=== PATIENT | female | born 1975 | race Hispanic/Latino ===

== ENCOUNTER 2019-12-01 13:12 | Emergency (ER) | payer OTHER ==
[~2019-12-01] VITALS: Ht 170.2 cm; Wt 56.7 kg
[2019-12-01 13:12] VITALS: BP_SYST 118; BP_SYST 128; BP_DIAS 104; BP_DIAS 112
--- NOTE | 2019-12-01 13:25 | NUR ---
FOAMING MACHINE OPERATOR NILTON JAMIL SPOKE TO ANASTACIO EASTMAN. ANASTACIO IS AT BEDSIDE TO VISIT WITH PT.
--- NOTE | 2019-12-01 13:30 | NUR ---
STATUS PT REFUSING FOR ANY MALES TO COME INTO ROOM. INFORMED THAT DR HAWKINS IS A MALE AND HE CAN NOT TREAT UNLESS HE ASSESSES PT. SHE STATES UNDERSTANDING.
[2019-12-01 14:15] VITALS: BP 128/95
--- NOTE | 2019-12-01 14:15 | NUR ---
[facility] JAREN CHARLES IN WITH PATIENT.
[2019-12-01 15:15] VITALS: BP 122/90
--- NOTE | 2019-12-01 15:25 | NUR ---
[facility] CALL TO [facility] HOTLINE.
--- NOTE | 2019-12-01 16:00 | NUR ---
[facility] DELMAR FROM [facility] PHONED FOR INTERVIEW WITH PT. PHONE TAKEN TO PT. PT IS PLEASANT, NO TREMORS NOTED, NOT TEARFUL AT THIS TIME.
[2019-12-01 16:21] VITALS: BP 108/88
--- NOTE | 2019-12-01 17:16 | NUR ---
[facility] DELMAR FROM [facility] HAS CALLED BACK AND SAID PT IS OK TO GO HOME ON A PLAN THAT THEY HAVE DISCUSSED.
--- NOTE | 2019-12-01 17:18 | NUR ---
STATUS SPOKE WITH PT, SHE CONTINUES TO NOT WANT TO BE SEEN BY EDP. HAVE VOICED THIS TO EDP. AWAITING EMAIL FROM TP.
== END 2019-12-01 17:55 ==
LOC: ER 13:12
DX: F41.9 Anxiety disorder, unspecified (principal); Z53.21 Procedure and treatment not carried out due to patient leaving prior to being seen by health care provider
CPT/HCPCS: 99281

== ENCOUNTER 2019-12-30 12:49 | Observation (INO) | payer OTHER ==
[~2019-12-30] VITALS: Ht 172.7 cm; Wt 49.9 kg
[2019-12-30 13:47] VITALS: BP 169/124
[2019-12-30 13:58] LABS: BASOPHIL # 0.1 10^3/uL (0.0-0.1); BASOPHIL % 0.9 % (0.0-0.2); EOSINOPHIL # 0.1 10^3/uL (0.0-0.2); EOSINOPHIL % 0.5 % (0.0-5.0); LYMPHOCYTES # 2.21 10^3/uL1 (1.0-4.8); LYMPHOCYTES % 17.1 % (24.0-44.0); MEAN CORP HGB 33.4 pg (26-34); MONOCYTES # 0.6 10^3/uL (0.3-0.8); MONOCYTES % 4.6 % (5.0-12.0); NEUTROPHIL # 9.9 10^3/uL (1.8-7.7); NEUTROPHILS % 76.7 % (41.0-85.0); PLATELET COUNT 345 10^3/uL (150-400); RED CELL DISTRIBUTION WIDTH 12.1 % (11.5-14.5)
[2019-12-30 14:06] LABS: APPEARANCE,URINE CLEAR (CLEAR); BILIRUBIN,URINE SMALL MG/DL (NEGATIVE); UA COLOR YELLOW (YELLOW)
[2019-12-30 14:07] LABS: UROBILINOGEN,URINE NORMAL (NEGATIVE)
[2019-12-30] MEDS ORDERED: ATIVAN IV STA (14:20)
[2019-12-30] MEDS ORDERED: TORADOL IV STA (14:20)
[2019-12-30 14:22] LABS: CALCIUM 9.9 mg/dL (8.4-10.5); CARBON DIOXIDE 24.2 mmol/L (20.0-32)
--- NOTE | 2019-12-30 14:22 | ER.PDOC ---
General Chief Complaint: Abdomen Pain Stated Complaint: ABD PAIN/NAUSEA/FEMALE Time seen by MD: 14:17 Source: patient Exam Limitations: no limitations History of Present Illness Initial Comments Patient c/o 2 days left flank pain radiating to LLQ Severity/Quality: severe, aching, sharpness, stabbing Radiation: LLQ Associated Symptoms: back pain Allergies: Coded Allergies: Opioids-Meperidine and Related (Verified Allergy, Unknown, unk, 12/01/19) Penicillins (Verified Allergy, Unknown, unk, 12/01/19) Sulfa (Sulfonamide Antibiotics) (Verified Allergy, Unknown, unk, 12/01/19) Vital Signs First Vital Signs Date Time Temp Pulse Resp B/P (MAP) Pulse Ox O2 Delivery O2 Flow Rate FiO2 12/30/19 13:47 97.0 132 20 169/124 (139) 100 Room Air Last Vital Signs Date Time Temp Pulse Resp B/P (MAP) Pulse Ox O2 Delivery O2 Flow Rate FiO2 12/30/19 13:47 97.0 132 20 100 12/30/19 13:47 169/124 (139) Room Air Past Medical History Medical History: other (recurrent kidney stones requiring surgical intervention) Surgical History: other (multiple interventions for kidney stones) Family History Significant Family History: no pertinent family hx Social History Smoking: non-smoker Alcohol Use: none Drug Use: none Constitutional: no symptoms reported EENTM: no symptoms reported Respiratory: no symptoms reported Cardiovascular: no symptoms reported Gastrointestinal: no symptoms reported Genitourinary: flank pain Musculoskeletal: no symptoms reported Skin: no symptoms reported Psychiatric/Neurological: no symptoms reported All Other Systems: Reviewed and Negative Physical Exam General Appearance: Mild Distress (appears acutely uncomfortable) HEENT: PERRL/EOMI, Normal ENT Inspection Neck: Non-Tender, Supple Respiratory: lungs clear, normal breath sounds, no respiratory distress, no accessory muscle use Cardiovascular: Regular Rate, Rhythm, No Murmur Gastrointestinal: Normal Bowel Sounds, Non Tender Back: CVA Tenderness (L) Extremities: Non-Tender, Normal Inspection, No Pedal Edema, No Calf Tenderness Neurologic/Psychiatric: Alert, Normal Mood/Affect, Oriented x 3 Skin: Normal Color, Warm/Dry Results/Orders Results/Orders Orders - LEONELA SRIVASTAVA DO Cbc With Auto Diff (12/30/19 13:51) Comprehensive Metabolic Panel (12/30/19 13:51) PT (12/30/19 13:51) Partial Thromboplastin Time. (12/30/19 13:51) Urinalysis (12/30/19 13:51) Hcg, Quantitative (12/30/19 13:51) Ct Abd/Pelvis Wo Iv Contrast (12/30/19 13:51) Urine Culture (12/30/19 13:24) Ketorolac Tromethamine (Toradol) (12/30/19 14:20) Lorazepam (Ativan) (12/30/19 14:20) Levofloxacin 500mg/D5w 100ml (Levaquin) (12/30/19 15:19) Diphenhydramine Hcl (Benadryl) (12/30/19 15:19) Dexamethasone Sodium Phosphate (Decadron (12/30/19 15:19) Fentanyl Citrate/Pf (Sublimaze) (12/30/19 15:19) 0.9 % Sodium Chloride (Ns 1000ml) (12/30/19 15:30) Vital Signs Date Time Temp Pulse Resp B/P (MAP) Pulse Ox O2 Delivery O2 Flow Rate FiO2 12/30/19 13:47 97.0 132 20 100 12/30/19 13:47 97.0 132 20 12/30/19 13:47 97.0 132 20 169/124 (139) 100 Room Air Administered Medications Medications (Trade) Dose Ordered Sig/Luis Route PRN Reason Start Time Stop Time Status Last Admin Dose Admin Ketorolac Tromethamine (Toradol) 30 mg STAT STAT IV 12/30/19 14:20 12/30/19 14:21 UNV 12/30/19 14:37 30 MG Lorazepam (Ativan) 1 mg STAT STAT IV 12/30/19 14:20 12/30/19 14:21 UNV 12/30/19 14:37 1 MG Laboratory Tests Test 12/30/19 13:24 12/30/19 13:48 Urine Collection Type UNKNOWN Urine Color YELLOW (YELLOW) Urine Appearance CLEAR (CLEAR) Urine Bilirubin SMALL MG/DL (NEGATIVE) Urine Ictotest NEGATIVE (NEGATIVE) Urine Ketones TRACE (NEGATIVE) Urine Specific [place] >1.030 (1.005-1.035) Urine pH 5.5 (5.0-6.0) Urine Protein 30 mg/dL (NEGATIVE) H Urine Urobilinogen NORMAL (NEGATIVE) Urine Nitrate NEGATIVE (NEGATIVE) Urine Leukocyte Esterase 25 /uL TRACE (NEGATIVE) Urine Blood LARGE (NEGATIVE) Urine RBC 5-10 RBC/HPF (NONE SEEN) H Urine WBC 0-2 WBC/HPF (0-2) Urine Squamous Epithelial Cells RARE #/HPF (FEW) Urine Bacteria RARE (NONE SEEN) Urine Glucose NORMAL (NEGATIVE) White Blood Count 12.9 10^3/uL (4.5-11.0) H Red Blood Count 4.76 10^6/uL (4.00-5.20) Hemoglobin 15.9 g/dL (12.0-15.0) H Hematocrit 46.0 % (36.0-46.0) Mean Corpuscular Volume 96.6 fL (78-100) Mean Corpuscular Hemoglobin 33.4 pg (26-34) Mean Corpuscular Hemoglobin Concent 34.6 g/dL (33-36.5) Red Cell Distribution Width 12.1 % (11.5-14.5) Platelet Count 345 10^3/uL (150-400) Mean Platelet Volume 9.1 fL (7.8-11.0) Neutrophils (%) (Auto) 76.7 % (41.0-85.0) Lymphocytes (%) (Auto) 17.1 % (24.0-44.0) L Monocytes (%) (Auto) 4.6 % (5.0-12.0) L Neutrophils # (Auto) 9.9 10^3/uL (1.8-7.7) H Lymphocytes # (Auto) 2.21 10^3/uL1 (1.0-4.8) Monocytes # (Auto) 0.6 10^3/uL (0.3-0.8) Absolute Immature Granulocyte (auto 0.02 10^3 u/L (0-2) Absolute Eosinophils (auto) 0.1 10^3/uL (0.0-0.2) Immature Granulocytes % 0.20 % (0.00-0.50) Eosinophils % 0.5 % (0.0-5.0) Basophils % 0.9 % (0.0-0.2) H Basophils # 0.1 10^3/uL (0.0-0.1) Prothrombin Time 11.6 SEC (9.3-11.3) H Prothrombin Time INR (Non-Therap) 1.1 Activated Partial Thromboplast Time 27.3 SEC (24.67-30.72) Sodium Level 138 mmol/L (132-145) Potassium Level 5.1 mmol/L (3.6-5.2) Chloride Level 104.0 mmol/L (96-109) Carbon Dioxide Level 24.2 mmol/L (20.0-32) Anion Gap 14.9 Blood Urea Nitrogen 13 mg/dL (7-18) Creatinine 1.21 mg/dL (0.59-1.40) Estimated GFR () 58.8 (>/=60) Est GFR (CKD-EPI)(Non-Afr Chinese) 48.6 (>/=60) BUN/Creatinine Ratio 10.0 Glucose Level 125 mg/dL (70-110) H Calcium Level 9.9 mg/dL (8.4-10.5) Total Bilirubin 0.8 mg/dL (0.2-1.0) Aspartate Amino Transferase (AST) 34 U/L (0-35) Alanine Aminotransferase (ALT) 14 U/L (12-78) Alkaline Phosphatase 60 U/L (50-136) Total Protein 8.7 g/dL (6.4-8.2) H Albumin 4.4 g/dL (3.4-5.0) Globulin 4.3 Albumin/Globulin Ratio 1.023 Human Chorionic Gonadotropin, Quant 8 mIU/mL EKG/XRAY/CT/US CT Comments: two distal ureteric stones 5mm with mod/severe hydroureteronephrosis L Consult/PCP Time Consult/PCP Called: 15:17 Consult/PCP: Dr. Beltran Reason/Comments: left message with office for callback #2 Time Consult/PCP Called: 15:20 Consult/PCP: Dr. Beltran Reason/Comments: admit to hospitalist; surgery in am #3 Time Consult/PCP Called: 15:25 Consult/PCP: Dr. Senior Reason/Comments: admit ER DEPART Departure Time of Disposition: 15:25 Disposition: 09 ADMITTED INPATIENT Impression: Primary Impression: Ureteral obstruction, left Additional Impressions: Ureteral calculi Hydroureteronephrosis Condition: Improved Referrals: PCP,UNKNOWN (PCP) PRIMARY CARE PROVIDER Duration or Time Spent with Pa: 20 min Problem Qualifiers LEONELA SRIVASTAVA DO Dec 30, 2019 14:22
--- NOTE | 2019-12-30 14:35 | DIREP ---
This report includes an Addendum and supersedes previous reports for this exam. PROCEDURE:CT ABDOMEN/PELVIS W/O CONTRAST COMPARISON:None. INDICATIONS:KIDNEY PAIN TECHNIQUE:Axial images were created through the abdomen and pelvis without intravenous contrast material. No oral contrast was administered. Sagittal and coronal reconstructions were performed from source images. The study was reviewed on abdominal, lung, liver and bone windows. FINDINGS: LUNG BASES:Normal. No visible pulmonary or pleural disease. The lung bases are clear. No ground-glass infiltrates are seen to suggest viral pneumonitis. No air bronchograms or effusions are seen. LIVER:Note is made of a low-density lesion in the right lobe of the liver, close to the diaphragm as seen on image number 9, series 2, measuring approximately 2.1 x 1.8 cm in size. A follow-up hepatic sonogram is recommended. BILIARY:Normal. No visible dilatation or calcification. PANCREAS:Normal. No lesion, fluid collection, ductal dilatation, or atrophy. SPLEEN:Normal. No enlargement or focal lesion. ADRENALS:Normal. No mass or enlargement. URINARY TRACT:There are at least 2 stones identified in the distal pelvic segment of the left ureter, proximal to the left UVJ. The are best identified on images number 95 through 100. The stones measure about 5 x 4 and 5 mm in size respectively. Moderate to severe left-sided hydronephrosis and hydroureter. There are additional nonobstructing left renal stones seen in the upper and lower pole of the left kidney. Small calcifications also seen in the inferior pole of the right kidney. The right kidney is slightly lower as compared to the left kidney. AORTA/VASCULAR:Normal. No aneurysm. RETROPERITONEUM:Normal. No mass or adenopathy. BOWEL/MESENTERY:Normal. There is no intestinal obstruction, free fluid, free air or mesenteric inflammatory changes. The appendix is visualized on coronal image number 58, sagittal image number 40 and transaxial image number 101. No pericecal inflammatory changes are seen. No diverticulitis, free air or free fluid is seen. Stomach is distended with air-fluid level. No small bowel obstruction is seen. No free air or free fluid is identified. ABDOMINAL WALL:Normal. No mass or hernia. Midline incision noted in the lower abdomen, PELVIC ORGANS:The uterus appears to be anteverted. No adnexal masses are seen BONES:Normal for age. No bony lesion or acute fracture. OTHER:Negative. CONCLUSION: There are 2 distal pelvic segment ureteric stone seen averaging about 5 mm in size with moderate to severe left-sided hydronephrosis and hydroureter. Two renal stones on the left side and at least 1, possibly 2 renal stones, in the right kidney without evidence for obstruction to the right kidney. No ground-glass infiltrates in the lungs. No evidence for cholelithiasis, cholecystitis or pancreatitis. Appendix has been visualized. No acute appendicitis, diverticulitis, free air or free fluid is seen. Mild constipation. Dictated by: Jake Castro MD on 12/30/2019 at 02:28 PM NDUM: A low-density lesion identified in the right lobe of the liver, close to the diaphragm, dimensions as above. Recommend a follow-up hepatic sonogram. - RM. Dictated by: Jake Castro MD on 12/30/2019 at 02:36 PM
[2019-12-30] MEDS ORDERED: DEXAMETHASONE 10 MG/ML VIAL IV STA (15:19)
[2019-12-30] MEDS ORDERED: DECADRON IV STA (15:19)
[2019-12-30] MEDS ORDERED: SUBLIMAZE IV STA (15:19)
[2019-12-30] MEDS ORDERED: LEVAQUIN 100 ML IV STA (15:19)
[2019-12-30] MEDS ORDERED: BENADRYL IV STA (15:19)
--- NOTE | 2019-12-30 15:32 | NUR ---
DR ANGELA SRIVASTAVA ON THE PHONE WITH DR MILLER WHO ACCEPTED THE PT.
[2019-12-30] MEDS ORDERED: NS 1000ML 1,000 ML ONE (15:34)
[2019-12-30] MEDS: NS 1000ML 1,000 ML IV SCH ×2 (15:35→23:08)
--- NOTE | 2019-12-30 16:20 | NUR ---
CASING IN LINE SETTER CASING IN LINE SETTER HERE TO SEE PATIENT
[2019-12-30 16:56] VITALS: BP 152/100
--- NOTE | 2019-12-30 17:24 | PCM.HP ---
History of Present Illness Reason for Visit: (1) Ureteral calculi ICD Code: N20.1 - Calculus of ureter SNOMED: 99222947 Was this Problem Present on Ad: Yes-DX present @time ofIP (2) Hydroureteronephrosis ICD Code: N13.30 - Unspecified hydronephrosis SNOMED: 15567420 Was this Problem Present on Ad: Yes-DX present @time ofIP Hx of Present Illness 44-year-old female presented to [facility] with complaints of left flank pain radiating to abdomen on the left sideWhich has been ongoing for the last 3 days increasing in intensity patient describes brown/red urine. Patient also has associated symptoms of nausea and vomiting as well as diarrhea x2 days denies fever. Patient medical history includes PTSD specifically with males, tobacco use disorder half a pack a day, previous nephrolithiasis. 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 Urology was consulted much appreciated planned procedure in a.m. Past Medical History PMH-Psych: (1) PTSD (post-traumatic stress disorder) Status: Chronic ICD Code: F43.10 - Post-traumatic stress disorder, unspecified SNOMED: 46947446 Psychiatric: Anxiety PMH-Renal/: (1) Ureteral calculi Status: Resolved ICD Code: N20.1 - Calculus of ureter SNOMED: 63655120 Past Social History Past Social Hx:Smoke: (1) Tobacco use disorder Status: Chronic Smoke: <1 pack per day ICD Code: F17.200 - Nicotine dependence, unspecified, uncomplicated SNOMED: 672035492 Travel History EBOLA RISK:Travel to/contact w: No Is pt experiencing any Ebola s: No Review of Systems Eyes: No: Pain, Vision change, Conjunctivae inflammation, Eyelid inflammation, Other, Redness ENT: No: Ear pain, Ear discharge, Nose pain, Nose discharge, Nose congestion, Mouth pain, Mouth swelling, Throat pain, Throat swelling, Other Respiratory: No: Cough, Dry, Shortness of breath, SOB with excertion, Wheezing, Hemoptysis, Pleuritic Pain, Sputum, Wheezing, Other Cardiovascular: No: Chest Pain, Palpitations, Orthopnea, Paroxysmal Noc. Dyspnea, Edema, Lt Headedness, Other Gastrointestinal: Nausea, Vomiting, Abdominal Pain, Diarrhea, Other (Left flank pain) Genitourinary: Dysuria, Frequency; No Incontinence; Hematuria; No Retention, No Other Musculoskeletal: No: other, neck pain, shoulder pain, arm pain, back pain, hand pain, leg pain, foot pain Skin: No: Rash, Lesions, Jaundice, Bruising, Other Neurological: No: Weakness, Numbness, Incoordination, Change in speech, Confusion, Seizures, Other Other Patient anxious with male provider Allergies: Coded Allergies: Opioids-Meperidine and Related (Verified Allergy, Unknown, unk, 12/01/19) Penicillins (Verified Allergy, Unknown, unk, 12/01/19) Sulfa (Sulfonamide Antibiotics) (Verified Allergy, Unknown, unk, 12/01/19) VTE VTE Risk assessment 2 VTE Risk Score VTE Risk: Score 0-1 = Low Risk (Aggressive mobilization; early ambulation; no VTE prophylaxis required) Score 2: Moderate Risk (Intermittent/Pneumatic Compression Device OR Lovenox/Heparin/Coumadin) Score 3-4: High Risk (Intermittent/Pneumatic Compression Device AND Lovenox/Heparin/Coumadin) Score > or =5: Highest Risk (Intermittent/Pneumatic Compression Device AND Lovenox/Heparin/Coumadin) Antico:Hep/LMWH/Coum/Xarelto: No Mechanical device ordered: Yes Reasons not ordering prophylax: Surgical Contraindication Exam Vital Signs Vital Signs Date Time Temp Pulse Resp B/P (MAP) Pulse Ox O2 Delivery O2 Flow Rate FiO2 12/30/19 16:56 97.0 112 20 152/100 (117) 100 Room Air General Appearance: Alert, Oriented X3, Cooperative, No acute distress HEENT: Atraumatic, PERRLA, EOMI, Mucous membr. moist/pink Respiratory: Clear to auscultation, Normal air movement Cardiovascular: Regular rate, Normal S1, Normal S2, No murmurs Abdominal: Normal bowel sounds, Soft, Other (Tenderness from left flank to left side of umbilicus) Extremities: No clubbing, No cyanosis, No edema, Normal pulses Skin: No rash, No breakdown, No lesions Neuro: Normal speech, Normal tone, Sensation intact, Cranial nerves 3-12 NL Psych/Mental Status: Mental status NL, Other (Anxiety) Assessment/Plan Assessment/Plan Assessment/Plan 44-year-old female presented to [facility] with medical history PTSD, previous kidney stones and tobacco use denies drugs and alcohol. Patient symptoms initiated 3 days ago with faint left flank pain that continues to increase she rates 8 out of 10 pain sharp and stabbing with radiation to left abdomen.Renal Function remains unremarkable. CT scan revealed 2 distal ureter stones 5 mm in size with hydroureter And hydronephrosis. Urology has been consulted much appreciated planned procedure in a.m. Noted 2 stones on the right side on the CT scan however no obstruction.CT also determined a low-density lesion identified in the right lobe of the liver, close to the diaphragm, dimensions as above. Recommend a follow-up hepatic sonogram As an outpatient. Ureterolithiasis With Hydroureter and Hydronephrosis Urology has been consulted much appreciated planned procedure in a.m. with cysto scopy N.p.o. Will initiate ceftriaxone IV fluid Flomax Chronic illnesses: PTSD/Anxiety Continue home medications Ativan PRN and 1 hour before procedure Tobacco use disorder Counseled the patient on tobacco cessation will utilize patch every 24 hours LUIS HUGHES NP Dec 30, 2019 17:24
[2019-12-30] MEDS ORDERED: FLOMAX PO STA ×2 (17:34→21:58)
[2019-12-30] MEDS ORDERED: NICOTINE 14MG PATCH TD STA ×2 (17:44→21:59)
[2019-12-30] MEDS ORDERED: ULTRAM PO PRN (19:30)
[2019-12-30] MEDS ORDERED: REMERON PO SCH (21:00)
[2019-12-30] MEDS: MORPHINE SULFATE IV PRN (22:00)
[2019-12-30] MEDS: BENADRYL IV PRN (22:00)
[2019-12-30] MEDS: ATIVAN IV PRN (22:00)
[2019-12-30] MEDS ORDERED: DEXAMETHASONE 10 MG/ML VIAL ONE (22:25)
[2019-12-30] MEDS: DITROPAN PO SCH (22:51)
[2019-12-30 23:14] VITALS: BP 160/100
--- NOTE | 2019-12-31 02:45 | DIREP ---
PROCEDURE:CHEST 1 VIEW COMPARISON:[facility], CT, CT ABD/PELVIS W/O, 12/30/2019, 02:17 PM. INDICATIONS:Pre op FINDINGS: LUNGS/PLEURA:No significant pulmonary parenchymal abnormalities. No effusions. VASCULATURE:Normal. Unremarkable pulmonary vasculature. CARDIAC:Normal. No cardiac silhouette abnormality or cardiomegaly. MEDIASTINUM:Normal. No visible mass or adenopathy. BONES:Normal. No fracture or visible bony lesion. OTHER:Negative. CONCLUSION:No active cardiopulmonary disease. Dictated by: Jeremiah Chavarria M.D. on 12/31/2019 at 02:42 AM
[2019-12-31] MEDS: MORPHINE SULFATE IV PRN ×2 (04:18→09:52)
[2019-12-31] MEDS: BENADRYL IV PRN ×2 (04:19→09:51)
[2019-12-31] MEDS ORDERED: ZOFRAN ONE (05:20)
[2019-12-31] MEDS ORDERED: LOPRESSER ONE (05:23)
[2019-12-31 06:52] LABS: BASOPHIL % 0.1 % (0.0-0.2); LYMPHOCYTES # 0.82 10^3/uL1 (1.0-4.8); LYMPHOCYTES % 7.1 % (24.0-44.0); MEAN CORP HGB 33.6 pg (26-34); MONOCYTES # 0.5 10^3/uL (0.3-0.8); MONOCYTES % 4.2 % (5.0-12.0); NEUTROPHIL # 10.1 10^3/uL (1.8-7.7); NEUTROPHILS % 88.3 % (41.0-85.0); PLATELET COUNT 320 10^3/uL (150-400); RED CELL DISTRIBUTION WIDTH 12.1 % (11.5-14.5)
[2019-12-31 07:19] LABS: CARBON DIOXIDE 22.6 mmol/L (20.0-32)
[2019-12-31] MEDS: NS 1000ML 1,000 ML IV SCH (07:30)
--- NOTE | 2019-12-31 08:21 | PCM.EKG ---
[facility] Test Date: 2019-12-31 Test Time: 08:17:22 Pat Name: IGNACIO DENNEY Department: Patient ID: [id number] Room: 234 B Gender: F Power Originator: JENNA : 1975 Requested By: LUIS HUGHES Order Number: [id number] Reading MD: Gordon Simpson Measurements Intervals [place] Rate: 65 P: 82 WY: 118 QRS: 38 QRSD: 98 T: 61 QT: 436 QTc: 454 Interpretive Statements Sinus rhythm Borderline short [place] interval RSR' in V1 or V2, probably normal variant No previous ECG available for comparison Electronically Signed On 01-06-2020 17:36:39 VACUUM FRAME OPERATOR by Gordon Tatiana Please click the below link to view image of tracing.
--- NOTE | 2019-12-31 08:30 | NUR ---
DISCHARGE UPDATE CM SPOKE WITH PT AT BEDSIDE. SHE WAS NOT WILLING TO GIVE PERSONAL INFORMATION ABOUT WHERE SHE WAS STAYING OR HER PERSONAL HISTORY. 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 I DO NOT WANT TO BE ALONE WITH A MALE IN THE ROOM AT ANY TIME. IT AFFECTS MY PTSD." CM NOTIFIED NURSING AND LUIS GRANTS ADMINISTRATOR OF PT'S REQUEST.
[2019-12-31] MEDS ORDERED: NICOTINE 14MG PATCH TD SCH (09:00)
[2019-12-31] MEDS: DITROPAN PO SCH (09:00)
[2019-12-31] MEDS ORDERED: FLOMAX PO SCH (09:00)
[2019-12-31 09:45] VITALS: BP 143/76
[2019-12-31] MEDS: ATIVAN IV PRN (09:53)
[2019-12-31] MEDS ORDERED: TORADOL IV ONE (11:00)
[2019-12-31] MEDS ORDERED: ROCEPHIN 1,000 MG in NS 100ML 100 ML IV ONE (11:00)
[2019-12-31] MEDS ORDERED: ROCEPHIN IM ONE (11:30)
[2019-12-31] MEDS ORDERED: TRAM50TA PO (12:59)
[2019-12-31] MEDS ORDERED: TAMS-14 PO (13:11)
[2019-12-31] MEDS ORDERED: CIPR500T86 PO (13:12)
--- NOTE | 2019-12-31 13:58 | PRM.DC ---
Subjective Subjective Date of Discharge: Dec 31, 2019 Time of Request to Discharge: 13:51 Subjective No acute events overnight, vital signs stable patient did pass 2 kidney stones. Urology recommend discharge with antibiotics Flomax and is well as pain control with tramadol. Follow-up with PCP and neurology within 1 week. Constitutional: denies no symptoms reported, denies see HPI, denies chills, denies diaphoresis, denies fever, denies malaise, denies weakness, denies other EENTM: denies no symptoms reported, denies see HPI, denies eye pain, denies blurred vision, denies tearing, denies double vision, denies ear pain, denies ear discharge, denies nose pain, denies nose congestion, denies throat pain, denies throat swelling, denies mouth pain, denies mouth swelling, denies other Respiratory: denies no symptoms reported, denies see HPI, denies cough, denies orthopnea, denies shortness of breath, denies SOB with exertion, denies SOB at rest, denies stridor, denies wheezing, denies other Cardiovascular: denies no symptoms reported, denies see HPI, denies chest pain, denies edema, denies irregular heart rate, denies lightheadedness, denies palpitations, denies syncope, denies other ABD/GI (ROS): denies no symptoms reported, denies see HPI, denies abdomen distended, denies abdominal pain, denies blood streaked bowels, denies constipated, denies diarrhea, denies difficulty swallowing, denies nausea, denies poor appetite, denies poor fluid intake, denies rectal bleeding, denies vomiting, denies other Genitourinary: see HPI, dysuria, flank pain Musculoskeletal: denies no symptoms reported, denies see HPI, denies back pain, denies gout, denies joint pain, denies joint swelling, denies muscle pain, denies muscle stiffness, denies neck pain, denies other Skin: denies no symptoms reported, denies see HPI, denies change in color, denies change in hair/nails, denies dryness, denies lesions, denies lumps, denies rash, denies other Psychiatric/Neurological: denies no symptoms reported, denies see HPI, denies anxiety, denies depressed, denies emotional problems, denies headache, denies numbness, denies paresthesia, denies pre-existing deficit, denies seizure, denies tingling, denies tremors, denies weakness, denies other Endocrine: denies no symptoms reported, denies see HPI, denies excessive sweating, denies flushing, denies intolerance to cold, denies intolerance to heat, denies increased hunger, denies increased thrist, denies increased urine, denies unexplained weight gain, denies unexplaned weight loss, denies other Hematologic/Lymphatic: denies no symptoms reported, denies see HPI, denies anemia, denies blood clots, denies easy bleeding, denies easy bruising, denies swollen glands, denies other All Other Systems: Reviewed and Negative Exam Vital Signs Vital Signs Date Time Temp Pulse Resp B/P (MAP) Pulse Ox O2 Delivery O2 Flow Rate FiO2 12/31/19 09:58 18 100 12/31/19 03:25 Room Air 12/30/19 23:14 97.3 62 160/100 (120) General Appearance: Alert, Oriented X3, Cooperative, No acute distress HEENT: Atraumatic, PERRLA, EOMI Respiratory: Clear to auscultation, Normal air movement Cardiovascular: Regular rate, Normal S1, Normal S2 Abdominal: Normal bowel sounds, Soft, Other (Left flank and abdomen) Extremities: No clubbing, No cyanosis Neuro: Normal speech Psych/Mental Status: Mood NL VTE VTE Risk Score VTE Risk: Score 0-1 = Low Risk (Aggressive mobilization; early ambulation; no VTE prophylaxis required) Score 2: Moderate Risk (Intermittent/Pneumatic Compression Device OR Lovenox/Heparin/Coumadin) Score 3-4: High Risk (Intermittent/Pneumatic Compression Device AND Lovenox/Heparin/Coumadin) Score > or =5: Highest Risk (Intermittent/Pneumatic Compression Device AND Lovenox/Heparin/Coumadin) Antico:Hep/LMWH/Coum/Xarelto: No Mechanical device ordered: Yes Reasons not ordering prophylax: Surgical Contraindication Objective Vitals and I/O Vital Sign - Last 24 Hours 12/30/19 12/30/19 12/31/19 12/31/19 16:56 23:14 03:25 09:58 Temp 97.0 97.3 Pulse 112 62 Resp 18 18 B/P (MAP) 152/100 (117) 160/100 (120) Pulse Ox 100 100 100 O2 Delivery Room Air Room Air Room Air Intake and Output 12/31/19 06:59 Intake Total 860 ml Balance 860 ml General: Alert, Oriented X3, Cooperative, No acute distress HEENT: Atraumatic, PERRLA, EOMI, Mucous membr. moist/pink Lungs: Clear to auscultation, Normal air movement Heart: Regular rate, Normal S1, Normal S2, No murmurs Abdomen: Normal bowel sounds, Soft, Other (Tenderness from left flank to left side of umbilicus) Extremities: No clubbing, No cyanosis, No edema, Normal pulses Neuro: Normal speech, Normal tone, Sensation intact, Cranial nerves 3-12 NL Psych/Mental Status: Mental status NL, Other (Anxiety) All Results(Lab/Rad) Laboratory Tests Test 12/31/19 05:53 White Blood Count 11.5 10^3/uL Red Blood Count 4.22 10^6/uL Hemoglobin 14.2 g/dL Hematocrit 41.6 % Mean Corpuscular Volume 98.6 fL Mean Corpuscular Hemoglobin 33.6 pg Mean Corpuscular Hemoglobin Concent 34.1 g/dL Red Cell Distribution Width 12.1 % Platelet Count 320 10^3/uL Mean Platelet Volume 10.1 fL Neutrophils (%) (Auto) 88.3 % Lymphocytes (%) (Auto) 7.1 % Monocytes (%) (Auto) 4.2 % Neutrophils # (Auto) 10.1 10^3/uL Lymphocytes # (Auto) 0.82 10^3/uL1 Monocytes # (Auto) 0.5 10^3/uL Absolute Immature Granulocyte (auto 0.04 10^3 u/L Absolute Eosinophils (auto) 0.0 10^3/uL Immature Granulocytes % 0.30 % Eosinophils % 0.0 % Basophils % 0.1 % Basophils # 0.0 10^3/uL Sodium Level 139 mmol/L Potassium Level 5.1 mmol/L Chloride Level 107.0 mmol/L Carbon Dioxide Level 22.6 mmol/L Anion Gap 14.5 Blood Urea Nitrogen 14 mg/dL Creatinine 1.21 mg/dL Estimated GFR () 58.8 Est GFR (CKD-EPI)(Non-Afr Marshallese) 48.6 BUN/Creatinine Ratio 11.0 Glucose Level 128 mg/dL Calcium Level 10.0 mg/dL Total Bilirubin 0.5 mg/dL Aspartate Amino Transf (AST/SGOT) 16 U/L Alanine Aminotransferase (ALT/SGPT) 13 U/L Alkaline Phosphatase 50 U/L Total Protein 7.2 g/dL Albumin 3.8 g/dL Globulin 3.4 Albumin/Globulin Ratio 1.117 Current Medications Medications (Trade) Dose Ordered Sig/Luis Route PRN Reason Start Time Stop Time Status Last Admin Dose Admin Ketorolac Tromethamine (Toradol) 30 mg STAT STAT IV 12/30/19 14:20 12/30/19 17:12 DC 12/30/19 14:37 Lorazepam (Ativan) 1 mg STAT STAT IV 12/30/19 14:20 12/30/19 17:12 DC 12/30/19 14:37 Levofloxacin/ Dextrose 100 ml @ 100 mls/hr STAT STAT IV 12/30/19 15:19 12/30/19 17:12 DC 12/30/19 15:35 Diphenhydramine HCl (Benadryl) 25 mg STAT STAT IV 12/30/19 15:19 12/30/19 17:12 DC 12/30/19 15:34 Fentanyl Citrate (Sublimaze) 50 mcg STAT STAT IV 12/30/19 15:19 12/30/19 17:12 DC 12/30/19 15:35 Sodium Chloride 1,000 ml @ 150 mls/hr Q8H IV 12/30/19 15:30 01/29/20 15:29 12/31/19 07:30 Sodium Chloride 1,000 ml @ ud STK-MED ONCE .ROUTE 12/30/19 15:34 12/30/19 15:36 DC Lorazepam (Ativan) 1 mg Q4HR PRN IV ANXIETY 12/30/19 16:00 01/29/20 15:59 12/31/19 09:53 Tamsulosin HCl (Flomax) 0.4 mg DAILY PO 12/31/19 09:00 01/30/20 08:59 12/31/19 09:53 Tamsulosin HCl (Flomax) 0.4 mg STAT STAT PO 12/30/19 17:34 12/30/19 18:07 DC 12/30/19 22:50 Oxybutynin Chloride (Ditropan) 5 mg BID PO 12/30/19 21:00 01/29/20 20:59 12/31/19 09:00 Nicotine (Nicotine 14mg Patch) 1 each DAILY TD 12/31/19 09:00 01/30/20 08:59 Nicotine (Nicotine 14mg Patch) 1 each STAT STAT TD 12/30/19 17:44 12/30/19 18:07 DC Mirtazapine (Remeron) 15 mg HS PO 12/30/19 21:00 01/29/20 20:59 12/30/19 20:53 Tramadol HCl (Ultram) 50 mg Q4HR PRN PO PAIN 4 - 6 12/30/19 19:30 01/29/20 19:29 Morphine Sulfate (Morphine Sulfate) 2 mg Q4H PRN IV PAIN 4 - 6 12/30/19 19:30 01/29/20 19:29 12/31/19 09:52 Diphenhydramine HCl (Benadryl) 25 mg Q6HR PRN IV ITCHING 12/30/19 19:30 01/29/20 19:29 12/31/19 09:51 Tamsulosin HCl (Flomax) 0.4 mg STAT STAT PO 12/30/19 21:58 12/30/19 22:00 DC 12/30/19 23:00 Nicotine (Nicotine 14mg Patch) 1 each STAT STAT TD 12/30/19 21:59 12/30/19 22:00 DC 12/30/19 22:51 Ondansetron HCl (Zofran) 4 mg STK-MED ONCE .ROUTE 12/31/19 05:20 12/31/19 06:38 DC Metoprolol Tartrate (Lopresser) 5 mg STK-MED ONCE .ROUTE 12/31/19 05:23 12/31/19 06:38 DC Ceftriaxone Sodium 1000 mg/ Sodium Chloride 100 ml @ 100 mls/hr OT ONCE IV 12/31/19 11:00 12/31/19 11:15 DC Ketorolac Tromethamine (Toradol) 30 mg OT ONCE IV 12/31/19 11:00 12/31/19 11:44 DC 12/31/19 12:49 Ceftriaxone Sodium (Rocephin) 1,000 mg OT ONCE IM 12/31/19 11:30 12/31/19 11:44 DC 11/19/20 12:48 Medication Reconciliation Scheduled Ciprofloxacin Hcl (Cipro), 1 TAB PO BID, (Reported) Tamsulosin Hcl (Flomax), 1 CAP PO DAILY, (Reported) Tramadol Hcl (Tramadol Hcl), 1 TAB PO Q4H, (Reported) Plan Assessment 44-year-old female presented to [facility] with medical history PTSD, previous kidney stones and tobacco use denies drugs and alcohol. Patient symptoms initiated 3 days ago with faint left flank pain that continues to increase she rates 8 out of 10 pain sharp and stabbing with radiation to left abdomen.Renal Function remains unremarkable. CT scan revealed 2 distal ureter stones 5 mm in size with hydroureter And hydronephrosis. Urology has been consulted much appreciated planned procedure in a.m. Noted 2 stones on the right side on the CT scan however no obstruction.CT also determined a low-density lesion identified in the right lobe of the liver, close to the diaphragm, dimensions as above. Recommend a follow-up hepatic sonogram As an outpatient. 12/31/2019-patient did pass 2 stones this morning urology recommended discharge with antimicrobial therapy and pain control with tramadol as well as Flomax. Recommend increased p.o. intake follow-up with PCP and urology within 1 week. Okay to discharge home. CT also determined a low-density lesion identified in the right lobe of the liver, close to the diaphragm, dimensions 2.1 x 1.8 cm in size. Recommend a follow-up hepatic sonogram As an outpatient With PCP Ureterolithiasis With Hydroureter and Hydronephrosis Urology has been consulted much appreciated planned procedure in a.m. with cystoscopy-Procedure canceled patient passed stones without surgical intervention N.p.o. Will initiate ceftriaxone IV fluid Flomax Chronic illnesses:Continue home medications PTSD/Anxiety Continue home medications Ativan PRN and 1 hour before procedure Tobacco use disorder Counseled the patient on tobacco cessation will utilize patch every 24 hours Plan My Orders - LUIS HUGHES NP Procedure Category Date Status Time Calf Scd's On Prior PHYORDERS 12/30/19 Transmitted To Or. 17:34 Rt Incentive GLENN 12/30/19 Transmitted Spirometry 17:34 Xr Chest 1v RAD 12/30/19 Resulted 17:34 Tamsulosin Hcl PHA 12/31/19 In Process (Flomax) 09:00 Tamsulosin Hcl PHA 11/18/20 Complete (Flomax) 17:34 Oxybutynin Chloride PHA 12/30/19 In Process (Ditropan) 21:00 Nicotine (Nicotine PHA 12/31/19 In Process 14mg Patch) 09:00 Nicotine (Nicotine PHA 12/30/19 Complete 14mg Patch) 17:44 Mirtazapine (Remeron) PHA 12/30/19 In Process 21:00 Tramadol Hcl (Ultram) PHA 12/30/19 In Process 19:30 Diphenhydramine Hcl PHA 12/30/19 In Process (Benadryl) 19:30 Morphine Sulfate PHA 12/30/19 In Process (Morphine Sulfate) 19:30 Tamsulosin Hcl PHA 12/30/19 Complete (Flomax) 21:58 Nicotine (Nicotine PHA 12/30/19 Complete 14mg Patch) 21:59 Ekg-Routine EKG 12/31/19 Complete 07:59 LUIS HUGHES NP Dec 31, 2019 13:58
[2019-12-31 14:20] VITALS: BP 141/78
--- NOTE | 2019-12-31 15:30 | NUR ---
PT DISCHARGED TO HOME INT D/SHADY FOLLOW UP INSTRUCTIONS, RX, AND ALL INSTRUCTIONS EXPLAINED TO PT ALL QUESTIONS ANSWERED PT VERBALIZED UNDERSTANDING.
--- NOTE | 2020-01-02 01:08 | PNH ---
DATE: 12/31/2019 This is a 44-year-old white female who was admitted through the Emergency Room last night by the hospitalist because of severe left flank pain. A noncontrast CT scan at that time revealed 2 stones in the left distal ureter around 5 mm in diameter with mild hydronephrosis. The patient was seen today, and I discussed the result of the CT scan with the patient, and this morning, she is still having some left CVA tenderness, and I will try to schedule her later this morning for cystoscopy with left retrograde, possible basket stone extraction with possible stent insertion; however, an hour later, the patient passed the 2 stones according to the nurses. So at this time, we will try to cancel this procedure in the OR and the hospitalist will be discharging here today. Case was discussed with the patient and her son. She will be given an antibiotic of Cipro and tramadol for pain and also Flomax. I told the patient to call the office for further followup. Andres Beltran MD DR: JASON/danny JOB# [id number]
== END 2019-12-31 15:00 | disposition home or self-care (01) ==
LOC: ER 12:49 → MS 15:59
PROVIDERS: ADMIT Family Medicine; ATTEND Urology
DX: N13.2 Hydronephrosis with renal and ureteral calculous obstruction (principal); R11.2 Nausea with vomiting, unspecified; F43.10 Post-traumatic stress disorder, unspecified; F41.9 Anxiety disorder, unspecified; F17.210 Nicotine dependence, cigarettes, uncomplicated; Z53.9 Procedure and treatment not carried out, unspecified reason; Z87.442 Personal history of urinary calculi; Z88.0 Allergy status to penicillin; Z79.899 Other long term (current) drug therapy
CPT/HCPCS: 36415 ×2; 71045; 74176; 76000; 80053 ×2; 81000; 82360; 84702; 85025 ×2; 85610; 85730; 87086; 93005; 96361 ×2; 96365; 96372; 96375; 96376 ×2; 99285; G0378 ×22; J0696 ×2; J1100 ×2; J1200 ×4; J1885 ×2; J1956; J2060 ×3; J2405; J3010; J3490; J7030 ×3; J7050

== ENCOUNTER 2020-03-13 03:02 | Observation (INO) | payer OTHER ==
[~2020-03-13] VITALS: Ht 172.7 cm; Wt 48.5 kg
[2020-03-13] VITALS (22 sets, daily range): BP systolic 125–188; BP diastolic 74–133
[~2020-03-13 03:02] MED LIST: CIPR500T86 PO; TAMS-14 PO; TRAM50TA PO
--- NOTE | 2020-03-13 03:05 | NUR ---
ARRIVAL PT ARRIVED TO ER 6 VIA WHEELCHAIR WITH C/O KIDNEY PAIN. PT STATES SHE IS PASSING A KIDNEY STONE AND THE PAIN STARTED AT 2300 LAST NIGHT. STATES HAS PASSED KIDNEY STONES BEFORE. PT IS NAUSEATED AND WRITHING IN PAIN, UNABLE TO MOVE WITHOUT ASSISTANCE. EDP NOTIFIED OF ARRIVAL.
[2020-03-13] MEDS ORDERED: ZOFRAN IV STA (03:09)
[2020-03-13] MEDS ORDERED: NS 1000ML 1,000 ML IV STA (03:09)
[2020-03-13] MEDS ORDERED: TORADOL IV STA (03:09)
[2020-03-13] MEDS ORDERED: NS 1000ML 1,000 ML ONE ×2 (03:12→12:34)
[2020-03-13] MEDS ORDERED: ZOFRAN ONE (03:12)
[2020-03-13] MEDS ORDERED: TORADOL ONE (03:12)
--- NOTE | 2020-03-13 03:13 | ER.PDOC ---
General Chief Complaint: Requesting Medical Care Stated Complaint: KIDNEY PAIN Time seen by MD: 03:12 Source: patient Exam Limitations: no limitations History of Present Illness Initial Comments Right flank pain Timing/Duration: 4-6 hours Severity/Quality: moderate, sharpness Radiation: RLQ Associated Symptoms: nausea/vomiting Exacerbated by: nothing Relieved By: nothing Allergies: Coded Allergies: Opioids-Meperidine and Related (Verified Allergy, Unknown, unk, 12/01/19) Penicillins (Verified Allergy, Unknown, unk, 12/01/19) Sulfa (Sulfonamide Antibiotics) (Verified Allergy, Unknown, unk, 12/01/19) Home Meds Reported Medications Ciprofloxacin Hcl (CIPRO) 500 Mg Tablet, 1 TAB PO BID for 10 Days, #20 TAB 0 Refills 12/31/19 Tamsulosin Hcl (FLOMAX) 0.4 Mg Cap.er.24h, 1 CAP PO DAILY for 21 Days, #21 CAP 11 Refills 12/31/19 Tramadol Hcl (TRAMADOL HCL) 50 Mg Tablet, 1 TAB PO Q4H for PAIN, #20 TAB 12/31/19 Vital Signs First Vital Signs Date Time Temp Pulse Resp B/P (MAP) Pulse Ox O2 Delivery O2 Flow Rate FiO2 03/13/20 03:16 98.4 69 20 99 03/13/20 03:16 185/115 (138) Room Air Last Vital Signs Date Time Temp Pulse Resp B/P (MAP) Pulse Ox O2 Delivery O2 Flow Rate FiO2 03/13/20 04:21 98.4 81 20 169/126 (140) 99 Room Air Past Medical History Medical History: other (Kidney stone) Surgical History: other Family History Significant Family History: no pertinent family hx Social History Drug Use: none Constitutional: no symptoms reported Respiratory: no symptoms reported Cardiovascular: no symptoms reported Gastrointestinal: see HPI Genitourinary: see HPI Musculoskeletal: no symptoms reported Skin: no symptoms reported All Other Systems: Reviewed and Negative Physical Exam General Appearance: No Apparent Distress, WD/WN Neck: Non-Tender, Full Range of Motion, Supple, Normal Inspection Respiratory: chest non-tender, lungs clear, normal breath sounds, no respiratory distress, no accessory muscle use Cardiovascular: Normal Peripheral Pulses, Regular Rate, Rhythm, No Edema, No Gallop, No JVD, No Murmur Gastrointestinal: Normal Bowel Sounds, No Organomegaly, No Pulsatile Mass, Non Tender, Soft Back: CVA Tenderness (R) Extremities: Normal Range of Motion, Non-Tender, Normal Inspection, No Pedal Edema, No Calf Tenderness, Normal Capillary Refill, Pelvis Stable Neurologic/Psychiatric: customer specialist II-XII NML as Tested, No Motor/Sensory Deficits, Alert, Normal Mood/Affect, Oriented x 3 Skin: Normal Color, Warm/Dry Lymphatic: No Adenopathy Results/Orders Results/Orders Orders - CURTIS HAWKINS MD Cbc With Auto Diff (03/13/20 03:09) Comprehensive Metabolic Panel (03/13/20 03:09) PT (03/13/20 03:09) Partial Thromboplastin Time. (03/13/20 03:09) Urinalysis (03/13/20 03:09) Ct Abd/Pelvis Wo Iv Contrast (03/13/20 03:09) Hcg Qualitative Serum (03/13/20 03:09) Ketorolac Tromethamine (Toradol) (03/13/20 03:09) Ondansetron Hcl/Pf (Zofran) (03/13/20 03:09) 0.9 % Sodium Chloride (Ns 1000ml) (03/13/20 03:09) 0.9 % Sodium Chloride (Ns 1000ml) (03/13/20 03:12) Ondansetron Hcl/Pf (Zofran) (03/13/20 03:12) Ketorolac Tromethamine (Toradol) (03/13/20 03:12) Hydromorphone Hcl (Dilaudid) (03/13/20 03:40) Hydromorphone Hcl (Dilaudid) (03/13/20 03:39) Diphenhydramine Hcl (Benadryl) (03/13/20 03:43) Diphenhydramine Hcl (Benadryl) (03/13/20 03:43) Urine Culture (03/13/20 04:10) 0.9 % Sodium Chloride (Ns 100ml) (03/13/20 04:56) Ceftriaxone Sodium (Rocephin) (03/13/20 04:56) Vital Signs Date Time Temp Pulse Resp B/P (MAP) Pulse Ox O2 Delivery O2 Flow Rate FiO2 03/13/20 04:21 98.4 81 20 169/126 (140) 99 Room Air 03/13/20 03:16 98.4 69 20 03/13/20 03:16 98.4 69 20 185/115 (138) 99 Room Air 03/13/20 03:16 98.4 69 20 99 Administered Medications Medications (Trade) Dose Ordered Sig/Luis Route PRN Reason Start Time Stop Time Status Last Admin Dose Admin Diphenhydramine HCl (Benadryl) 25 mg STAT STAT IV 03/13/20 03:43 03/13/20 03:44 DC 03/13/20 03:46 25 MG Hydromorphone HCl (Dilaudid) 1 mg STAT STAT IV 03/13/20 03:39 03/13/20 03:41 DC 03/13/20 03:46 1 MG Ketorolac Tromethamine (Toradol) 30 mg STAT STAT IV 03/13/20 03:09 03/13/20 03:13 DC 03/13/20 03:19 30 MG Ondansetron HCl (Zofran) 4 mg STAT STAT IV 03/13/20 03:09 03/13/20 03:13 DC 03/13/20 03:20 4 MG Sodium Chloride 1,000 ml @ 1,200 mls/hr Q50M STAT IV 03/13/20 03:09 03/13/20 03:58 DC 03/13/20 03:19 1,200 MLS/HR Laboratory Tests Test 03/13/20 03:12 03/13/20 04:10 White Blood Count 14.6 10^3/uL (4.5-11.0) H Red Blood Count 4.92 10^6/uL (4.00-5.20) Hemoglobin 16.1 g/dL (12.0-15.0) H Hematocrit 47.3 % (36.0-46.0) H Mean Corpuscular Volume 96.1 fL (78-100) Mean Corpuscular Hemoglobin 32.7 pg (26-34) Mean Corpuscular Hemoglobin Concent 34.0 g/dL (33-36.5) Red Cell Distribution Width 13.0 % (11.5-14.5) Platelet Count 342 10^3/uL (150-400) Mean Platelet Volume 9.2 fL (7.8-11.0) Neutrophils (%) (Auto) 71.2 % (41.0-85.0) Lymphocytes (%) (Auto) 22.2 % (24.0-44.0) L Monocytes (%) (Auto) 4.7 % (5.0-12.0) L Neutrophils # (Auto) 10.4 10^3/uL (1.8-7.7) H Lymphocytes # (Auto) 3.24 10^3/uL1 (1.0-4.8) Monocytes # (Auto) 0.7 10^3/uL (0.3-0.8) Absolute Immature Granulocyte (auto 0.03 10^3 u/L (0-2) Absolute Eosinophils (auto) 0.1 10^3/uL (0.0-0.2) Immature Granulocytes % 0.20 % (0.00-0.50) Eosinophils % 0.9 % (0.0-5.0) Basophils % 0.8 % (0.0-0.2) H Basophils # 0.1 10^3/uL (0.0-0.1) Prothrombin Time 12.9 SEC (9.3-11.3) H Prothrombin Time INR (Non-Therap) 1.3 Activated Partial Thromboplast Time 22.3 SEC (24.67-30.72) Sodium Level 144 mmol/L (132-145) Potassium Level 3.8 mmol/L (3.6-5.2) Chloride Level 104.0 mmol/L (96-109) Carbon Dioxide Level 27.1 mmol/L (20.0-32) Anion Gap 16.7 Blood Urea Nitrogen 15 mg/dL (7-18) Creatinine 1.03 mg/dL (0.59-1.40) Estimated GFR () 70.8 (>/=60) Est GFR (CKD-EPI)(Non-Afr German) 58.5 (>/=60) BUN/Creatinine Ratio 14.0 Glucose Level 152 mg/dL (70-110) H Calcium Level 10.9 mg/dL (8.4-10.5) H Total Bilirubin 0.4 mg/dL (0.2-1.0) Aspartate Amino Transferase (AST) 12 U/L (0-35) Alanine Aminotransferase (ALT) 15 U/L (12-78) Alkaline Phosphatase 72 U/L (50-136) Total Protein 8.8 g/dL (6.4-8.2) H Albumin 4.6 g/dL (3.4-5.0) Globulin 4.2 Albumin/Globulin Ratio 1.095 Serum HCG, Qualitative NEGATIVE (NEGATIVE) Urine Collection Type VOID Urine Color YELLOW (YELLOW) Urine Appearance CLEAR (CLEAR) Urine Bilirubin NEGATIVE MG/DL (NEGATIVE) Urine Ketones TRACE (NEGATIVE) Urine Specific [place] >1.030 (1.005-1.035) Urine pH 6.0 (5.0-6.0) Urine Protein NEGATIVE (NEGATIVE) Urine Urobilinogen 0.2 (NEGATIVE) Urine Nitrate NEGATIVE (NEGATIVE) Urine Leukocyte Esterase NEGATIVE (NEGATIVE) Urine Blood MODERATE (NEGATIVE) Urine RBC TNTC RBC/HPF (NONE SEEN) H Urine WBC 5-10 WBC/HPF (0-2) H Urine Squamous Epithelial Cells FEW #/HPF (FEW) Urine Bacteria FEW (NONE SEEN) H Urine Glucose NEGATIVE (NEGATIVE) Progress Progress CT abdomen/pelvis: Distal right obstructing ureteral stone measuring 3 mm. Mild right hydronephrosis and hydroureter. 2. Stable hypodensity in the dome of the liver. While this is stable in size it measures indeterminate density, follow-up in 3-6 months with contrast MRI or triple phase CT may beneficial to confirm stability. ER DEPART Departure Time of Disposition: 05:11 Disposition: 09 ADMITTED INPATIENT Impression: Primary Impression: Ureteral stone with hydronephrosis Additional Impressions: Renal colic on right side UTI (urinary tract infection) PTSD (post-traumatic stress disorder) Condition: Stable Referrals: PCP,UNKNOWN (PCP) PRIMARY CARE PROVIDER Comments Admitted to Dr. Jean Baptiste, spoke with Dr. Beltran who will be consulting. Duration or Time Spent with Pa: 60 min Problem Qualifiers Additional Impressions: UTI (urinary tract infection) Urinary tract infection type: site unspecified Hematuria presence: with hematuria Qualified Codes: N39.0 - Urinary tract infection, site not specified; R31.9 - Hematuria, unspecified CURTIS HAWKINS MD Mar 13, 2020 03:13
[2020-03-13 03:18] LABS: BASOPHIL # 0.1 10^3/uL (0.0-0.1); BASOPHIL % 0.8 % (0.0-0.2); EOSINOPHIL # 0.1 10^3/uL (0.0-0.2); EOSINOPHIL % 0.9 % (0.0-5.0); LYMPHOCYTES # 3.24 10^3/uL1 (1.0-4.8); LYMPHOCYTES % 22.2 % (24.0-44.0); MEAN CORP HGB 32.7 pg (26-34); MONOCYTES # 0.7 10^3/uL (0.3-0.8); MONOCYTES % 4.7 % (5.0-12.0); NEUTROPHIL # 10.4 10^3/uL (1.8-7.7); NEUTROPHILS % 71.2 % (41.0-85.0); PLATELET COUNT 342 10^3/uL (150-400)
[2020-03-13 03:35] LABS: CALCIUM 10.9 mg/dL (8.4-10.5); CARBON DIOXIDE 27.1 mmol/L (20.0-32)
[2020-03-13] MEDS ORDERED: DILAUDID IV STA (03:39)
[2020-03-13] MEDS ORDERED: DILAUDID ONE (03:40)
[2020-03-13] MEDS ORDERED: BENADRYL IV STA (03:43)
[2020-03-13] MEDS ORDERED: BENADRYL ONE (03:43)
--- NOTE | 2020-03-13 03:52 | NUR ---
CT PT TO CT AT THIS TIME.
--- NOTE | 2020-03-13 03:59 | NUR ---
ROOM PT BACK TO ROOM AND CONNECTED TO MONITORS. NO NEEDS AT THIS TIME.
[2020-03-13 04:27] LABS: APPEARANCE,URINE CLEAR (CLEAR); BILIRUBIN,URINE NEGATIVE (NEGATIVE); UA COLOR YELLOW (YELLOW); UROBILINOGEN,URINE 0.2 (NEGATIVE)
--- NOTE | 2020-03-13 04:42 | DIREP ---
PROCEDURE:CT ABD/PELVIS WITHOUT CONTRAST TECHNIQUE:Axial cuts were obtained through the abdomen and pelvis without IV contrast. The images were viewed at lung and soft tissue settings. Sagittal and coronal reconstructions are provided. COMPARISON:[facility], CT, CT ABD/PELVIS W/O, 12/30/2019, 02:17 PM. INDICATIONS:Right flank pain FINDINGS: LOWER CHEST:Centrilobular emphysematous changes. LIVER:Hypodensity in the anterior dome of the liver measuring 1.8 cm, stable from the prior. While this is stable in size it is indeterminate, could possibly be hemangioma. Attention on follow-up. BILIARY:Normal. PANCREAS:Normal. SPLEEN:Normal. URINARY TRACT:Nonobstructing stones bilaterally, largest on the left measuring 5 mm. Mild right hydronephrosis and hydroureter with an obstructing distal left right ureter stone measuring three mm. ADRENALS:Normal. AORTA/VASCULAR:Normal. RETROPERITONEUM:Normal. BOWEL/MESENTERY:Normal. ABDOMINAL WALL:Normal. PELVIS:Normal. BONES:Normal. OTHER:Normal. CONCLUSION: 1. Distal right obstructing ureteral stone measuring 3 mm. Mild right hydronephrosis and hydroureter. 2. Stable hypodensity in the dome of the liver. While this is stable in size it measures indeterminate density, follow-up in 3-6 months with contrast MRI or triple phase CT may beneficial to confirm stability. 3. Follow up findings as above. Dictated by: Jesse Gleason MD on 03/13/2020 at 04:33 AM
--- NOTE | 2020-03-13 04:52 | NUR ---
ANGELA ALVARADO MBA ON PHONE WITH DR. MILLER AT THIS TIME.
[2020-03-13] MEDS ORDERED: NS 100ML 100 ML IV ONE (04:56)
[2020-03-13] MEDS ORDERED: ROCEPHIN ONE (04:56)
--- NOTE | 2020-03-13 05:05 | NUR ---
HOME MEDS PT STATES SHE TAKES MIRTAZAPINE FOR PTSD. SHE IS UNSURE OF THE DOSAGE.
[2020-03-13] MEDS ORDERED: ATIVAN ONE (05:10)
[2020-03-13] MEDS ORDERED: LACTATED RINGERS 1,000 ML IV STA (05:14)
[2020-03-13] MEDS ORDERED: ROCEPHIN 1,000 MG in NS 100ML 100 ML IV STA (05:14)
[2020-03-13] MEDS ORDERED: LACTATED RINGERS 1,000 ML ONE (05:27)
[2020-03-13] MEDS ORDERED: MIRT15TA94 PO (05:35)
--- NOTE | 2020-03-13 05:41 | NUR ---
REPORT CALLED AND GIVEN TO LOULOU RIVERA AT THIS TIME.
--- NOTE | 2020-03-13 07:18 | NUR ---
Received report from Mychal and assumed care of this pt at [id number].
[2020-03-13] MEDS ORDERED: FLOMAX PO STA (08:30)
[2020-03-13] MEDS ORDERED: TYLENOL #3 PO PRN (08:30)
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
[2020-03-13] MEDS: FLOMAX PO SCH ×2 (09:00→10:40)
[2020-03-13] MEDS: PROTONIX PO SCH ×2 (09:00→10:41)
[2020-03-13 09:25] LABS: BASOPHIL # 0.1 10^3/uL (0.0-0.1); BASOPHIL % 0.6 % (0.0-0.2); EOSINOPHIL % 0.3 % (0.0-5.0); LYMPHOCYTES # 2.48 10^3/uL1 (1.0-4.8); MONOCYTES # 0.6 10^3/uL (0.3-0.8); MONOCYTES % 3.7 % (5.0-12.0); NEUTROPHIL # 12.3 10^3/uL (1.8-7.7); NEUTROPHILS % 79.3 % (41.0-85.0); PLATELET COUNT 327 10^3/uL (150-400)
[2020-03-13] MEDS ORDERED: BENADRYL IV PRN (09:30)
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
--- NOTE | 2020-03-13 10:20 | NUR ---
STATUS SON REFUSES TO SIGN CONSENT FOR PROCEDURE WITHOUT TAKING TO DR. MILLER. DR HOLDER NOTIFIED OF REQUEST. STATES "HE CAN TALK TO ME DOWN IN THE OR" SON NOTIFIED. SON REFUSES TO SIGN PROCEDURE CONSENT OR ANESTHESIA CONSENT AND STATES PT IS COMPETENT IN SIGNING HER OWN CONSENTS. PT CONTS TO YELL AT STAFF AND ACCUSE STAFF OF MAKING HER DO THINGS SHE DOES NOT WANT TO DO. PT CONTS TO REFUSE TO SIGN CONSENTS. DR. MILLER MADE AWARE. DR. MILLER STATES TO LET THE HOSPITALIST TAKE OVER CARE AND TRANSFER TO [facility] IF NEEDED. LUIS HUGHES NP ON FLOOR AND SPOKE WITH DR MILLER.
[2020-03-13] MEDS: ATIVAN PO PRN ×2 (10:41→19:53)
[2020-03-13] MEDS: ULTRAM PO SCH ×2 (10:41→19:53)
[2020-03-13] MEDS ORDERED: VERSED ONE (11:01)
[2020-03-13] MEDS ORDERED: KETAMINE HCL-Non-Preferred ONE (11:02)
--- NOTE | 2020-03-13 11:14 | NUR ---
Pt transported to OR by anesthesiologistKaylin, smokehouse worker, and OR nurses Addendum: 03/13/20 at 1626 by KAMALJIT BELLAMY RN, RAC RN 1251- Pt arrived back to room 331. Received report from. Pt BP 188/133, HR 105, RR 21, O2 100%. PACU nurse stated that this pt BP has been elevated and 7mg of hydralazine was administered. NOLVIA Hopson stated that he would order Labetalol. One to One began at this time. 1300 Pt stated that she had to "pee". LOULOU Neely and this RN assisted this pt with the bed dean. 300mL UOP. Addendum: 03/13/20 at 1839 by KAMALJIT BELLAMY RN, RAC RN Pt refusing temperature check at this time
--- NOTE | 2020-03-13 11:15 | NUR ---
Approx. 0700- Pt c/o anxiety and requested medication. RN reported these findings to analisa Harper RN because this pt currently has no medications available. LOULOU Harper will communicate these findings with KIKI. KIKI Hopson along with this female RN went into this pt room to assess her. Mark Anthony asked a series of questions and asked the pt was it ok to listen to her heart and lung sounds. This pt refused. This pt stated that she did not want to have the procedure to remove her kidney stone. KIKI left the room after explaining the risk if she did not get this procedure. Pt c/o being triggered by KIKI Hopson. KIKI Hopson left the room. RN asked this pt what is her trigger. Pt remained silent. RN asked this pt if she was still going to have this procedure. Pt continuously requesting anxiety medication. RN requested anxiety medication from KIKI Hopson and notified him that she did not state whether she would go to surgery. Mark Anthony ordered 0.5mg Ativan PO prn. Approx. 0800- Rn reported to Dr. Beltran that this pt is c/o anxiety and has an order for ativan. RN also reported that this pt has stated that she is not going to surgery. Dr. Beltran requested LOULOU Neely to assist him consent this patient. This RN observed Dr. Beltran educating this pt on the upcoming procedure by drawing a picture of the right kidney, ureter, bladder and where the stone was located. He discussed the procedure and asked if she had any questions. The pt stated that she is anxious and would like an anxiety medication. Addendum: 03/13/20 at 1615 by KAMALJIT BELLAMY RN, BRIA JAMIL Dr. Beltran stated "I need to speak with the anesthesiologist before any medications are given because they could interact with the medication that he will be administering. Approx 0900- Dr. Beltran notifies RN that he wants a CBC stat on this pt. RN notified Lab. Approx 0910 pt request anxiety medication. RN notified pt that the MD has not given permission to give anxiety medications. Pt begins to scream at RN stating "this is like the government. Congress and the senate let the people starve while making decisions on whether to feed them". RN educated the pt on drug interactions and that different medications may cause adverse effects. The pt stated "I have been having stones for years and they have always given me my medication". RN stated that at this time medication cannot be given per Dr. Beltran.
[2020-03-13] MEDS ORDERED: LEVAQUIN 100 ML IV ONE (11:23)
[2020-03-13] MEDS ORDERED: SUBLIMAZE ONE (11:24)
--- NOTE | 2020-03-13 11:57 | NUR ---
PSYCH CONSULT SPOKE WITH LOULOU BEAULIEU IN U CONCERNING PSYCH CONSULT. PT WILL HAVE TO BE EVALUATED BY [facility] ONCE SHE RECOVERS FROM [place]. LUIS HUGHES NP ON FLOOR AND AWARE.
[2020-03-13] MEDS ORDERED: LACTATED RINGERS 1,000 ML IV SCH (12:00)
[2020-03-13] MEDS ORDERED: APRESOLINE ONE (12:01)
--- NOTE | 2020-03-13 12:33 | OPH ---
DATE OF SURGERY: 03/13/2020 PREOPERATIVE DIAGNOSIS: Calculus, right distal ureter with hydronephrosis. FINAL DIAGNOSIS: Calculus, right distal ureter with hydronephrosis. PROCEDURES: Cystoscopy, right retrograde, right ureteroscopy with basket stone extraction and insertion of double-J right ureteral stent. DESCRIPTION OF PROCEDURE: The patient was brought to the cystoscopy room and put in supine position on the cystoscopy table. After the patient was given a satisfactory and adequate IV sedation, the patient was placed in the lithotomy position. The genitalia was then prepped and draped aseptically in the usual manner. First, a 23-Gambian cystoscope was inserted per urethra up to the bladder. With the use of the right angle lens, the bladder was visualized. No tumor, no calculi, no ulcerations seen. An initial right retrograde was done by inserting a 7-Gambian ureteral catheter in the right ureteral orifice and injected with Omnipaque dye and it showed a calculus in the right distal ureter with hydroureteronephrosis. After this, a Glidewire was inserted from the right ureteral orifice all the way to the kidney and the cystoscope was removed. The ureteral dilatation was then performed and then a 7-Gambian semirigid ureteroscope was inserted per urethra up to the bladder then to the right ureteral orifice all the way to the upper ureter and the lower ureter was visualized and there was a stone noted in the right distal ureter and basket stone extraction was then performed. After removal of the stone, the ureteroscope was removed and then a double-J 4.8-Gambian ureteral stent was then inserted through the Glidewire in the bladder to the right ureteral orifice all the way to the right renal pelvis. After this was done, the Glidewire was removed and then a cystoscope was reinserted into the bladder and the bladder was emptied with fluid. Procedure was then terminated. Instrument was removed. The patient was then awakened, was transferred to the recovery room in stable condition. Andres Beltran MD DR: JASON/danny JOB# [id number]
--- NOTE | 2020-03-13 12:47 | DIREP ---
PROCEDURE:XRAY UROGRAPHY RETROGRADE COMPARISON:None. INDICATIONS:STONE TECHNIQUE:Intraoperative fluoroscopic guidance for performance of right retrograde urogram with nephroureteric stent placement. FINDINGS: Intraoperative fluoroscopic guidance for performance of right retrograde urogram demonstrating mild hydroureteronephrosis. There is subsequent placement of a right nephro ureteral stent via retrograde approach [facility] u[facility]. Please refer to surgical notes for additional detail and findings. CONCLUSION: 1. Intraoperative fluoroscopic guidance for performance of right retrograde urogram and placement of a right nephro ureteral stent. Please refer to surgical notes for additional detailed findings. Dictated by: Eric Guy MD on 03/13/2020 at 12:40 PM
[2020-03-13] MEDS ORDERED: DILAUDID IV PRN (13:00)
[2020-03-13] MEDS ORDERED: TRANDATE IV PRN (13:00)
--- NOTE | 2020-03-13 13:13 | CNH ---
DATE OF CONSULTATION: 03/13/2020 This is a 44-year-old female, who was referred for urological evaluation due to severe right flank pain. The patient was admitted in the Emergency Room early this morning. She was admitted by the hospitalist and was transferred to nm for further evaluation. A noncontrast CT scan was done in the Emergency Room, which showed a calculus in the right distal ureter with hydroureteronephrosis. The CBC at that time in the Emergency Room, the white count was up to over 14,000 plus. The patient has severe pain and then I reviewed the case this morning and case was discussed with the patient. I intend to do a cystoscopy, right retrograde ureteroscopy with possible stone extraction or stent insertion and the chart was reviewed and case was discussed with the patient. Andres Beltran MD DR: JASON/danny JOB# [id number]
[2020-03-13] MEDS: ZOFRAN IV PRN ×2 (14:16→19:28)
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
[2020-03-13] MEDS ORDERED: NS 25ML 25 ML IV ONE (14:40)
[2020-03-13] MEDS ORDERED: PHENERGAN IV PRN (15:00)
[2020-03-13] MEDS: NS 1000ML 1,000 ML IV SCH ×2 (15:10→18:05)
--- NOTE | 2020-03-13 15:24 | NUR ---
BP BP 150/109. REPORTED TO NOLVIA HUGHES. NO NEW ORDERS RECEIVED AT THIS TIME. PT RESTING IN BED WITH EYES CLOSED. EQUAL CHEST RISE AND FALL. X2 STAFF AT BEDSIDE. CALL LIGHT WITHIN REACH.
[2020-03-13] MEDS ORDERED: BENADRYL PO PRN (17:30)
[2020-03-13] MEDS ORDERED: HALDOL PO PRN (17:30)
[2020-03-13] MEDS ORDERED: HALDOL ONE (19:50)
[2020-03-13] MEDS ORDERED: REMERON ONE (19:51)
--- NOTE | 2020-03-13 20:44 | NUR ---
call placed to [facility] at 2030 for return call for resource of patient statement earlier shift . patient wanting to leave AMA , visited with patient wants to check on children, she cant get a hold of them question patient of how she getting home will walk , Explain to patient she is a one to one due to statement of wanting to this AM , she stated that she was in pain and did not mean that she really wanted to , does not have a plan of dieing , Doctor Nichole notified of patient wishes patient can leave AMA it is her choice.
--- NOTE | 2020-03-13 20:55 | NUR ---
[facility] called back patient not able to talk to person due to being male , will have female call back
[2020-03-13] MEDS ORDERED: REMERON PO SCH (21:00)
--- NOTE | 2020-03-13 21:58 | NUR ---
[facility] called back visit with patient Ana Luisa Cuellar ,this is a known patient to them , after assessment of patient she is not suicidal or homicidal, dod not want to answer all question for the evaluation , has been on there service in the past , was dismissed a few weeks back due to patient not wanting to work with current rehabilitation caseworker . [facility] intake number given to patient if she wants to reinstate she can . patient will not be recommended for placement , Dr. Varela notified orders received, patient may go AMA , if not well follow orders received Addendum: 03/13/20 at 6627 by Sana Erickson RN RN Ana Luisa Cuellar is the rehabilitation caseworker
[2020-03-13] MEDS ORDERED: GEODON IM ONE (22:00)
--- NOTE | 2020-03-13 22:07 | NUR ---
Patient verbalized wanting to leave facility due to not being able to contact her children. Post several attempts to advice patient to stay for medical care and treatment, patient maintains statement of needing and wanting to leave. Placed call to son via hospital phone @ [phone] with no answer. Charge nurse made aware and call placed to , KATHERINE/[facility] for notification and evaluation of patients status. [facility] personnel spoke with patient and advised charge of evaluation and stated patient is not suicidal at this time and may not hold patient against her will. MD stated patient will have to leave against medical advice if she is requesting to leave. Several more attempts made for patient to stay and still insisted that she had to leave. Vitals assessed and WNL, IV line removed and gauze placed with tape for pressure. AMA form signed and walked with patient through ER for exit.
--- NOTE | 2020-03-13 22:07 | NUR ---
I explain to patient if she goes AMA that she will not get follow up with Dr. Beltran but He would want to she her in two weeks also she would need antibiotics , office number provided to patient .
--- NOTE | 2020-03-13 22:10 | NUR ---
Patient left facility to home by walking stating she lives approx. 30mins away by foot. Patient stated she will return once she knows her kids are safe. She would not feel right as a mother to not check on her children.
--- NOTE | 2020-03-13 22:50 | NUR ---
Placed call to patient to ensure he arrived home safely and she reported that she did. However, she is in a lot of pain and is waiting for her son to bring her back to the hospital now that she knows her kids are safe.
--- NOTE | 2020-03-14 01:37 | NUR ---
late entry Dr. TUCKER was notified of patient leaving [facility] at 2300
--- NOTE | 2020-03-14 07:27 | PRM.DC ---
Subjective Subjective Date of Discharge: Mar 13, 2020 Time of Request to Discharge: 11:36 (11:36 pm ) Subjective This is a late documentation of the events of the day. Patient had stone extracted via cystoscopy. Patient had drug-seeking behavior as well as anxiety. Patient denied any suicidal or homicidal ideation. [facility] [place] interviewed the patient. Patient was not a threat to herself or to anybody else. Patient wanted to sign out AGAINST MEDICAL ADVICE. I had initially ordered Geodon for anxiety. Patient did not get Geodon and signed out AGAINST MEDICAL ADVICE. All the blood work and clinical situation seems to be stable. Exam Vital Signs Vital Signs Date Time Temp Pulse Resp B/P (MAP) Pulse Ox O2 Delivery O2 Flow Rate FiO2 03/13/20 18:51 80 20 125/85 (98) 99 03/13/20 16:29 Room Air 03/13/20 11:59 10 03/13/20 11:49 97.0 VTE VTE Risk Total Score: 1 VTE Risk Score VTE Risk: Score 0-1 = Low Risk (Aggressive mobilization; early ambulation; no VTE prophylaxis required) Score 2: Moderate Risk (Intermittent/Pneumatic Compression Device OR Lovenox/Heparin/Coumadin) Score 3-4: High Risk (Intermittent/Pneumatic Compression Device AND Lovenox/Heparin/Coumadin) Score > or =5: Highest Risk (Intermittent/Pneumatic Compression Device AND Lovenox/Heparin/Coumadin) Antico:Hep/LMWH/Coum/Xarelto: No Mechanical device ordered: Yes Reasons not ordering prophylax: Surgical Contraindication Objective Vitals and I/O Vital Sign - Last 24 Hours 03/13/20 03/13/20 03/13/20 03/13/20 08:22 08:49 11:49 11:49 Temp 97.8 97.0 Pulse 79 93 Resp 18 20 B/P (MAP) 131/95 (107) 157/74 (101) Pulse Ox 98 100 O2 Delivery Room Air Non-Rebreather O2 Flow Rate 10 10 03/13/20 03/13/20 03/13/20 03/13/20 11:59 12:09 12:19 12:29 Pulse 99 82 78 76 Resp 20 20 20 18 B/P (MAP) 161/80 (107) 175/101 (125) 183/117 (139) 162/105 (124) Pulse Ox 100 100 100 100 O2 Delivery Non-Rebreather Room Air Room Air Room Air O2 Flow Rate 10 03/13/20 03/13/20 03/13/20 03/13/20 12:39 12:49 12:51 13:06 Pulse 79 93 105 83 Resp 16 20 21 20 B/P (MAP) 149/91 (110) 148/106 (120) 188/133 (151) 184/108 (133) Pulse Ox 100 100 100 98 O2 Delivery Room Air Room Air 03/13/20 03/13/20 03/13/20 03/13/20 13:21 13:36 13:41 13:42 Pulse 86 88 Resp 18 18 B/P (MAP) 178/98 (124) 171/105 (127) 172/100 (124) 157/100 (119) Pulse Ox 93 98 03/13/20 03/13/20 03/13/20 03/13/20 13:45 16:00 16:29 18:51 Pulse 86 86 79 80 Resp 19 19 17 20 B/P (MAP) 162/102 (122) 130/83 (99) 146/93 (110) 125/85 (98) Pulse Ox 98 97 98 99 O2 Delivery Room Air Intake and Output 03/14/20 07:00 Intake Total 500 ml Output Total 500 ml Balance 0 ml General: Other (Unable to complete physical exam as the patient refuses) HEENT: Atraumatic, PERRLA, EOMI, Mucous membr. moist/pink Lungs: Clear to auscultation, Normal air movement Heart: Regular rate, Normal S1, Normal S2, No murmurs Abdomen: Normal bowel sounds, Soft, Other Extremities: No clubbing, No cyanosis, No edema, Normal pulses Neuro: Normal speech, Normal tone, Sensation intact, Cranial nerves 3-12 NL Psych/Mental Status: Other (Anxious) All Results(Lab/Rad) Laboratory Tests Test 03/13/20 09:15 White Blood Count 15.5 10^3/uL Red Blood Count 4.39 10^6/uL Hemoglobin 14.5 g/dL Hematocrit 42.6 % Mean Corpuscular Volume 97.0 fL Mean Corpuscular Hemoglobin 33.0 pg Mean Corpuscular Hemoglobin Concent 34.0 g/dL Red Cell Distribution Width 13.0 % Platelet Count 327 10^3/uL Mean Platelet Volume 9.5 fL Neutrophils (%) (Auto) 79.3 % Lymphocytes (%) (Auto) 16.0 % Monocytes (%) (Auto) 3.7 % Neutrophils # (Auto) 12.3 10^3/uL Lymphocytes # (Auto) 2.48 10^3/uL1 Monocytes # (Auto) 0.6 10^3/uL Absolute Immature Granulocyte (auto 0.02 10^3 u/L Absolute Eosinophils (auto) 0.0 10^3/uL Immature Granulocytes % 0.10 % Eosinophils % 0.3 % Basophils % 0.6 % Basophils # 0.1 10^3/uL Current Medications Medications (Trade) Dose Ordered Sig/Luis Route PRN Reason Start Time Stop Time Status Last Admin Dose Admin Ketorolac Tromethamine (Toradol) 30 mg STAT STAT IV 03/13/20 03:09 03/13/20 03:13 DC 03/13/20 03:19 Ondansetron HCl (Zofran) 4 mg STAT STAT IV 03/13/20 03:09 03/13/20 03:13 DC 03/13/20 03:20 Sodium Chloride 1,000 ml @ 1,200 mls/hr Q50M STAT IV 03/13/20 03:09 03/13/20 03:58 DC 03/13/20 03:19 Sodium Chloride 1,000 ml @ ud STK-MED ONCE .ROUTE 03/13/20 03:12 03/13/20 03:12 DC Ondansetron HCl (Zofran) 4 mg STK-MED ONCE .ROUTE 03/13/20 03:12 03/13/20 03:12 DC Ketorolac Tromethamine (Toradol) 30 mg STK-MED ONCE .ROUTE 03/13/20 03:12 03/13/20 03:12 DC Hydromorphone HCl (Dilaudid) 2 mg STK-MED ONCE .ROUTE 03/13/20 03:40 03/13/20 03:40 DC Hydromorphone HCl (Dilaudid) 1 mg STAT STAT IV 03/13/20 03:39 03/13/20 03:41 DC 03/13/20 03:46 Diphenhydramine HCl (Benadryl) 25 mg STAT STAT IV 03/13/20 03:43 03/13/20 03:44 DC 03/13/20 03:46 Diphenhydramine HCl (Benadryl) 50 mg STK-MED ONCE .ROUTE 03/13/20 03:43 03/13/20 03:43 DC Sodium Chloride 100 ml @ ud STK-MED ONCE IV 03/13/20 04:56 03/13/20 04:56 DC Ceftriaxone Sodium (Rocephin) 1,000 mg STK-MED ONCE .ROUTE 03/13/20 04:56 03/13/20 04:56 DC Lorazepam (Ativan) 2 mg STK-MED ONCE .ROUTE 03/13/20 05:10 03/13/20 05:11 DC Ceftriaxone Sodium 1000 mg/ Sodium Chloride 100 ml @ 100 mls/hr STAT STAT IV 03/13/20 05:14 03/13/20 06:14 DC 03/13/20 05:14 Lorazepam (Ativan) 0.5 mg Q6HR PRN PO AGITATION 03/13/20 08:30 03/13/20 23:29 DC 03/13/20 19:53 Tamsulosin HCl (Flomax) 0.4 mg STAT STAT PO 03/13/20 08:30 03/13/20 08:31 UNV Tamsulosin HCl (Flomax) 0.4 mg DAILY PO 03/14/20 09:00 04/13/20 08:59 UNV Sodium Chloride 1,000 ml @ 100 mls/hr Q10H IV 03/13/20 08:30 03/13/20 23:29 DC Ondansetron HCl (Zofran) 4 mg Q4H PRN IV NAUSEA / VOMITING 03/13/20 08:30 03/13/20 23:29 DC 03/13/20 19:28 Ceftriaxone Sodium 2000 mg/ Sodium Chloride 100 ml @ 100 mls/hr Q24HRS IV 03/14/20 08:30 03/13/20 12:59 DC Acetaminophen/ Codeine Phosphate (Tylenol #3) 1 each Q4H PRN PO PAIN 4 - 6 03/13/20 08:30 03/13/20 23:29 DC Mirtazapine (Remeron) 15 mg HS PO 03/13/20 21:00 03/13/20 23:29 DC 03/13/20 19:52 Tamsulosin HCl (Flomax) 0.4 mg DAILY PO 03/13/20 09:00 03/13/20 23:29 DC Tramadol HCl (Ultram) 50 mg Q4H PO 03/13/20 08:30 03/13/20 23:29 DC 03/13/20 19:53 Pantoprazole Sodium (Protonix) 40 mg DAILY PO 03/13/20 09:00 03/13/20 23:29 DC Diphenhydramine HCl (Benadryl) 25 mg Q6HR PRN IV ITCHING 03/13/20 09:30 03/13/20 23:29 DC Ketamine HCl (KETAMINE [id number]) 500 mg STK-MED ONCE .ROUTE 03/13/20 11:02 03/13/20 11:03 DC Levofloxacin/ Dextrose 100 ml @ ud STK-MED ONCE IV 03/13/20 11:23 03/13/20 11:24 DC Fentanyl Citrate (Sublimaze) 50 mcg STK-MED ONCE .ROUTE 03/13/20 11:24 03/13/20 11:24 DC Hydralazine HCl (Apresoline) 20 mg STK-MED ONCE .ROUTE 03/13/20 12:01 03/13/20 12:01 DC Levofloxacin/ Dextrose 100 ml @ 100 mls/hr OT ONCE IV 03/14/20 11:30 03/13/20 23:29 DC Sodium Chloride 1,000 ml @ ud STK-MED ONCE .ROUTE 03/13/20 12:34 03/13/20 12:34 DC Labetalol HCl (Trandate) 10 mg Q4H PRN IV HYPERTENSION 03/13/20 13:00 03/13/20 23:29 DC 03/13/20 13:35 Hydromorphone HCl (Dilaudid) 0.5 mg Q4H PRN IV PAIN 7 - 10 03/13/20 13:00 03/13/20 23:29 DC 03/13/20 14:46 Promethazine HCl (Phenergan) 25 mg Q6H PRN IV NAUSEA / VOMITING 03/13/20 15:00 03/13/20 23:29 DC 03/13/20 14:46 Sodium Chloride 25 ml @ ud STK-MED ONCE IV 03/13/20 14:40 03/13/20 14:41 DC Haloperidol (Haldol) 2 mg BID PRN PO AGITATION 03/13/20 17:30 03/13/20 23:29 DC 03/13/20 19:53 Diphenhydramine HCl (Benadryl) 50 mg BID PRN PO JAW STIFFNESS/TENSION 03/13/20 17:30 03/13/20 23:29 DC Haloperidol (Haldol) 0.5 mg STK-MED ONCE .ROUTE 03/13/20 19:50 03/13/20 19:51 DC Mirtazapine (Remeron) 15 mg STK-MED ONCE .ROUTE 03/13/20 19:51 03/13/20 19:51 DC Ziprasidone (Geodon) 20 mg OT ONCE IM 03/13/20 22:00 03/13/20 22:25 DC Medication Reconciliation Scheduled Ciprofloxacin Hcl (Cipro), 1 TAB PO BID, (Reported) Mirtazapine (Mirtazapine), 15 MG PO HS, (Reported) Tamsulosin Hcl (Flomax), 1 CAP PO DAILY, (Reported) Tramadol Hcl (Tramadol Hcl), 1 TAB PO Q4H, (Reported) Plan Plan My Orders - SOM TUCKER MD Procedure Category Date Status Time Midazolam Hcl/Pf PHA 03/13/20 Complete (Versed) 11:01 Ketamine Hcl PHA 03/13/20 Complete (Ketamine 11:02 Levofloxacin PHA 03/13/20 Complete 500mg/D5w 100ml 11:23 Fentanyl Citrate/Pf PHA 03/13/20 Complete (Sublimaze) 11:24 Hydralazine Hcl PHA 03/13/20 Complete (Apresoline) 12:01 0.9 % Sodium Chloride PHA 03/13/20 Complete (Ns 1000ml) 12:34 0.9 % Sodium Chloride PHA 03/13/20 Complete (Ns 25ml) 14:40 Haloperidol (Haldol) PHA 03/13/20 Complete 19:50 Mirtazapine (Remeron) PHA 03/13/20 Complete 19:51 Miscellaneous NURORDERS 03/13/20 Transmitted 21:53 Ziprasidone Mesylate PHA 03/13/20 Complete (Geodon) 22:00 SOM TUCKER MD Mar 14, 2020 07:27
[2020-03-14] MEDS ORDERED: ROCEPHIN 2,000 MG in NS 100ML 100 ML IV SCH (08:30)
[2020-03-14] MEDS ORDERED: FLOMAX PO SCH (09:00)
[2020-03-14] MEDS ORDERED: LEVAQUIN 100 ML IV ONE (11:30)
== END 2020-03-13 22:07 | disposition left against medical advice (07) ==
LOC: ER 03:02 → EEVIPCON 03:02 → MS 05:24
PROVIDERS: ADMIT Family Medicine; ATTEND Urology
DX: N13.2 Hydronephrosis with renal and ureteral calculous obstruction (principal); N39.0 Urinary tract infection, site not specified; F43.10 Post-traumatic stress disorder, unspecified; F29 Unspecified psychosis not due to a substance or known physiological condition; F41.8 Other specified anxiety disorders; R45.851 Suicidal ideations; Z88.0 Allergy status to penicillin; Z79.899 Other long term (current) drug therapy; Z87.442 Personal history of urinary calculi; Z76.5 Malingerer [conscious simulation]; Z91.19 Patient's noncompliance with other medical treatment and regimen
CPT/HCPCS: 36415; 52332; 52351; 74176; 74420; 76000; 80053; 80307; 81000; 82360; 84703; 85025 ×2; 85610; 85730; 87040 ×2; 87086; 96361; 96374; 96375; 96376; 99284; C1769; G0378 ×15; J0360; J0696 ×2; J1170 ×2; J1200; J1885; J1956; J2060; J2250; J2405 ×3; J2550; J3010; J7030 ×2; J7050 ×2; J7120; Q9966; C1758; C1894; C2617; J3490

== ENCOUNTER 2020-03-13 23:34 | Emergency (ER) | payer OTHER ==
[~2020-03-13] VITALS: Ht 172.7 cm; Wt 54.4 kg
[~2020-03-13 23:34] MED LIST changes: +MIRT15TA94 PO
--- NOTE | 2020-03-14 00:05 | ER.PDOC ---
General Chief Complaint: Requesting Medical Care Stated Complaint: KIDNEY STONE Time seen by MD: 23:58 Source: patient Exam Limitations: no limitations History of Present Illness Initial Comments This 44-year-old female was admitted last night with a kidney stone. She had cystoscopy and stone removal today. Patient was an inpatient upstairs and was difficult for the staff. Patient apparently was acting out and stated that she wanted to sign out AMA and did so. Patient now comes back in complaining of pain with urination, passage of blood and blood clots, and she states she felt like she passed some air through her urethra. She is passing urine just fine she is not obstructed from this she is not febrile she is totally appearing normal to me for someone status post cystoscopy.She is requesting something for pain and some oxybutynin ER 10mg q d and Flomax 0.4mg qd. Severity/Quality: moderate Radiation: no radiation Associated Symptoms: denies symptoms Exacerbated by: walking Relieved By: remaining still Allergies: Coded Allergies: shellfish derived (Verified Allergy, Severe, 03/13/20) chlorhexidine (Verified Allergy, Mild, Rash, 03/13/20) Opioids-Meperidine and Related (Verified Allergy, Unknown, unk, 12/01/19) Penicillins (Verified Allergy, Unknown, unk, 12/01/19) Sulfa (Sulfonamide Antibiotics) (Verified Allergy, Unknown, unk, 12/01/19) Uncoded Allergies: CONTRAST (Allergy, Severe, Anaphylaxis Shock, 03/13/20) Home Meds Reported Medications Mirtazapine (MIRTAZAPINE) 15 Mg Tab.rapdis, 15 MG PO HS, TAB 03/13/20 Ciprofloxacin Hcl (CIPRO) 500 Mg Tablet, 1 TAB PO BID for 10 Days, #20 TAB 0 Refills 12/31/19 Tamsulosin Hcl (FLOMAX) 0.4 Mg Cap.er.24h, 1 CAP PO DAILY for 21 Days, #21 CAP 11 Refills 12/31/19 Tramadol Hcl (TRAMADOL HCL) 50 Mg Tablet, 1 TAB PO Q4H for PAIN, #20 TAB 12/31/19 Past Medical History Medical History: other Surgical History: other Family History Significant Family History: no pertinent family hx Social History Smoking: non-smoker Alcohol Use: none Drug Use: none Genitourinary: see HPI Psychiatric/Neurological: other ("PTSD") All Other Systems: Reviewed and Negative Physical Exam General Appearance: No Apparent Distress, WD/WN HEENT: PERRL/EOMI Neck: Non-Tender, Full Range of Motion Respiratory: lungs clear, normal breath sounds, no respiratory distress, no accessory muscle use Cardiovascular: Normal Peripheral Pulses, Regular Rate, Rhythm, No Edema, No Gallop Gastrointestinal: Normal Bowel Sounds, No Pulsatile Mass, Non Tender Extremities: Normal Range of Motion Neurologic/Psychiatric: safety teacher II-XII NML as Tested, No Motor/Sensory Deficits, Alert, Normal Mood/Affect, Oriented x 3 Skin: Normal Color, Warm/Dry Lymphatic: No Adenopathy ER DEPART Departure Time of Disposition: 00:19 Disposition: 01 HOME, SELF-CARE Impression: Primary Impression: Post-op pain Condition: Stable Referrals: PCP,UNKNOWN (PCP) PRIMARY CARE PROVIDER Comments Toradol 10mg po qid x 5 days max, Oxybutynin ER 10mg one po qd, Flomax 0.4mg po qd Duration or Time Spent with Pa: 15m MARY YOUNGBLOOD MD Mar 14, 2020 00:05
[2020-03-14] MEDS ORDERED: TORADOL ONE (00:09)
[2020-03-14 00:16] VITALS: BP 160/97
[2020-03-14] MEDS ORDERED: TORADOL IM ONE (00:30)
[2020-03-14 00:35] VITALS: BP 160/97
--- NOTE | 2020-03-14 09:58 | NUR ---
DR ANGELA MILLER CALLED REGARDING PT ELEVATED WBC'S AND ASKED NURESE TO CALL IN CIPRO 500MG BID [id number]. PT LEFT MEDSURG AMA AND DR MILLER WANTS PT TO BE ON ANTIBIOTICS. DR MILLER ALSO REQUESTED PT BE INFORMED TO FOLLOW UP WITH OFFICE AND SCHEDULE APPT FOR STENT REMOVAL. ATTEMPT TO CONTACT PATIENT X4 WITH NO ANSWER AND NO ABILITY TO LEAVE VOICEMAIL. DR MILLER NOTIFIED OF INABILITY TO CONTACT PT TO CALL IN PRESCRIPTION OR GIVE FOLLOW UP INSTRUCTIONS.
== END 2020-03-14 00:36 | disposition home or self-care (01) ==
LOC: ER 23:34
DX: G89.18 Other acute postprocedural pain (principal); N20.0 Calculus of kidney; Z79.899 Other long term (current) drug therapy; Z88.0 Allergy status to penicillin; Z88.2 Allergy status to sulfonamides; Z88.5 Allergy status to narcotic agent
CPT/HCPCS: 96372; 99283; J1885

== ENCOUNTER → 2020-03-23 | Day surgery (SDC) | payer OTHER ==
[~2020-03-23] VITALS: Ht 172.7 cm; Wt 40.8 kg
[2020-03-23] VITALS (15 sets, daily range): BP systolic 113–174; BP diastolic 60–109
[~2020-03-23] MED LIST changes: +KETAMINE HCL-Non-Preferred ONE; +LACTATED RINGERS 1,000 ML IV SCH; +LACTATED RINGERS 1,000 ML ONE; +LIDOCAINE 2% VIAL ONE; +NS 1000ML 1,000 ML IV SCH; +NS 1000ML 1,000 ML IV STA; +NS 3000ML IRR IR ONE; +ROCEPHIN IV STA; +SODIUM CHLORIDE IRR BOTTLE IR ONE; +TORADOL IV STA; +TORADOL ONE; +VERSED ONE; +XYLOCAINE TP PRN
--- NOTE | 2020-03-23 08:01 | NUR ---
ARRIVAL PT ARRIVED TO ED WITH C/O PAIN FROM HER URETERAL STENT. PT UNABLE TO SIT DOWN D/T PAIN. PT REPORTS SHE CALLED DR MILLER AND WAS INSTRUCTED TO GO TO THE ER. BEDSIDE MONITORS APPLIED. VITAL SIGNS STABLE. BED IN LOW LOCKED POSITION. SON AT BEDSIDE.
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
[2020-03-23 08:32] LABS: BASOPHIL # 0.2 10^3/uL (0.0-0.1); BASOPHIL % 1.1 % (0.0-0.2); EOSINOPHIL # 0.3 10^3/uL (0.0-0.2); EOSINOPHIL % 2.2 % (0.0-5.0); LYMPHOCYTES # 4.78 10^3/uL1 (1.0-4.8); LYMPHOCYTES % 36.6 % (24.0-44.0); MEAN CORP HGB 32.8 pg (26-34); MONOCYTES # 0.7 10^3/uL (0.3-0.8); NEUTROPHIL # 7.2 10^3/uL (1.8-7.7); NEUTROPHILS % 54.9 % (41.0-85.0); RED CELL DISTRIBUTION WIDTH 13.1 % (11.5-14.5)
--- NOTE | 2020-03-23 11:36 | OPH ---
DATE OF SURGERY: 03/23/2020 PREOPERATIVE DIAGNOSES: Calculus, right distal ureter, status post ureteral basket stone extraction with an indwelling right ureteral stent. FINAL DIAGNOSES: Calculus, right distal ureter, status post ureteral basket stone extraction with an indwelling right ureteral stent. PROCEDURES: Cystoscopy, removal of right ureteral stent with right ureteroscopy. DESCRIPTION OF PROCEDURE: The patient was brought into the cystoscopy room and placed in supine position in rhe cystoscopy table. After given LMA general anesthesia, the patient was placed in the lithotomy position. The genitalia was then prepped and draped aseptically in the usual manner. First, the cystoscope was inserted per urethra into the bladder and the right ureteral stent was then removed and after removing that, the cystoscope was removed and a 7-Israeli semirigid ureteroscope was inserted into the bladder to the right ureteral orifice all the way to the upper ureter. The ureter was then visualized and there is no evidence of residual ureteral stone. The ureteroscope was then removed and then the cystoscope was reinserted into the bladder and the bladder was emptied with fluid. Procedure was terminated. Cystoscope was removed. The patient was then awakened and was transferred to the recovery room in stable condition. Andres Beltran MD DR: JASON/danny JOB# [id number] CHONG
--- NOTE | 2020-03-23 18:57 | DIREP ---
PROCEDURE:XRAY FLUOROSCOPY COMPARISON:[facility], CR, XRAY UROGRAPHY RETROGRADE, 03/13/2020, 12:40 PM. [facility], CT, CT ABD/PELVIS W/O, 03/13/2020, 03:42 AM. INDICATIONS:RT RENAL CALCULI, 4 IMAGES, 8.82 mGy, 66.6 SEC FLUORO TECHNIQUE:Fluoroscopic assistance cannulization right ureter. FINDINGS:Images depict removal of the right ureteral stent that is almost entirely in the urinary bladder. CONCLUSION:Fluoroscopic assistance. Dictated by: Khoi Ruiz M.D. on 03/23/2020 at 06:54 PM
== END | disposition home or self-care (01) ==
LOC: ER 07:57 → SDC 08:35
PROVIDERS: ATTEND Urology
DX: Z46.59 Encounter for fitting and adjustment of other gastrointestinal appliance and device (principal); N13.2 Hydronephrosis with renal and ureteral calculous obstruction; F17.200 Nicotine dependence, unspecified, uncomplicated; F41.9 Anxiety disorder, unspecified; F32.9 Major depressive disorder, single episode, unspecified; Z98.891 History of uterine scar from previous surgery; Z88.2 Allergy status to sulfonamides; Z91.013 Allergy to seafood; Z88.8 Allergy status to other drugs, medicaments and biological substances; Z88.5 Allergy status to narcotic agent; Z88.0 Allergy status to penicillin; Z79.899 Other long term (current) drug therapy; Z91.041 Radiographic dye allergy status
CPT/HCPCS: 36415; 52310; 85025; 99285; A4217 ×2; J1885; J2001; J2250; J7120; 76000; C1769; J3490

== ENCOUNTER 2020-04-15 09:59 | Emergency (ER) | payer OTHER, SELFPAY ==
[~2020-04-15] VITALS: Ht 172.7 cm; Wt 39.9 kg
[~2020-04-15 09:59] MED LIST changes: -KETAMINE HCL-Non-Preferred ONE; -LACTATED RINGERS 1,000 ML IV SCH; -LACTATED RINGERS 1,000 ML ONE; -LIDOCAINE 2% VIAL ONE; -NS 1000ML 1,000 ML IV SCH; -NS 1000ML 1,000 ML IV STA; -NS 3000ML IRR IR ONE; -ROCEPHIN IV STA; -SODIUM CHLORIDE IRR BOTTLE IR ONE; -TORADOL IV STA; -TORADOL ONE; -VERSED ONE; -XYLOCAINE TP PRN
--- NOTE | 2020-04-15 10:06 | NUR ---
ARRIVAL PT ARRIVED TO ED WITH C/O RIGHT FLANK PAIN WITH PAIN RADIATING TO ABD X 1 DAY. PT REPORTS HISTORY OF KIDNEY STONES AND STATES SHE HAS ALREADY PASSED SEVERAL STONES THIS MORNING. BEDSIDE MONITORS APPLIED. VITAL SIGNS STABLE. BED IN LOW LOCKED POSITION. SON AT BEDSIDE.
[2020-04-15] MEDS ORDERED: TORADOL IV STA ×2 (10:16→12:24)
--- NOTE | 2020-04-15 10:20 | ER.PDOC ---
General Chief Complaint: Requesting Medical Care Stated Complaint: PASSING A KIDNEY STONE Time seen by MD: 10:15 Source: patient Exam Limitations: no limitations History of Present Illness Initial Comments 4-year-old female with a history of recurrent kidney stones presents with right flank pain onset this morning at 7 AM. The pain is sharp stabbing and severe. She has had nausea and vomiting recurrently, unable to hold down any of the medication she is attempted to take for the pain. She recently had a kidney stone that required stent placement via Dr. Galarza. The stent has since been removed within the past 2 weeks. She denies any fever chills or other associated concerns. Timing/Duration: 1-3 hours Severity/Quality: severe Radiation: flank Associated Symptoms: nausea/vomiting Exacerbated by: nothing Relieved By: nothing Allergies: Coded Allergies: shellfish derived (Verified Allergy, Severe, 03/13/20) chlorhexidine (Verified Allergy, Mild, Rash, 03/13/20) Opioids-Meperidine and Related (Verified Allergy, Unknown, unk, 12/01/19) Penicillins (Verified Allergy, Unknown, unk, 12/01/19) Sulfa (Sulfonamide Antibiotics) (Verified Allergy, Unknown, unk, 12/01/19) Uncoded Allergies: CONTRAST (Allergy, Severe, Anaphylaxis Shock, 03/13/20) Home Meds Active Scripts Tramadol Hcl (TRAMADOL HCL) 50 Mg Tablet, 50 MG PO Q6 PRN for PAIN, #20 TABLET Prov:GI MILLER MD 03/23/20 Reported Medications Mirtazapine (MIRTAZAPINE) 15 Mg Tab.rapdis, 15 MG PO HS, TAB 03/13/20 Ciprofloxacin Hcl (CIPRO) 500 Mg Tablet, 1 TAB PO BID for 10 Days, #20 TAB 0 Refills 12/31/19 Tamsulosin Hcl (FLOMAX) 0.4 Mg Cap.er.24h, 1 CAP PO DAILY for 21 Days, #21 CAP 11 Refills 12/31/19 Tramadol Hcl (TRAMADOL HCL) 50 Mg Tablet, 1 TAB PO Q4H for PAIN, #20 TAB 12/31/19 Vital Signs First Vital Signs Date Time Temp Pulse Resp B/P (MAP) Pulse Ox O2 Delivery O2 Flow Rate FiO2 04/15/20 10:25 98.4 63 20 158/110 (126) 97 Room Air Last Vital Signs Date Time Temp Pulse Resp B/P (MAP) Pulse Ox O2 Delivery O2 Flow Rate FiO2 04/15/20 11:34 98.4 65 16 155/107 (123) 97 Room Air Past Medical History Medical History: other (recurrent kidney stones requiring intervention) Surgical History: , other Family History Significant Family History: no pertinent family hx Social History Smoking: cigarettes Alcohol Use: none Drug Use: none Constitutional: denies no symptoms reported, denies see HPI, denies chills, denies diaphoresis, denies fever, denies malaise, denies weakness, denies other EENTM: denies no symptoms reported, denies see HPI, denies eye pain, denies blurred vision, denies tearing, denies double vision, denies ear pain, denies ear discharge, denies nose pain, denies nose congestion, denies throat pain, denies throat swelling, denies mouth pain, denies mouth swelling, denies other Respiratory: denies no symptoms reported, denies see HPI, denies cough, denies orthopnea, denies shortness of breath, denies SOB with exertion, denies SOB at rest, denies stridor, denies wheezing, denies other Cardiovascular: denies no symptoms reported, denies see HPI, denies chest pain, denies edema, denies irregular heart rate, denies lightheadedness, denies palpitations, denies syncope, denies other Gastrointestinal: nausea, vomiting Genitourinary: dysuria Musculoskeletal: denies no symptoms reported, denies see HPI, denies back pain, denies gout, denies joint pain, denies joint swelling, denies muscle pain, denies muscle stiffness, denies neck pain, denies other Skin: denies no symptoms reported, denies see HPI, denies change in color, denies change in hair/nails, denies dryness, denies lesions, denies lumps, denies rash, denies other Psychiatric/Neurological: denies no symptoms reported, denies see HPI, denies anxiety, denies depressed, denies emotional problems, denies headache, denies numbness, denies paresthesia, denies pre-existing deficit, denies seizure, de nies tingling, denies tremors, denies weakness, denies other All Other Systems: Reviewed and Negative Physical Exam General Appearance: No Apparent Distress, WD/WN HEENT: PERRL/EOMI Neck: Non-Tender, Full Range of Motion, Supple Respiratory: lungs clear, normal breath sounds, no respiratory distress, no accessory muscle use Cardiovascular: Regular Rate, Rhythm, No Murmur Gastrointestinal: Normal Bowel Sounds, Non Tender Back: CVA Tenderness (R) Extremities: Normal Range of Motion, Non-Tender, Normal Inspection, No Pedal Edema, No Calf Tenderness Neurologic/Psychiatric: Alert, Normal Mood/Affect, Oriented x 3 Skin: Normal Color, Warm/Dry Results/Orders Results/Orders Orders - LEONELA SRIVASTAVA DO Cbc With Auto Diff (04/15/20 10:16) Comprehensive Metabolic Panel (04/15/20 10:16) PT (04/15/20 10:16) Partial Thromboplastin Time. (04/15/20 10:16) Urinalysis (04/15/20 10:16) Saline Lock (04/15/20 10:16) Ct Abd/Pelvis Wo Iv Contrast (04/15/20 10:16) Hcg Qualitative Serum (04/15/20 10:16) Ketorolac Tromethamine (Toradol) (04/15/20 10:16) Promethazine Hcl (Phenergan) (04/15/20 10:28) Ketorolac Tromethamine (Toradol) (04/15/20 10:28) Ketorolac Tromethamine (Toradol) (04/15/20 10:34) Promethazine Hcl (Phenergan) (04/15/20 10:34) Vital Signs Date Time Temp Pulse Resp B/P (MAP) Pulse Ox O2 Delivery O2 Flow Rate FiO2 04/15/20 11:34 98.4 65 16 155/107 (123) 97 Room Air 04/15/20 10:25 98.4 63 20 04/15/20 10:25 98.4 63 20 97 04/15/20 10:25 98.4 63 20 158/110 (126) 97 Room Air Administered Medications Medications (Trade) Dose Ordered Sig/Luis Route PRN Reason Start Time Stop Time Status Last Admin Dose Admin Ketorolac Tromethamine (Toradol) 60 mg STAT STAT IM 04/15/20 10:28 04/15/20 10:29 DC 04/15/20 10:38 60 MG Promethazine HCl (Phenergan) 50 mg STAT STAT IM 04/15/20 10:28 04/15/20 10:29 DC 04/15/20 10:38 50 MG Laboratory Tests Test 04/15/20 10:10 04/15/20 10:55 Urine Collection Type CCMS Urine Color YELLOW (YELLOW) Urine Appearance CLOUDY (CLEAR) H Urine Bilirubin NEGATIVE MG/DL (NEGATIVE) Urine Ketones NEGATIVE (NEGATIVE) Urine Specific [place] 1.020 (1.005-1.035) Urine pH 7.0 (5.0-6.0) Urine Protein TRACE (NEGATIVE) H Urine Urobilinogen 0.2 (NEGATIVE) Urine Nitrate NEGATIVE (NEGATIVE) Urine Leukocyte Esterase 25 /uL TRACE (NEGATIVE) Urine Blood MODERATE (NEGATIVE) Urine Glucose NORMAL (NEGATIVE) White Blood Count 15.9 10^3/uL (4.5-11.0) H Red Blood Count 4.42 10^6/uL (4.00-5.20) Hemoglobin 14.8 g/dL (12.0-15.0) Hematocrit 42.5 % (36.0-46.0) Mean Corpuscular Volume 96.2 fL (78-100) Mean Corpuscular Hemoglobin 33.5 pg (26-34) Mean Corpuscular Hemoglobin Concent 34.8 g/dL (33-36.5) Red Cell Distribution Width 13.1 % (11.5-14.5) Platelet Count 300 10^3/uL (150-400) Mean Platelet Volume 10.0 fL (7.8-11.0) Neutrophils (%) (Auto) 85.8 % (41.0-85.0) H Lymphocytes (%) (Auto) 9.6 % (24.0-44.0) L Monocytes (%) (Auto) 2.9 % (5.0-12.0) L Neutrophils # (Auto) 13.6 10^3/uL (1.8-7.7) H Lymphocytes # (Auto) 1.52 10^3/uL1 (1.0-4.8) Monocytes # (Auto) 0.5 10^3/uL (0.3-0.8) Absolute Immature Granulocyte (auto 0.03 10^3 u/L (0-2) Absolute Eosinophils (auto) 0.1 10^3/uL (0.0-0.2) Immature Granulocytes % 0.20 % (0.00-0.50) Eosinophils % 0.7 % (0.0-5.0) Basophils % 0.8 % (0.0-0.2) H Basophils # 0.1 10^3/uL (0.0-0.1) Prothrombin Time 12.7 SEC (9.3-11.3) H Prothrombin Time INR (Non-Therap) 1.3 Activated Partial Thromboplast Time 22.1 SEC (24.67-30.72) Sodium Level 146 mmol/L (132-145) H Potassium Level 3.2 mmol/L (3.6-5.2) L Chloride Level 108.0 mmol/L (96-109) Carbon Dioxide Level 28.4 mmol/L (20.0-32) Anion Gap 12.8 Blood Urea Nitrogen 19 mg/dL (7-18) H Creatinine 0.97 mg/dL (0.59-1.40) Estimated GFR () 75.8 (>/=60) Est GFR (CKD-EPI)(Non-Afr [place]ese) 62.7 (>/=60) BUN/Creatinine Ratio 19.0 Glucose Level 143 mg/dL (70-110) H Calcium Level 9.7 mg/dL (8.4-10.5) Total Bilirubin 0.2 mg/dL (0.2-1.0) Aspartate Amino Transferase (AST) 11 U/L (0-35) Alanine Aminotransferase (ALT) 13 U/L (12-78) Alkaline Phosphatase 71 U/L (50-136) Total Protein 7.3 g/dL (6.4-8.2) Albumin 3.6 g/dL (3.4-5.0) Globulin 3.7 Albumin/Globulin Ratio 0.972 Serum HCG, Qualitative NEGATIVE (NEGATIVE) Progress Progress creatinine WNL and urine without infection EKG/XRAY/CT/US CT Comments: 4mm stone distal R ureter with mild/mod hydronephrosis Consult/PCP Time Consult/PCP Called: 12:09 Consult/PCP: Dr. Miller Reason/Comments: flomax, f/u office next week ER DEPART Departure Time of Disposition: 12:10 Disposition: 01 HOME, SELF-CARE Impression: Primary Impression: Calculus of ureter Additional Impression: History of kidney stones Condition: Improved Patient Instructions: Kidney Stones Referrals: PCP,UNKNOWN (PCP) PRIMARY CARE PROVIDER Additional Instructions: Strain all urine. Take Flomax as prescribed until the stone passes. Follow-up with Dr. Galarza next week for reevaluation. Return to the emergency department if you have sudden worsening of pain that is unrelieved with the pain medication as prescribed or for any other emergent concerns. Duration or Time Spent with Pa: 35 min Problem Qualifiers LEONELA SRIVASTAVA DO Apr 15, 2020 10:20
[2020-04-15 10:25] VITALS: BP 158/110
[2020-04-15] MEDS ORDERED: TORADOL IM STA (10:28)
[2020-04-15] MEDS ORDERED: PHENERGAN IM STA (10:28)
--- NOTE | 2020-04-15 10:31 | NUR ---
IV ACCESS IV ATTEMPTED WITHOUT SUCCESS. PT REFUSED LAB DRAWS AT THIS TIME.
[2020-04-15] MEDS ORDERED: PHENERGAN ONE (10:34)
[2020-04-15] MEDS ORDERED: TORADOL ONE ×2 (10:34→12:24)
[2020-04-15 11:02] LABS: BASOPHIL # 0.1 10^3/uL (0.0-0.1); BASOPHIL % 0.8 % (0.0-0.2); EOSINOPHIL # 0.1 10^3/uL (0.0-0.2); EOSINOPHIL % 0.7 % (0.0-5.0); LYMPHOCYTES # 1.52 10^3/uL1 (1.0-4.8); LYMPHOCYTES % 9.6 % (24.0-44.0); MEAN CORP HGB 33.5 pg (26-34); MONOCYTES # 0.5 10^3/uL (0.3-0.8); MONOCYTES % 2.9 % (5.0-12.0); NEUTROPHIL # 13.6 10^3/uL (1.8-7.7); NEUTROPHILS % 85.8 % (41.0-85.0); PLATELET COUNT 300 10^3/uL (150-400); RED CELL DISTRIBUTION WIDTH 13.1 % (11.5-14.5)
--- NOTE | 2020-04-15 11:22 | DIREP ---
PROCEDURE:CT ABDOMEN/PELVIS W/O CONTRAST COMPARISON:[facility], CT, CT ABD/PELVIS W/O, 03/13/2020, 03:42 AM. INDICATIONS:flank pain, hx kidney stones TECHNIQUE:Axial images were created through the abdomen and pelvis without intravenous contrast material. No oral contrast was administered. Sagittal and coronal reconstructions were performed from source images. FINDINGS: LUNG BASES:Normal. No visible pulmonary or pleural disease. LIVER:1.9 cm hypodense lesion is again seen in the dome of the liver inconsistent with a cyst. BILIARY:Normal. No visible dilatation or calcification. PANCREAS:Normal. No lesion, fluid collection, ductal dilatation, or atrophy. SPLEEN:Normal. No enlargement or focal lesion. ADRENALS:Normal. No mass or enlargement. URINARY TRACT:There is mild to moderate right-sided hydronephrosis and right hydroureter with a 4 mm calculus in the distal right ureter. There are multiple small/punctate right renal calculi and 2 left renal calculi largest in the upper pole of the left kidney measuring 7 mm. Additionally, there are 2 small/punctate calculi within the urinary bladder. AORTA/VASCULAR:Normal. No aneurysm. RETROPERITONEUM:Normal. No mass or adenopathy. BOWEL/MESENTERY:Normal. There is no intestinal obstruction, free fluid, free air or mesenteric inflammatory changes. ABDOMINAL WALL:Normal. No mass or hernia. PELVIC ORGANS:Normal. No visible mass. Pelvic organs appropriate for patient age. BONES:Normal for age. No bony lesion or acute fracture. OTHER:Negative. CONCLUSION: 1. Bilateral nephrolithiasis with mild to moderate right-sided hydronephrosis and right hydroureter with a 4 mm calculus in the distal right ureter. Additionally, 2 small/punctate calculi are also demonstrated in the urinary bladder. 2. Indeterminate 1.9 cm hypodense lesion in the dome of the liver. Recommend further evaluation with CT or MRI exams with and without contrast for hemangioma/liver mass protocol. Dictated by: Noe Zelaya M.D. On 04/15/2020 at 11:10 AM
[2020-04-15 11:34] VITALS: BP 155/107
[2020-04-15 11:48] LABS: CALCIUM 9.7 mg/dL (8.4-10.5); CARBON DIOXIDE 28.4 mmol/L (20.0-32)
[2020-04-15 11:48] LABS: APPEARANCE,URINE CLOUDY (CLEAR); BILIRUBIN,URINE NEGATIVE (NEGATIVE); UA COLOR YELLOW (YELLOW)
[2020-04-15 11:49] LABS: UROBILINOGEN,URINE 0.2 (NEGATIVE)
== END 2020-04-15 12:28 | disposition home or self-care (01) ==
LOC: ER 10:35
DX: N20.1 Calculus of ureter (principal); Z91.013 Allergy to seafood; Z88.9 Allergy status to unspecified drugs, medicaments and biological substances; Z88.0 Allergy status to penicillin; R79.1 Abnormal coagulation profile
CPT/HCPCS: 36415; 74176; 80053; 81000; 84703; 85025; 85610; 85730; 87086; 96372; 96374; 99285; J1885 ×2; J2550

== ENCOUNTER 2020-07-14 01:57 | Emergency (ER) | payer OTHER ==
[~2020-07-14] VITALS: Ht 172.7 cm; Wt 45.4 kg
[2020-07-14] MEDS ORDERED: TORADOL IV STA ×2 (04:29→06:27)
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
[2020-07-14 04:56] LABS: BILIRUBIN,URINE NEGATIVE (NEGATIVE); UA COLOR YELLOW
[2020-07-14 04:57] LABS: UROBILINOGEN,URINE 0.2 E.U./dL (0.2)
[2020-07-14] MEDS ORDERED: TORADOL ONE ×2 (05:11→06:31)
[2020-07-14 05:15] VITALS: BP 159/102
[2020-07-14 05:49] LABS: BASOPHIL # 0.1 10^3/uL (0.0-0.1); BASOPHIL % 0.7 % (0.0-0.2); EOSINOPHIL # 0.1 10^3/uL (0.0-0.2); EOSINOPHIL % 0.5 % (0.0-5.0); LYMPHOCYTES # 3.14 10^3/uL1 (1.0-4.8); MEAN CORP HGB 34.6 pg (26-34); MONOCYTES # 0.8 10^3/uL (0.3-0.8); MONOCYTES % 5.7 % (5.0-12.0); NEUTROPHIL # 10.1 10^3/uL (1.8-7.7); PLATELET COUNT 321 10^3/uL (150-400); RED CELL DISTRIBUTION WIDTH 12.6 % (11.5-14.5)
--- NOTE | 2020-07-14 05:57 | DIREP ---
PROCEDURE:CT ABDOMEN/PELVIS W/O CONTRAST COMPARISON:[facility], CT, CT ABD/PELVIS W/O, 12/30/2019, 02:17 PM. [facility], CT, CT ABD/PELVIS W/O, 03/13/2020, 03:42 AM. [facility], CT, CT ABD/PELVIS W/O, 04/15/2020, 11:04 AM. INDICATIONS:left flank pain TECHNIQUE:Axial images were created through the abdomen and pelvis without intravenous contrast material. No oral contrast was administered. Sagittal and coronal reconstructions were performed from source images. FINDINGS: LUNG BASES:Centrilobular emphysema. LIVER:Low-density lesions remain within the liver measuring 2.8 x 3.8 cm in the inferior right hepatic lobe and 2.3 cm in the left hepatic lobe superiorly. Low-density lesions appeared of slightly increased in size over prior CTs. BILIARY:Normal. No visible dilatation or calcification. PANCREAS:Normal. No lesion, fluid collection, ductal dilatation, or atrophy. SPLEEN:Normal. No enlargement or focal lesion. ADRENALS:Normal. No mass or enlargement. URINARY TRACT:Mild left urinary obstructive changes secondary to 2 mm calculus in the distal left ureter proximal to the UVJ. Multiple nonobstructing left renal calculi, at least 3 with largest measuring 8 mm in the superior left renal pole. Multiple nonobstructing right renal calculi at least for with largest measuring 5-6 mm. AORTA/VASCULAR:Aortic and major branch atherosclerotic calcifications. RETROPERITONEUM:Normal. No mass or adenopathy. BOWEL/MESENTERY:Normal appendix. Moderate stool in the colon. ABDOMINAL WALL:Normal. No mass or hernia. PELVIC ORGANS:Normal. No visible mass. Pelvic organs appropriate for patient age. BONES:Normal for age. No bony lesion or acute fracture. OTHER:Negative. CONCLUSION: 1. Mildly obstructing distal left ureteral calculus measuring 2 mm. 2. Multiple nonobstructing renal calculi. 3. Low-density lesions in the liver appears slightly increased in size from prior. Hepatic mass protocol MRI or CT recommended to further assess. Dictated by: Baron Almanzar M.D. on 07/14/2020 at 05:43 AM
[2020-07-14] MEDS ORDERED: ROCEPHIN 1,000 MG in NS 100ML 100 ML IV STA (06:01)
[2020-07-14] MEDS ORDERED: NS 100ML 100 ML IV ONE (06:02)
[2020-07-14] MEDS ORDERED: ROCEPHIN ONE (06:02)
[2020-07-14 06:12] LABS: CALCIUM 10.3 mg/dL (8.4-10.5); CARBON DIOXIDE 23.5 mmol/L (20.0-32)
[2020-07-14 06:53] VITALS: BP 159/102
== END 2020-07-14 06:53 | disposition home or self-care (01) ==
LOC: ER 01:57
DX: N20.2 Calculus of kidney with calculus of ureter (principal); F41.9 Anxiety disorder, unspecified; Z79.899 Other long term (current) drug therapy; Z87.442 Personal history of urinary calculi; Z88.0 Allergy status to penicillin; Z88.2 Allergy status to sulfonamides; Z88.5 Allergy status to narcotic agent
CPT/HCPCS: 36415; 74176; 80053; 81001; 81025; 85025; 96365; 96375; 96376; 99284; J0696 ×2; J1885 ×2; 81003

== ENCOUNTER 2020-09-29 17:36 | Emergency (ER) | payer OTHER ==
[2020-09-29 17:36] VITALS: BP_SYST 164; BP_DIAS 108; BP_DIAS 128
[2020-09-29] MEDS ORDERED: LACTATED RINGERS 1,000 ML SCH (18:00)
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
--- NOTE | 2020-09-29 18:19 | PCM.EKG ---
[facility] Test Date: 2020-09-29 Test Time: 18:17:49 Pat Name: IGNACIO DENNEY Department: [id number] Room: Gender: F Motor Checker: ANIBAL : 1975 Requested By: AGNES WATKINS Order Number: [id number] Reading MD: Measurements Intervals [place] Rate: 131 P: 77 WI: 124 QRS: 27 QRSD: 76 T: 258 QT: 267 QTc: 395 Interpretive Statements Sinus tachycardia Ventricular premature complex Aberrant complex Consider right atrial enlargement Repol abnrm suggests ischemia, diffuse leads Baseline wander in lead(s) V5,V6 Compared to ECG 12/31/2019 08:17:22 Ventricular premature complex(es) now present Aberrant conduction of supraventricular beat(s) now present Early repolarization now present Possible ischemia now present Sinus rhythm no longer present Please click the below link to view image of tracing.
--- NOTE | 2020-09-29 18:58 | DIREP ---
PROCEDURE:CHEST 1 VIEW COMPARISON:[facility], CR, XRAY CHEST SINGLE VW, 12/30/2019, 09:50 PM. INDICATIONS:Sepsis FINDINGS: LUNGS/PLEURA:No significant pulmonary parenchymal abnormalities. No effusion or pneumothorax. VASCULATURE:Normal. Unremarkable pulmonary vasculature. CARDIAC:Normal. No cardiac silhouette abnormality or cardiomegaly. MEDIASTINUM:Normal. No visible mass or adenopathy. BONES:Normal for age. No fracture or visible bony lesion. OTHER:Bra artifact overlies the chest. CONCLUSION: No acute cardiopulmonary abnormality. There is no significant change as compared with the previous examination. Dictated by: Pascual Johnson MD on 09/29/2020 at 06:56 PM
--- NOTE | 2020-09-29 19:00 | NUR ---
UPDATE THIS NURSE ENTERED ROOM FOR THE FIRST TIME THIS SHIFT. PATIENT STATES THE NURSES AND DOCTOR DON'T KNOW THEIR MEDICATIONS AND WAS YELLING AND CURSING AT THIS NURSE. PATIENT WANTS SOMEONE TO EXPLAIN WHY SHE ISN'T BEING GIVEN SOMETHING TO CALM HER DOWN. PATIENT REQUESTING REMERON, AFTER DISCUSSING WITH EDP NEW ORDERS WERE GIVEN. PATIENT WAS GIVEN VALIUM 10MG PO AND I EXPLAINED THAT THIS NURSE NEEDS TO PLACE PATIENT ON THE BP AND PULSE MONITOR AFTER GIVING VALIUM. PATIENT TOLD THIS NURSE SHE HAS NEVER HEARD OF THAT BEFORE AND WOULD LIKE ANOTHER NURSE. I TOLD PATIENT I WOULD LET HER TALK TO THE GLUCOSE AND SYRUP WEIGHER ABOUT HER CONCERNS. GLUCOSE AND SYRUP WEIGHER CONTACTED.
[2020-09-29 19:23] LABS: BILIRUBIN,URINE SMALL (NEGATIVE); UA COLOR BROWN
[2020-09-29] MEDS ORDERED: LACTATED RINGERS 1,000 ML ONE (19:31)
[2020-09-29] MEDS ORDERED: VALIUM ONE (19:31)
[2020-09-29 19:34] LABS: BASOPHIL # 0.1 10^3/uL (0.0-0.1); BASOPHIL % 0.9 % (0.0-0.2); EOSINOPHIL % 0.3 % (0.0-5.0); LYMPHOCYTES # 2.29 10^3/uL1 (1.0-4.8); LYMPHOCYTES % 19.2 % (24.0-44.0); MEAN CORP HGB 33.9 pg (26-34); MONOCYTES # 0.6 10^3/uL (0.3-0.8); MONOCYTES % 5.4 % (5.0-12.0); NEUTROPHIL # 8.8 10^3/uL (1.8-7.7); PLATELET COUNT 326 10^3/uL (150-400); RED CELL DISTRIBUTION WIDTH 12.2 % (11.5-14.5)
[2020-09-29] MEDS ORDERED: VALIUM PO STA (19:35)
[2020-09-29 20:00] VITALS: BP 132/64
[2020-09-29 20:14] LABS: ALANINE AMINOTRANSFERASE(ML) 15 U/L (12-78); ALKALINE PHOSPHATASE 64 U/L (50-136); ASPARTATE AMINO TRANSFERASE 13 U/L (0-35); CARBON DIOXIDE 23.8 mmol/L (20.0-32); GLUCOSE 97 mg/dL (70-110)
--- NOTE | 2020-09-29 20:59 | DIREP ---
PROCEDURE:CT ABD/PELVIS WITHOUT CONTRAST TECHNIQUE:No oral contrast was given. Axial cuts were obtained through the abdomen and pelvis without IV contrast. The images were viewed at lung and soft tissue settings. Sagittal and coronal reconstructions are provided. COMPARISON:[facility], CT, CT ABD/PELVIS W/O, 03/13/2020, 03:42 AM. [facility], CT, CT ABD/PELVIS W/O, 04/15/2020, 11:04 AM. [facility], CT, CT ABD/PELVIS W/O, 07/14/2020, 05:00 AM. INDICATIONS:Abdominal pain, Hx of kidney stone FINDINGS: LOWER CHEST:The lung bases are clear. LIVER:A 2.1 cm low-attenuation lesion in the subdiaphragmatic portion of the right hepatic lobe appears unchanged since 07/14/2020. BILIARY:Normal. PANCREAS:Normal. SPLEEN:Normal. URINARY TRACT:Mild left hydronephrosis is noted secondary to a 7.4 mm calculus lodged within the left renal pelvis. Bilateral nephrolithiasis is again demonstrated. ADRENALS:Normal. AORTA/VASCULAR:Mild atherosclerotic disease is noted. RETROPERITONEUM:Normal. BOWEL/MESENTERY:Normal. ABDOMINAL WALL:Normal. PELVIS:Normal. BONES:Normal. OTHER:Normal. CONCLUSION: 1. Mild left hydronephrosis secondary to a 7.4 mm calculus lodged within the left renal pelvis. 2. Bilateral nephrolithiasis again demonstrated. 3. A 2.1 cm low-attenuation lesion is again noted in the dome of the right hepatic lobe which is essentially unchanged since 03/13/2020 and 07/14/2020. Dictated by: Yariel Moss M.D. on 09/29/2020 at 08:50 PM
[2020-09-29 21:50] VITALS: BP 138/64
== END 2020-09-29 21:50 | disposition home or self-care (01) ==
LOC: ER 17:36 → EDBD 17:36 → ER 21:50
DX: N20.0 Calculus of kidney (principal); F41.9 Anxiety disorder, unspecified; Z72.0 Tobacco use; Z79.899 Other long term (current) drug therapy; Z87.442 Personal history of urinary calculi; Z88.0 Allergy status to penicillin; Z88.2 Allergy status to sulfonamides; Z88.5 Allergy status to narcotic agent
CPT/HCPCS: 36415; 71045; 74176; 80053; 81001; 81025; 82553; 84145; 84484; 85025; 85610; 85730; 87040; 87086; 93005; 96360; 99285; J7120

== ENCOUNTER 2020-10-14 13:59 | Emergency (ER) | payer OTHER ==
[~2020-10-14] VITALS: Ht 172.7 cm; Wt 50.8 kg
[~2020-10-14 13:59] MED LIST changes: +KETO10TA PO; +LEVO500T8 PO; +ONDA4TAB13 PO
[2020-10-14 14:14] VITALS: BP 160/109
--- NOTE | 2020-10-14 14:18 | NUR ---
ARRIVAL PATIENT ARRIVED TO ED6 VIA W/C WITH FAMILY, C/O ABD PAIN TODAY, PATIENT WAS DISCHARGED YESTERDAY FROM [facility] WHERE DOCTOR ANGELA PLACED 2 STENTS, TODAY PATIENT STATES URINE IS DISCOLORED AND HER TORADOL PAIN MEDICATION IS NOT WORKING. CALLED DOCTOR MILLER'S OFFICE AND HE IS OUT OF TOWN, WAS TOLD TO COME TO THE ED, VITAL SIGNS OBTAINED AND DOCTOR RYLIE TO THE ROOM TO SEE PATIENT.
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
[2020-10-14 14:43] LABS: BILIRUBIN,URINE LARGE (NEGATIVE); UA COLOR RED
== END 2020-10-14 15:03 | disposition home or self-care (01) ==
LOC: ER 13:59
DX: R31.9 Hematuria, unspecified (principal); R10.84 Generalized abdominal pain; M54.9 Dorsalgia, unspecified; R30.0 Dysuria; Z79.899 Other long term (current) drug therapy; Z88.0 Allergy status to penicillin; Z88.2 Allergy status to sulfonamides; Z88.5 Allergy status to narcotic agent
CPT/HCPCS: 81001; 87086; 99283

== ENCOUNTER 2020-10-25 16:41 | Emergency (ER) | payer OTHER ==
[~2020-10-25] VITALS: Ht 172.7 cm; Wt 50.8 kg
[2020-10-25 16:52] VITALS: BP 149/106
--- NOTE | 2020-10-25 17:00 | NUR ---
ARRIVAL PATIENT ARRIVED TO ED4 VIA GURNEY BY [facility], C/O FLANK PAIN WITH BLOOD IN URINE, PATIENT RECENTLY HAD STENTS PLACED BY DOCTOR MILLER, HAS BEEN SEEN IN THE ED FOR SAME SYMPTOMS AFTER STENTS PLACED, BACK AGAIN TODAY FOR SIMILAR COMPLAINTS, EMS INITIATED 20G TO THE RIGHT HAND AND INFUSING NORMAL SALINE AND GAVE FENTANYL 50MIC HELMET HAT SWEATBAND PUNCHER, VITAL SIGNS OBTAINED AND DOCTOR RYLIE NOTIFIED OF PATIENT'S ARRIVAL.
--- NOTE | 2020-10-25 17:13 | NUR ---
UA PT ASKED FOR UA, STATES SHE CANNOT GO AT THIS TIME. DR YOUNGBLOOD INFORMED.
--- NOTE | 2020-10-25 17:46 | NUR ---
VIDEO PT ATTEMPTING TO VIDEO STAFF WHILE IN ROOM. PT INFORMED THAT RECORDING STAFF IS NOT ALLOWED IN THE HOSPITAL. PT CONTINUES TO BE VERBALLY AGGRESSIVE AT STAFF. SECURITY NOTIFIED OF ISSUE AND PRESENT IN ER.
--- NOTE | 2020-10-25 18:07 | NUR ---
PT EXAM Carola ADAMES RN, Zurdo GRAMAJO RN AT BEDSIDE TO BE PRESENT WITH DR YOUNGBLOOD FOR EXAM. PT YELLING AT STAFF STATING "ITS NOT MY FAULT YALL DONT KNOW WHAT IS GOING ON, I READ THE REPORT FROM LAST TIME", PT TAKING OFF MASK AND SUNGLASSES STATING "NOW YOU CAN SEE MY EYES TO AND FACE TO KNOW I AM IN PAIN", "DONT YOU KNOW I DONT HAVE XRAY VISION", PT ACTING AGRESSIVELY TOWARDS STAFF. DURING ASSESSMENT PT STARTED YELLING "I DONT WANT ANYMORE MEDICATION, I CANT DO THIS" UNABLE TO PERFORM EXAM D/T PT REFUSAL. PT STATES "WHAT LANGUAGE DO I NEED TO SPEAK SO YALL CAN UNDERSTAND WHAT I AM SAYING TO YOU".
[2020-10-25 18:10] VITALS: BP 120/60
--- NOTE | 2020-10-25 18:12 | NUR ---
STATUS PATIENT USING CALL LIGHT DEMANDING IV FLUIDS, STATING "I NEED FLUIDS SO MY IV DOESN'T GO BAD AND SO YOU DON'T HAVE TO RESTART IT". DOCTOR RYLIE NOTIFIED OF PATIENT REQUEST AND NO NEW ORDERS RECEIVED.
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
[2020-10-25 18:19] LABS: BILIRUBIN,URINE SMALL (NEGATIVE); UROBILINOGEN,URINE 0.2 E.U./dL (0.2)
--- NOTE | 2020-10-25 18:23 | NUR ---
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
[2020-10-25 19:14] LABS: BASOPHIL # 0.1 10^3/uL (0.0-0.1); BASOPHIL % 0.9 % (0.0-0.2); EOSINOPHIL # 0.3 10^3/uL (0.0-0.2); EOSINOPHIL % 2.4 % (0.0-5.0); LYMPHOCYTES # 3.27 10^3/uL1 (1.0-4.8); LYMPHOCYTES % 27.9 % (24.0-44.0); MEAN CORP HGB 33.4 pg (26-34); MONOCYTES # 0.6 10^3/uL (0.3-0.8); MONOCYTES % 4.9 % (5.0-12.0); NEUTROPHIL # 7.5 10^3/uL (1.8-7.7); NEUTROPHILS % 63.7 % (41.0-85.0); PLATELET COUNT 350 10^3/uL (150-400); RED CELL DISTRIBUTION WIDTH 12.8 % (11.5-14.5)
[2020-10-25 19:30] VITALS: BP 129/91
[2020-10-25 19:30] LABS: CALCIUM 9.3 mg/dL (8.4-10.5); CARBON DIOXIDE 25.1 mmol/L (20.0-32)
[2020-10-25] MEDS ORDERED: NS 1000ML 1,000 ML ONE (19:45)
[2020-10-25] MEDS ORDERED: TORADOL ONE (19:45)
[2020-10-25] MEDS ORDERED: CLEOCIN 600 MG-D5W-GALAXY 50 ML IV ONE (19:46)
[2020-10-25] MEDS: TORADOL IV PRN (20:15)
[2020-10-25 21:00] VITALS: BP 138/89
== END 2020-10-25 21:30 | disposition home or self-care (01) ==
LOC: EDBD 16:41 → ER 16:41
DX: N39.0 Urinary tract infection, site not specified (principal); N20.1 Calculus of ureter; Z87.442 Personal history of urinary calculi; Z88.1 Allergy status to other antibiotic agents; Z88.5 Allergy status to narcotic agent; Z88.0 Allergy status to penicillin; Z91.013 Allergy to seafood
CPT/HCPCS: 36415; 80053; 81001; 85025; 87086; 96374; 99283; J1885; J7030

== ENCOUNTER 2020-11-03 17:00 | Emergency (ER) | payer OTHER ==
[~2020-11-03] VITALS: Ht 172.7 cm; Wt 51.1 kg
[2020-11-03] MEDS ORDERED: TORADOL ONE (17:01)
[2020-11-03] MEDS ORDERED: NS 1000ML 1,000 ML ONE (17:30)
[2020-11-03] MEDS ORDERED: BENTYL IM STA (17:30)
[2020-11-03] MEDS ORDERED: TORADOL IV ONE (17:30)
[2020-11-03] MEDS ORDERED: BENTYL IM ONE (17:31)
[2020-11-03] MEDS ORDERED: NS 1000ML 1,000 ML IV STA (17:33)
--- NOTE | 2020-11-03 17:35 | ER.PDOC ---
General Chief Complaint: FLANK PAIN Stated Complaint: FLANK PAIN Time seen by MD: 17:31 Source: patient Exam Limitations: no limitations History of Present Illness Initial Comments Bilateral flank pain, patient had stent placement for kidney stone a few days ago. Severity/Quality: moderate, sharpness Radiation: RLQ, LLQ Associated Symptoms: denies symptoms Exacerbated by: nothing Relieved By: nothing Allergies: Coded Allergies: shellfish derived (Verified Allergy, Severe, 03/13/20) chlorhexidine (Verified Allergy, Mild, Rash, 03/13/20) Opioids-Meperidine and Related (Verified Allergy, Unknown, unk, 12/01/19) Penicillins (Verified Allergy, Unknown, unk, 12/01/19) Sulfa (Sulfonamide Antibiotics) (Verified Allergy, Unknown, unk, 12/01/19) Uncoded Allergies: CONTRAST (Allergy, Severe, Anaphylaxis Shock, 03/13/20) Home Meds Active Scripts Ketorolac Tromethamine (KETOROLAC TROMETHAMINE) 10 Mg Tablet, 10 MG PO TIDP PRN for PAIN 4 - 6 for 3 Days, #7 TAB Prov:MARTA WILKINS MD 10/13/20 Ondansetron (ONDANSETRON ODT) 4 Mg Tab.rapdis, 4 MG PO TID PRN for nausea for 3 Days, #7 TAB Prov:MARTA WILKINS MD 10/13/20 Levofloxacin (LEVAQUIN) 500 Mg Tablet, 500 MG PO DAILY, #7 TAB Prov:MARTA WILKINS MD 10/13/20 Tramadol Hcl (TRAMADOL HCL) 50 Mg Tablet, 50 MG PO Q6 PRN for PAIN, #20 TABLET Prov:GI MILLER MD 03/23/20 Reported Medications Mirtazapine (MIRTAZAPINE) 15 Mg Tab.rapdis, 15 MG PO HS, TAB 03/13/20 Tamsulosin Hcl (FLOMAX) 0.4 Mg Cap.er.24h, 1 CAP PO DAILY for 21 Days, #21 CAP 11 Refills 12/31/19 Vital Signs First Vital Signs Date Time Temp Pulse Resp B/P (MAP) Pulse Ox O2 Delivery O2 Flow Rate FiO2 10/13/20 11:04 82 11/03/20 17:58 97.8 22 11/03/20 17:58 99 11/03/20 18:10 106/50 (68) Room Air Last Vital Signs Date Time Temp Pulse Resp B/P (MAP) Pulse Ox O2 Delivery O2 Flow Rate FiO2 11/03/20 18:10 97.8 104 22 106/50 (68) 99 Room Air Past Medical History Medical History: renal disease Surgical History: other Social History Drug Use: none Constitutional: no symptoms reported EENTM: no symptoms reported Respiratory: no symptoms reported Cardiovascular: no symptoms reported Gastrointestinal: see HPI All Other Systems: Reviewed and Negative Physical Exam General Appearance: No Apparent Distress, WD/WN Neck: Non-Tender, Full Range of Motion, Supple, Normal Inspection Respiratory: chest non-tender, lungs clear, normal breath sounds, no respiratory distress, no accessory muscle use Cardiovascular: Normal Peripheral Pulses, Regular Rate, Rhythm, No Edema, No Gallop, No JVD, No Murmur Gastrointestinal: Normal Bowel Sounds, Non Tender, Soft, Tenderness (bilateral flanks) Back: Normal Inspection, No CVA Tenderness, No Vertebral Tenderness Extremities: Normal Range of Motion, Non-Tender, Normal Inspection, No Pedal Edema, No Calf Tenderness, Normal Capillary Refill, Pelvis Stable 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 Tested, No Motor/Sensory Deficits, Alert, Normal Mood/Affect, Oriented x 3 Skin: Normal Color, Warm/Dry Lymphatic: No Adenopathy Results/Orders Results/Orders Orders - CURTIS HAWKINS MD Ct Abd/Pelvis Wo Iv Contrast (11/03/20 17:17) Ketorolac Tromethamine (Toradol) (11/03/20 17:30) Cbc With Auto Diff (11/03/20 17:30) Dicyclomine Hcl (Bentyl) (11/03/20 17:30) Basic Metabolic Panel (11/03/20 17:30) 0.9 % Sodium Chloride (Ns 1000ml) (11/03/20 17:30) Dicyclomine Hcl (Bentyl) (11/03/20 17:31) 0.9 % Sodium Chloride (Ns 1000ml) (11/03/20 17:33) Vital Signs Date Time Temp Pulse Resp B/P (MAP) Pulse Ox O2 Delivery O2 Flow Rate FiO2 11/03/20 18:10 97.8 104 22 106/50 (68) 99 Room Air 11/03/20 17:58 97.8 104 22 99 11/03/20 17:58 97.8 104 22 10/13/20 11:04 82 Administered Medications Medications (Trade) Dose Ordered Sig/Luis Route PRN Reason Start Time Stop Time Status Last Admin Dose Admin Dicyclomine HCl (Bentyl) 20 mg STAT STAT IM 11/03/20 17:30 11/03/20 17:31 DC 11/03/20 17:44 20 MG Ketorolac Tromethamine (Toradol) 60 mg STAT ONCE IV 11/03/20 17:30 11/03/20 17:31 DC 11/03/20 17:44 60 MG Sodium Chloride 1,000 ml @ 1,200 mls/hr Q50M STAT IV 11/03/20 17:33 11/03/20 18:22 UNV 11/03/20 17:45 1,200 MLS/HR Laboratory Tests Test 11/03/20 17:55 White Blood Count 10.6 10^3/uL (4.5-11.0) Red Blood Count 4.31 10^6/uL (4.00-5.20) Hemoglobin 14.7 g/dL (12.0-15.0) Hematocrit 43.5 % (36.0-46.0) Mean Corpuscular Volume 100.9 fL (78-100) H Mean Corpuscular Hemoglobin 34.1 pg (26-34) H Mean Corpuscular Hemoglobin Concent 33.8 g/dL (33-36.5) Red Cell Distribution Width 12.8 % (11.5-14.5) Platelet Count 368 10^3/uL (150-400) Mean Platelet Volume 9.0 fL (7.8-11.0) Neutrophils (%) (Auto) 63.0 % (41.0-85.0) Lymphocytes (%) (Auto) 26.8 % (24.0-44.0) Monocytes (%) (Auto) 5.5 % (5.0-12.0) Neutrophils # (Auto) 6.7 10^3/uL (1.8-7.7) Lymphocytes # (Auto) 2.83 10^3/uL1 (1.0-4.8) Monocytes # (Auto) 0.6 10^3/uL (0.3-0.8) Absolute Immature Granulocyte (auto 0.02 10^3 u/L (0-2) Absolute Eosinophils (auto) 0.4 10^3/uL (0.0-0.2) H Immature Granulocytes % 0.20 % (0.00-0.50) Eosinophils % 3.6 % (0.0-5.0) Basophils % 0.9 % (0.0-0.2) H Basophils # 0.1 10^3/uL (0.0-0.1) Sodium Level 145 mmol/L (132-145) Potassium Level 3.0 mmol/L (3.6-5.2) L Chloride Level 109.0 mmol/L (96-109) Carbon Dioxide Level 29.2 mmol/L (20.0-32) Glucose Level 107 mg/dL (70-110) Blood Urea Nitrogen 17 mg/dL (7-18) Creatinine 1.14 mg/dL (0.59-1.40) Calcium Level 9.2 mg/dL (8.4-10.5) Anion Gap 9.8 Estimated GFR () 62.9 (>/=60) Est GFR (CKD-EPI)(Non-Afr Canadian) 52.0 (>/=60) BUN/Creatinine Ratio 14.[address] abdomen/pelvis: :Bilateral nephrolithiasis. Bilateral ureteric stents in place. Distal left ureteric stone 7 mm in diameter adjacent to the stent. Hypodense hepatic lesions right hepatic lobe, unchanged since December 2019. Consider follow-up imaging to further characterize these hepatic lesions. Spoke with Dr. Miller who told me to discharge patient home on pain medication and she will follow up with him in the office. CBC is normal. Reviewed results with the patient who voices understanding. ER DEPART Departure Time of Disposition: 19:10 Disposition: 01 HOME / SELF CARE / HOMELESS Impression: Primary Impression: Calculus of ureter Additional Impression: Ureteral colic Condition: Improved Referrals: PCP,UNKNOWN (PCP) PRIMARY CARE PROVIDER Additional Instructions: Tylenol with codeine Bentyl Follow-up with Dr. Miller in 1 to 2 days, call for appointment Return to ED if worsening or concerns Duration or Time Spent with Pa: 30 min Problem Qualifiers CURTIS HAWKINS MD Nov 03, 2020 17:35
[2020-11-03 17:58] VITALS: BP 106/50
[2020-11-03 18:08] LABS: BASOPHIL # 0.1 10^3/uL (0.0-0.1); BASOPHIL % 0.9 % (0.0-0.2); EOSINOPHIL # 0.4 10^3/uL (0.0-0.2); EOSINOPHIL % 3.6 % (0.0-5.0); LYMPHOCYTES # 2.83 10^3/uL1 (1.0-4.8); LYMPHOCYTES % 26.8 % (24.0-44.0); MEAN CORP HGB 34.1 pg (26-34); MONOCYTES # 0.6 10^3/uL (0.3-0.8); MONOCYTES % 5.5 % (5.0-12.0); NEUTROPHIL # 6.7 10^3/uL (1.8-7.7); PLATELET COUNT 368 10^3/uL (150-400); RED CELL DISTRIBUTION WIDTH 12.8 % (11.5-14.5)
[2020-11-03 18:10] VITALS: BP 106/50
[2020-11-03 18:20] LABS: CALCIUM 9.2 mg/dL (8.4-10.5); CARBON DIOXIDE 29.2 mmol/L (20.0-32)
--- NOTE | 2020-11-03 18:46 | DIREP ---
PROCEDURE:CT ABDOMEN/PELVIS W/O CONTRAST COMPARISON:[facility], CT, CT ABD/PELVIS W/O, 12/30/2019, 02:17 PM. [facility], CT, CT ABD/PELVIS W/O, 10/13/2020, 00:11 AM. INDICATIONS:FLANK PAIN TECHNIQUE:Axial images were created through the abdomen and pelvis without intravenous contrast material. No oral contrast was administered. Sagittal and coronal reconstructions were performed from source images. FINDINGS: LUNG BASES:Incipient centrilobular emphysema both lower lobes, room right greater than left. No effusion. No consolidation. LIVER:Hypodense parenchyma, focal, suggests a subtle lesion adjacent to the gallbladder in the anterior segment of the right hepatic lobe (# 5) measuring 3.16 x 2.64 cm. The more cephalad lesion in segment # gait is under the right hemidiaphragm in measures 2.27 cm in diameter. Follow-up multi phase contrast-enhanced CT or MRI recommended to further characterize these findings, reported in December 2019. BILIARY:Normal. No visible dilatation or calcification. PANCREAS:Normal. No lesion, fluid collection, ductal dilatation, or atrophy. SPLEEN:Normal. No enlargement or focal lesion. ADRENALS:Normal. No mass or enlargement. URINARY TRACT:Bilateral nephrolithiasis with upper and lower nephrolith, nonobstructing, left. Lower pole nephrolith, nonobstructing there are bilateral ureteric stents in place. There is a 7.4 mm nephrolith in the distal left ureter adjacent to the stent (series 2/image 57, series [id number]/image [id number]). AORTA/VASCULAR:Normal. No aneurysm. RETROPERITONEUM:Normal. No mass or adenopathy. BOWEL/MESENTERY:Normal. There is no intestinal obstruction, free fluid, free air or mesenteric inflammatory changes. ABDOMINAL WALL:Normal. No mass or hernia. PELVIC ORGANS:Normal. No visible mass. Pelvic organs appropriate for patient age. BONES:Normal for age. No bony lesion or acute fracture. OTHER:Negative. CONCLUSION:Bilateral nephrolithiasis. Bilateral ureteric stents in place. Distal left ureteric stone 7 mm in diameter adjacent to the stent. Hypodense hepatic lesions right hepatic lobe, unchanged since December 2019. Consider follow-up imaging to further characterize these hepatic lesions. Dictated by: Marin Hays MD on 11/03/2020 at 06:34 PM
== END 2020-11-03 19:20 | disposition home or self-care (01) ==
LOC: ER 17:00 → EDBD 17:00 → ER 19:20
DX: N20.1 Calculus of ureter (principal); Z79.1 Long term (current) use of non-steroidal anti-inflammatories (NSAID); Z79.899 Other long term (current) drug therapy; Z87.442 Personal history of urinary calculi; Z88.0 Allergy status to penicillin; Z88.2 Allergy status to sulfonamides; Z88.5 Allergy status to narcotic agent
CPT/HCPCS: 36415; 74176; 80048; 85025; 96361; 96372; 96374; 99285; J1885; J7030; J0500

== ENCOUNTER 2020-11-25 09:18 | Observation (INO) | payer OTHER ==
[2020-11-25] VITALS (9 sets, daily range): BP systolic 130–167; BP diastolic 86–113
[~2020-11-25] VITALS: Ht 172.7 cm; Wt 45.4 kg
[2020-11-25] MEDS ORDERED: TORADOL ONE (09:42)
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
[2020-11-25] MEDS ORDERED: DECADRON ONE (09:50)
[2020-11-25] MEDS ORDERED: EPHEDRINE SULFATE ONE (09:50)
[2020-11-25] MEDS ORDERED: ZOFRAN ONE (09:50)
[2020-11-25] MEDS ORDERED: XYLOCAINE 2% 5ML VIAL ONE (09:50)
[2020-11-25] MEDS ORDERED: SUBLIMAZE ONE (09:51)
[2020-11-25] MEDS ORDERED: DIPRIVAN IV ONE (09:51)
--- NOTE | 2020-11-25 09:52 | NUR ---
ANGELA MILLER IN ROOM TO ASSESS PT
[2020-11-25 09:54] LABS: BASOPHIL # 0.1 10^3/uL (0.0-0.1); BASOPHIL % 1.1 % (0.0-0.2); EOSINOPHIL # 0.5 10^3/uL (0.0-0.2); EOSINOPHIL % 3.9 % (0.0-5.0); LYMPHOCYTES # 2.87 10^3/uL1 (1.0-4.8); LYMPHOCYTES % 24.1 % (24.0-44.0); MEAN CORP HGB 33.9 pg (26-34); MONOCYTES # 0.6 10^3/uL (0.3-0.8); MONOCYTES % 5.3 % (5.0-12.0); NEUTROPHIL # 7.8 10^3/uL (1.8-7.7); NEUTROPHILS % 65.4 % (41.0-85.0); PLATELET COUNT 342 10^3/uL (150-400); RED CELL DISTRIBUTION WIDTH 13.1 % (11.5-14.5)
[2020-11-25] MEDS ORDERED: TORADOL IV PRN (10:00)
[2020-11-25] MEDS ORDERED: ATIVAN ONE (10:06)
--- NOTE | 2020-11-25 10:10 | ER.PDOC ---
General Chief Complaint: Flank Pain Stated Complaint: ABD/BACK PAIN,POSSIBLE KIDNEY PROBLEMS Time seen by MD: 09:30 Source: patient Exam Limitations: no limitations History of Present Illness Initial Comments 44 Y F hx of recurrent kidney stones, comes in with bilateral flank pain, she is due to have her stents removed, her urologist states she will go to the OR Allergies: Coded Allergies: shellfish derived (Verified Allergy, Severe, 03/13/20) chlorhexidine (Verified Allergy, Mild, Rash, 03/13/20) Opioids-Meperidine and Related (Verified Allergy, Unknown, unk, 12/01/19) Penicillins (Verified Allergy, Unknown, unk, 12/01/19) Sulfa (Sulfonamide Antibiotics) (Verified Allergy, Unknown, unk, 12/01/19) Uncoded Allergies: CONTRAST (Allergy, Severe, Anaphylaxis Shock, 03/13/20) Home Meds Active Scripts Ketorolac Tromethamine (KETOROLAC TROMETHAMINE) 10 Mg Tablet, 10 MG PO TIDP PRN for PAIN 4 - 6 for 3 Days, #7 TAB Prov:MARTA WILKINS MD 10/13/20 Ondansetron (ONDANSETRON ODT) 4 Mg Tab.rapdis, 4 MG PO TID PRN for nausea for 3 Days, #7 TAB Prov:MARTA WILKINS MD 10/13/20 Levofloxacin (LEVAQUIN) 500 Mg Tablet, 500 MG PO DAILY, #7 TAB Prov:MARTA WILKINS MD 10/13/20 Tramadol Hcl (TRAMADOL HCL) 50 Mg Tablet, 50 MG PO Q6 PRN for PAIN, #20 TABLET Prov:GI MILLER MD 03/23/20 Reported Medications Mirtazapine (MIRTAZAPINE) 15 Mg Tab.rapdis, 15 MG PO HS, TAB 03/13/20 Tamsulosin Hcl (FLOMAX) 0.4 Mg Cap.er.24h, 1 CAP PO DAILY for 21 Days, #21 CAP 11 Refills 12/31/19 Vital Signs First Vital Signs Date Time Temp Pulse Resp B/P (MAP) Pulse Ox O2 Delivery O2 Flow Rate FiO2 10/13/20 11:04 82 11/25/20 09:32 97.8 16 167/113 (131) 98 Last Vital Signs Date Time Temp Pulse Resp B/P (MAP) Pulse Ox O2 Delivery O2 Flow Rate FiO2 11/25/20 09:32 97.8 98 16 11/25/20 09:32 98 11/25/20 09:32 167/113 (131) Past Medical History Medical History: other Surgical History: other Social History Alcohol Use: none Drug Use: none All Other Systems: Reviewed and Negative Physical Exam General Appearance: No Apparent Distress HEENT: Normal ENT Inspection Respiratory: no respiratory distress Cardiovascular: Normal Peripheral Pulses Gastrointestinal: Non Tender, Soft Back: Normal Inspection Extremities: Normal Inspection Neurologic/Psychiatric: No Motor/Sensory Deficits Skin: Normal Color Lymphatic: No Adenopathy Results/Orders Results/Orders Orders - RAJAN MODI MD Cbc With Auto Diff (11/25/20 09:36) Comprehensive Metabolic Panel (11/25/20 09:36) Lipase (11/25/20 09:36) Urinalysis (11/25/20 09:36) Ketorolac Tromethamine (Toradol) (11/25/20 10:00) Ketorolac Tromethamine (Toradol) (11/25/20 09:42) Lidocaine Hcl (Xylocaine 2% 5ml Vial) (11/25/20 09:50) Ondansetron Hcl/Pf (Zofran) (11/25/20 09:50) Dexamethasone Sodium Phosphate (Decadron (11/25/20 09:50) Ephedrine Sulfate (Ephedrine Sulfate) (11/25/20 09:50) Fentanyl Citrate/Pf (Sublimaze) (11/25/20 09:51) Propofol (Diprivan) (11/25/20 09:51) Lorazepam (Ativan) (11/25/20 10:06) Vital Signs Date Time Temp Pulse Resp B/P (MAP) Pulse Ox O2 Delivery O2 Flow Rate FiO2 11/25/20 09:32 97.8 98 16 11/25/20 09:32 97.8 98 16 98 11/25/20 09:32 97.8 98 16 167/113 (131) 98 10/13/20 11:04 82 Administered Medications Medications (Trade) Dose Ordered Sig/Luis Route PRN Reason Start Time Stop Time Status Last Admin Dose Admin Ketorolac Tromethamine (Toradol) 30 mg Q6H PRN IV PAIN 4 - 6 11/25/20 10:00 11/30/20 09:59 11/25/20 09:52 30 MG Laboratory Tests Test 11/25/20 09:49 White Blood Count 11.9 10^3/uL (4.5-11.0) H Red Blood Count 4.33 10^6/uL (4.00-5.20) Hemoglobin 14.7 g/dL (12.0-15.0) Hematocrit 45.7 % (36.0-46.0) Mean Corpuscular Volume 105.5 fL (78-100) H Mean Corpuscular Hemoglobin 33.9 pg (26-34) Mean Corpuscular Hemoglobin Concent 32.2 g/dL (33-36.5) L Red Cell Distribution Width 13.1 % (11.5-14.5) Platelet Count 342 10^3/uL (150-400) Mean Platelet Volume 9.1 fL (7.8-11.0) Neutrophils (%) (Auto) 65.4 % (41.0-85.0) Lymphocytes (%) (Auto) 24.1 % (24.0-44.0) Monocytes (%) (Auto) 5.3 % (5.0-12.0) Neutrophils # (Auto) 7.8 10^3/uL (1.8-7.7) H Lymphocytes # (Auto) 2.87 10^3/uL1 (1.0-4.8) Monocytes # (Auto) 0.6 10^3/uL (0.3-0.8) Absolute Immature Granulocyte (auto 0.02 10^3 u/L (0-2) Absolute Eosinophils (auto) 0.5 10^3/uL (0.0-0.2) H Immature Granulocytes % 0.20 % (0.00-0.50) Eosinophils % 3.9 % (0.0-5.0) Basophils % 1.1 % (0.0-0.2) H Basophils # 0.1 10^3/uL (0.0-0.1) ER DEPART Departure Time of Disposition: 10:09 Disposition: 09 ADMITTED INPATIENT Impression: Primary Impression: Bilateral flank pain Condition: Improved Referrals: PCP,UNKNOWN (PCP) PRIMARY CARE PROVIDER Duration or Time Spent with Pa: RAJAN Thorpe MD Nov 25, 2020 10:10
--- NOTE | 2020-11-25 10:13 | NUR ---
DAY SURGERY PATIENT TO DAY SURGER WITH SUMMER.
[2020-11-25 10:18] LABS: CALCIUM 9.3 mg/dL (8.4-10.5); CARBON DIOXIDE 25.3 mmol/L (20.0-32)
[2020-11-25] MEDS ORDERED: NS 1000ML 1,000 ML ONE ×2 (10:22→12:42)
[2020-11-25] MEDS ORDERED: LEVAQUIN 100 ML IV ONE ×2 (10:22)
[2020-11-25] MEDS ORDERED: CIPR500T86 PO (11:57)
[2020-11-25] MEDS ORDERED: LACTATED RINGERS 1,000 ML IV SCH (12:00)
--- NOTE | 2020-11-25 12:50 | OPH ---
DATE OF SURGERY: 11/25/2020 DICTATOR NAME: Andres Beltran MD PREOPERATIVE DIAGNOSIS: Bilateral ureteral calculi with bilateral ureteral stents. FINAL DIAGNOSIS: Bilateral ureteral calculi with bilateral ureteral stents. PROCEDURE: Cystoscopy, removal of right ureteral stent, right ureteroscopy with basket stone extraction and also re-cystoscopy with removal of left ureteral stent with ureteroscopy and attempted basket stone extraction and with reinsertion of left ureteral stent. DESCRIPTION OF PROCEDURE: The patient was brought to the cystoscopy room, was put in supine position on the cystoscopy table. After the patient was given a satisfactory and adequate LMA general anesthesia, the patient was placed in the lithotomy position. Genitalia was then prepped and draped aseptically in the usual manner. First, a 23-Thai cystoscope was inserted per urethra up to the bladder. With the use of the right angle lens, the bladder was visualized. There is a lot of congestion noted in the bladder wall and there is presence of bilateral ureteral stents. The right ureteral stent was initially removed and replaced with a Glidewire and then the cystoscope was removed and a 7-Thai semirigid ureteroscope was inserted per urethra up to the right ureteral orifice all the way to the upper ureter. There is some small stone noted in the upper ureter and a basket stone extraction. After removal of the stone, the Glidewire was removed including the ureteroscopy. Cystoscopy was then again performed and the left ureteral stent was removed and replaced with a Glidewire and there was some ureteral dilatation was performed and a 7-Thai semirigid ureteroscope was inserted into the lower mid ureter, there was a large stone still in the mid ureter. A basket stone extraction was attempted, but the stone is too big to be removed. So a 6-Thai double-J left ureteral stent was then reinserted to the left ureter up to the left renal pelvis. After this was done, the ureteroscope was removed and then a cystoscope was reinserted into the bladder and the bladder was emptied with fluid. Procedure was terminated. The instrument was removed. The patient was then awakened, was transferred to the recovery room in stable condition. Andres Beltran MD DR: JASON/EMMIE FAIRCHILDD: [id number] RECEIPT: [id number]
--- NOTE | 2020-11-25 17:26 | DIREP ---
PROCEDURE:XRAY FLUOROSCOPY COMPARISON:[facility], , XRAY FLUOROSCOPY, 03/23/2020, 11:34 AM. [facility], , XRAY UROGRAPHY RETROGRADE, 10/13/2020, 08:50 AM. INDICATIONS:RT STENT REMOVAL, LT STENT REINSERTION,164.2 sec,24.11 mGy,8 images TECHNIQUE:Intraoperative fluoroscopy FINDINGS: Intraoperative fluoroscopy. Bilateral ureteral stents, the right ureteral stent was removed. Left ureteral stent was replaced. No unexpected surgical instrument on the provided views. Fluoro time: 1:00 a.m. 64.2 seconds. Images: 8. CONCLUSION: 1. Intraoperative fluoroscopy for right ureteral stent removal and replacement of left ureteral stent. Dictated by: Reyna Mills MD on 11/25/2020 at 05:23 PM
== END 2020-11-25 14:16 | disposition home or self-care (01) ==
LOC: ER 09:18 → EEVIPCON 10:10 → MS 10:10
PROVIDERS: ADMIT Urology; ATTEND Urology
DX: N20.1 Calculus of ureter (principal); N28.82 Megaloureter; Z88.0 Allergy status to penicillin; Z79.899 Other long term (current) drug therapy; Z87.442 Personal history of urinary calculi
CPT/HCPCS: 36415; 52332; 52352; 80053; 82360; 83690; 85025; 96374; 99284; G0378 ×3; J1100; J1885; J1956 ×2; J2001; J2060; J2405; J3010; J3490 ×2; J7030 ×2; 76000; C2617

== ENCOUNTER 2020-12-16 08:12 | Day surgery (SDC) | payer OTHER ==
[~2020-12-16] VITALS: Ht 152.4 cm; Wt 43.1 kg
[2020-12-16] VITALS (15 sets, daily range): BP systolic 61–170; BP diastolic 98–129
[~2020-12-16 08:12] MED LIST changes: -LEVO500T8 PO; +LEVO500T9 PO
--- NOTE | 2020-12-16 08:36 | ER.PDOC ---
General Chief Complaint: Requesting Medical Care Stated Complaint: KIDNEY PAIN Time seen by MD: 08:29 Source: patient Exam Limitations: no limitations History of Present Illness Allergies: Coded Allergies: shellfish derived (Verified Allergy, Severe, 03/13/20) chlorhexidine (Verified Allergy, Mild, Rash, 03/13/20) Opioids-Meperidine and Related (Verified Allergy, Unknown, unk, 12/01/19) Penicillins (Verified Allergy, Unknown, unk, 12/01/19) Sulfa (Sulfonamide Antibiotics) (Verified Allergy, Unknown, unk, 12/01/19) Uncoded Allergies: CONTRAST (Allergy, Severe, Anaphylaxis Shock, 03/13/20) Home Meds Active Scripts Ciprofloxacin Hcl (CIPRO) 500 Mg Tablet, 500 MG PO BID, #14 Prov:GI MILLER MD 11/25/20 Ketorolac Tromethamine (KETOROLAC TROMETHAMINE) 10 Mg Tablet, 10 MG PO TIDP PRN for PAIN 4 - 6 for 3 Days, #7 TAB Prov:MARTA WILKINS MD 10/13/20 Ondansetron (ONDANSETRON ODT) 4 Mg Tab.rapdis, 4 MG PO TID PRN for nausea for 3 Days, #7 TAB Prov:MARTA WILKINS MD 10/13/20 Tramadol Hcl (TRAMADOL HCL) 50 Mg Tablet, 50 MG PO Q6 PRN for PAIN, #20 TABLET Prov:GI MILLER MD 03/23/20 Reported Medications Mirtazapine (MIRTAZAPINE) 15 Mg Tab.rapdis, 15 MG PO HS, TAB 03/13/20 Tamsulosin Hcl (FLOMAX) 0.4 Mg Cap.er.24h, 1 CAP PO DAILY for 21 Days, #21 CAP 11 Refills 12/31/19 Past Medical History Medical History: other Surgical History: other Social History Drug Use: none Results/Orders Results/Orders Orders - SAURABH NARVAEZ MD Cbc With Auto Diff (12/16/20 08:36) Comprehensive Metabolic Panel (12/16/20 08:36) PT (12/16/20 08:36) Partial Thromboplastin Time. (12/16/20 08:36) Urinalysis (12/16/20 08:36) Ct Abd/Pelvis Wo Iv Contrast (12/16/20 08:36) 0.9 % Sodium Chloride (Ns 1000ml) (12/16/20 08:39) Ondansetron Hcl/Pf (Zofran) (12/16/20 08:39) Ketorolac Tromethamine (Toradol) (12/16/20 08:39) Ondansetron Hcl/Pf (Zofran) (12/16/20 08:39) Ketorolac Tromethamine (Toradol) (12/16/20 09:00) 0.9 % Sodium Chloride (Ns 1000ml) (12/16/20 09:30) Vital Signs Date Time Temp Pulse Resp B/P (MAP) Pulse Ox O2 Delivery O2 Flow Rate FiO2 12/16/20 08:30 98.2 100 20 161/129 (140) 98 Room Air 12/16/20 08:24 98.2 100 20 12/16/20 08:24 98.2 100 20 98 Administered Medications Medications (Trade) Dose Ordered Sig/Luis Route PRN Reason Start Time Stop Time Status Last Admin Dose Admin Ketorolac Tromethamine (Toradol) 30 mg OT PRN IV PAIN 4 - 6 12/16/20 09:00 12/21/20 08:59 12/16/20 09:22 30 MG Ondansetron HCl (Zofran) 4 mg OT STAT IV 12/16/20 08:39 12/16/20 08:41 DC 12/16/20 09:22 4 MG Laboratory Tests Test 12/16/20 08:55 White Blood Count 10.0 10^3/uL (4.5-11.0) Red Blood Count 4.37 10^6/uL (4.00-5.20) Hemoglobin 14.4 g/dL (12.0-15.0) Hematocrit 43.5 % (36.0-46.0) Mean Corpuscular Volume 99.5 fL (78-100) Mean Corpuscular Hemoglobin 33.0 pg (26-34) Mean Corpuscular Hemoglobin Concent 33.1 g/dL (33-36.5) Red Cell Distribution Width 12.3 % (11.5-14.5) Platelet Count 329 10^3/uL (150-400) Mean Platelet Volume 9.4 fL (7.8-11.0) Neutrophils (%) (Auto) 63.6 % (41.0-85.0) Lymphocytes (%) (Auto) 28.0 % (24.0-44.0) Monocytes (%) (Auto) 4.5 % (5.0-12.0) L Neutrophils # (Auto) 6.4 10^3/uL (1.8-7.7) Lymphocytes # (Auto) 2.80 10^3/uL1 (1.0-4.8) Monocytes # (Auto) 0.5 10^3/uL (0.3-0.8) Absolute Immature Granulocyte (auto 0.02 10^3 u/L (0-2) Absolute Eosinophils (auto) 0.3 10^3/uL (0.0-0.2) H Immature Granulocytes % 0.20 % (0.00-0.50) Eosinophils % 2.7 % (0.0-5.0) Basophils % 1.0 % (0.0-0.2) H Basophils # 0.1 10^3/uL (0.0-0.1) Prothrombin Time 12.4 SEC (9.6-12.0) H Prothrombin Time INR (Non-Therap) 1.2 Activated Partial Thromboplast Time 23.8 SEC (24.67-30.72) Sodium Level 143 mmol/L (132-145) Potassium Level 3.5 mmol/L (3.6-5.2) L Chloride Level 107.0 mmol/L (96-109) Carbon Dioxide Level 23.6 mmol/L (20.0-32) Anion Gap 15.9 Blood Urea Nitrogen 16 mg/dL (7-18) Creatinine 1.16 mg/dL (0.59-1.40) Estimated GFR () 61.4 (>/=60) Est GFR (CKD-EPI)(Non-Afr Nepalese) 50.7 (>/=60) BUN/Creatinine Ratio 13.0 Glucose Level 109 mg/dL (70-110) Calcium Level 9.7 mg/dL (8.4-10.5) Total Bilirubin 0.5 mg/dL (0.2-1.0) Aspartate Amino Transferase (AST) 15 U/L (0-35) Alanine Aminotransferase (ALT) 8 U/L (12-78) L Alkaline Phosphatase 60 U/L (50-136) Total Protein 7.5 g/dL (6.4-8.2) Albumin 3.6 g/dL (3.4-5.0) Globulin 3.9 Albumin/Globulin Ratio 0.923 Progress Progress While in the emergency department, the patient receives Zofran 4 mg IV, and 30 mg of Toradol IV. Arrangements remain for the patient to be transferred for lithotripsy. Dr. Miller called and will take the patient to lithotripsy. there was some difficulty starting an IV, but eventually was placed. ER DEPART Departure Time of Disposition: 09:54 Disposition: 02 SHORT TERM HOSPITAL Impression: Primary Impression: Calculus of ureter Condition: Stable Referrals: PCP,UNKNOWN (PCP) PRIMARY CARE PROVIDER Comments The patient will be taken for a lithotripsy per urology. Duration or Time Spent with Pa: unknown SAURABH NARVAEZ MD Dec 16, 2020 08:35
[2020-12-16] MEDS ORDERED: NS 1000ML 1,000 ML ONE (08:39)
[2020-12-16] MEDS ORDERED: ZOFRAN IV STA (08:39)
[2020-12-16] MEDS ORDERED: TORADOL ONE (08:39)
[2020-12-16] MEDS ORDERED: ZOFRAN ONE ×2 (08:39→09:48)
[2020-12-16] MEDS ORDERED: TORADOL IV PRN (09:00)
[2020-12-16 09:04] LABS: BASOPHIL # 0.1 10^3/uL (0.0-0.1); EOSINOPHIL # 0.3 10^3/uL (0.0-0.2); EOSINOPHIL % 2.7 % (0.0-5.0); MONOCYTES # 0.5 10^3/uL (0.3-0.8); MONOCYTES % 4.5 % (5.0-12.0); NEUTROPHIL # 6.4 10^3/uL (1.8-7.7); NEUTROPHILS % 63.6 % (41.0-85.0); PLATELET COUNT 329 10^3/uL (150-400); RED CELL DISTRIBUTION WIDTH 12.3 % (11.5-14.5)
--- NOTE | 2020-12-16 09:10 | NUR ---
iv ATTEMPT MADE X3 TO START IV, ALL THREE UNSUCCESSFUL. CALLED [facility]YUB[facility] RN TO COME ATTEMPT. PT REFUSES TO HAVE A MALE ATTEMPT AND REQUESTED ONE MORE ATTEMPT BY THIS RN.
[2020-12-16 09:19] LABS: CALCIUM 9.7 mg/dL (8.4-10.5); CARBON DIOXIDE 23.6 mmol/L (20.0-32)
[2020-12-16] MEDS ORDERED: NS 1000ML 1,000 ML IV ONE (09:30)
[2020-12-16] MEDS ORDERED: DIPRIVAN IV ONE (09:48)
[2020-12-16] MEDS ORDERED: DECADRON ONE (09:48)
[2020-12-16] MEDS ORDERED: ATIVAN ONE (09:48)
[2020-12-16] MEDS ORDERED: EPHEDRINE SULFATE ONE (09:48)
--- NOTE | 2020-12-16 09:48 | DIREP ---
PROCEDURE:CT ABD/PELVIS WITHOUT CONTRAST TECHNIQUE:No oral contrast was given. Axial cuts were obtained through the abdomen and pelvis without IV contrast. The images were viewed at lung, liver, bone, and soft tissue settings. Sagittal and coronal reconstructions are provided. COMPARISON:[facility], CT, CT ABD/PELVIS W/O, 12/30/2019, 02:17 PM. [facility], CR, XRAY FLUOROSCOPY, 11/25/2020, 10:58 AM. [facility], CT, CT ABD/PELVIS W/O, 10/13/2020, 00:11 AM. [facility], CR, XRAY UROGRAPHY RETROGRADE, 10/13/2020, 08:50 AM. [facility], CT, CT ABD/PELVIS W/O, 11/03/2020, 06:09 PM. INDICATIONS:flank pain FINDINGS: LOWER CHEST:Stable mild bibasilar centrilobular emphysema. The lung bases are otherwise clear. LIVER:Stable hypodense lesion in the anterior right hepatic dome, measuring 2.3 cm (image 7, series). An additional stable hyperdense lesion is seen within the inferomedial right hepatic lobe adjacent the gallbladder fossa, measuring 3.5 x 2.7 cm (image 43, series). These are stable in size and appearance dating back to December 2019. No additional hepatic lesion. BILIARY:Normal. PANCREAS:Normal. SPLEEN:Normal size. No focal splenic lesion. URINARY TRACT:Left double-J ureteral stent remains in place with tips in the bladder left renal pelvis. At least 4 calculus fragments are not seen within the left distal just inferior to the level of the sacroiliac joints, the largest measuring 8 x 7 x 6 mm (image 95, series 2 and image 37, series [id number]). Moderate left hydroureteronephrosis is increased from the prior CT. Previously seen right ureteral stent has been removed. No residual right ureteral calculus. Multiple nonobstructing bilateral renal calculi are again demonstrated. The largest in the inferior pole on the right measures 9 mm (image 56, series 2). Largest in the inferior pole on the left measures 8 mm (image 45, series 2). The bladder is partially decompressed, somewhat limiting evaluation. ADRENALS:Normal. AORTA/VASCULAR:Stable scattered calcified plaque. No aneurysm. RETROPERITONEUM:Normal. No enlarged lymph nodes. BOWEL/MESENTERY:Somewhat limited evaluation due to lack of oral contrast. No obstructive or inflammatory changes. Moderate stool within the ascending proximal to mid transverse colon. A normal appendix is seen within the right lower quadrant. No free fluid, free air, or adenopathy. ABDOMINAL WALL:Unremarkable. PELVIS:The uterus and adnexa are normal for age. No pelvic free fluid or adenopathy. BONES:Minimal degenerative changes in the lower lumbar spine. No acute abnormality or suspicious osseous lesion. OTHER:Normal. CONCLUSION: 1. Multiple calculus fragments are now seen within the distal left ureter adjacent to the left ureteral stent, the largest measuring 8 mm. Moderate left-sided hydronephrosis is increased from the prior CT. 2. Removal of the previously seen right ureteral stent. No right ureteral calculus or hydronephrosis. 3. Persistent nonobstructing bilateral renal calculi, the largest measuring 9 mm in the inferior pole of the right kidney. 4. Stable hypodense lesions in the right hepatic dome and inferomedial right hepatic lobe, the largest measuring 3.5 cm. These are incompletely characterized without IV contrast but stable dating back to December 2019, suggesting a benign process. MR of the abdomen with and without IV contrast (liver mass protocol) is recommended further characterization, when clinically feasible. 5. Moderate stool within the ascending and transverse colon. 6. Stable mild bibasilar centrilobular emphysema. 7. Additional findings, as above. Dictated by: Pascual Johnson MD on 12/16/2020 at 09:29 AM
[2020-12-16] MEDS ORDERED: SUBLIMAZE ONE (09:49)
[2020-12-16] MEDS ORDERED: LEVAQUIN 100 ML IV ONE ×2 (09:49→11:00)
--- NOTE | 2020-12-16 11:13 | OPH ---
DATE OF SURGERY: 12/16/2020 DICTATOR NAME: Andres Beltran MD PREOPERATIVE DIAGNOSES: Large calculus in the left distal ureter with indwelling stent. FINAL DIAGNOSES: Large calculus in the left distal ureter with indwelling stent. PROCEDURE: Left ESWL. DESCRIPTION OF PROCEDURE: The patient was brought to the lithotripsy room, was put in supine position on the lithotripsy table. A preoperative KUB was done with an ultrasound, which revealed a large calculus in the left distal ureter with a stent, measuring around 8 mm in diameter. After the patient was given an LMA general anesthesia and after localization of the stone with the use of fluoroscopy and ultrasound, a left ESWL was then performed using a Dornier Compact Delta II lithotripter. A total of 2000 shockwaves were delivered to the stones in the left distal ureter under fluoroscopy and ultrasound guidance. After fragmentation of the stone as noted in the ultrasound, the procedure was terminated. The patient was awakened, was transferred to the recovery room in stable condition. Andres Beltran MD DR: DEVON TID: [id number] RECEIPT: [id number]
[2020-12-16] MEDS ORDERED: LACTATED RINGERS 1,000 ML IV SCH (11:30)
[2021-01-02] MEDS ORDERED: DOCU-123 PO (14:48)
[2021-01-02] MEDS ORDERED: FLAVOXATE PO (14:48)
== END 2020-12-16 11:05 | disposition home or self-care (01) ==
LOC: ER 08:12 → SDC 09:15 → UNDOADMOB 09:24 → MS 09:24 → SDC 11:05
PROVIDERS: ATTEND Urology
DX: N20.1 Calculus of ureter (principal); F43.10 Post-traumatic stress disorder, unspecified; Z87.440 Personal history of urinary (tract) infections; Z98.890 Other specified postprocedural states; Z98.891 History of uterine scar from previous surgery; Z79.01 Long term (current) use of anticoagulants
CPT/HCPCS: 36415; 50590; 74176; 80053; 85025; 85610; 85730; 99285; J1100; J1885; J1956; J2060; J2405 ×2; J3010; J3490 ×2; J7030

== ENCOUNTER 2021-01-04 17:16 | Emergency (ER) | payer OTHER ==
[~2021-01-04 17:16] MED LIST changes: +DOCU-123 PO; +FLAVOXATE PO
[2021-01-04 17:20] VITALS: BP 165/120
[2021-01-04] MEDS ORDERED: ZOFRAN ODT SL STA (17:48)
[2021-01-04] MEDS ORDERED: TORADOL IM STA (17:48)
[2021-01-04] MEDS ORDERED: ZOFRAN ODT ONE (17:54)
[2021-01-04] MEDS ORDERED: TORADOL ONE (17:54)
--- NOTE | 2021-01-04 17:56 | ER.PDOC ---
General Chief Complaint: Flank Pain Stated Complaint: KIDNEY PAIN Time seen by MD: 17:52 Source: patient Exam Limitations: no limitations History of Present Illness Initial Comments Right flank pain today. Patient was discharged from here 2 days ago after being admitted for a kidney stone. She had she had a stent placement in the right ureter with removal of a previous stent in the left ureter. Timing/Duration: 4-6 hours Severity/Quality: moderate, sharpness Radiation: no radiation Associated Symptoms: denies symptoms Exacerbated by: nothing Relieved By: nothing Allergies: Coded Allergies: shellfish derived (Verified Allergy, Severe, 03/13/20) chlorhexidine (Verified Allergy, Mild, Rash, 03/13/20) Opioids-Meperidine and Related (Verified Allergy, Unknown, unk, 12/01/19) Penicillins (Verified Allergy, Unknown, unk, 12/01/19) Sulfa (Sulfonamide Antibiotics) (Verified Allergy, Unknown, unk, 12/01/19) Uncoded Allergies: CONTRAST (Allergy, Severe, Anaphylaxis Shock, 03/13/20) Home Meds Active Scripts Docusate Sodium (COLACE) 100 Mg Capsule, 100 MG PO BID for 7 Days Prov:KALI COHEN MD 01/02/21 [Flavoxate Hcl] 100 MG TABLET No Conflict Check, 100 MG PO TID for 7 Days Prov:KALI COHEN MD 01/02/21 Ciprofloxacin Hcl (CIPRO) 500 Mg Tablet, 500 MG PO BID, #14 Prov:GI MILLER MD 11/25/20 Ketorolac Tromethamine (KETOROLAC TROMETHAMINE) 10 Mg Tablet, 10 MG PO TIDP PRN for PAIN 4 - 6 for 3 Days, #7 TAB Prov:MARTA WILKINS MD 10/13/20 Tramadol Hcl (TRAMADOL HCL) 50 Mg Tablet, 50 MG PO Q6 PRN for PAIN, #20 TABLET Prov:GI MILLER MD 03/23/20 Reported Medications Mirtazapine (MIRTAZAPINE) 15 Mg Tab.rapdis, 15 MG PO HS, TAB 03/13/20 Tamsulosin Hcl (FLOMAX) 0.4 Mg Cap.er.24h, 1 CAP PO DAILY for 21 Days, #21 CAP 11 Refills 12/31/19 Vital Signs First Vital Signs Date Time Temp Pulse Resp B/P (MAP) Pulse Ox O2 Delivery O2 Flow Rate FiO2 01/04/21 17:20 97.8 88 18 01/04/21 17:20 94 01/04/21 17:20 165/120 (135) Room Air Last Vital Signs Date Time Temp Pulse Resp B/P (MAP) Pulse Ox O2 Delivery O2 Flow Rate FiO2 01/04/21 17:20 97.8 88 18 165/120 (135) 94 Room Air Past Medical History Medical History: hypertension, other Surgical History: stent Family History Significant Family History: no pertinent family hx Social History Smoking: non-smoker Alcohol Use: none Drug Use: none Constitutional: no symptoms reported EENTM: no symptoms reported Respiratory: no symptoms reported Cardiovascular: no symptoms reported Gastrointestinal: no symptoms reported Genitourinary: see HPI All Other Systems: Reviewed and Negative Physical Exam General Appearance: No Apparent Distress, WD/WN Neck: Non-Tender, Full Range of Motion, Supple, Normal Inspection Respiratory: chest non-tender, lungs clear, normal breath sounds, no respiratory distress, no accessory muscle use Cardiovascular: Normal Peripheral Pulses, Regular Rate, Rhythm, No Edema, No Gallop, No JVD, No Murmur Gastrointestinal: Normal Bowel Sounds, No Organomegaly, No Pulsatile Mass, Tenderness (RLQ) Back: Normal Inspection, No CVA Tenderness, No Vertebral Tenderness Extremities: Normal Range of Motion, Non-Tender, Normal Inspection, No Pedal E senait, No Calf Tenderness, Normal Capillary Refill, Pelvis Stable 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, No Motor/Sensory Deficits, Alert, Normal Mood/Affect, Oriented x 3 Skin: Normal Color, Warm/Dry Lymphatic: No Adenopathy Results/Orders Results/Orders Orders - CURTIS HAWKINS MD Cbc With Auto Diff (01/04/21 17:48) Ct Abd/Pelvis Wo Iv Contrast (01/04/21 17:48) Basic Metabolic Panel (01/04/21 17:48) Ketorolac Tromethamine (Toradol) (01/04/21 17:48) Ondansetron (Zofran Odt) (01/04/21 17:48) Ondansetron (Zofran Odt) (01/04/21 17:54) Ketorolac Tromethamine (Toradol) (01/04/21 17:54) Vital Signs Date Time Temp Pulse Resp B/P (MAP) Pulse Ox O2 Delivery O2 Flow Rate FiO2 01/04/21 17:20 97.8 88 18 165/120 (135) 94 Room Air 01/04/21 17:20 97.8 88 18 94 01/04/21 17:20 97.8 88 18 Administered Medications Medications (Trade) Dose Ordered Sig/Luis Route PRN Reason Start Time Stop Time Status Last Admin Dose Admin Ketorolac Tromethamine (Toradol) 60 mg STAT STAT IM 01/04/21 17:48 01/04/21 17:50 DC 01/04/21 18:27 60 MG Ondansetron HCl (Zofran Odt) 4 mg STAT STAT SL 01/04/21 17:48 01/04/21 17:50 DC 01/04/21 18:[address] abdomen/pelvis: Right ureteral stent in position, without hydronephrosis. There multiple right renal calculi, largest at the ureteral pelvic junction. Additional calculi in the inferior calyx. Interval removal of left ureteral stent, with tiny residual calcifications Patient received Zofran and her nausea is better. Reviewed findings of CT with the patient who voices understanding. ER DEPART Departure Time of Disposition: 18:48 Disposition: 01 HOME / SELF CARE / HOMELESS Impression: Primary Impression: Renal calculi Additional Impression: Nausea Condition: Improved Referrals: PCP,UNKNOWN (PCP) PRIMARY CARE PROVIDER Additional Instructions: Zofran ODT Continue pain medication at home Follow-up with your urologist next week. Return to ED if worsening or concerns. Duration or Time Spent with Pa: 20 min Problem Qualifiers CURTIS HAWKINS MD Jan 04, 2021 17:56
--- NOTE | 2021-01-04 18:23 | DIREP ---
PROCEDURE:CT ABDOMEN/PELVIS W/O CONTRAST COMPARISON:[facility], CR, XRAY UROGRAPHY RETROGRADE, 01/01/2021, 10:13 AM. [facility], CT, CT ABD/PELVIS W/O, 12/31/2020, 01:05 PM. INDICATIONS:Right flank pain TECHNIQUE:Axial images were created through the abdomen and pelvis without intravenous contrast material. No oral contrast was administered. Sagittal and coronal reconstructions were performed from source images. FINDINGS: LUNG BASES:Minimal dependent atelectasis and scar. No effusion LIVER:Normal. No significant liver lesions are identified. BILIARY:Normal. No visible dilatation or calcification. PANCREAS:Normal. No lesion, fluid collection, ductal dilatation, or atrophy. SPLEEN:Normal. No enlargement or focal lesion. ADRENALS:Normal. No mass or enlargement. URINARY TRACT:Right ureteral stent in position. The multiple calcifications in the inferior aspect of right collecting system. Largest measuring 6 mm. Additional 7 mm stone at the right ureteral pelvic junction. Interval removal of left-sided ureteral stent. Tiny left collecting system stones, largest measuring 2-3 mm in size. AORTA/VASCULAR:Normal. No aneurysm. RETROPERITONEUM:Normal. No mass or adenopathy. BOWEL/MESENTERY:The appendix is visualized and appears normal. There is no intestinal obstruction, free fluid, free air or mesenteric inflammatory changes. ABDOMINAL WALL:Normal. No mass or hernia. PELVIC ORGANS:Normal. No visible mass. Pelvic organs appropriate for patient age. BONES:Normal for age. No bony lesion or acute fracture. OTHER:Negative. CONCLUSION:Right ureteral stent in position, without hydronephrosis. There multiple right renal calculi, largest at the ureteral pelvic junction. Additional calculi in the inferior calyx. Interval removal of left ureteral stent, with tiny residual calcifications Dictated by: Pernell Monroy MD on 01/04/2021 at 06:16 PM
[2021-01-04 19:05] VITALS: BP 156/120
--- NOTE | 2021-01-04 19:05 | NUR ---
Discharge Assessment tab not visible. Patient given discharge instructions, voiced understanding, discharge papers signed.
== END 2021-01-04 19:05 | disposition home or self-care (01) ==
LOC: ER 17:16
DX: N20.0 Calculus of kidney (principal); I10 Essential (primary) hypertension; Z79.1 Long term (current) use of non-steroidal anti-inflammatories (NSAID); Z79.899 Other long term (current) drug therapy; Z88.0 Allergy status to penicillin; Z88.2 Allergy status to sulfonamides; Z88.5 Allergy status to narcotic agent
CPT/HCPCS: 74176; 96372; 99284; J1885

== ENCOUNTER → 2021-01-13 | Day surgery (SDC) | payer OTHER ==
[2021-01-13] VITALS (12 sets, daily range): BP systolic 131–162; BP diastolic 72–115
[~2021-01-13] VITALS: Ht 175.3 cm; Wt 44.9 kg
[~2021-01-13] MED LIST changes: +DECADRON ONE; +DIPRIVAN IV ONE; +LACTATED RINGERS 1,000 ML IV SCH; +LACTATED RINGERS 1,000 ML ONE; +LASIX IV STA; +LASIX ONE; +LEVAQUIN 100 ML IV ONE; +PHENADOZ RC ONE; +PHENADOZ RC STA; +SUBLIMAZE ONE; +ULTRAM ONE; +ULTRAM PO ONE; +VERSED IV ONE; +VERSED ONE; +XYLOCAINE 2% 5ML VIAL ONE; +ZOFRAN ONE
--- NOTE | 2021-01-13 08:00 | NUR ---
IV PT REFUSES TO HAVE IV STARTED, STATES SHE WANTS TO WAIT AND HAVE LYUBOV IN SDS UNIT START IT. NOTIFIED DAYS SURGERY OF THIS BY PHONE WITH [facility].
[2021-01-13 08:24] LABS: BASOPHIL # 0.1 10^3/uL (0.0-0.1); BASOPHIL % 0.9 % (0.0-0.2); EOSINOPHIL # 0.3 10^3/uL (0.0-0.2); EOSINOPHIL % 2.1 % (0.0-5.0); LYMPHOCYTES # 3.67 10^3/uL1 (1.0-4.8); LYMPHOCYTES % 27.9 % (24.0-44.0); MEAN CORP HGB 34.2 pg (26-34); MONOCYTES # 0.7 10^3/uL (0.3-0.8); MONOCYTES % 5.6 % (5.0-12.0); NEUTROPHIL # 8.3 10^3/uL (1.8-7.7); PLATELET COUNT 449 10^3/uL (150-400); RED CELL DISTRIBUTION WIDTH 14.4 % (11.5-14.5)
[2021-01-13 08:38] LABS: CARBON DIOXIDE 24.6 mmol/L (20.0-32)
--- NOTE | 2021-01-13 08:38 | DIREP ---
PROCEDURE:XRAY ABDOMEN SINGLE VW COMPARISON:None. INDICATIONS:flank pain kidney stone eval FINDINGS: BOWEL GAS PATTERN:Nonobstructed. Moderate colonic stool burden. CALCIFICATIONS:A double pigtail right ureteral stent is present. A rounded calcification is seen overlying the proximal to mid stent, which may represent ureterolith. This measures 8 mm in greatest dimension. LUNG BASES:Clear. BONES:Normal. OTHER:No additional findings. CONCLUSION:Right ureteral stent, with rounded calcification overlying the mid to proximal stent, likely representing ureterolith. Dictated by: Kamala Alvarez M.D. on 01/13/2021 at 08:36 AM
--- NOTE | 2021-01-13 08:41 | ER.PDOC ---
General Chief Complaint: Abdomen Pain Stated Complaint: KIDNEY PAIN/STINT Time seen by MD: 08:07 Source: patient Exam Limitations: no limitations History of Present Illness Initial Comments This is a 45-year-old female who comes to the emergency department complaining of right flank pain. She has a kidney stone in the right side, that has been ongoing for some time. She was sent here by Dr. Miller, and he requested the patient have a CBC, CMP, PT/PTT, and KUB. Radiation: flank Allergies: Coded Allergies: shellfish derived (Verified Allergy, Severe, 03/13/20) chlorhexidine (Verified Allergy, Mild, Rash, 03/13/20) Opioids-Meperidine and Related (Verified Allergy, Unknown, unk, 12/01/19) Penicillins (Verified Allergy, Unknown, unk, 12/01/19) Sulfa (Sulfonamide Antibiotics) (Verified Allergy, Unknown, unk, 12/01/19) Uncoded Allergies: CONTRAST (Allergy, Severe, Anaphylaxis Shock, 03/13/20) Home Meds Active Scripts Docusate Sodium (COLACE) 100 Mg Capsule, 100 MG PO BID for 7 Days Prov:KALI COHEN MD 01/02/21 [Flavoxate Hcl] 100 MG TABLET No Conflict Check, 100 MG PO TID for 7 Days Prov:KALI COHEN MD 01/02/21 Ciprofloxacin Hcl (CIPRO) 500 Mg Tablet, 500 MG PO BID, #14 Prov:GI MILLER MD 11/25/20 Ketorolac Tromethamine (KETOROLAC TROMETHAMINE) 10 Mg Tablet, 10 MG PO TIDP PRN for PAIN 4 - 6 for 3 Days, #7 TAB Prov:MARTA WILKINS MD 10/13/20 Tramadol Hcl (TRAMADOL HCL) 50 Mg Tablet, 50 MG PO Q6 PRN for PAIN, #20 TABLET Prov:GI MILLER MD 03/23/20 Reported Medications Mirtazapine (MIRTAZAPINE) 15 Mg Tab.rapdis, 15 MG PO HS, TAB 03/13/20 Tamsulosin Hcl (FLOMAX) 0.4 Mg Cap.er.24h, 1 CAP PO DAILY for 21 Days, #21 CAP 11 Refills 12/31/19 Vital Signs First Vital Signs Date Time Temp Pulse Resp B/P (MAP) Pulse Ox O2 Delivery O2 Flow Rate FiO2 01/13/21 08:01 98.8 100 20 01/13/21 08:01 162/115 (131) 94 Room Air Last Vital Signs Date Time Temp Pulse Resp B/P (MAP) Pulse Ox O2 Delivery O2 Flow Rate FiO2 01/13/21 08:01 98.9 100 18 94 01/13/21 08:01 162/115 (131) Room Air Past Medical History Medical History: hypertension, renal disease, other Surgical History: stent Social History Alcohol Use: none Drug Use: none Constitutional: denies no symptoms reported, denies see HPI, denies chills, denies diaphoresis, denies fever, denies malaise, denies weakness, denies other EENTM: denies no symptoms reported, denies see HPI, denies eye pain, denies blurred vision, denies tearing, denies double vision, denies ear pain, denies ear discharge, denies nose pain, denies nose congestion, denies throat pain, denies throat swelling, denies mouth pain, denies mouth swelling, denies other Respiratory: denies no symptoms reported, denies see HPI, denies cough, denies orthopnea, denies shortness of breath, denies SOB with exertion, denies SOB at rest, denies stridor, denies wheezing, denies other Cardiovascular: denies no symptoms reported, denies see HPI, denies chest pain, denies edema, denies irregular heart rate, denies lightheadedness, denies palpitations, denies syncope, denies other Gastrointestinal: denies no symptoms reported, denies see HPI, denies abdomen distended, denies abdominal pain, denies blood streaked bowels, denies constipated, denies diarrhea, denies difficulty swallowing, denies nausea, denies poor appetite, denies poor fluid intake, denies rectal bleeding, denies vomiting, denies other Genitourinary: denies no symptoms reported, denies see HPI, denies burning, denies dysuria, denies discharge, denies frequency, denies flank pain, denies hematuria, denies incontinence, denies pain, denies urgency, denies other Musculoskeletal: denies no symptoms reported, denies see HPI, denies back pain, denies gout, denies joint pain, denies joint swelling, denies muscle pain, denies muscle stiffness, denies neck pain, denies other Skin: denies no symptoms reported, denies see HPI, denies change in color, denies change in hair/nails, denies dryness, denies lesions, denies lumps, denies rash, denies other Psychiatric/Neurological: denies no symptoms reported, denies see HPI, denies anxiety, denies depressed, denies emotional problems, denies headache, denies numbness, denies paresthesia, denies pre-existing deficit, denies seizure, denies tingling, denies tremors, denies weakness, denies other Endocrine: denies no symptoms reported, denies see HPI, denies excessive sweating, denies flushing, denies intolerance to cold, denies intolerance to heat, denies increased hunger, denies increased thrist, denies increased urine, denies unexplained weight gain, denies unexplaned weight loss, denies other Hematologic/Lymphatic: denies no symptoms reported, denies see HPI, denies anemia, denies blood clots, denies easy bleeding, denies easy bruising, denies swollen glands, denies other All Other Systems: Reviewed and Negative Physical Exam General Appearance: No Apparent Distress, WD/WN HEENT: PERRL/EOMI, Normal ENT Inspection, TMs Normal, Pharynx Normal Neck: Non-Tender, Full Range of Motion, Supple, Normal Inspection Respiratory: chest non-tender, lungs clear, normal breath sounds, no respiratory distress, no accessory muscle use Cardiovascular: Normal Peripheral Pulses, Regular Rate, Rhythm, No Edema, No Gallop, No JVD, No Murmur Gastrointestinal: Normal Bowel Sounds, Non Tender, Soft Pelvic: Normal External Exam, Normal Adnexa, No Cerv. 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 (01/13/21 08:04) Xr Abd 1v (01/13/21 08:04) Surgical Consult (01/13/21 08:13) Promethazine Hcl (Phenadoz) (01/13/21 08:37) Vital Signs Date Time Temp Pulse Resp B/P (MAP) Pulse Ox O2 Delivery O2 Flow Rate FiO2 01/13/21 08:01 98.9 100 18 94 01/13/21 08:01 98.8 100 20 162/115 (131) 94 Room Air 01/13/21 08:01 98.8 100 20 Laboratory Tests Test 01/13/21 08:18 White Blood Count 13.2 10^3/uL (4.5-11.0) H Red Blood Count 3.45 10^6/uL (4.00-5.20) L Hemoglobin 11.8 g/dL (12.0-15.0) L Hematocrit 37.2 % (36.0-46.0) Mean Corpuscular Volume 107.8 fL (78-100) H Mean Corpuscular Hemoglobin 34.2 pg (26-34) H Mean Corpuscular Hemoglobin Concent 31.7 g/dL (33-36.5) L Red Cell Distribution Width 14.4 % (11.5-14.5) Platelet Count 449 10^3/uL (150-400) H Mean Platelet Volume 8.9 fL (7.8-11.0) Neutrophils (%) (Auto) 63.0 % (41.0-85.0) Lymphocytes (%) (Auto) 27.9 % (24.0-44.0) Monocytes (%) (Auto) 5.6 % (5.0-12.0) Neutrophils # (Auto) 8.3 10^3/uL (1.8-7.7) H Lymphocytes # (Auto) 3.67 10^3/uL1 (1.0-4.8) Monocytes # (Auto) 0.7 10^3/uL (0.3-0.8) Absolute Immature Granulocyte (auto 0.07 10^3 u/L (0-2) Absolute Eosinophils (auto) 0.3 10^3/uL (0.0-0.2) H Immature Granulocytes % 0.50 % (0.00-0.50) Eosinophils % 2.1 % (0.0-5.0) Basophils % 0.9 % (0.0-0.2) H Basophils # 0.1 10^3/uL (0.0-0.1) Prothrombin Time 12.2 SEC (9.6-12.0) H Prothrombin Time INR (Non-Therap) 1.1 Activated Partial Thromboplast Time 25.2 SEC (24.67-30.72) Sodium Level 141 mmol/L (132-145) Potassium Level 4.5 mmol/L (3.6-5.2) Chloride Level 108.0 mmol/L (96-109) Carbon Dioxide Level 24.6 mmol/L (20.0-32) Anion Gap 12.9 Blood Urea Nitrogen 32 mg/dL (7-18) H Creatinine 0.98 mg/dL (0.59-1.40) Estimated GFR () 74.6 (>/=60) Est GFR (CKD-EPI)(Non-Afr New Zealander) 61.7 (>/=60) BUN/Creatinine Ratio 32.0 Glucose Level 118 mg/dL (70-110) H Calcium Level 9.7 mg/dL (8.4-10.5) Total Bilirubin 0.4 mg/dL (0.2-1.0) Aspartate Amino Transferase (AST) 50 U/L (0-35) H Alanine Aminotransferase (ALT) 67 U/L (12-78) Alkaline Phosphatase 87 U/L (50-136) Total Protein 7.0 g/dL (6.4-8.2) Albumin 3.2 g/dL (3.4-5.0) L Globulin 3.8 Albumin/Globulin Ratio 0.842 Progress Progress Call was made to Dr. Miller, and he will take the patient to lithotripsy. ER DEPART Departure Time of Disposition: 08:53 Disposition: 02 SHORT TERM HOSPITAL Impression: Primary Impression: Ureteral stone with hydronephrosis Condition: Stable Referrals: PCP,UNKNOWN (PCP) PRIMARY CARE PROVIDER Duration or Time Spent with Pa: Unknown SAURABH NARVAEZ MD Jan 13, 2021 08:41
--- NOTE | 2021-01-13 09:30 | NUR ---
SDU PT TAKEN VIA STRETCHER BY LOULOU COY IN STABLE CONDITION.
--- NOTE | 2021-01-13 12:39 | OPH ---
DATE OF SURGERY: 01/13/2021 DICTATOR NAME: Andres Beltran MD PREOPERATIVE DIAGNOSIS: Calculus, right mid proximal ureter with an indwelling stent. FINAL DIAGNOSIS: Calculus, right mid proximal ureter with an indwelling stent. PROCEDURE: Right ESWL. DESCRIPTION OF PROCEDURE: The patient was brought to the lithotripsy room, was put in supine position. A preoperative KUB revealed the calculus in the right proximal mid ureter with an indwelling stent. After the patient was given an LMA general anesthesia and after localization of the stone with the use of fluoroscopy and ultrasound, right ESWL was then performed using a Dornier Compact Delta II lithotripter. A total of 2000 shockwaves were delivered to the stones in the right upper ureter under ultrasound guidance. After fragmentation as noted in the ultrasound, procedure was terminated. The patient was awakened, was transferred to the recovery room in stable condition. Andres Beltran MD DR: MARGARET TID: [id number] RECEIPT: [id number]
== END | disposition home or self-care (01) ==
LOC: ER 07:54 → SDC 08:51
PROVIDERS: ATTEND Urology
DX: N13.2 Hydronephrosis with renal and ureteral calculous obstruction (principal); I10 Essential (primary) hypertension; F41.9 Anxiety disorder, unspecified; F31.9 Bipolar disorder, unspecified; Z79.899 Other long term (current) drug therapy; Z88.0 Allergy status to penicillin; Z79.01 Long term (current) use of anticoagulants; Z88.2 Allergy status to sulfonamides; Z88.5 Allergy status to narcotic agent; Z88.1 Allergy status to other antibiotic agents; Z88.8 Allergy status to other drugs, medicaments and biological substances; Z91.013 Allergy to seafood; Z83.3 Family history of diabetes mellitus; Z91.041 Radiographic dye allergy status
CPT/HCPCS: 36415; 50590; 74018; 80053; 84703; 85025; 85610; 85730; 99285; J1100; J1956; J2001; J2250; J2405; J3010; J3490; J7120 ×2; J1940

== ENCOUNTER 2021-01-24 14:08 | Emergency (ER) | payer MEDICAID ==
[~2021-01-24] VITALS: Ht 165.1 cm; Wt 50.8 kg
[2021-01-24 14:08] VITALS: BP 139/112
[~2021-01-24 14:08] MED LIST changes: -DECADRON ONE; -DIPRIVAN IV ONE; -LACTATED RINGERS 1,000 ML IV SCH; -LACTATED RINGERS 1,000 ML ONE; -LASIX IV STA; -LASIX ONE; -LEVAQUIN 100 ML IV ONE; -PHENADOZ RC ONE; -PHENADOZ RC STA; -SUBLIMAZE ONE; -ULTRAM ONE; -ULTRAM PO ONE; -VERSED IV ONE; -VERSED ONE; -XYLOCAINE 2% 5ML VIAL ONE; -ZOFRAN ONE
[2021-01-24 14:10] VITALS: BP 139/112
[2021-01-24 14:40] LABS: BASOPHIL # 0.1 10^3/uL (0.0-0.1); BASOPHIL % 0.6 % (0.0-0.2); EOSINOPHIL # 0.3 10^3/uL (0.0-0.2); EOSINOPHIL % 2.2 % (0.0-5.0); LYMPHOCYTES % 30.2 % (24.0-44.0); MEAN CORP HGB 34.2 pg (26-34); MONOCYTES # 0.6 10^3/uL (0.3-0.8); MONOCYTES % 5.4 % (5.0-12.0); NEUTROPHIL # 7.3 10^3/uL (1.8-7.7); NEUTROPHILS % 61.3 % (41.0-85.0); PLATELET COUNT 429 10^3/uL (150-400); RED CELL DISTRIBUTION WIDTH 12.8 % (11.5-14.5)
--- NOTE | 2021-01-24 14:59 | ER.PDOC ---
General Chief Complaint: Female Urogenital Problems Stated Complaint: KIDNEY PAIN Time seen by MD: 14:57 Source: patient Exam Limitations: no limitations History of Present Illness Initial Comments Bilateral flank pain today, patient has a history of kidney stones. Pain is sharp and moderate. Severity/Quality: moderate Radiation: RLQ, LLQ Associated Symptoms: denies symptoms Exacerbated by: nothing Relieved By: nothing Allergies: Coded Allergies: shellfish derived (Verified Allergy, Severe, 03/13/20) chlorhexidine (Verified Allergy, Mild, Rash, 03/13/20) Penicillins (Verified Allergy, Unknown, unk, 12/01/19) Sulfa (Sulfonamide Antibiotics) (Verified Allergy, Unknown, unk, 12/01/19) Uncoded Allergies: CONTRAST (Allergy, Severe, Anaphylaxis Shock, 03/13/20) Home Meds Active Scripts Tramadol Hcl (TRAMADOL HCL) 50 Mg Tablet, 50 MG PO Q6 PRN for PAIN, #20 TABLET Prov:GI MILLER MD 01/13/21 Tamsulosin Hcl (FLOMAX) 0.4 Mg Cap.er.24h, 0.4 MG PO DAILY24, #10 CAPSULE Prov:GI MILLER MD 01/13/21 Ciprofloxacin Hcl (CIPRO) 500 Mg Tablet, 500 MG PO BID, #14 Prov:GI MILLER MD 01/13/21 Reported Medications Mirtazapine (MIRTAZAPINE) 15 Mg Tab.rapdis, 15 MG PO HS, TAB 03/13/20 Vital Signs First Vital Signs Date Time Temp Pulse Resp B/P (MAP) Pulse Ox O2 Delivery O2 Flow Rate FiO2 01/24/21 14:08 97.8 82 18 139/112 (121) Room Air 01/24/21 14:10 100 Last Vital Signs Date Time Temp Pulse Resp B/P (MAP) Pulse Ox O2 Delivery O2 Flow Rate FiO2 01/24/21 14:10 98.7 93 18 100 01/24/21 14:08 139/112 (121) Room Air Past Medical History Medical History: other Surgical History: stent Family History Significant Family History: no pertinent family hx Social History Smoking: non-smoker Alcohol Use: none Drug Use: none Constitutional: no symptoms reported EENTM: no symptoms reported Respiratory: no symptoms reported Cardiovascular: no symptoms reported Gastrointestinal: no symptoms reported Genitourinary: see HPI All Other Systems: Reviewed and Negative Physical Exam General Appearance: No Apparent Distress, WD/WN HEENT: PERRL/EOMI, Normal ENT Inspection, TMs Normal, Pharynx Normal Neck: Non-Tender, Full Range of Motion, Supple, Normal Inspection Respiratory: chest non-tender, lungs clear, normal breath sounds, no respiratory distress, no accessory muscle use Cardiovascular: Normal Peripheral Pulses, Regular Rate, Rhythm, No Edema, No Gallop, No JVD, No Murmur Gastrointestinal: Normal Bowel Sounds, No Organomegaly, No Pulsatile Mass, Tenderness (LLQ and RLQ) Back: Normal Inspection, No CVA Tenderness, No Vertebral Tenderness Extremities: Normal Range of Motion, Non-Tender, Normal Inspection, No Pedal Edema, No Calf Tenderness, Normal Capillary Refill, Pelvis Stable 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 (01/24/21 14:26) Urinalysis (01/24/21 14:26) Ct Abd/Pelvis Wo Iv Contrast (01/24/21 14:26) Morphine Sulfate (Morphine Sulfate) (01/24/21 15:16) Morphine Sulfate (Morphine Sulfate) (01/24/21 15:25) Urine Culture (01/24/21 UNK) Vital Signs Date Time Temp Pulse Resp B/P (MAP) Pulse Ox O2 Delivery O2 Flow Rate FiO2 01/24/21 14:10 98.7 93 18 100 01/24/21 14:10 98.7 93 18 01/24/21 14:08 97.8 82 18 139/112 (121) Room Air Administered Medications Medications (Trade) Dose Ordered Sig/Luis Route PRN Reason Start Time Stop Time Status Last Admin Dose Admin Morphine Sulfate (Morphine Sulfate) 4 mg STAT STAT IM 01/24/21 15:25 01/24/21 15:26 DC 01/24/21 15:35 4 MG Laboratory Tests Test 01/24/21 00:00 01/24/21 14:35 Urine Collection Type RANDOM Urine Color ORANGE Urine Appearance CLOUDY Urine Bilirubin (NEGATIVE) Urine Ketones (NEGATIVE) Urine Specific [place] (1.005-1.030) Urine pH (4.5-8.0) Urine Protein (NEGATIVE) Urine Urobilinogen E.U./dL (0.2) Urine Nitrate (NEGATIVE) Urine Leukocyte Esterase (NEGATIVE) Urine Glucose (Auto)(UA) (NEGATIVE) Urine Blood (NEGATIVE) Urine RBC TooNumerousToCount RBC/HPF (NONE Urine WBC TooNumerousToCount WBC/HPF (0-2) Urine Squamous Epithelial Cells MODERATE (<=FEW) Urine Bacteria MANY (NONE SEEN) H White Blood Count 11.9 10^3/uL (4.5-11.0) H Red Blood Count 3.83 10^6/uL (4.00-5.20) L Hemoglobin 13.1 g/dL (12.0-15.0) Hematocrit 41.0 % (36.0-46.0) Mean Corpuscular Volume 107.0 fL (78-100) H Mean Corpuscular Hemoglobin 34.2 pg (26-34) H Mean Corpuscular Hemoglobin Concent 32.0 g/dL (33-36.5) L Red Cell Distribution Width 12.8 % (11.5-14.5) Platelet Count 429 10^3/uL (150-400) H Mean Platelet Volume 8.8 fL (7.8-11.0) Neutrophils (%) (Auto) 61.3 % (41.0-85.0) Lymphocytes (%) (Auto) 30.2 % (24.0-44.0) Monocytes (%) (Auto) 5.4 % (5.0-12.0) Neutrophils # (Auto) 7.3 10^3/uL (1.8-7.7) Lymphocytes # (Auto) 3.60 10^3/uL1 (1.0-4.8) Monocytes # (Auto) 0.6 10^3/uL (0.3-0.8) Absolute Immature Granulocyte (auto 0.03 10^3 u/L (0-2) Absolute Eosinophils (auto) 0.3 10^3/uL (0.0-0.2) H Immature Granulocytes % 0.30 % (0.00-0.50) Eosinophils % 2.2 % (0.0-5.0) Basophils % 0.6 % (0.0-0.2) H Basophils # 0.1 10^3/uL (0.0-0.1) Prothrombin Time 12.9 SEC (9.6-12.0) H Prothrombin Time INR (Non-Therap) 1.2 Activated Partial Thromboplast Time 26.3 SEC (24.67-30.72) Sodium Level 140 mmol/L (132-145) Potassium Level 4.0 mmol/L (3.6-5.2) Chloride Level 101.0 mmol/L (96-109) Carbon Dioxide Level 25.4 mmol/L (20.0-32) Anion Gap 17.6 Blood Urea Nitrogen 23 mg/dL (7-18) H Creatinine 0.95 mg/dL (0.59-1.40) Estimated GFR () 77.3 (>/=60) Est GFR (CKD-EPI)(Non-Afr Filipino) 63.9 (>/=60) BUN/Creatinine Ratio 24.0 Glucose Level 103 mg/dL (70-110) Calcium Level 9.6 mg/dL (8.4-10.5) Total Bilirubin 0.4 mg/dL (0.2-1.0) Aspartate Amino Transferase (AST) 34 U/L (0-35) Alanine Aminotransferase (ALT) 74 U/L (12-78) Alkaline Phosphatase 84 U/L (50-136) Total Protein 7.7 g/dL (6.4-8.2) Albumin 3.7 g/dL (3.4-5.0) Globulin 4.0 Albumin/Globulin Ratio 0.[address] abdomen/pelvis: Bilateral nephrolithiasis. Right ureteral stent is in place. There is an approximate 3 mm calculus within the right proximal ureter directly adjacent to the ureteral stent with mild fullness of the right intrarenal collecting system. No left ureteral calculi or left hydronephrosis. 2. Increased fecal burden within the proximal colon. The colon appears otherwise grossly unremarkable. Normal appendix. 3. Additional findings as discussed above. Chemistry is unremarkable, WBC is 11.9, urine WBCs too numerous to count with many bacteria. Spoke with Dr. Miller and he told me to give the patient IV antibiotic and discharge patient home on antibiotic to follow-up with him in the office in 1 to 2 days. Patient received Rocephin. ER DEPART Departure Time of Disposition: 16:51 Disposition: 01 HOME / SELF CARE / HOMELESS Impression: Primary Impression: Calculus of ureter Additional Impressions: S/P ureteral stent placement UTI (urinary tract infection) Condition: Improved Referrals: PCP,UNKNOWN (PCP) PRIMARY CARE PROVIDER Additional Instructions: Levofloxacin Tramadol Flomax Follow-up with Dr. Miller in 1 to 2 days, call for appointment Return to ED if worsening or concerns Duration or Time Spent with Pa: 45 min Problem Qualifiers Additional Impressions: UTI (urinary tract infection) Urinary tract infection type: site unspecified Hematuria presence: with hematuria Qualified Codes: N39.0 - Urinary tract infection, site not specified; R31.9 - Hematuria, unspecified CURTIS HAWKINS MD Jan 24, 2021 14:59
[2021-01-24 15:07] LABS: CARBON DIOXIDE 25.4 mmol/L (20.0-32)
[2021-01-24] MEDS ORDERED: MORPHINE SULFATE ONE (15:16)
--- NOTE | 2021-01-24 15:20 | DIREP ---
PROCEDURE:CT ABDOMEN/PELVIS W/O CONTRAST COMPARISON:[facility], CT, CT ABD/PELVIS W/O, 01/04/2021, 06:00 PM. INDICATIONS:Bilateral flank pain TECHNIQUE:Axial images were created through the abdomen and pelvis without intravenous contrast material. No oral contrast was administered. Sagittal and coronal reconstructions were performed from source images. FINDINGS: LUNG BASES:No suspicious airspace consolidation or pleural effusion. LIVER:No suspicious focal hepatic lesion. BILIARY:The gallbladder is nondistended. No radiopaque calculi. No significant intrahepatic or extrahepatic biliary ductal dilatation. PANCREAS:No suspicious pancreatic abnormality. SPLEEN:The spleen is not significantly enlarged. No focal splenic lesion is identified. ADRENALS:No significant adrenal abnormality. URINARY TRACT:Bilateral nephrolithiasis. Right ureteral stent is in place. There is an approximate 3 mm calcification within the proximal right ureter directly adjacent to the ureteral stent. There is mild fullness of the right intrarenal collecting system. No definite left ureteral calculus is identified. No left hydronephrosis. AORTA/VASCULAR:Mild scattered atherosclerotic calcifications distally. No aneurysmal dilatation. RETROPERITONEUM:No suspicious retroperitoneal lymphadenopathy. BOWEL/MESENTERY:No evidence for small bowel obstruction. Moderate to large fecal burden within the proximal colon. The colon appears otherwise grossly unremarkable. The appendix is not definitively identified. Normal appendix. No free air. ABDOMINAL WALL:No significant hernia. PELVIC ORGANS:The urinary bladder is decompressed, limiting evaluation. The uterus is not enlarged for the patient's age. No significant free fluid within the pelvis. BONES:No acute abnormality. CONCLUSION: 1. Bilateral nephrolithiasis. Right ureteral stent is in place. There is an approximate 3 mm calculus within the right proximal ureter directly adjacent to the ureteral stent with mild fullness of the right intrarenal collecting system. No left ureteral calculi or left hydronephrosis. 2. Increased fecal burden within the proximal colon. The colon appears otherwise grossly unremarkable. Normal appendix. 3. Additional findings as discussed above. Dictated by: Pascual Ace M.D. On 01/24/2021 at 03:10 PM
[2021-01-24] MEDS ORDERED: MORPHINE SULFATE IM STA (15:25)
[2021-01-24] MEDS ORDERED: ROCEPHIN 1,000 MG in NS 100ML 100 ML IV STA (16:45)
[2021-01-24] MEDS ORDERED: LIDOCAINE 1% VIAL ONE (16:46)
[2021-01-24] MEDS ORDERED: ROCEPHIN ONE (16:46)
[2021-01-27] MEDS ORDERED: TRAM50TA PO (12:14)
== END 2021-01-24 17:17 | disposition home or self-care (01) ==
LOC: EDUNIT# 14:08 → EDBD 14:08 → ER 14:08
DX: N39.0 Urinary tract infection, site not specified (principal); N20.1 Calculus of ureter; Z79.899 Other long term (current) drug therapy; Z88.0 Allergy status to penicillin; Z88.2 Allergy status to sulfonamides
CPT/HCPCS: 36415; 74176; 80053; 81001; 85025; 85610; 85730; 87086; 96365; 96372; 99284; J0696 ×2; J2001; J2270

== ENCOUNTER 2021-01-27 08:38 | Day surgery (SDC) | payer MEDICAID ==
[2021-01-27] VITALS (18 sets, daily range): BP systolic 74–124; BP diastolic 50–87
[~2021-01-27] VITALS: Ht 175.3 cm; Wt 44.9 kg
[~2021-01-27 08:38] MED LIST changes: +DECADRON ONE; +DILAUDID ONE; +DIPRIVAN IV ONE; +LEVAQUIN 100 ML IV ONE; +NS 1000ML 1,000 ML ONE; +TORADOL ONE; +ZOFRAN ONE
[2021-01-27] MEDS ORDERED: NS 1000ML 1,000 ML IV SCH (09:00)
[2021-01-27 10:07] LABS: BASOPHIL # 0.1 10^3/uL (0.0-0.1); EOSINOPHIL # 0.2 10^3/uL (0.0-0.2); EOSINOPHIL % 2.6 % (0.0-5.0); LYMPHOCYTES # 3.31 10^3/uL1 (1.0-4.8); LYMPHOCYTES % 36.2 % (24.0-44.0); MEAN CORP HGB 34.5 pg (26-34); MONOCYTES # 0.6 10^3/uL (0.3-0.8); MONOCYTES % 6.2 % (5.0-12.0); NEUTROPHIL # 4.9 10^3/uL (1.8-7.7); NEUTROPHILS % 53.8 % (41.0-85.0); PLATELET COUNT 425 10^3/uL (150-400); RED CELL DISTRIBUTION WIDTH 12.4 % (11.5-14.5)
[2021-01-27] MEDS ORDERED: ATIVAN ONE (10:38)
[2021-01-27] MEDS ORDERED: NS 3000ML IRR IR ONE (11:24)
[2021-01-27] MEDS ORDERED: SODIUM CHLORIDE IRR BOTTLE IR ONE (11:24)
[2021-01-27] MEDS ORDERED: VERSED ONE (11:32)
[2021-01-27] MEDS ORDERED: TRAM50TA PO (12:14)
[2021-01-27] MEDS ORDERED: LACTATED RINGERS 1,000 ML IV SCH (12:30)
--- NOTE | 2021-01-27 13:14 | OPH ---
DATE OF SURGERY: 01/27/2021 DICTATOR NAME: Andres Beltran MD PREOPERATIVE DIAGNOSIS: Calculus, right ureter. FINAL DIAGNOSIS: Calculus, right ureter. PROCEDURE: Cystoscopy, removal of right ureteral stent, ureteroscopy with basket stone extraction. DESCRIPTION OF PROCEDURE: The patient was brought to the cystoscopy room, was put in supine position on the cystoscopy table. After patient was given a satisfactory and adequate LMA general anesthesia, the patient was then placed in a lithotomy position. The genitalia was then prepped and draped aseptically in the usual manner. First, a 23-Maltese cystoscope was inserted per urethra up to the bladder. With the use of the right angle lens, the bladder was visualized. There is no tumor, no calculi, no ulcerations seen. ____ right ureteral orifice, the present of stent and this was removed and replaced with a Glidewire. The cystoscope was then removed and then a 7-Maltese semirigid ureteroscope was inserted per urethra up in the right orifice all the way to the upper ureter and there was some residual stone noted in the lower ureter. A basket stone extraction was then performed. After removal of the stone in the lower ureter, the rest of the ureter was again visualized. There was no more evidence of stone. The Glidewire was removed. Ureteroscope was removed and a cystoscope was reinserted into the bladder and the bladder was emptied with fluid. Procedure was terminated. Instrument was removed. The patient was then awakened, was transferred to the recovery room in stable condition. Andres Beltran MD DR: JASON/LEROY/MASON TID: [id number] RECEIPT: [id number]
[2021-01-27] MEDS ORDERED: PROM12.57 PO (14:11)
--- NOTE | 2021-01-27 22:55 | DIREP ---
PROCEDURE:XRAY FLUOROSCOPY COMPARISON:[facility], CR, XRAY FLUOROSCOPY, 11/25/2020, 10:58 AM. INDICATIONS:INTRAOPERATIVE CYSTO FINDINGS: Intraoperative fluoroscopy was provided for the ordering clinician by the Radiology Department for retrograde urogram. Nine images submitted for interpretation, demonstrating retrograde cannulation of the right ureter and placement of a double-J ureteral stent. 121.4 seconds fluoroscopy time utilized. CONCLUSION: Intraoperative fluoroscopy provided for the ordering clinician by the Radiology Department as detailed above. Dictated by: Gregg Celeste DO on 01/27/2021 at 10:53 PM
== END 2021-01-27 16:15 | disposition home or self-care (01) ==
LOC: SDC 08:38
PROVIDERS: ATTEND Urology
DX: N13.2 Hydronephrosis with renal and ureteral calculous obstruction (principal); I10 Essential (primary) hypertension; Z79.899 Other long term (current) drug therapy; Z98.890 Other specified postprocedural states; Z88.0 Allergy status to penicillin; Z88.3 Allergy status to other anti-infective agents; Z91.041 Radiographic dye allergy status
CPT/HCPCS: 36415; 52352; 82360; 84703; 85025; A4217 ×2; J1100; J1170; J1885; J1956; J2060; J2250; J2405; J3490; J7030; 76000

== ENCOUNTER 2021-01-28 11:44 | Emergency (ER) | payer MEDICAID ==
[~2021-01-28] VITALS: Ht 172.7 cm; Wt 40.8 kg
[~2021-01-28 11:44] MED LIST changes: -DECADRON ONE; -DILAUDID ONE; -DIPRIVAN IV ONE; -LEVAQUIN 100 ML IV ONE; -NS 1000ML 1,000 ML ONE; +PROM12.57 PO; -TORADOL ONE; -ZOFRAN ONE
[2021-01-28 12:14] VITALS: BP 140/100
[2021-01-28 12:41] LABS: BASOPHIL % 0.3 % (0.0-0.2); EOSINOPHIL # 0.1 10^3/uL (0.0-0.2); EOSINOPHIL % 0.8 % (0.0-5.0); LYMPHOCYTES # 3.09 10^3/uL1 (1.0-4.8); LYMPHOCYTES % 21.5 % (24.0-44.0); MEAN CORP HGB 33.9 pg (26-34); MONOCYTES # 0.9 10^3/uL (0.3-0.8); MONOCYTES % 6.1 % (5.0-12.0); NEUTROPHIL # 10.2 10^3/uL (1.8-7.7); NEUTROPHILS % 71.1 % (41.0-85.0); PLATELET COUNT 381 10^3/uL (150-400)
[2021-01-28 12:59] LABS: BILIRUBIN,URINE NEGATIVE (NEGATIVE); UROBILINOGEN,URINE 0.2 E.U./dL (0.2)
[2021-01-28 13:05] LABS: CARBON DIOXIDE 23.4 mmol/L (20.0-32)
--- NOTE | 2021-01-28 14:04 | DIREP ---
PROCEDURE:XR ABDOMEN 2 VIEWS COMPARISON:[facility], CT, CT ABD/PELVIS W/O, 01/24/2021, 02:45 PM. INDICATIONS:No bowel movement for 7 days, abdominal pain TECHNIQUE:Flat and upright views of the abdomen are provided. FINDINGS: BOWEL GAS PATTERN:Normal. CALCIFICATIONS:8 mm calcifications superimposed on the lower pole the right kidney. LUNG BASES:Clear. BONES:Normal. OTHER:No additional findings. CONCLUSION: 1. Normal bowel gas pattern. 2. Calcifications superimposed on the lower pole the right kidney. Dictated by: Melinda Duncan III, MD on 01/28/2021 at 02:00 PM
--- NOTE | 2021-01-28 14:50 | ER.PDOC ---
General Chief Complaint: Requesting Medical Care Stated Complaint: FEMALE ,ABD PAIN Time seen by : 12:18 Source: patient Exam Limitations: no limitations History of Present Illness Initial Comments pt is here with concerns about blood after wiping after using the restroom. She had a uriinary stent removed yesterday by Dr. Miller and today had the blood in urne when she wiped. She has been afebrile, no nausea, no vomiting. Also no pain. She said sh ehass not had a BM for 7days and has failed miralax, colace treatments. Timing/Duration: just prior to arrival Severity/Quality: moderate Associated Symptoms: denies symptoms Prior symptoms/Treatment: No Similar symptoms previous Allergies: Coded Allergies: shellfish derived (Verified Allergy, Severe, 03/13/20) chlorhexidine (Verified Allergy, Mild, Rash, 03/13/20) Penicillins (Verified Allergy, Unknown, unk, 12/01/19) Sulfa (Sulfonamide Antibiotics) (Verified Allergy, Unknown, unk, 12/01/19) Uncoded Allergies: CONTRAST (Allergy, Severe, Anaphylaxis Shock, 03/13/20) Home Meds Active Scripts Promethazine Hcl (PROMETHAZINE HCL) 12.5 Mg Tablet, 25 MG PO Q6, #5 TAB Prov:GI MILLER MD 01/27/21 Tramadol Hcl (TRAMADOL HCL) 50 Mg Tablet, 50 MG PO Q6 PRN for PAIN, #15 TABLET Prov:GI MILLER MD 01/27/21 Reported Medications Mirtazapine (MIRTAZAPINE) 15 Mg Tab.rapdis, 15 MG PO HS, TAB 03/13/20 Discontinued Scripts Tramadol Hcl (TRAMADOL HCL) 50 Mg Tablet, 50 MG PO Q6 PRN for PAIN, #20 TABLET Prov:GI MILLER MD 01/13/21 Tamsulosin Hcl (FLOMAX) 0.4 Mg Cap.er.24h, 0.4 MG PO DAILY24, #10 CAPSULE Prov:GI MILLER MD 01/13/21 Ciprofloxacin Hcl (CIPRO) 500 Mg Tablet, 500 MG PO BID, #14 Prov:GI MILLER MD 01/13/21 Past Medical History Medical History: no pertinent history, hypertension, other Surgical History: , stent Family History Significant Family History: no pertinent family hx Social History Alcohol Use: none Drug Use: none Reviewed Nursing Reviewed: Vital Signs, Abn. Noted, Nursing Assessment Review of Systems Constitutional: no symptoms reported EENTM: no symptoms reported Gastrointestinal: no symptoms reported Genitourinary: no symptoms reported Musculoskeletal: no symptoms reported Hematologic/Lymphatic: no symptoms reported All Other Systems: Reviewed and Negative Physical Exam General Appearance: No Apparent Distress, WD/WN EENT: eyes nml inspection, nml ENT inspection Neck: nml inspection, non-tender Cardiovascular/Respiratory: Regular Rate, Rhythm Abdomen: Normal Bowel Sounds, Non Tender Extremities: Normal Range of Motion, Non-Tender Skin: Normal Color, Warm/Dry Results/Orders Results/Orders Orders - RAH PADGETT MD Cbc With Auto Diff (01/28/21 12:02) Comprehensive Metabolic Panel (01/28/21 12:02) Lipase (01/28/21 12:02) Urinalysis (01/28/21 12:02) Xr Abd 2v (01/28/21 12:50) Hcg Urine (01/28/21 12:53) Urine Culture (01/28/21 12:53) Vital Signs Date Time Temp Pulse Resp B/P (MAP) Pulse Ox O2 Delivery O2 Flow Rate FiO2 01/28/21 12:14 98.6 110 18 98 01/28/21 12:14 98.6 110 18 140/100 (113) 98 Room Air 01/28/21 12:14 98.6 110 18 Laboratory Tests Test 01/28/21 12:35 01/28/21 12:45 01/28/21 12:53 White Blood Count 14.4 10^3/uL (4.5-11.0) H Red Blood Count 3.69 10^6/uL (4.00-5.20) L Hemoglobin 12.5 g/dL (12.0-15.0) Hematocrit 38.7 % (36.0-46.0) Mean Corpuscular Volume 104.9 fL (78-100) H Mean Corpuscular Hemoglobin 33.9 pg (26-34) Mean Corpuscular Hemoglobin Concent 32.3 g/dL (33-36.5) L Red Cell Distribution Width 12.0 % (11.5-14.5) Platelet Count 381 10^3/uL (150-400) Mean Platelet Volume 9.1 fL (7.8-11.0) Neutrophils (%) (Auto) 71.1 % (41.0-85.0) Lymphocytes (%) (Auto) 21.5 % (24.0-44.0) L Monocytes (%) (Auto) 6.1 % (5.0-12.0) Neutrophils # (Auto) 10.2 10^3/uL (1.8-7.7) H Lymphocytes # (Auto) 3.09 10^3/uL1 (1.0-4.8) Monocytes # (Auto) 0.9 10^3/uL (0.3-0.8) H Absolute Immature Granulocyte (auto 0.03 10^3 u/L (0-2) Absolute Eosinophils (auto) 0.1 10^3/uL (0.0-0.2) Immature Granulocytes % 0.20 % (0.00-0.50) Eosinophils % 0.8 % (0.0-5.0) Basophils % 0.3 % (0.0-0.2) H Basophils # 0.0 10^3/uL (0.0-0.1) Sodium Level 139 mmol/L (132-145) Potassium Level 3.6 mmol/L (3.6-5.2) Chloride Level 104.0 mmol/L (96-109) Carbon Dioxide Level 23.4 mmol/L (20.0-32) Anion Gap 15.2 Blood Urea Nitrogen 13 mg/dL (7-18) Creatinine 1.00 mg/dL (0.59-1.40) Estimated GFR () 72.9 (>/=60) Est GFR (CKD-EPI)(Non-Afr Singaporean) 60.2 (>/=60) BUN/Creatinine Ratio 13.0 Glucose Level 106 mg/dL (70-110) Calcium Level 9.5 mg/dL (8.4-10.5) Total Bilirubin 0.3 mg/dL (0.2-1.0) Aspartate Amino Transferase (AST) 15 U/L (0-35) Alanine Aminotransferase (ALT) 38 U/L (12-78) Alkaline Phosphatase 70 U/L (50-136) Total Protein 7.1 g/dL (6.4-8.2) Albumin 3.3 g/dL (3.4-5.0) L Globulin 3.8 Albumin/Globulin Ratio 0.868 Lipase 62 U/L (114-286) L Urine Collection Type RANDOM Urine Color YELLOW Urine Appearance HAZY Urine Bilirubin NEGATIVE (NEGATIVE) Urine Ketones NEGATIVE (NEGATIVE) Urine Specific [place] >=1.030 (1.005-1.030) Urine pH 6.0 (4.5-8.0) Urine Protein 1+ (NEGATIVE) H Urine Urobilinogen 0.2 E.U./dL (0.2) Urine Nitrate NEGATIVE (NEGATIVE) Urine Leukocyte Esterase TRACE (NEGATIVE) H Urine Glucose (Auto)(UA) NEGATIVE (NEGATIVE) Urine Blood 3+ (NEGATIVE) H Urine RBC TooNumerousToCount RBC/HPF (NONE Urine WBC 10-25 WBC/HPF (0-2) H Urine Squamous Epithelial Cells FEW (<=FEW) Urine Bacteria FEW (NONE SEEN) H Urine HCG, Qualitative NEGATIVE (NEGATIVE) EKG/XRAY/CT/US XRAY Comments: xray is negative ER DEPART Departure Time of Disposition: 14:53 Disposition: 01 HOME / SELF CARE / HOMELESS Impression: Primary Impression: UTI (urinary tract infection) Additional Impression: Constipation Condition: Stable Patient Instructions: Urinary Tract Infection, [id number] Referrals: PCP,UNKNOWN (PCP) PRIMARY CARE PROVIDER Duration or Time Spent with Pa: 39 Problem Qualifiers RAH PADGETT MD Jan 28, 2021 14:50
== END 2021-01-28 15:10 | disposition home or self-care (01) ==
LOC: ER 11:44
DX: N39.0 Urinary tract infection, site not specified (principal); K59.00 Constipation, unspecified; Z79.899 Other long term (current) drug therapy; Z88.0 Allergy status to penicillin; Z88.2 Allergy status to sulfonamides
CPT/HCPCS: 36415; 74019; 80053; 81001; 81025; 83690; 85025; 87086; 99284

== ENCOUNTER 2021-02-20 14:19 | Inpatient (IN) | payer MEDICAID ==
[~2021-02-20] VITALS: Ht 172.7 cm; Wt 57.3 kg
[2021-02-20 14:30] VITALS: BP 158/117
[2021-02-20] MEDS ORDERED: MORPHINE SULFATE IM STA (14:50)
--- NOTE | 2021-02-20 14:54 | ER.PDOC ---
General Chief Complaint: Abdomen Pain Stated Complaint: ABD PAIN,KIDNEY PAIN Time seen by MD: 15:00 Source: patient Exam Limitations: no limitations History of Present Illness Timing/Duration: 24 hours Severity/Quality: moderate Radiation: LUQ Associated Symptoms: nausea/vomiting Exacerbated by: movements Relieved By: remaining still Allergies: Coded Allergies: shellfish derived (Verified Allergy, Severe, 03/13/20) chlorhexidine (Verified Allergy, Mild, Rash, 03/13/20) Penicillins (Verified Allergy, Unknown, unk, 12/01/19) Sulfa (Sulfonamide Antibiotics) (Verified Allergy, Unknown, unk, 12/01/19) Uncoded Allergies: CONTRAST (Allergy, Severe, Anaphylaxis Shock, 03/13/20) Home Meds Active Scripts Promethazine Hcl (PROMETHAZINE HCL) 12.5 Mg Tablet, 25 MG PO Q6, #5 TAB Prov:GI MILLER MD 01/27/21 Tramadol Hcl (TRAMADOL HCL) 50 Mg Tablet, 50 MG PO Q6 PRN for PAIN, #15 TABLET Prov:GI MILLER MD 01/27/21 Reported Medications Mirtazapine (MIRTAZAPINE) 15 Mg Tab.rapdis, 15 MG PO HS, TAB 03/13/20 Vital Signs First Vital Signs Date Time Temp Pulse Resp B/P (MAP) Pulse Ox O2 Delivery O2 Flow Rate FiO2 02/20/21 14:30 98.7 91 18 158/117 (131) 100 Room Air Last Vital Signs Date Time Temp Pulse Resp B/P (MAP) Pulse Ox O2 Delivery O2 Flow Rate FiO2 02/20/21 14:30 97.8 91 18 100 02/20/21 14:30 158/117 (131) Room Air Past Medical History Medical History: other Surgical History: , stent Social History Alcohol Use: none Drug Use: none Reviewed Nursing Reviewed: Vital Signs, Abn. Noted All Other Systems: Reviewed and Negative Physical Exam General Appearance: No Apparent Distress, WD/WN HEENT: PERRL/EOMI, Normal ENT Inspection, TMs Normal, Pharynx Normal Neck: Non-Tender, Full Range of Motion, Supple, Normal Inspection Respiratory: chest non-tender, lungs clear, normal breath sounds, no respiratory distress, no accessory muscle use Cardiovascular: Normal Peripheral Pulses, Regular Rate, Rhythm, No Edema, No Gallop, No JVD, No Murmur Gastrointestinal: Normal Bowel Sounds, Non Tender, Soft Back: Normal Inspection, No CVA Tenderness, No Vertebral Tenderness Extremities: Normal Range of Motion, Non-Tender, Normal Inspection, No Pedal Edema, No Calf Tenderness, Normal Capillary Refill, Pelvis Stable Neurologic/Psychiatric: crts II-XII NML as Tested, No Motor/Sensory Deficits, Alert, Normal Mood/Affect, Oriented x 3 Skin: Normal Color, Warm/Dry Lymphatic: No Adenopathy Results/Orders Results/Orders Orders - DESIRAE TAYLOR MD Cbc With Auto Diff (02/20/21 14:45) Comprehensive Metabolic Panel (02/20/21 14:45) Amylase (02/20/21 14:45) Lipase (02/20/21 14:45) PT (02/20/21 14:45) Partial Thromboplastin Time. (02/20/21 14:45) Urinalysis (02/20/21 14:45) Ct Abd/Pelvis Wo Iv Contrast (02/20/21 14:45) Ketorolac Tromethamine (Toradol) (02/20/21 15:00) Morphine Sulfate (Morphine Sulfate) (02/20/21 14:50) Promethazine Hcl (Phenergan) (02/20/21 15:00) Ketorolac Tromethamine (Toradol) (02/20/21 15:12) Ekg-Routine (02/20/21 16:26) Diphenhydramine Hcl (Benadryl) (02/20/21 16:34) Morphine Sulfate (Morphine Sulfate) (02/20/21 16:34) Covid19 Antigen Verena Deja (02/20/21 16:35) Diphenhydramine Hcl (Benadryl) (02/20/21 16:39) Morphine Sulfate (Morphine Sulfate) (02/20/21 16:40) Vital Signs Date Time Temp Pulse Resp B/P (MAP) Pulse Ox O2 Delivery O2 Flow Rate FiO2 02/20/21 14:30 97.8 91 18 100 02/20/21 14:30 98.7 91 18 02/20/21 14:30 98.7 91 18 158/117 (131) 100 Room Air Administered Medications Medications (Trade) Dose Ordered Sig/Luis Route PRN Reason Start Time Stop Time Status Last Admin Dose Admin Ketorolac Tromethamine (Toradol) 60 mg OT IM 02/20/21 15:00 02/25/21 14:59 UNV 02/20/21 15:24 60 MG Promethazine HCl (Phenergan) 25 mg OT IM 02/20/21 15:00 03/22/21 14:59 UNV 02/20/21 15:23 25 MG Laboratory Tests Test 02/20/21 15:14 White Blood Count 11.5 10^3/uL (4.5-11.0) H Red Blood Count 4.58 10^6/uL (4.00-5.20) Hemoglobin 15.5 g/dL (12.0-15.0) #H Hematocrit 48.1 % (36.0-46.0) H Mean Corpuscular Volume 105.0 fL (78-100) H Mean Corpuscular Hemoglobin 33.8 pg (26-34) Mean Corpuscular Hemoglobin Concent 32.2 g/dL (33-36.5) L Red Cell Distribution Width 11.6 % (11.5-14.5) Platelet Count 300 10^3/uL (150-400) Mean Platelet Volume 9.4 fL (7.8-11.0) Neutrophils (%) (Auto) 72.1 % (41.0-85.0) Lymphocytes (%) (Auto) 21.1 % (24.0-44.0) L Monocytes (%) (Auto) 4.4 % (5.0-12.0) L Neutrophils # (Auto) 8.3 10^3/uL (1.8-7.7) H Lymphocytes # (Auto) 2.42 10^3/uL1 (1.0-4.8) Monocytes # (Auto) 0.5 10^3/uL (0.3-0.8) Absolute Immature Granulocyte (auto 0.01 10^3 u/L (0-2) Absolute Eosinophils (auto) 0.2 10^3/uL (0.0-0.2) Immature Granulocytes % 0.10 % (0.00-0.50) Eosinophils % 1.3 % (0.0-5.0) Basophils % 1.0 % (0.0-0.2) H Basophils # 0.1 10^3/uL (0.0-0.1) Sodium Level 140 mmol/L (132-145) Potassium Level 4.3 mmol/L (3.6-5.2) Chloride Level 105.0 mmol/L (96-109) Carbon Dioxide Level 22.5 mmol/L (20.0-32) Anion Gap 16.8 Blood Urea Nitrogen 17 mg/dL (7-18) Creatinine 0.87 mg/dL (0.59-1.40) Estimated GFR () 85.6 (>/=60) Est GFR (CKD-EPI)(Non-Afr Swedish) 70.7 (>/=60) BUN/Creatinine Ratio 19.0 Glucose Level 122 mg/dL (70-110) H Calcium Level 9.4 mg/dL (8.4-10.5) Total Bilirubin 0.3 mg/dL (0.2-1.0) Aspartate Amino Transferase (AST) 20 U/L (0-35) Alanine Aminotransferase (ALT) 15 U/L (12-78) Alkaline Phosphatase 74 U/L (50-136) Total Protein 7.6 g/dL (6.4-8.2) Albumin 3.4 g/dL (3.4-5.0) Globulin 4.2 Albumin/Globulin Ratio 0.809 Amylase Level 100 U/L (25-115) Lipase 78 U/L (114-286) L Consult/PCP Time Consult/PCP Called: 17:00 Consult/PCP: dr miller, dr CLEMENTS ER DEPART Departure Time of Disposition: 17:00 Disposition: 09 ADMITTED INPATIENT Impression: Primary Impression: Calculus of ureter Condition: Improved Referrals: PCP,UNKNOWN (PCP) PRIMARY CARE PROVIDER Duration or Time Spent with Pa: DESIRAE VACA MD Feb 20, 2021 14:54
[2021-02-20] MEDS ORDERED: TORADOL IM SCH (15:00)
[2021-02-20] MEDS ORDERED: PHENERGAN IM SCH (15:00)
[2021-02-20] MEDS ORDERED: TORADOL ONE (15:12)
[2021-02-20 15:19] LABS: BASOPHIL # 0.1 10^3/uL (0.0-0.1); EOSINOPHIL # 0.2 10^3/uL (0.0-0.2); EOSINOPHIL % 1.3 % (0.0-5.0); LYMPHOCYTES # 2.42 10^3/uL1 (1.0-4.8); LYMPHOCYTES % 21.1 % (24.0-44.0); MEAN CORP HGB 33.8 pg (26-34); MONOCYTES # 0.5 10^3/uL (0.3-0.8); MONOCYTES % 4.4 % (5.0-12.0); NEUTROPHIL # 8.3 10^3/uL (1.8-7.7); NEUTROPHILS % 72.1 % (41.0-85.0); PLATELET COUNT 300 10^3/uL (150-400); RED CELL DISTRIBUTION WIDTH 11.6 % (11.5-14.5)
[2021-02-20 15:36] LABS: CARBON DIOXIDE 22.5 mmol/L (20.0-32)
--- NOTE | 2021-02-20 15:52 | DIREP ---
PROCEDURE:CT ABDOMEN/PELVIS W/O CONTRAST COMPARISON:[facility], CT, CT ABD/PELVIS W/O, 01/24/2021, 02:45 PM. INDICATIONS:pain TECHNIQUE:Axial images were created through the abdomen and pelvis without intravenous contrast material. No oral contrast was administered. Sagittal and coronal reconstructions were performed from source images. FINDINGS: LUNG BASES:Emphysematous changes are seen in both lung bases. LIVER:Normal. No significant liver lesions are identified. BILIARY:Normal. No visible dilatation or calcification. PANCREAS:Normal. No lesion, fluid collection, ductal dilatation, or atrophy. SPLEEN:Normal. No enlargement or focal lesion. ADRENALS:Normal. No mass or enlargement. URINARY TRACT:Previously seen right ureteral stent has been removed. There are multiple bilateral renal calculi largest in the lower pole of the left kidney measuring 4 mm. Moderate left hydronephrosis is seen with a 4 mm calculus in the distal left ureter. A 3 mm calculus is seen in the distal right ureter without significant right hydronephrosis. AORTA/VASCULAR:Normal. No aneurysm. RETROPERITONEUM:Normal. No mass or adenopathy. BOWEL/MESENTERY:Normal. There is no intestinal obstruction, free fluid, free air or mesenteric inflammatory changes. Normal appendix. ABDOMINAL WALL:Normal. No mass or hernia. PELVIC ORGANS:Normal. No visible mass. Pelvic organs appropriate for patient age. BONES:Normal for age. No bony lesion or acute fracture. OTHER:Negative. CONCLUSION: Interval removal of previously seen right ureteral stent. There are findings of bilateral nephrolithiasis with moderate left hydronephrosis and left hydroureter secondary to a 4 mm calculus in the distal left ureter. Additionally, a 3 mm calculus is seen in the distal right ureter without significant right hydronephrosis. Dictated by: Noe Zelaya M.D. On 02/20/2021 at 03:44 PM
[2021-02-20] MEDS ORDERED: MORPHINE SULFATE IV STA (16:34)
[2021-02-20] MEDS ORDERED: BENADRYL IV STA (16:34)
[2021-02-20] MEDS ORDERED: BENADRYL ONE (16:39)
[2021-02-20] MEDS ORDERED: MORPHINE SULFATE ONE (16:40)
--- NOTE | 2021-02-20 18:05 | NUR ---
admit CALLED REPORT TO LOULOU COY. PT TAKEN BY W/C IN STABLE CONDITION BY GAYLE SOLIS.
--- NOTE | 2021-02-20 19:25 | PCM.EKG ---
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: JAY : 1975 Requested By: JEFF DEE Order Number: [id number] Reading MD: Jeff Dee Measurements Intervals Gates Rate: 69 P: 92 MO: 122 QRS: 165 QRSD: 104 T: 112 QT: 417 QTc: 447 Interpretive Statements Sinus rhythm Probable lateral infarct, age indeterminate Compared to ECG 09/29/2020 18:17:49 Myocardial infarct finding now present Sinus tachycardia no longer present Ventricular premature complex(es) no longer present Aberrant conduction of supraventricular beat(s) no longer present Early repolarization no longer present Possible ischemia no longer present Electronically Signed On 02-21-2021 4:00:18 [employer] CL[employer] by Jeff Dee Please click the below link to view image of tracing.
[2021-02-20] MEDS: REMERON PO SCH (20:22)
[2021-02-20] MEDS: XANAX PO PRN (20:22)
[2021-02-20] MEDS: NS 1000ML 1,000 ML IV SCH (20:23)
[2021-02-20] MEDS: MORPHINE SULFATE IV PRN (20:32)
[2021-02-20 20:49] VITALS: BP 154/98
[2021-02-20] MEDS: TORADOL IV SCH (21:45)
[2021-02-20 23:49] VITALS: BP 114/71
[2021-02-21 04:12] VITALS: BP 122/76
[2021-02-21] MEDS: TORADOL IV SCH ×3 (06:00→21:38)
[2021-02-21] MEDS: NS 1000ML 1,000 ML IV SCH ×2 (06:24→19:21)
[2021-02-21] MEDS: MORPHINE SULFATE IV PRN ×5 (06:31→23:12)
[2021-02-21] MEDS: BENADRYL IV PRN ×3 (06:31→21:39)
[2021-02-21 08:13] LABS: BASOPHIL # 0.1 10^3/uL (0.0-0.1); BASOPHIL % 1.2 % (0.0-0.2); EOSINOPHIL # 0.2 10^3/uL (0.0-0.2); EOSINOPHIL % 2.6 % (0.0-5.0); LYMPHOCYTES # 3.64 10^3/uL1 (1.0-4.8); LYMPHOCYTES % 39.7 % (24.0-44.0); MEAN CORP HGB 33.6 pg (26-34); MONOCYTES # 0.5 10^3/uL (0.3-0.8); MONOCYTES % 5.2 % (5.0-12.0); NEUTROPHIL # 4.7 10^3/uL (1.8-7.7); NEUTROPHILS % 51.3 % (41.0-85.0); RED CELL DISTRIBUTION WIDTH 11.7 % (11.5-14.5)
[2021-02-21 08:18] LABS: CARBON DIOXIDE 25.7 mmol/L (20.0-32)
[2021-02-21 08:35] VITALS: BP 139/92
[2021-02-21 08:42] LABS: BILIRUBIN,URINE NEGATIVE (NEGATIVE); UROBILINOGEN,URINE 0.2 E.U./dL (0.2)
--- NOTE | 2021-02-21 08:50 | PCM.HP ---
History of Present Illness Hx of Present Illness Patient is a 45-year-old female medical history of multiple kidney stones status post stent placement on the right side presented today at the emergency department with complaint of severe back pain and abdominal pain radiating to the flank worse on the left side. CT scan of the abdomen and pelvis reported findings consistent with bilateral kidney stone with 4 mm kidney stone on the left side causing hydronephrosis and hydroureter. Patient was in severe pain received pain control emergency department and urology was consulted who said patient be admitted and will come see patient next day. Travel History EBOLA RISK:Travel to/contact w: No Review of Systems Gastrointestinal: Nausea, Vomiting, Abdominal Pain, Diarrhea, Other Genitourinary: Dysuria, Frequency, Hematuria, Other Other All review of symptoms negative except mentioned Allergies: Coded Allergies: shellfish derived (Verified Allergy, Severe, 03/13/20) chlorhexidine (Verified Allergy, Mild, Rash, 03/13/20) Penicillins (Verified Allergy, Unknown, unk, 12/01/19) Sulfa (Sulfonamide Antibiotics) (Verified Allergy, Unknown, unk, 12/01/19) Uncoded Allergies: CONTRAST (Allergy, Severe, Anaphylaxis Shock, 03/13/20) Scheduled Mirtazapine (Mirtazapine), 15 MG PO HS, (Reported) Promethazine Hcl (Promethazine Hcl), 25 MG PO Q6 Scheduled PRN Tramadol Hcl (Tramadol Hcl), 50 MG PO Q6 PRN for PAIN VTE VTE Risk Total Score: 1 VTE Risk Score VTE Risk: Score 0-1 = Low Risk (Aggressive mobilization; early ambulation; no VTE prophylaxis required) Score 2: Moderate Risk (Intermittent/Pneumatic Compression Device OR Lovenox/Heparin/Coumadin) Score 3-4: High Risk (Intermittent/Pneumatic Compression Device AND Lovenox/Heparin/Coumadin) Score > or =5: Highest Risk (Intermittent/Pneumatic Compression Device AND Lovenox/Heparin/Coumadin) Antico:Hep/LMWH/Coum/Xarelto: No Mechanical device ordered: Yes Reasons not ordering prophylax: Surgical Contraindication VTE VTE Present on Admission: Yes Currently receiving anticoagul: No VTE Risk Total Score: 1 Antico:Hep/LMWH/Coum/Xarelto: No Mechanical device ordered: Yes Exam Vital Signs Vital Signs Date Time Temp Pulse Resp B/P (MAP) Pulse Ox O2 Delivery O2 Flow Rate FiO2 02/21/21 08:35 98.1 68 18 139/92 (108) 98 General Appearance: Alert, Oriented X3, Cooperative, mild distress HEENT: Atraumatic, PERRLA Respiratory: Clear to auscultation, Normal air movement Cardiovascular: Regular rate, Normal S1, Normal S2, No murmurs Abdominal: Normal bowel sounds, Soft, No hepatospenomegaly, Other (left flank pain radiating to the back) Extremities: No clubbing, No cyanosis, No edema Skin: No rash, No breakdown Neuro: Normal gait, Normal speech Psych/Mental Status: Mental status NL Assessment/Plan Assessment/Plan Assessment/Plan Kidney stonecontinue with pain control, IV hydration, and antibiotic per ur ology recommendation Urology consult. morphin anti emetics ivf Patient History: Diabetes mellitus G8 FATHER, , Age:78 G8 BROTHER FH: CAD (coronary artery disease) G8 MOTHER Hypertension G8 MOTHER No known health problems G8 SISTER G8 SISTER G8 SISTER G8 SISTER G8 SISTER SUZY CLEMENTS MD Feb 21, 2021 08:50
[2021-02-21] MEDS: ZOFRAN IV PRN ×2 (10:21→19:16)
[2021-02-21] MEDS: XANAX PO PRN ×2 (10:22→19:16)
[2021-02-21 12:07] VITALS: BP 136/88
[2021-02-21 19:22] VITALS: BP 165/99
[2021-02-21] MEDS: REMERON PO SCH (21:38)
--- NOTE | 2021-02-21 21:59 | CNH ---
DATE OF CONSULTATION: 02/21/2021 DICTATOR NAME: Andres Beltran MD HISTORY OF PRESENT ILLNESS: This is a 45-year-old female referred for urological evaluation due to the presence of left flank pain. The patient was admitted from the Emergency Room yesterday afternoon and the noncontrast CT scan of the kidney revealed bilateral renal stones and also a calculus in the right distal ureter and another one in the left distal ureter. Case was discussed with the patient this morning and she still has left CVA tenderness, and I discussed the results of the noncontrast CT scan. I will reschedule the patient tomorrow for a cystoscopy, bilateral retrograde, bilateral ureteroscopy, possible stone extraction, and possible stent insertion. Chart was also reviewed. Andres Beltran MD DR: JASON/JALEN/KENTRELL TID: [id number] RECEIPT: [id number]
[2021-02-21 23:34] VITALS: BP 143/88
[2021-02-22] VITALS (8 sets, daily range): BP systolic 118–153; BP diastolic 74–94
[2021-02-22] MEDS: XANAX PO PRN ×2 (02:36→08:46)
[2021-02-22] MEDS: ZOFRAN IV PRN ×2 (02:36→14:15)
[2021-02-22] MEDS: BENADRYL IV PRN (04:05)
[2021-02-22] MEDS: MORPHINE SULFATE IV PRN ×2 (04:05→08:29)
[2021-02-22] MEDS: NS 1000ML 1,000 ML IV SCH ×2 (04:06→12:23)
[2021-02-22 05:25] LABS: BASOPHIL # 0.1 10^3/uL (0.0-0.1); BASOPHIL % 0.6 % (0.0-0.2); EOSINOPHIL # 0.2 10^3/uL (0.0-0.2); EOSINOPHIL % 2.1 % (0.0-5.0); LYMPHOCYTES # 3.11 10^3/uL1 (1.0-4.8); LYMPHOCYTES % 31.2 % (24.0-44.0); MEAN CORP HGB 34.3 pg (26-34); MONOCYTES # 0.5 10^3/uL (0.3-0.8); MONOCYTES % 4.5 % (5.0-12.0); NEUTROPHIL # 6.1 10^3/uL (1.8-7.7); NEUTROPHILS % 61.6 % (41.0-85.0); PLATELET COUNT 264 10^3/uL (150-400); RED CELL DISTRIBUTION WIDTH 11.8 % (11.5-14.5)
[2021-02-22 05:34] LABS: CARBON DIOXIDE 23.5 mmol/L (20.0-32)
[2021-02-22] MEDS ORDERED: TORADOL ONE ×2 (05:56→07:50)
[2021-02-22] MEDS: TORADOL IV SCH ×2 (06:00→14:14)
[2021-02-22] MEDS ORDERED: SODIUM CHLORIDE IRR BOTTLE IR ONE ×2 (07:23→10:08)
[2021-02-22] MEDS ORDERED: NS 3000ML IRR IR ONE ×2 (07:23→10:09)
[2021-02-22] MEDS ORDERED: ZOFRAN ONE (07:50)
[2021-02-22] MEDS ORDERED: XYLOCAINE 2% 5ML VIAL ONE (07:50)
[2021-02-22] MEDS ORDERED: DECADRON ONE (07:50)
[2021-02-22] MEDS ORDERED: VERSED ONE (07:51)
[2021-02-22] MEDS ORDERED: SUBLIMAZE ONE (07:51)
[2021-02-22] MEDS ORDERED: DIPRIVAN IV ONE (07:51)
[2021-02-22] MEDS ORDERED: LEVAQUIN 100 ML IV ONE ×3 (10:41→13:30)
--- NOTE | 2021-02-22 11:20 | PRM.PN ---
Subjective Subjective Date: Feb 22, 2021 Time: 08:30 Subjective Patient is seen and examined this morning and plan for surgery per urology. Patient History: Diabetes mellitus G8 FATHER, , Age:78 G8 BROTHER FH: CAD (coronary artery disease) G8 MOTHER Hypertension G8 MOTHER No known health problems G8 SISTER G8 SISTER G8 SISTER G8 SISTER G8 SISTER VTE VTE Risk Total Score: 1 VTE Risk Score VTE Risk: Score 0-1 = Low Risk (Aggressive mobilization; early ambulation; no VTE prophylaxis required) Score 2: Moderate Risk (Intermittent/Pneumatic Compression Device OR Lovenox/Heparin/Coumadin) Score 3-4: High Risk (Intermittent/Pneumatic Compression Device AND Lovenox/Heparin/Coumadin) Score > or =5: Highest Risk (Intermittent/Pneumatic Compression Device AND Lovenox/Heparin/Coumadin) Antico:Hep/LMWH/Coum/Xarelto: No Mechanical device ordered: Yes Reasons not ordering prophylax: Surgical Contraindication Review of Systems Gastrointestinal: Nausea, Vomiting, Abdominal Pain, Diarrhea, Other Genitourinary: Dysuria, Frequency, Hematuria, Other Allergies: Coded Allergies: shellfish derived (Verified Allergy, Severe, 03/13/20) chlorhexidine (Verified Allergy, Mild, Rash, 03/13/20) Penicillins (Verified Allergy, Unknown, unk, 12/01/19) Sulfa (Sulfonamide Antibiotics) (Verified Allergy, Unknown, unk, 12/01/19) Uncoded Allergies: CONTRAST (Allergy, Severe, Anaphylaxis Shock, 03/13/20) Scheduled Mirtazapine (Mirtazapine), 15 MG PO HS, (Reported) Promethazine Hcl (Promethazine Hcl), 25 MG PO Q6 Scheduled PRN Tramadol Hcl (Tramadol Hcl), 50 MG PO Q6 PRN for PAIN Objective General: Alert, Oriented X3, Cooperative, mild distress HEENT: Atraumatic, PERRLA Lungs: Clear to auscultation, Normal air movement Heart: Regular rate, Normal S1, Normal S2, No murmurs Abdomen: Normal bowel sounds, Soft, No hepatospenomegaly, Other (left flank pain radiating to the back) Extremities: No clubbing, No cyanosis, No edema Neuro: Normal gait, Normal speech Psych/Mental Status: Mental status NL All Results(Lab/Rad) Laboratory Tests Test 02/22/21 05:01 White Blood Count 10.0 10^3/uL Red Blood Count 3.85 10^6/uL Hemoglobin 13.2 g/dL Hematocrit 41.2 % Mean Corpuscular Volume 107.0 fL Mean Corpuscular Hemoglobin 34.3 pg Mean Corpuscular Hemoglobin Concent 32.0 g/dL Red Cell Distribution Width 11.8 % Platelet Count 264 10^3/uL Mean Platelet Volume 9.4 fL Neutrophils (%) (Auto) 61.6 % Lymphocytes (%) (Auto) 31.2 % Monocytes (%) (Auto) 4.5 % Neutrophils # (Auto) 6.1 10^3/uL Lymphocytes # (Auto) 3.11 10^3/uL1 Monocytes # (Auto) 0.5 10^3/uL Absolute Immature Granulocyte (auto 0.01 10^3 u/L Absolute Eosinophils (auto) 0.2 10^3/uL Immature Granulocytes % 0.10 % Eosinophils % 2.1 % Basophils % 0.6 % Basophils # 0.1 10^3/uL Sodium Level 140 mmol/L Potassium Level 4.3 mmol/L Chloride Level 110.0 mmol/L Carbon Dioxide Level 23.5 mmol/L Glucose Level 94 mg/dL Blood Urea Nitrogen 21 mg/dL Creatinine 0.81 mg/dL Calcium Level 8.7 mg/dL Anion Gap 10.8 Estimated GFR () 92.9 Est GFR (CKD-EPI)(Non-Afr [place]) 76.8 BUN/Creatinine Ratio 25.0 Current Medications Medications (Trade) Dose Ordered Sig/Luis Route PRN Reason Start Time Stop Time Status Last Admin Dose Admin Ketorolac Tromethamine (Toradol) 60 mg OT IM 02/20/21 15:00 02/22/21 23:00 02/20/21 15:24 Morphine Sulfate (Morphine Sulfate) 4 mg STAT STAT IM 02/20/21 14:50 02/20/21 16:35 DC Promethazine HCl (Phenergan) 25 mg OT IM 02/20/21 15:00 03/22/21 14:59 02/20/21 15:23 Ketorolac Tromethamine (Toradol) 30 mg STK-MED ONCE .ROUTE 02/20/21 15:12 02/20/21 15:12 DC Diphenhydramine HCl (Benadryl) 12.5 mg STAT STAT IV 02/20/21 16:34 02/20/21 16:36 DC 02/20/21 16:41 Morphine Sulfate (Morphine Sulfate) 4 mg STAT STAT IV 02/20/21 16:34 02/20/21 16:36 DC 02/20/21 16:41 Diphenhydramine HCl (Benadryl) 50 mg STK-MED ONCE .ROUTE 02/20/21 16:39 02/20/21 16:39 DC Morphine Sulfate (Morphine Sulfate) 4 mg STK-MED ONCE .ROUTE 02/20/21 16:40 02/20/21 16:40 DC Mirtazapine (Remeron) 15 mg HS PO 02/20/21 21:00 03/22/21 20:59 02/21/21 21:38 Ketorolac Tromethamine (Toradol) 30 mg Q8HR IV 02/20/21 22:00 03/22/21 21:59 02/22/21 06:00 Morphine Sulfate (Morphine Sulfate) 2 mg Q4H PRN IV PAIN 4 - 6 02/20/21 19:30 03/22/21 19:29 02/22/21 08:29 Alprazolam (Xanax) 0.5 mg Q6H PRN PO ANXIETY 02/20/21 19:30 03/22/21 19:29 02/22/21 08:46 Ondansetron HCl (Zofran) 4 mg Q6HR PRN IV NAUSEA / VOMITING 02/20/21 19:30 03/22/21 19:29 02/22/21 02:36 Diphenhydramine HCl (Benadryl) 12.5 mg Q6HR PRN IV ITCHING 02/20/21 19:30 03/22/21 19:29 02/22/21 04:05 Sodium Chloride 1,000 ml @ 100 mls/hr Q10H IV 02/20/21 20:00 03/22/21 19:59 02/22/21 04:06 Ketorolac Tromethamine (Toradol) 15 mg STK-MED ONCE .ROUTE 02/22/21 05:56 02/22/21 05:56 DC Sodium Chloride (Sodium Chloride Irr Bottle) 1,000 ml STK-MED ONCE IR 02/22/21 07:23 02/22/21 07:23 DC Sodium Chloride (NS 3000ml Irr) 3,000 ml STK-MED ONCE IR 02/22/21 07:23 02/22/21 07:23 DC Lidocaine HCl (Xylocaine 2% 5ml Vial) 500 mg STK-MED ONCE .ROUTE 02/22/21 07:50 02/22/21 07:51 DC Ketorolac Tromethamine (Toradol) 30 mg STK-MED ONCE .ROUTE 02/22/21 07:50 02/22/21 07:51 DC Ondansetron HCl (Zofran) 4 mg STK-MED ONCE .ROUTE 02/22/21 07:50 02/22/21 07:51 DC Fentanyl Citrate (Sublimaze) 50 mcg STK-MED ONCE .ROUTE 02/22/21 07:51 02/22/21 07:51 DC Propofol (Diprivan) 200 mg STK-MED ONCE IV 02/22/21 07:51 02/22/21 07:51 DC Sodium Chloride (Sodium Chloride Irr Bottle) 1,000 ml STK-MED ONCE IR 02/22/21 10:08 02/22/21 10:09 DC Sodium Chloride (NS 3000ml Irr) 3,000 ml STK-MED ONCE IR 02/22/21 10:09 02/22/21 10:09 DC Levofloxacin/ Dextrose 100 ml @ ud STK-MED ONCE IV 02/22/21 10:41 02/22/21 10:41 DC Levofloxacin/ Dextrose 100 ml @ 100 mls/hr OT ONCE IV 02/22/21 11:30 02/22/21 12:29 Course Sepsis Screening Results: Posi: NEGATIVE Sepsis Qualifier/Stage: NO DEFINITE RISK Duration or Total Time Spent w: 14M Vitals & review Data Laboratory Tests Test 02/20/21 15:14 02/20/21 16:40 02/21/21 07:51 02/22/21 05:01 White Blood Count 11.5 10^3/uL 9.2 10^3/uL 10.0 10^3/uL Red Blood Count 4.58 10^6/uL 4.22 10^6/uL 3.85 10^6/uL Hemoglobin 15.5 g/dL 14.2 g/dL 13.2 g/dL Hematocrit 48.1 % 45.1 % 41.2 % Mean Corpuscular Volume 105.0 fL 106.9 fL 107.0 fL Mean Corpuscular Hemoglobin 33.8 pg 33.6 pg 34.3 pg Mean Corpuscular Hemoglobin Concent 32.2 g/dL 31.5 g/dL 32.0 g/dL Red Cell Distribution Width 11.6 % 11.7 % 11.8 % Platelet Count 300 10^3/uL 293 10^3/uL 264 10^3/uL Mean Platelet Volume 9.4 fL 9.4 fL 9.4 fL Neutrophils (%) (Auto) 72.1 % 51.3 % 61.6 % Lymphocytes (%) (Auto) 21.1 % 39.7 % 31.2 % Monocytes (%) (Auto) 4.4 % 5.2 % 4.5 % Neutrophils # (Auto) 8.3 10^3/uL 4.7 10^3/uL 6.1 10^3/uL Lymphocytes # (Auto) 2.42 10^3/uL1 3.64 10^3/uL1 3.11 10^3/uL1 Monocytes # (Auto) 0.5 10^3/uL 0.5 10^3/uL 0.5 10^3/uL Absolute Immature Granulocyte (auto 0.01 10^3 u/L 0.02 10^3 u/L 0.01 10^3 u/L Absolute Eosinophils (auto) 0.2 10^3/uL 0.2 10^3/uL 0.2 10^3/uL Immature Granulocytes % 0.10 % 0.20 % 0.10 % Eosinophils % 1.3 % 2.6 % 2.1 % Basophils % 1.0 % 1.2 % 0.6 % Basophils # 0.1 10^3/uL 0.1 10^3/uL 0.1 10^3/uL Sodium Level 140 mmol/L 143 mmol/L 140 mmol/L Potassium Level 4.3 mmol/L 4.3 mmol/L 4.3 mmol/L Chloride Level 105.0 mmol/L 109.0 mmol/L 110.0 mmol/L Carbon Dioxide Level 22.5 mmol/L 25.7 mmol/L 23.5 mmol/L Anion Gap 16.8 12.6 10.8 Blood Urea Nitrogen 17 mg/dL 21 mg/dL 21 mg/dL Creatinine 0.87 mg/dL 0.76 mg/dL 0.81 mg/dL Estimated GFR () 85.6 100.0 92.9 Est GFR (CKD-EPI)(Non-Afr [place]) 70.7 82.7 76.8 BUN/Creatinine Ratio 19.0 27.0 25.0 Glucose Level 122 mg/dL 88 mg/dL 94 mg/dL Calcium Level 9.4 mg/dL 9.0 mg/dL 8.7 mg/dL Total Bilirubin 0.3 mg/dL Aspartate Amino Transf (AST/SGOT) 20 U/L Alanine Aminotransferase (ALT/SGPT) 15 U/L Alkaline Phosphatase 74 U/L Total Protein 7.6 g/dL Albumin 3.4 g/dL Globulin 4.2 Albumin/Globulin Ratio 0.809 Amylase Level 100 U/L Lipase 78 U/L SARS-CoV-2 Antigen (Rapid) NEGATIVE Current Medications Medications (Trade) Dose Ordered Sig/Luis PRN Reason Start Time Stop Time Status Last Admin Alprazolam (Xanax) 0.5 mg Q6H PRN ANXIETY 02/20/21 19:30 03/22/21 19:29 02/22/21 08:46 Diphenhydramine HCl (Benadryl) 12.5 mg Q6HR PRN ITCHING 02/20/21 19:30 03/22/21 19:29 02/22/21 04:05 Ketorolac Tromethamine (Toradol) 30 mg Q8HR 02/20/21 22:00 03/22/21 21:59 02/22/21 06:00 Ketorolac Tromethamine (Toradol) 60 mg OT 02/20/21 15:00 02/22/21 23:00 02/20/21 15:24 Mirtazapine (Remeron) 15 mg HS 02/20/21 21:00 03/22/21 20:59 02/21/21 21:38 Morphine Sulfate (Morphine Sulfate) 2 mg Q4H PRN PAIN 4 - 6 02/20/21 19:30 03/22/21 19:29 02/22/21 08:29 Ondansetron HCl (Zofran) 4 mg Q6HR PRN NAUSEA / VOMITING 02/20/21 19:30 03/22/21 19:29 02/22/21 02:36 Promethazine HCl (Phenergan) 25 mg OT 02/20/21 15:00 03/22/21 14:59 02/20/21 15:23 Sodium Chloride 1,000 ml @ 100 mls/hr Q10H 02/20/21 20:00 03/22/21 19:59 02/22/21 04:06 LEVEL 1 SEPSIS INFECTION CRITE: Abdominal Pain LEVEL 2-SIRS (LIST ALL THAT AP: [id number] Cardiovascular Evidence: Not Assessed or None Hematologic Evidence: None/Not assessed Hepatic Evidence: None/Not assessed Metabolic Evidence: None/Not assessed Neurological Evidence: None/Not assessed Respiratory Evidence: None/Not assessed Renal Evidence: None/Not assessed O2 Sat by Pulse Oximetry: 95 Assessment/Plan Assessment/Plan Assessment/Plan Kidney stonecontinue with pain control, IV hydration, and antibiotic per urology recommendation Urology consult. morphin anti emetics ivf Plan for surgery this morning. SUZY CLEMENTS MD Feb 22, 2021 11:20
[2021-02-22] MEDS ORDERED: LACTATED RINGERS 1,000 ML IV SCH (11:30)
--- NOTE | 2021-02-22 11:48 | OPH ---
DATE OF SURGERY: 02/22/2021 DICTATOR NAME: Andres Beltran MD PREOPERATIVE DIAGNOSIS: Calculus, bilateral distal ureter. FINAL DIAGNOSIS: Calculus, left distal ureter. PROCEDURE: Cystoscopy, right retrograde with ureteroscopy and also cystoscopy and left retrograde with ureteroscopy with basket stone extraction. DESCRIPTION OF PROCEDURE: The patient was brought to the cystoscopy room, was put in supine position on the cystoscopy table. After giving a satisfactory and adequate LMA general anesthesia, the patient was placed in the lithotomy position. The genitalia was then prepped and draped aseptically in the usual manner. First, a 23-Iranian cystoscope was inserted per urethra up to the bladder. The bladder was inspected and there was some congestion noted. Both ureteral orifices were normal. Initial right retrograde was done by inserting a 7-Iranian ureteral catheter to the right ureteral orifice, injected with Omnipaque dye and there appears to be no evidence of a right ureteral stone, so a left retrograde was also performed by injecting dye into the left ureteral orifice and revealed to have a small stone in the left distal ureter. Cystoscope was then removed and a 7-Iranian semirigid ureteroscope was inserted per urethra up to the bladder and a right ureteroscopy was performed inserting the ureteroscope and the right orifice all the way to the upper ureter and there was no more evidence of ureteral stone. After inserting a guidewire, a left ureteroscopy was done to the left ureteral orifice to the upper ureter and there was a stone in the left distal ureter and a basket stone extraction was then performed. After removal of the stone in the left distal ureter, the ureteroscope and the guidewire was removed. The cystoscope was reinserted into the bladder and the bladder was emptied with fluid. Procedure was terminated. The instrument was removed. The patient was then awakened, was transferred to the recovery room in stable condition. Andres Beltran MD DR: CHAY OCONNOR: [phone] RECEIPT: [id number]
[2021-02-22] MEDS ORDERED: NS 1000ML 1,000 ML ONE (12:00)
--- NOTE | 2021-02-22 14:51 | DIREP ---
PROCEDURE:XRAY FLUOROSCOPY COMPARISON:[facility], [place], XRAY FLUOROSCOPY, 01/27/2021, 12:44 PM. INDICATIONS:RENAL CALCULI FINDINGS: Intraoperative fluoroscopy was provided for the ordering clinician by the Radiology Department for retrograde urogram.. Twelve images submitted for interpretation, demonstrating retrograde opacification of bilateral ureters and placement of left double-J ureteral stent. 25 second fluoroscopy time utilized. CONCLUSION: Intraoperative fluoroscopy provided for the ordering clinician by the Radiology Department as detailed above. Dictated by: Gregg Celeste DO on 02/22/2021 at 02:48 PM
--- NOTE | 2021-02-22 17:31 | PRM.DC ---
Discharge Summary Date of Discharge: Feb 22, 2021 Time of Request to Discharge: 09:15 Hospital Course Patient is a 45-year-old female with history of multiple kidney stones admitted to a medical floor with bilateral kidney stones worse on the left with 4 mm stone causing hydronephrosis and hydroureter. Complaining of severe pain and urology was consulted who came to evaluate patient and plan for cystoscopy that was performed this afternoon. Patient did well with right retrograde with ureteroscopy and also cystoscopy and left retrograde with ureteroscopy with basket stone extraction.She was brought back to the medical floor and continued to do well pain was controlled and patient was not therefore plan for discharge also okay per urology. Patient has no other complaints and is therefore discharged in a stable condition. Doing plan for discharge patient was noted to have 1000 status from the medical floor AGAINST MEDICAL ADVICE with her IV line still inserted and was there for at least 30 minutes or more when I had gone into the room to see her plan of discharge she was not in the room. Therefore plan to discharge patient without any opioid medication as we are unaware what she has used a IV line for. Patient History: Diabetes mellitus G8 FATHER, , Age:78 G8 BROTHER FH: CAD (coronary artery disease) G8 MOTHER Hypertension G8 MOTHER No known health problems G8 SISTER G8 SISTER G8 SISTER G8 SISTER G8 SISTER General: Alert, Oriented X3, Cooperative HEENT: Atraumatic, EOMI Neck: Supple, No JVD, No thyromegaly Lungs: Clear to auscultation, Normal air movement Heart: Regular rate, Normal S1, Normal S2 Abdomen: Normal bowel sounds, No tenderness Extremities: No clubbing, No cyanosis, No edema Skin: No rashes, No breakdown Neuro: Normal gait, Normal speech Psych/Mental Status: Mental status NL, Mood NL Scheduled Mirtazapine (Mirtazapine), 15 MG PO HS, (Reported) Promethazine Hcl (Promethazine Hcl), 25 MG PO Q6 Scheduled PRN Tramadol Hcl (Tramadol Hcl), 50 MG PO Q6 PRN for PAIN Sepsis Evaluation @ Discharge Laboratory Tests Test 02/20/21 15:14 02/20/21 16:40 02/21/21 07:51 02/22/21 05:01 White Blood Count 11.5 10^3/uL 9.2 10^3/uL 10.0 10^3/uL Red Blood Count 4.58 10^6/uL 4.22 10^6/uL 3.85 10^6/uL Hemoglobin 15.5 g/dL 14.2 g/dL 13.2 g/dL Hematocrit 48.1 % 45.1 % 41.2 % Mean Corpuscular Volume 105.0 fL 106.9 fL 107.0 fL Mean Corpuscular Hemoglobin 33.8 pg 33.6 pg 34.3 pg Mean Corpuscular Hemoglobin Concent 32.2 g/dL 31.5 g/dL 32.0 g/dL Red Cell Distribution Width 11.6 % 11.7 % 11.8 % Platelet Count 300 10^3/uL 293 10^3/uL 264 10^3/uL Mean Platelet Volume 9.4 fL 9.4 fL 9.4 fL Neutrophils (%) (Auto) 72.1 % 51.3 % 61.6 % Lymphocytes (%) (Auto) 21.1 % 39.7 % 31.2 % Monocytes (%) (Auto) 4.4 % 5.2 % 4.5 % Neutrophils # (Auto) 8.3 10^3/uL 4.7 10^3/uL 6.1 10^3/uL Lymphocytes # (Auto) 2.42 10^3/uL1 3.64 10^3/uL1 3.11 10^3/uL1 Monocytes # (Auto) 0.5 10^3/uL 0.5 10^3/uL 0.5 10^3/uL Absolute Immature Granulocyte (auto 0.01 10^3 u/L 0.02 10^3 u/L 0.01 10^3 u/L Absolute Eosinophils (auto) 0.2 10^3/uL 0.2 10^3/uL 0.2 10^3/uL Immature Granulocytes % 0.10 % 0.20 % 0.10 % Eosinophils % 1.3 % 2.6 % 2.1 % Basophils % 1.0 % 1.2 % 0.6 % Basophils # 0.1 10^3/uL 0.1 10^3/uL 0.1 10^3/uL Sodium Level 140 mmol/L 143 mmol/L 140 mmol/L Potassium Level 4.3 mmol/L 4.3 mmol/L 4.3 mmol/L Chloride Level 105.0 mmol/L 109.0 mmol/L 110.0 mmol/L Carbon Dioxide Level 22.5 mmol/L 25.7 mmol/L 23.5 mmol/L Anion Gap 16.8 12.6 10.8 Blood Urea Nitrogen 17 mg/dL 21 mg/dL 21 mg/dL Creatinine 0.87 mg/dL 0.76 mg/dL 0.81 mg/dL Estimated GFR () 85.6 100.0 92.9 Est GFR (CKD-EPI)(Non-Afr Monegasque) 70.7 82.7 76.8 BUN/Creatinine Ratio 19.0 27.0 25.0 Glucose Level 122 mg/dL 88 mg/dL 94 mg/dL Calcium Level 9.4 mg/dL 9.0 mg/dL 8.7 mg/dL Total Bilirubin 0.3 mg/dL Aspartate Amino Transf (AST/SGOT) 20 U/L Alanine Aminotransferase (ALT/SGPT) 15 U/L Alkaline Phosphatase 74 U/L Total Protein 7.6 g/dL Albumin 3.4 g/dL Globulin 4.2 Albumin/Globulin Ratio 0.809 Amylase Level 100 U/L Lipase 78 U/L SARS-CoV-2 Antigen (Rapid) NEGATIVE Current Medications Medications (Trade) Dose Ordered Sig/Luis PRN Reason Start Time Stop Time Status Last Admin Alprazolam (Xanax) 0.5 mg Q6H PRN ANXIETY 02/20/21 19:30 03/22/21 19:29 02/22/21 08:46 Diphenhydramine HCl (Benadryl) 12.5 mg Q6HR PRN ITCHING 02/20/21 19:30 03/22/21 19:29 02/22/21 04:05 Ketorolac Tromethamine (Toradol) 30 mg Q8HR 02/20/21 22:00 03/22/21 21:59 02/22/21 06:00 Ketorolac Tromethamine (Toradol) 60 mg OT 02/20/21 15:00 02/22/21 23:00 02/20/21 15:24 Mirtazapine (Remeron) 15 mg HS 02/20/21 21:00 03/22/21 20:59 02/21/21 21:38 Morphine Sulfate (Morphine Sulfate) 2 mg Q4H PRN PAIN 4 - 6 02/20/21 19:30 03/22/21 19:29 02/22/21 08:29 Ondansetron HCl (Zofran) 4 mg Q6HR PRN NAUSEA / VOMITING 02/20/21 19:30 03/22/21 19:29 02/22/21 02:36 Promethazine HCl (Phenergan) 25 mg OT 02/20/21 15:00 03/22/21 14:59 02/20/21 15:23 Sodium Chloride 1,000 ml @ 100 mls/hr Q10H 02/20/21 20:00 03/22/21 19:59 02/22/21 04:06 Course Sepsis Screening Results: Posi: NEGATIVE Sepsis Qualifier/Stage: NO DEFINITE RISK Duration or Total Time Spent w: 14M Vitals & review Data Laboratory Tests Test 02/20/21 15:14 02/20/21 16:40 02/21/21 07:51 02/22/21 05:01 White Blood Count 11.5 10^3/uL 9.2 10^3/uL 10.0 10^3/uL Red Blood Count 4.58 10^6/uL 4.22 10^6/uL 3.85 10^6/uL Hemoglobin 15.5 g/dL 14.2 g/dL 13.2 g/dL Hematocrit 48.1 % 45.1 % 41.2 % Mean Corpuscular Volume 105.0 fL 106.9 fL 107.0 fL Mean Corpuscular Hemoglobin 33.8 pg 33.6 pg 34.3 pg Mean Corpuscular Hemoglobin Concent 32.2 g/dL 31.5 g/dL 32.0 g/dL Red Cell Distribution Width 11.6 % 11.7 % 11.8 % Platelet Count 300 10^3/uL 293 10^3/uL 264 10^3/uL Mean Platelet Volume 9.4 fL 9.4 fL 9.4 fL Neutrophils (%) (Auto) 72.1 % 51.3 % 61.6 % Lymphocytes (%) (Auto) 21.1 % 39.7 % 31.2 % Monocytes (%) (Auto) 4.4 % 5.2 % 4.5 % Neutrophils # (Auto) 8.3 10^3/uL 4.7 10^3/uL 6.1 10^3/uL Lymphocytes # (Auto) 2.42 10^3/uL1 3.64 10^3/uL1 3.11 10^3/uL1 Monocytes # (Auto) 0.5 10^3/uL 0.5 10^3/uL 0.5 10^3/uL Absolute Immature Granulocyte (auto 0.01 10^3 u/L 0.02 10^3 u/L 0.01 10^3 u/L Absolute Eosinophils (auto) 0.2 10^3/uL 0.2 10^3/uL 0.2 10^3/uL Immature Granulocytes % 0.10 % 0.20 % 0.10 % Eosinophils % 1.3 % 2.6 % 2.1 % Basophils % 1.0 % 1.2 % 0.6 % Basophils # 0.1 10^3/uL 0.1 10^3/uL 0.1 10^3/uL Sodium Level 140 mmol/L 143 mmol/L 140 mmol/L Potassium Level 4.3 mmol/L 4.3 mmol/L 4.3 mmol/L Chloride Level 105.0 mmol/L 109.0 mmol/L 110.0 mmol/L Carbon Dioxide Level 22.5 mmol/L 25.7 mmol/L 23.5 mmol/L Anion Gap 16.8 12.6 10.8 Blood Urea Nitrogen 17 mg/dL 21 mg/dL 21 mg/dL Creatinine 0.87 mg/dL 0.76 mg/dL 0.81 mg/dL Estimated GFR () 85.6 100.0 92.9 Est GFR (CKD-EPI)(Non-Afr Monegasque) 70.7 82.7 76.8 BUN/Creatinine Ratio 19.0 27.0 25.0 Glucose Level 122 mg/dL 88 mg/dL 94 mg/dL Calcium Level 9.4 mg/dL 9.0 mg/dL 8.7 mg/dL Total Bilirubin 0.3 mg/dL Aspartate Amino Transf (AST/SGOT) 20 U/L Alanine Aminotransferase (ALT/SGPT) 15 U/L Alkaline Phosphatase 74 U/L Total Protein 7.6 g/dL Albumin 3.4 g/dL Globulin 4.2 Albumin/Globulin Ratio 0.809 Amylase Level 100 U/L Lipase 78 U/L SARS-CoV-2 Antigen (Rapid) NEGATIVE Current Medications Medications (Trade) Dose Ordered Sig/Luis PRN Reason Start Time Stop Time Status Last Admin Alprazolam (Xanax) 0.5 mg Q6H PRN ANXIETY 1/10/22 19:30 03/22/21 19:29 02/22/21 08:46 Diphenhydramine HCl (Benadryl) 12.5 mg Q6HR PRN ITCHING 02/20/21 19:30 03/22/21 19:29 02/22/21 04:05 Ketorolac Tromethamine (Toradol) 30 mg Q8HR 02/20/21 22:00 03/22/21 21:59 02/22/21 06:00 Ketorolac Tromethamine (Toradol) 60 mg OT 02/20/21 15:00 02/22/21 23:00 02/20/21 15:24 Mirtazapine (Remeron) 15 mg HS 02/20/21 21:00 03/22/21 20:59 02/21/21 21:38 Morphine Sulfate (Morphine Sulfate) 2 mg Q4H PRN PAIN 4 - 6 02/20/21 19:30 03/22/21 19:29 02/22/21 08:29 Ondansetron HCl (Zofran) 4 mg Q6HR PRN NAUSEA / VOMITING 02/20/21 19:30 03/22/21 19:29 02/22/21 02:36 Promethazine HCl (Phenergan) 25 mg OT 02/20/21 15:00 03/22/21 14:59 02/20/21 15:23 Sodium Chloride 1,000 ml @ 100 mls/hr Q10H 02/20/21 20:00 03/22/21 19:59 02/22/21 04:06 LEVEL 1 SEPSIS INFECTION CRITE: Abdominal Pain LEVEL 2-SIRS (LIST ALL THAT AP: [id number] Cardiovascular Evidence: Not Assessed or None Hematologic Evidence: None/Not assessed Hepatic Evidence: None/Not assessed Metabolic Evidence: None/Not assessed Neurological Evidence: None/Not assessed Respiratory Evidence: None/Not assessed Renal Evidence: None/Not assessed O2 Sat by Pulse Oximetry: 99 Oxygen Flow Rate: 8 Plan Assessment Kidney stone Status post Cystoscopy, right retrograde with ureteroscopy and also cystoscopy and left retrograde with ureteroscopy with basket stone extraction. Follow-up with urology Discharge Date: Feb 22, 2021 Discharge Disposition: SUZY Hou MD Feb 22, 2021 17:31
== END 2021-02-22 17:30 | disposition home or self-care (01) | DRG 446 ==
LOC: ER 14:19 → EEVIPCON 17:39 → MS 17:39
PROVIDERS: ADMIT Family Medicine; ATTEND Family Medicine
PROC: BT141ZZ Fluoroscopy of Kidneys, Ureters and Bladder using Low Osmolar Contrast (ICD-10-PCS; 2021-02-22)
PROC: 0TC78ZZ Extirpation of Matter from Left Ureter, Via Natural or Artificial Opening Endoscopic (ICD-10-PCS; principal; 2021-02-22 11:35)
DX: N13.2 Hydronephrosis with renal and ureteral calculous obstruction (principal); I10 Essential (primary) hypertension; Z20.822 Contact with and (suspected) exposure to COVID-19; Z83.3 Family history of diabetes mellitus; Z82.49 Family history of ischemic heart disease and other diseases of the circulatory system; Z88.2 Allergy status to sulfonamides; Z88.0 Allergy status to penicillin; Z91.013 Allergy to seafood; Z88.8 Allergy status to other drugs, medicaments and biological substances; Z79.899 Other long term (current) drug therapy; Z98.891 History of uterine scar from previous surgery
CPT/HCPCS: 36415; 74176; 74420; 76000; 80048; 80053; 82150; 82360; 83690; 85025; 87426; 93005; 99285; A4217; G0378; J1100; J1200; J1885; J1956; J2001; J2250; J2270; J2405; J2550; J3010; J3490; J7030; Q9966; 88305; C1758; C1769

== ENCOUNTER 2021-02-28 15:24 | Emergency (ER) | payer MEDICAID ==
[~2021-02-28] VITALS: Ht 172.7 cm; Wt 57.6 kg
[2021-02-28 22:17] VITALS: BP_SYST 14; BP_SYST 147; BP_DIAS 111
[2021-02-28] MEDS ORDERED: TYLENOL PO ONE (23:17)
[2021-02-28] MEDS ORDERED: TYLENOL PO STA (23:22)
--- NOTE | 2021-03-01 00:49 | DIREP ---
PROCEDURE:CT ABDOMEN/PELVIS W/O CONTRAST COMPARISON:[facility], CT, CT ABD/PELVIS W/O, 12/30/2019, 02:17 PM. [facility], CT, CT ABD/PELVIS W/O, 02/20/2021, 02:57 PM. INDICATIONS:ABD PAIN TECHNIQUE:Axial images were created through the abdomen and pelvis without intravenous contrast material. No oral contrast was administered. Sagittal and coronal reconstructions were performed from source images. FINDINGS: LUNG BASES:Normal. No visible pulmonary or pleural disease. LIVER:Low density mass present in the superior right lobe, stable since prior examinations. Otherwise normal. BILIARY:Normal. No visible dilatation or calcification. PANCREAS:Normal. No lesion, fluid collection, ductal dilatation, or atrophy. SPLEEN:Normal. No enlargement or focal lesion. ADRENALS:Normal. No mass or enlargement. URINARY TRACT:Multiple small calculi present in both kidneys. No ureteral calculi or hydronephrosis demonstrated. AORTA/VASCULAR:Normal. No aneurysm. RETROPERITONEUM:Normal. No mass or adenopathy. BOWEL/MESENTERY:The appendix is visualized and appears normal. There is no intestinal obstruction, free fluid, free air or mesenteric inflammatory changes. ABDOMINAL WALL:Normal. No mass or hernia. PELVIC ORGANS:Normal. No visible mass. Pelvic organs appropriate for patient age. BONES:Normal for age. No bony lesion or acute fracture. OTHER:Negative. CONCLUSION: 1. Small bilateral renal calculi. No ureteral calculi or hydronephrosis. 2. Stable low-density mass in the superior right lobe of the liver. Dictated by: Jeremiah Chavarria M.D. on 03/01/2021 at 00:37 AM
[2021-03-01] MEDS ORDERED: FLOMAX PO STA (01:06)
[2021-03-01] MEDS ORDERED: FLOMAX ONE (01:09)
--- NOTE | 2021-03-01 01:14 | NUR ---
flomax non-admin, patient elopement.
--- NOTE | 2021-03-01 01:22 | ER.PDOC ---
General Chief Complaint: Flank Pain Stated Complaint: ABD PAIN/NAUSEA Time seen by MD: 22:00 Source: patient, family Exam Limitations: no limitations History of Present Illness Initial Comments Pt seen by Dr Miller in the clinic and presents with pain demanding pain meds. I contacted Dr Miller and CT abd/pelvis done which doesn ot revela impending surgical intervention. No calculi or hydronephrosis. Per Dr Miller d/c pt with Tamsulosin 0.4 mr po Timing/Duration: 1 week Severity/Quality: mild Radiation: LUQ, LLQ Exacerbated by: movements Relieved By: remaining still Allergies: Coded Allergies: shellfish derived (Verified Allergy, Severe, 03/13/20) chlorhexidine (Verified Allergy, Mild, Rash, 03/13/20) Penicillins (Verified Allergy, Unknown, unk, 12/01/19) Sulfa (Sulfonamide Antibiotics) (Verified Allergy, Unknown, unk, 12/01/19) Uncoded Allergies: CONTRAST (Allergy, Severe, Anaphylaxis Shock, 03/13/20) Home Meds Active Scripts Promethazine Hcl (PROMETHAZINE HCL) 12.5 Mg Tablet, 25 MG PO Q6, #5 TAB Prov:GI MILLER MD 01/27/21 Tramadol Hcl (TRAMADOL HCL) 50 Mg Tablet, 50 MG PO Q6 PRN for PAIN, #15 TABLET Prov:GI MILLER MD 01/27/21 Reported Medications Mirtazapine (MIRTAZAPINE) 15 Mg Tab.rapdis, 15 MG PO HS, TAB 03/13/20 Vital Signs First Vital Signs Date Time Temp Pulse Resp B/P (MAP) Pulse Ox O2 Delivery O2 Flow Rate FiO2 02/28/21 22:17 98.1 88 20 98 02/28/21 22:17 147/111 (123) Room Air Last Vital Signs Date Time Temp Pulse Resp B/P (MAP) Pulse Ox O2 Delivery O2 Flow Rate FiO2 02/28/21 22:17 98.1 88 20 147/111 (123) 98 Room Air Past Medical History Medical History: renal disease Surgical History: renal, stent Family History Significant Family History: no pertinent family hx Social History Smoking: cigarettes Alcohol Use: none Drug Use: none Genitourinary: pain All Other Systems: Reviewed and Negative Physical Exam General Appearance: Anxious HEENT: Normal ENT Inspection, Pharynx Normal Neck: Non-Tender Respiratory: chest non-tender Cardiovascular: Normal Peripheral Pulses, Regular Rate, Rhythm Gastrointestinal: Normal Bowel Sounds, Soft Back: Normal Inspection Extremities: Normal Range of Motion 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 Skin: Normal Color Lymphatic: No Adenopathy Results/Orders Results/Orders Orders - COMFORT DAN MD Ct Abd/Pelvis Wo Iv Contrast (02/28/21 22:47) Acetaminophen (Tylenol) (02/28/21 23:17) Acetaminophen (Tylenol) (02/28/21 23:22) Tamsulosin Hcl (Flomax) (03/01/21 01:06) Tamsulosin Hcl (Flomax) (03/01/21 01:09) Vital Signs Date Time Temp Pulse Resp B/P (MAP) Pulse Ox O2 Delivery O2 Flow Rate FiO2 02/28/21 22:17 98.1 88 20 147/111 (123) 98 Room Air 02/28/21 22:17 98.1 88 20 02/28/21 22:17 98.1 88 20 98 Administered Medications Medications (Trade) Dose Ordered Sig/Luis Route PRN Reason Start Time Stop Time Status Last Admin Dose Admin Acetaminophen (Tylenol) 1,000 mg STAT STAT PO 02/28/21 23:22 02/28/21 23:23 DC 02/28/21 23:20 1,000 MG Progress Progress Pt seen by Dr Miller in the clinic and presents with pain demanding pain meds. I contacted Dr Miller and CT abd/pelvis done which doesn ot revela impending surgical intervention. No calculi or hydronephrosis. Per Dr Miller d/c pt with Tamsulosin 0.4 mr po ER DEPART Departure Time of Disposition: 01:20 Disposition: 01 HOME / SELF CARE / HOMELESS Impression: Primary Impression: Abdominal pain Additional Impression: Renal calculi Condition: Stable Referrals: PCP,UNKNOWN (PCP) PRIMARY CARE PROVIDER Duration or Time Spent with Pa: 60 Return to Work/School Can a patient return to work?: No Can a patient return to school: No Problem Qualifiers COMFORT DAN MD Mar 01, 2021 01:21
== END 2021-03-01 01:30 | disposition home or self-care (01) ==
LOC: ER 15:24
DX: N20.0 Calculus of kidney (principal); Z79.899 Other long term (current) drug therapy; Z88.0 Allergy status to penicillin; Z88.2 Allergy status to sulfonamides
CPT/HCPCS: 74176; 99284

== ENCOUNTER 2021-03-09 16:25 | Day surgery (SDC) | payer MEDICAID ==
[~2021-03-09] VITALS: Ht 172.7 cm; Wt 56.7 kg
--- NOTE | 2021-03-09 16:25 | NUR ---
LATE ENTRY 1620 ARRIVAL PRESENTED TO ED VIA EMS WITH C/O N/V, KIDNEY/BACK FLANK PAIN 11/20. VS OBTAINED. DR. YOUNGBLOOD NOTIFIED OF PATIENT ARRIVAL.
[2021-03-09] MEDS ORDERED: PHENERGAN ONE (16:43)
[2021-03-09] MEDS ORDERED: NS 500ML 500 ML IV ONE (16:44)
[2021-03-09] MEDS ORDERED: PHENERGAN IV STA (16:45)
--- NOTE | 2021-03-09 16:48 | ER.PDOC ---
General Chief Complaint: Requesting Medical Care Stated Complaint: KIDNEY STONE TRAVEL OUT OF US: No Time seen by MD: 16:30 Source: patient Exam Limitations: no limitations History of Present Illness Initial Comments This 45-year-old female is a chronic kidney stone maker comes in with complaint of left leg pain that started 2 days ago. She has had this stone for at least 2 to 3 weeks but just started getting painful in the last 2 days. She complains of nausea vomiting from the pain. Patient is hypertensive and that probably is secondary to her pain she has no other acute complaints. She specifically denies any fevers or chills or sweats or any signs of any infection. Allergies: Coded Allergies: shellfish derived (Verified Allergy, Severe, 03/13/20) chlorhexidine (Verified Allergy, Mild, Rash, 03/13/20) Penicillins (Verified Allergy, Unknown, unk, 12/01/19) Sulfa (Sulfonamide Antibiotics) (Verified Allergy, Unknown, unk, 12/01/19) Uncoded Allergies: CONTRAST (Allergy, Severe, Anaphylaxis Shock, 03/13/20) Home Meds Active Scripts Promethazine Hcl (PROMETHAZINE HCL) 12.5 Mg Tablet, 25 MG PO Q6, #5 TAB Prov:GI MILLER MD 01/27/21 Tramadol Hcl (TRAMADOL HCL) 50 Mg Tablet, 50 MG PO Q6 PRN for PAIN, #15 TABLET Prov:GI MILLER MD 01/27/21 Reported Medications Mirtazapine (MIRTAZAPINE) 15 Mg Tab.rapdis, 15 MG PO HS, TAB 03/13/20 Past Medical History Medical History: renal disease Surgical History: renal, stent Social History Drug Use: none Results/Orders Results/Orders Orders - MARY YOUNGBLOOD MD Promethazine Hcl (Phenergan) (03/09/21 16:45) Ct Abd/Pelvis Wo Iv Contrast (03/09/21 16:45) Vital Signs Date Time Temp Pulse Resp B/P (MAP) Pulse Ox O2 Delivery O2 Flow Rate FiO2 03/09/21 16:54 99.0 90 18 03/09/21 16:54 99.0 90 18 98 03/09/21 16:54 99.0 90 18 156/116 (129) 98 Room Air Administered Medications Medications (Trade) Dose Ordered Sig/Luis Route PRN Reason Start Time Stop Time Status Last Admin Dose Admin Promethazine HCl (Phenergan) 25 mg OT STAT IV 03/09/21 16:45 03/09/21 16:46 UNV 03/09/21 16:[address] Report:: 1. 5 mm left ureteral calculus creates moderate-severe left hydroureteronephrosis. 2. Bilateral nonobstructing renal calculi. No right hydronephrosis. 3. No bowel obstruction. Appendix within normal limits. 4. Additional findings as described. I spoke with Dr. Miller of urology and he requested we admit the patient to the hospitalist. Get all the labs that are required for preop and give her a gram of Rocephin for any potential infection. ER DEPART Departure Time of Disposition: 17:53 Disposition: 01 HOME / SELF CARE / HOMELESS Impression: Primary Impression: Calculus of ureter Additional Impression: Ureteral stone with hydronephrosis Condition: Stable (ERASED) Referrals: PCP,UNKNOWN (PCP) PRIMARY CARE PROVIDER Duration or Time Spent with Pa: 15m Problem Qualifiers MARY YOUNGBLOOD MD Mar 09, 2021 16:48
[2021-03-09 16:54] VITALS: BP 156/116
--- NOTE | 2021-03-09 17:19 | DIREP ---
PROCEDURE:CT ABDOMEN/PELVIS W/O CONTRAST COMPARISON:[facility], CT, CT ABD/PELVIS W/O, 02/28/2021, 11:29 PM. INDICATIONS:left flank pain TECHNIQUE:Axial images were created through the abdomen and pelvis without intravenous contrast material. No oral contrast was administered. Sagittal and coronal reconstructions were performed from source images. FINDINGS: LUNG BASES:Normal. No visible pulmonary or pleural disease. LIVER:Normal. No significant liver lesions are identified. BILIARY:Normal. No visible dilatation or calcification. PANCREAS:Normal. No lesion, fluid collection, ductal dilatation, or atrophy. SPLEEN:Normal. No enlargement or focal lesion. ADRENALS:Normal. No mass or enlargement. URINARY TRACT:5 mm distal left ureteral calculus creates moderate-severe left hydroureteronephrosis. Additional left nonobstructing renal calculi are seen, largest measuring 5 mm. Multiple nonobstructing right renal calculi are seen, largest measures 3 mm. No right hydronephrosis or ureteral calculi. Urinary bladder underdistended, limiting evaluation. AORTA/VASCULAR:Limited without IV contrast. No aortic aneurysmal dilatation. RETROPERITONEUM:Normal. No mass or adenopathy. BOWEL/MESENTERY:No free air. Lack of oral contrast limits evaluation of the bowel structures. No small bowel dilatation seen to suggest obstruction. Appendix within normal limits. ABDOMINAL WALL:Normal. No mass or hernia. PELVIC ORGANS:Pelvic organs appropriate for patient's age. BONES:Bone island again seen within the right ilium. Degenerative change without evidence of acute osseus abnormality. OTHER:Negative. CONCLUSION: 1. 5 mm left ureteral calculus creates moderate-severe left hydroureteronephrosis. 2. Bilateral nonobstructing renal calculi. No right hydronephrosis. 3. No bowel obstruction. Appendix within normal limits. 4. Additional findings as described. Dictated by: René Castro MD on 03/09/2021 at 05:11 PM
--- NOTE | 2021-03-09 17:38 | NUR ---
ANGELA YOUNGBLOOD ON THE PHONE WITH DOCTOR MILLER AT THIS TIME.
[2021-03-09] MEDS ORDERED: ROCEPHIN 1,000 MG in NS 100ML 100 ML IV STA (17:39)
[2021-03-09] MEDS ORDERED: SUBLIMAZE IV STA (17:50)
[2021-03-09] MEDS ORDERED: ROCEPHIN ONE (17:54)
[2021-03-09] MEDS ORDERED: NS 100ML 100 ML IV ONE (17:54)
[2021-03-09 17:55] LABS: CARBON DIOXIDE 27.7 mmol/L (20.0-32)
[2021-03-09 18:01] LABS: BASOPHIL # 0.1 10^3/uL (0.0-0.1); BASOPHIL % 0.9 % (0.0-0.2); EOSINOPHIL # 0.1 10^3/uL (0.0-0.2); EOSINOPHIL % 1.2 % (0.0-5.0); LYMPHOCYTES # 2.02 10^3/uL1 (1.0-4.8); LYMPHOCYTES % 34.9 % (24.0-44.0); MEAN CORP HGB 33.7 pg (26-34); MONOCYTES # 0.4 10^3/uL (0.3-0.8); MONOCYTES % 6.4 % (5.0-12.0); NEUTROPHIL # 3.3 10^3/uL (1.8-7.7); NEUTROPHILS % 56.4 % (41.0-85.0); PLATELET COUNT 283 10^3/uL (150-400); RED CELL DISTRIBUTION WIDTH 11.6 % (11.5-14.5)
[2021-03-09] MEDS ORDERED: BENADRYL IV STA (18:12)
--- NOTE | 2021-03-09 18:30 | NUR ---
REPORT REPORT GIVEN TO ON COMING SHIFT.
[2021-03-09] MEDS ORDERED: ULTRAM PO PRN (19:00)
[2021-03-09 20:12] VITALS: BP 149/80
[2021-03-09] MEDS ORDERED: REMERON PO SCH (21:00)
--- NOTE | 2021-03-09 21:10 | PCM.HP ---
History of Present Illness Reason for Visit: (1) Calculus of ureter ICD Code: N20.1 - Calculus of ureter SNOMED: 43212854 Hx of Present Illness Dafne is a pleasant 45-year-old female who presents with acute flank pain which upon imaging was found to be secondary to a 5 mm obstructing stone. The patient was also found to have hydronephrosis, and is thus admitted for stent placement in the morning. At the time of my exam, the patient reports ongoing discomfort, though she is eating dinner and denies nausea vomiting malaise or fatigue. She is very anxious about the procedure tomorrow, Which is grossly overwhelmed her pain. Travel History [place] RISK:Travel to/contact w: No Review of Systems Gastrointestinal: Nausea, Vomiting, Abdominal Pain, Diarrhea, Other Genitourinary: Dysuria, Frequency, Hematuria, Other Other Complete review of systems is negative except as per HPI Allergies: Coded Allergies: shellfish derived (Verified Allergy, Severe, 03/13/20) chlorhexidine (Verified Allergy, Mild, Rash, 03/13/20) Penicillins (Verified Allergy, Unknown, unk, 12/01/19) Sulfa (Sulfonamide Antibiotics) (Verified Allergy, Unknown, unk, 12/01/19) Uncoded Allergies: CONTRAST (Allergy, Severe, Anaphylaxis Shock, 03/13/20) Scheduled Mirtazapine (Mirtazapine), 15 MG PO HS, (Reported) Promethazine Hcl (Promethazine Hcl), 25 MG PO Q6 Scheduled PRN Tramadol Hcl (Tramadol Hcl), 50 MG PO Q6 PRN for PAIN VTE VTE Risk Total Score: 1 VTE Risk Score VTE Risk: Score 0-1 = Low Risk (Aggressive mobilization; early ambulation; no VTE prophylaxis required) Score 2: Moderate Risk (Intermittent/Pneumatic Compression Device OR Lovenox/Heparin/Coumadin) Score 3-4: High Risk (Intermittent/Pneumatic Compression Device AND Lovenox/Heparin/Coumadin) Score > or =5: Highest Risk (Intermittent/Pneumatic Compression Device AND Lovenox/Heparin/Coumadin) Antico:Hep/LMWH/Coum/Xarelto: No Mechanical device ordered: Yes Reasons not ordering prophylax: Surgical Contraindication VTE VTE Present on Admission: No Currently receiving anticoagul: No VTE Risk Total Score: 1 Antico:Hep/LMWH/Coum/Xarelto: No Mechanical device ordered: Yes Exam Vital Signs Vital Signs Date Time Temp Pulse Resp B/P (MAP) Pulse Ox O2 Delivery O2 Flow Rate FiO2 03/09/21 20:58 Room Air 03/09/21 20:12 98.6 95 16 149/80 (103) 98 General Appearance: Alert, Oriented X3 HEENT: Atraumatic, PERRLA, EOMI Respiratory: Clear to auscultation, Normal air movement Cardiovascular: Regular rate, Normal S1 Abdominal: Normal bowel sounds, Soft Extremities: No clubbing, No cyanosis Skin: No rash, No breakdown Neuro: Normal gait, Normal speech, Strength at 5/5 X4 ext Psych/Mental Status: Mental status NL, Mood NL Assessment/Plan Assessment/Plan Problems: (1) Ureteral stone with hydronephrosis Status: Acute Assessment & Plan: S/p 1 dose of ceftriaxone in ED, started on oral multimodal analgesia, and pending stent placement in the morning. ICD Code: N13.2 - Hydronephrosis with renal and ureteral calculous obstruction SNOMED: 4580508, [id number], [id number] (2) Tobacco use disorder Status: Chronic Assessment & Plan: Counseled on cessation, though this will likely need to wait until after the procedure given the patient's extreme anxiety ICD Code: F17.200 - Nicotine dependence, unspecified, uncomplicated SNOMED: 478424884 Patient History: Diabetes mellitus G8 FATHER, , Age:78 G8 BROTHER FH: CAD (coronary artery disease) G8 MOTHER Hypertension G8 MOTHER No known health problems G8 SISTER G8 SISTER G8 SISTER G8 SISTER G8 SISTER JEREMY KEARNS MD Mar 09, 2021 21:10
[2021-03-09] MEDS ORDERED: D5W-1/2NS 1000ML 1,000 ML IV SCH (21:30)
[2021-03-09] MEDS ORDERED: OXY-IR PO PRN (21:30)
[2021-03-09] MEDS: ULTRAM PO SCH (21:30)
[2021-03-09] MEDS: TYLENOL PO SCH (21:30)
--- NOTE | 2021-03-09 22:20 | NUR ---
PAIN COMPLAINT PT REFUSED OXYCODONE PO 5MG DUE TO NAUSEA, PT REQUESTS PAIN MEDICATION IV RECEIVED ORDER FROM DR MARION VIA TELEPHONE OF 2MG MORPHINE IV Q6PRN FOR PAIN 7-10 ORDERS CARRIED OUT AT THIS TIME BY THIS NURSE
[2021-03-09] MEDS: MORPHINE SULFATE IV PRN ×2 (22:42→22:49)
[2021-03-10] VITALS (10 sets, daily range): BP systolic 94–160; BP diastolic 67–102
--- NOTE | 2021-03-10 01:15 | NUR ---
NAUSEA COMPLAINT PT REQUESTS ONLY PHENERGAN FOR NAUSEA ZOFRAN IS INEFFECTIVE RECEIVED ORDERS FROM DR MARION BY TELEPHONE FOR PHENERGAN PO 25MG Q4PRN ORDERS CARRIED OUT AT THIS TIME BY THIS NURSE
[2021-03-10] MEDS ORDERED: PHENERGAN ONE (01:30)
[2021-03-10] MEDS ORDERED: PHENERGAN PO PRN (01:30)
[2021-03-10] MEDS: ULTRAM PO SCH ×3 (03:30→12:59)
[2021-03-10] MEDS: TYLENOL PO SCH ×2 (03:30→09:30)
--- NOTE | 2021-03-10 04:00 | NUR ---
PT BEHAVIOR PT BECAME UNUSUALLY UPSET WHEN LAB CAME TO DRAW MORNING LABS, PT WAS INAPPROPRIATE, RAISING HER VOICE AND STATED "NO ONE KNOWS WHAT TO DO OR HOW TO DO IT IN THIS HOSPITAL" THIS NURSE EXPLAINED THE IMPORTANCE OF LAB DRAWS PRESURGICAL PROCEDURE. PT VERBALLY AGREED TO HAVE LABS DRAWN AT THIS TIME..
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
[2021-03-10 04:44] LABS: BASOPHIL # 0.1 10^3/uL (0.0-0.1); BASOPHIL % 0.9 % (0.0-0.2); EOSINOPHIL # 0.1 10^3/uL (0.0-0.2); EOSINOPHIL % 2.6 % (0.0-5.0); LYMPHOCYTES # 2.32 10^3/uL1 (1.0-4.8); LYMPHOCYTES % 43.5 % (24.0-44.0); MONOCYTES # 0.4 10^3/uL (0.3-0.8); MONOCYTES % 7.9 % (5.0-12.0); NEUTROPHIL # 2.4 10^3/uL (1.8-7.7); NEUTROPHILS % 45.1 % (41.0-85.0); PLATELET COUNT 239 10^3/uL (150-400); RED CELL DISTRIBUTION WIDTH 11.8 % (11.5-14.5)
[2021-03-10] MEDS: MORPHINE SULFATE IV PRN (04:59)
[2021-03-10] MEDS ORDERED: BENADRYL IV PRN (05:00)
--- NOTE | 2021-03-10 05:10 | NUR ---
PT COMPLAINT OF ITCHING PT STATED SHE ALWAYS ITCHES WITH ALL PAIN MEDICATION NOTIFIED DR MARION AT THIS TIME. RECEIVED ORDER FOR 25MG IV BENADRYL Q6PRN FOR ITCHING. ORDERS CARRIED OUT BY THIS NURSE
[2021-03-10 05:23] LABS: CARBON DIOXIDE 26.7 mmol/L (20.0-32)
--- NOTE | 2021-03-10 06:00 | NUR ---
PT STATUS PT REQUESTING IV ANXIETY MEDICATION. NOTIFIED DR MARION AT THIS TIME, NO ORDERS RECEIVED.
--- NOTE | 2021-03-10 06:10 | NUR ---
ORDERS RECEIVED 0.5 MG IV ATIVAN STAT, ONE TIME.
[2021-03-10] MEDS ORDERED: ATIVAN ONE (06:19)
[2021-03-10] MEDS ORDERED: ATIVAN IV ONE (06:30)
[2021-03-10] MEDS ORDERED: NS 3000ML IRR IR ONE (08:41)
[2021-03-10] MEDS ORDERED: SODIUM CHLORIDE IRR BOTTLE IR ONE (08:41)
[2021-03-10] MEDS ORDERED: KETALAR ONE (08:49)
[2021-03-10] MEDS ORDERED: DIPRIVAN IV ONE (08:49)
[2021-03-10] MEDS ORDERED: VERSED ONE ×2 (08:49→08:50)
[2021-03-10] MEDS ORDERED: LEVAQUIN 100 ML IV ONE (09:08)
[2021-03-10] MEDS ORDERED: NS 1000ML 1,000 ML ONE (09:08)
[2021-03-10] MEDS ORDERED: LACTATED RINGERS 1,000 ML IV SCH (10:00)
--- NOTE | 2021-03-10 10:53 | OPH ---
DATE OF SURGERY: 03/10/2021 DICTATOR NAME: Andres Beltran MD PREOPERATIVE DIAGNOSES: Calculus, left distal ureter with hydronephrosis. FINAL DIAGNOSES: Calculus, left distal ureter with hydronephrosis. PROCEDURE: Cystoscopy, left retrograde, with insertion of double-J left ureteral stent. DESCRIPTION OF PROCEDURE: The patient was brought to the cystoscopy room, was put in a supine position on the cystoscopy table. After the patient was given a satisfactory and adequate LMA general anesthesia, the patient was placed in a lithotomy position. Genitalia was then prepped and draped aseptically in the usual manner. First, a 23-Tajik cystoscope was inserted per urethra up to the bladder. With the use of the right angle lens, the bladder was visualized. There is no tumor, no calculi, no ulcerations seen. A left retrograde was initially done by inserting a 7-Tajik ureteral catheter in the left ureteral orifice and injected with Omnipaque dye and it showed a calculus in the left distal ureter. A 6-Tajik double-J left ureteral stent was then inserted through the guidewire from the left ureteral orifice all the way to the left kidney. After this was confirmed by fluoroscopy, the proper placement, the guidewire was removed. The fluid from the bladder was then emptied, and then after that, the cystoscope was removed. Procedure was terminated. The patient was awakened, was transferred to the recovery room in a stable condition. Andres Beltran MD DR: JENS TID: [id number] RECEIPT: [id number]
--- NOTE | 2021-03-10 11:00 | NUR ---
RECEIVED RECEIVED FROM PACU, AMBULATED TO BATHROOM WITH ASSIST X1, VOIDED 100ML, LIGHT PINK IN COLOR. TO BED, ON RIGHT SIDE, NO NEEDS
--- NOTE | 2021-03-10 13:25 | NUR ---
STATUS PT UP CHANGING CLOTHES, REQUESTING IV TO BE DC'D. STATES SHE IS READY TO GO HOME, IV DC'D, DR KEARNS NOTIFIED PT READY TO GO HOME, STATES HE IS WORKING ON DISCHARGES
--- NOTE | 2021-03-10 13:38 | NUR ---
STATUS PT SON TO DESK STATES PT WANTS TO GO WAIT IN THE CAR TO BE DISCHARGED AND HE WILL COME BACK UP AND SIGN HER PAPERS EXPLAINED THAT WE COULDNT DO THAT, HE STATES THAT SHE IS IMPATIENT AND WILL WALK OUT IF WE DONT HURRY, INFORMED HIM THAT I HAVE NOTIFIED DR KEARNS THAT SHE WANTS TO BE DISCHARGED NOW.
--- NOTE | 2021-03-10 14:17 | PRM.DC ---
Discharge Summary Date of Discharge: Mar 10, 2021 Time of Request to Discharge: 14:14 Reason for Visit: flank pain Hospital Course Ms. Bates is a pleasant 45-year-old female who presented with acute flank pain which upon imaging was found to be secondary to a 5 mm obstructing left-sided kidney stone. The patient was given a dose of Rocephin in the ED, and underwent stent placement the following morning which she tolerated well. She is now discharged home to follow-up in [address] Beltran. Patient History: Diabetes mellitus G8 FATHER, , Age:78 G8 BROTHER FH: CAD (coronary artery disease) G8 MOTHER Hypertension G8 MOTHER No known health problems G8 SISTER G8 SISTER G8 SISTER G8 SISTER G8 SISTER General: Alert, Oriented X3, Cooperative HEENT: Atraumatic, PERRLA, EOMI, Mucous membr. moist/pink Neck: Supple, No JVD, No thyromegaly Lungs: Clear to auscultation, Normal air movement Heart: Regular rate, Normal S1, Normal S2 Abdomen: Normal bowel sounds, Soft Extremities: No clubbing, No cyanosis Skin: No rashes, No breakdown, No significant lesion Neuro: Normal gait, Normal speech, Strength at 5/5 X4 ext Psych/Mental Status: Mental status NL, Mood NL Scheduled Mirtazapine (Mirtazapine), 15 MG PO HS, (Reported) Promethazine Hcl (Promethazine Hcl), 25 MG PO Q6 Scheduled PRN Tramadol Hcl (Tramadol Hcl), 50 MG PO Q6 PRN for PAIN Sepsis Evaluation @ Discharge 03/10/21 11:52 Course Sepsis Screening Results: Posi: NEGATIVE Sepsis Qualifier/Stage: NO DEFINITE RISK Duration or Total Time Spent w: 15m Vitals & review Data Vital Sign - Last 24 Hours 03/09/21 03/09/21 03/09/21 03/09/21 16:54 16:54 16:54 20:12 Temp 99.0 99.0 99.0 98.6 Pulse 90 90 90 95 Resp 18 18 18 16 B/P (MAP) 156/116 (129) 149/80 (103) Pulse Ox 98 98 98 O2 Delivery Room Air Room Air 03/09/21 03/10/21 03/10/21 03/10/21 20:58 00:36 00:56 04:31 Temp 98.1 98.0 Pulse 73 75 Resp 16 16 B/P (MAP) 144/85 (104) 136/89 (105) Pulse Ox 99 95 O2 Delivery Room Air Room Air Room Air Room Air 03/10/21 03/10/21 03/10/21 03/10/21 09:47 10:00 10:03 10:15 Temp 98.1 97.5 Pulse 85 82 73 77 Resp 16 16 16 16 B/P (MAP) 94/67 (76) 105/74 (84) 160/102 (121) 111/78 (89) Pulse Ox 98 96 95 96 O2 Delivery Room Air Room Air Room Air 03/10/21 03/10/21 03/10/21 03/10/21 10:30 10:45 11:00 11:16 Temp 97.8 Pulse 78 77 73 Resp 16 16 18 B/P (MAP) 108/76 (87) 138/78 (98) 150/99 (116) Pulse Ox 95 99 95 O2 Delivery Room Air Room Air Room Air Intake and Output 03/10/21 07:00 Intake Total 700 ml Balance 700 ml Laboratory Tests Test 03/09/21 16:38 03/10/21 04:19 White Blood Count 5.8 10^3/uL 5.3 10^3/uL Red Blood Count 4.87 10^6/uL 4.32 10^6/uL Hemoglobin 16.4 g/dL 14.7 g/dL Hematocrit 49.8 % 44.6 % Mean Corpuscular Volume 102.3 fL 103.2 fL Mean Corpuscular Hemoglobin 33.7 pg 34.0 pg Mean Corpuscular Hemoglobin Concent 32.9 g/dL 33.0 g/dL Red Cell Distribution Width 11.6 % 11.8 % Platelet Count 283 10^3/uL 239 10^3/uL Mean Platelet Volume 10.5 fL 10.0 fL Neutrophils (%) (Auto) 56.4 % 45.1 % Lymphocytes (%) (Auto) 34.9 % 43.5 % Monocytes (%) (Auto) 6.4 % 7.9 % Neutrophils # (Auto) 3.3 10^3/uL 2.4 10^3/uL Lymphocytes # (Auto) 2.02 10^3/uL1 2.32 10^3/uL1 Monocytes # (Auto) 0.4 10^3/uL 0.4 10^3/uL Absolute Immature Granulocyte (auto 0.01 10^3 u/L 0 10^3 u/L Absolute Eosinophils (auto) 0.1 10^3/uL 0.1 10^3/uL Immature Granulocytes % 0.20 % 0.00 % Eosinophils % 1.2 % 2.6 % Basophils % 0.9 % 0.9 % Basophils # 0.1 10^3/uL 0.1 10^3/uL Prothrombin Time 11.9 SEC Prothrombin Time INR (Non-Therap) 1.1 Sodium Level 137 mmol/L 143 mmol/L Potassium Level 3.8 mmol/L 3.8 mmol/L Chloride Level 102.0 mmol/L 108.0 mmol/L Carbon Dioxide Level 27.7 mmol/L 26.7 mmol/L Glucose Level 117 mg/dL 128 mg/dL Blood Urea Nitrogen 16 mg/dL 19 mg/dL Creatinine 0.99 mg/dL 0.88 mg/dL Calcium Level 10.0 mg/dL 8.8 mg/dL Anion Gap 11.1 12.1 Estimated GFR () 73.7 84.5 Est GFR (CKD-EPI)(Non-Afr [place] Zealander) 60.9 69.8 BUN/Creatinine Ratio 16.0 21.0 Current Medications Medications (Trade) Dose Ordered Sig/Luis PRN Reason Start Time Stop Time Status Last Admin Acetaminophen (Tylenol) 650 mg Q6H 03/09/21 21:30 04/08/21 21:29 Diphenhydramine HCl (Benadryl) 25 mg Q6HR PRN ITCHING 03/10/21 05:00 04/09/21 04:59 03/10/21 05:15 Mirtazapine (Remeron) 15 mg HS 03/09/21 21:00 04/08/21 20:59 03/09/21 20:45 Morphine Sulfate (Morphine Sulfate) 2 mg Q6 PRN PAIN 8-10 03/09/21 22:30 04/08/21 22:29 03/10/21 04:59 Oxycodone HCl (Oxy-Ir) 5 mg Q4HR PRN PAIN 7 - 10 03/09/21 21:30 04/08/21 21:29 Promethazine HCl (Phenergan) 25 mg Q4HR PRN NAUSEA / VOMITING 03/10/21 01:30 04/09/21 01:29 03/10/21 01:30 Tramadol HCl (Ultram) 100 mg Q6H 03/09/21 21:30 04/08/21 21:29 03/10/21 12:59 LEVEL 1 SEPSIS INFECTION CRITE: None/Not assessed LEVEL 2-SIRS (LIST ALL THAT AP: [id number] Cardiovascular Evidence: Not Assessed or None Hematologic Evidence: None/Not assessed Hepatic Evidence: None/Not assessed Metabolic Evidence: None/Not assessed Neurological Evidence: None/Not assessed Respiratory Evidence: None/Not assessed Renal Evidence: None/Not assessed O2 Sat by Pulse Oximetry: 95 JEREMY KEARNS MD Mar 10, 2021 14:17
--- NOTE | 2021-03-10 14:17 | NUR ---
STATUS PT AND SON GETTING ON ELEVATOR, INFORMED THEM THAT PT WASNT DISCHARGED YET AND SON STATED PT WAS GOING DOWNSTAIRS, THEY PROCEEDED TO GET ON ELEVATOR
--- NOTE | 2021-03-10 14:28 | DIREP ---
PROCEDURE:XRAY UROGRAPHY RETROGRADE COMPARISON:[facility], CR, XRAY UROGRAPHY RETROGRADE, 01/01/2021, 10:13 AM. [facility], CT, CT ABD/PELVIS W/O, 03/09/2021, 04:55 PM. INDICATIONS:9 FILMS 15.79MGY / 69.8 SECS FLOURO / 10CC OMNI 240, left hydronephrosis TECHNIQUE:Intraoperative fluoroscopy for retrograde urography. FINDINGS: Intraoperative fluoroscopy for retrograde urography. The left ureter was cannulated. Some contrast was seen within the urinary bladder. A left ureteral stent was placed. No unexpected surgical instrument on the provided views. CONCLUSION: 1. Intraoperative fluoroscopy for retrograde urography. 2. Left ureteral stent placement. Dictated by: Reyna Mills MD on 03/10/2021 at 02:24 PM
--- NOTE | 2021-03-10 14:30 | NUR ---
STATUS PT RETURNED TO UNIT WITH SON, BACK TO ROOM
[2021-03-10] MEDS ORDERED: TRAM50TA PO ×3 (15:04→15:06)
[2021-03-10] MEDS ORDERED: CIPR500T86 PO (15:08)
--- NOTE | 2021-03-10 15:20 | NUR ---
DISCHARGE DISCHARGE INSTRUCTIONS GIVEN AND QUESTIONS ANSWERED, VOICED UNDERSTANDING, DISCHARGED VIA W/C TO PRIVATE VEHICLE IN APPARENT STABLE CONDITION,
--- NOTE | 2021-03-10 22:33 | CNH ---
DATE OF CONSULTATION: 03/10/2021 DICTATOR NAME: Andres Beltran MD This is a 45-year-old female who was admitted last night from the Emergency Room because of left flank pain and a noncontrast CT scan revealed a calculus in the left distal ureter with hydronephrosis. The patient was examined today. He has left CVA tenderness. The blood report was reviewed. Case was discussed with the patient and we are going to schedule for cystoscopy, left retrograde with possible stent insertion this morning. Andres Beltran MD DR: JASON/EMMEI/SALOME TID: [id number] RECEIPT: [id number]
[2021-03-17] MEDS ORDERED: TRAM50TA PO (11:52)
[2021-03-17] MEDS ORDERED: TAMS-14 PO (11:52)
== END 2021-03-10 15:20 | disposition home or self-care (01) ==
LOC: EDBD 16:25 → ER 16:25 → EEVIPCON 17:48 → UNDOADMOB 17:48 → MS 17:48 → SDC 18:00 → UNDODISOB 03-10 15:20
PROVIDERS: ATTEND Urology
DX: N13.2 Hydronephrosis with renal and ureteral calculous obstruction (principal); Z79.899 Other long term (current) drug therapy; Z86.73 Personal history of transient ischemic attack (TIA), and cerebral infarction without residual deficits; Z80.0 Family history of malignant neoplasm of digestive organs; Z88.1 Allergy status to other antibiotic agents; Z91.041 Radiographic dye allergy status; Z88.0 Allergy status to penicillin; Z91.013 Allergy to seafood; Z88.8 Allergy status to other drugs, medicaments and biological substances; Z82.49 Family history of ischemic heart disease and other diseases of the circulatory system; Z83.3 Family history of diabetes mellitus
CPT/HCPCS: 36415 ×2; 52332; 74176; 74420; 80048 ×2; 85025 ×2; 85610; 99285; A4217 ×2; J0696 ×2; J1200 ×2; J1956; J2060; J2250 ×2; J2550; J3010; J3490; J7030; J7040; Q9966; 76000; G0378; C1758; C1769; C2617

== ENCOUNTER → 2021-03-17 | Day surgery (SDC) | payer MEDICAID ==
[~2021-03-17] VITALS: Ht 175.3 cm; Wt 44.9 kg
[2021-03-17] VITALS (11 sets, daily range): BP systolic 81–147; BP diastolic 61–107
[~2021-03-17] MED LIST changes: +DECADRON ONE; +DIPRIVAN IV ONE; +LACTATED RINGERS 1,000 ML IV SCH; +LASIX IV ONE; +LASIX ONE; +NS 1000ML 1,000 ML IV SCH; +NS 1000ML 1,000 ML ONE; +NS 100ML 100 ML IV ONE; +ROCEPHIN ONE; +SUBLIMAZE ONE; +VERSED ONE; +XYLOCAINE 2% 5ML VIAL ONE; +ZOFRAN ONE
--- NOTE | 2021-03-17 09:42 | DIREP ---
PROCEDURE:XRAY ABDOMEN SINGLE VW COMPARISON:[facility], CR, XRAY ABDOMEN 2VW, 01/28/2021, 01:16 PM. INDICATIONS:eswl FINDINGS: BOWEL GAS PATTERN:Normal. Large amount of stool in the colon. CALCIFICATIONS:None significant. BONES:Normal. OTHER:Left ureteral stent. CONCLUSION:Left ureteral stent. Kidneys are largely obscured by bowel stool content limiting evaluation for kidney stones. Dictated by: Khoi Ruiz M.D. on 03/17/2021 at 09:40 AM
== END | disposition home or self-care (01) ==
LOC: SDC 08:04
PROVIDERS: ATTEND Urology
DX: N20.0 Calculus of kidney (principal); F32.9 Major depressive disorder, single episode, unspecified; F41.9 Anxiety disorder, unspecified; Z98.890 Other specified postprocedural states; Z79.899 Other long term (current) drug therapy
CPT/HCPCS: 36415; 50590; 74018; 84703; J0696; J1100; J2001; J2250; J2405; J3010; J3490; J7030; J1940

== ENCOUNTER → 2021-03-31 | Day surgery (SDC) | payer OTHER ==
[~2021-03-31] VITALS: Ht 175.3 cm; Wt 44.9 kg
[2021-03-31] VITALS (17 sets, daily range): BP systolic 83–184; BP diastolic 33–115
[~2021-03-31] MED LIST changes: +BENADRYL PO ONE; +DILAUDID ONE; +KETALAR ONE; +LACTATED RINGERS 1,000 ML ONE; -LASIX IV ONE; +LEVAQUIN 100 ML IV ONE; -NS 1000ML 1,000 ML IV SCH; -NS 1000ML 1,000 ML ONE; -NS 100ML 100 ML IV ONE; +NS 3000ML IRR IR ONE; +OFIRMEV IV PRN; -ROCEPHIN ONE; +SODIUM CHLORIDE IRR BOTTLE IR ONE; +TORADOL IV ONE; +TORADOL ONE
[2021-03-31 07:23] LABS: BILIRUBIN,URINE NEGATIVE (NEGATIVE); UROBILINOGEN,URINE 0.2 E.U./dL (0.2)
--- NOTE | 2021-03-31 09:11 | OPH ---
DATE OF SURGERY: 03/31/2021 DICTATOR NAME: Andres Beltran MD PREOPERATIVE DIAGNOSES: Calculus, left distal ureter with a stent and also right renal calculi. PROCEDURE: Cystoscopy, removal of left ureteral stent, ureteroscopy with basket stone extraction and a right ESWL. DESCRIPTION OF PROCEDURE: The patient was initially brought to the cystoscopy room, was put in supine position on the cystoscopy table. After the patient was given a satisfactory and adequate LMA general anesthesia, the patient was placed in the lithotomy position. The genitalia was then prepped and draped aseptically in the usual manner. First, a 23-Marshallese cystoscope was inserted per urethra up to the bladder with the use of the right angle lens, the bladder was visualized. There is no tumor, no calculi, no ulcerations seen. The right ureteral orifice is normal. The left side, there is a stent and the stent was removed and replaced with a Glidewire. After that, the cystoscope was removed and a 7-Marshallese semirigid ureteroscope was inserted per urethra up to the bladder to the left ureteral orifice up to the upper ureter and there was a stone noted in the left lower ureter and a basket stone extraction was then performed. After removal of the stone in the ureter, the Glidewire was removed and the rest of the ureter was then again visualized and there was no more obstruction or calculus seen. After this, the instrument was removed and a cystoscope was reinserted into the bladder and the bladder was emptied with fluid. The patient was put back in the supine position and was transferred to the lithotripsy room. An ultrasound was then performed of the right kidney, which showed a calculus in the upper ureter measuring 5+ mm in diameter and another one in the middle pole measuring 3.5 mm in diameter. After localization of the stone with the use of an ultrasound and fluoroscopy, a right ESWL was then performed using a Dornier Compact Delta II lithotripter. A total of 1500 shockwaves were delivered to the stones in different locations in the right kidney under ultrasound guidance. After fragmentation of the stone as noted in the ultrasound, procedure was terminated. The patient was awakened, was transferred to the recovery room in stable condition. Andres Beltran MD DR: CHAY TID: [id number] RECEIPT: [id number]
--- NOTE | 2021-03-31 10:11 | DIREP ---
PROCEDURE:XRAY FLUOROSCOPY COMPARISON:[facility], [facility], XRAY FLUOROSCOPY, 02/22/2021, 11:58 AM. [facility], [facility], XRAY FLUOROSCOPY, 01/27/2021, 12:44 PM. INDICATIONS:INTRA OP CYSTO 10 FILMS 15.44MGY 79.7 SECS FLURO TECHNIQUE:Intraoperative fluoroscopy FINDINGS: Intraoperative fluoroscopy for retrograde urography. No unexpected surgical instrument on the provided views. Left ureteral stent placement. Images: 10. CONCLUSION: 1. Intraoperative fluoroscopy for retrograde urography. Dictated by: Reyna Mills MD on 03/31/2021 at 10:08 AM
[2021-03-31] MEDS: DILAUDID IV PRN ×2 (10:30→10:45)
== END | disposition home or self-care (01) ==
LOC: SDC 06:43
PROVIDERS: ATTEND Urology
DX: N20.2 Calculus of kidney with calculus of ureter (principal); Z79.899 Other long term (current) drug therapy; Z88.0 Allergy status to penicillin; Z88.1 Allergy status to other antibiotic agents; Z91.013 Allergy to seafood; Z98.890 Other specified postprocedural states; Z98.891 History of uterine scar from previous surgery; Z87.891 Personal history of nicotine dependence; Z88.8 Allergy status to other drugs, medicaments and biological substances
CPT/HCPCS: 50590; 52352; 81001; 81025; 82360; 87086; A4217 ×2; J1100; J1170; J1885; J1956; J2001; J2250; J2405; J3010; J3490; J7120; Q0163 ×2; 76000; C1769; J1940

== ENCOUNTER 2021-04-28 11:56 | Emergency (ER) | payer OTHER ==
[~2021-04-28] VITALS: Ht 172.7 cm; Wt 54.9 kg
[~2021-04-28 11:56] MED LIST changes: -BENADRYL PO ONE; -DECADRON ONE; -DILAUDID ONE; -DIPRIVAN IV ONE; -KETALAR ONE; -LACTATED RINGERS 1,000 ML IV SCH; -LACTATED RINGERS 1,000 ML ONE; -LASIX ONE; -LEVAQUIN 100 ML IV ONE; -NS 3000ML IRR IR ONE; -OFIRMEV IV PRN; -SODIUM CHLORIDE IRR BOTTLE IR ONE; -SUBLIMAZE ONE; -TORADOL IV ONE; -TORADOL ONE; -VERSED ONE; -XYLOCAINE 2% 5ML VIAL ONE; -ZOFRAN ONE
[2021-04-28 12:09] VITALS: BP 160/111
[2021-04-28] MEDS ORDERED: TORADOL IM STA (12:37)
[2021-04-28] MEDS ORDERED: TORADOL ONE (12:47)
--- NOTE | 2021-04-28 12:56 | ER.PDOC ---
General Chief Complaint: Flank Pain Stated Complaint: POSSIBLE KINDNEY STONE Time seen by MD: 12:55 Source: patient Exam Limitations: no limitations History of Present Illness Initial Comments Left flank pain for 2 days. She has a history of kidney stones. She feels that she is passing one. Severity/Quality: moderate Radiation: LLQ Associated Symptoms: denies symptoms Exacerbated by: nothing Relieved By: nothing Allergies: Coded Allergies: shellfish derived (Verified Allergy, Severe, 03/13/20) chlorhexidine (Verified Allergy, Mild, Rash, 03/13/20) Penicillins (Verified Allergy, Unknown, unk, 12/01/19) Sulfa (Sulfonamide Antibiotics) (Verified Allergy, Unknown, unk, 12/01/19) Uncoded Allergies: CONTRAST (Allergy, Severe, Anaphylaxis Shock, 03/13/20) Home Meds Active Scripts Ciprofloxacin Hcl (CIPRO) 500 Mg Tablet, 500 MG PO BID, #14 Prov:GI MILLER MD 03/31/21 Tramadol Hcl (TRAMADOL HCL) 50 Mg Tablet, 50 MG PO Q6 PRN for PAIN, #20 TABLET Prov:GI MILLER MD 03/17/21 Tamsulosin Hcl (FLOMAX) 0.4 Mg Cap.er.24h, 0.4 MG PO DAILY24, #20 CAPSULE Prov:GI MILLER MD 03/17/21 Vital Signs First Vital Signs Date Time Temp Pulse Resp B/P (MAP) Pulse Ox O2 Delivery O2 Flow Rate FiO2 04/28/21 12:09 98.9 110 16 99 Last Vital Signs Date Time Temp Pulse Resp B/P (MAP) Pulse Ox O2 Delivery O2 Flow Rate FiO2 04/28/21 12:09 98.9 110 16 99 Past Medical History Medical History: other Surgical History: other Family History Significant Family History: no pertinent family hx Social History Smoking: non-smoker Alcohol Use: none Drug Use: none Constitutional: no symptoms reported EENTM: no symptoms reported Respiratory: no symptoms reported Cardiovascular: no symptoms reported Gastrointestinal: see HPI All Other Systems: Reviewed and Negative Physical Exam General Appearance: No Apparent Distress, WD/WN HEENT: PERRL/EOMI, Normal ENT Inspection, TMs Normal, Pharynx Normal Neck: Non-Tender, Full Range of Motion, Supple, Normal Inspection Respiratory: chest non-tender, lungs clear, normal breath sounds, no respiratory distress, no accessory muscle use Cardiovascular: Normal Peripheral Pulses, Regular Rate, Rhythm, No Edema, No Gallop, No JVD, No Murmur Gastrointestinal: Normal Bowel Sounds, No Organomegaly, No Pulsatile Mass, Non Tender Back: CVA Tenderness (L) Extremities: Normal Range of Motion, Non-Tender, Normal Inspection, No Pedal Edema, No Calf Tenderness, Normal Capillary Refill, Pelvis Stable 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 (04/28/21 12:37) Urinalysis (04/28/21 12:37) Ct Abd/Pelvis Wo Iv Contrast (04/28/21 12:37) Basic Metabolic Panel (04/28/21 12:37) Ketorolac Tromethamine (Toradol) (04/28/21 12:37) Hcg Urine (04/28/21 12:37) Ketorolac Tromethamine (Toradol) (04/28/21 12:47) Urine Culture (04/28/21 UNK) Vital Signs Date Time Temp Pulse Resp B/P (MAP) Pulse Ox O2 Delivery O2 Flow Rate FiO2 04/28/21 12:09 98.9 110 16 99 04/28/21 12:09 98.9 110 16 04/28/21 12:09 98.9 110 16 99 Administered Medications Medications (Trade) Dose Ordered Sig/Luis Route PRN Reason Start Time Stop Time Status Last Admin Dose Admin Ketorolac Tromethamine (Toradol) 60 mg STAT STAT IM 04/28/21 12:37 04/28/21 12:40 DC 04/28/21 12:53 60 MG Laboratory Tests Test 04/28/21 12:56 White Blood Count 9.3 10^3/uL (4.5-11.0) Red Blood Count 4.65 10^6/uL (4.00-5.20) Hemoglobin 15.5 g/dL (12.0-15.0) H Hematocrit 46.7 % (36.0-46.0) H Mean Corpuscular Volume 100.4 fL (78-100) H Mean Corpuscular Hemoglobin 33.3 pg (26-34) Mean Corpuscular Hemoglobin Concent 33.2 g/dL (33-36.5) Red Cell Distribution Width 12.9 % (11.5-14.5) Platelet Count 284 10^3/uL (150-400) Mean Platelet Volume 9.5 fL (7.8-11.0) Neutrophils (%) (Auto) 57.2 % (41.0-85.0) Lymphocytes (%) (Auto) 33.3 % (24.0-44.0) Monocytes (%) (Auto) 6.5 % (5.0-12.0) Neutrophils # (Auto) 5.3 10^3/uL (1.8-7.7) Lymphocytes # (Auto) 3.10 10^3/uL1 (1.0-4.8) Monocytes # (Auto) 0.6 10^3/uL (0.3-0.8) Absolute Immature Granulocyte (auto 0.01 10^3 u/L (0-2) Absolute Eosinophils (auto) 0.2 10^3/uL (0.0-0.2) Immature Granulocytes % 0.10 % (0.00-0.50) Eosinophils % 1.7 % (0.0-5.0) Basophils % 1.2 % (0.0-0.2) H Basophils # 0.1 10^3/uL (0.0-0.1) Prothrombin Time 11.6 SEC (9.1-11.5) H Prothrombin Time INR (Non-Therap) 1.1 Activated Partial Thromboplast Time 28.0 SEC (22.5-33.1) Urine Collection Type CCMS Urine Color YELLOW Urine Appearance CLOUDY Urine Bilirubin NEGATIVE (NEGATIVE) Urine Ketones NEGATIVE (NEGATIVE) Urine Specific [place] 1.020 (1.005-1.030) Urine pH 7.0 (4.5-8.0) Urine Protein NEGATIVE (NEGATIVE) Urine Urobilinogen 0.2 E.U./dL (0.2) Urine Nitrate NEGATIVE (NEGATIVE) Urine Leukocyte Esterase NEGATIVE (NEGATIVE) Urine Glucose (Auto)(UA) NEGATIVE (NEGATIVE) Urine Blood NEGATIVE (NEGATIVE) Urine RBC 0-2 RBC/HPF (NONE SEEN) Urine WBC 0-2 WBC/HPF (0-2) Urine Squamous Epithelial Cells FEW (<=FEW) Urine Amorphous Phosphates MANY (NONE SEEN) A Urine Bacteria MODERATE (NONE SEEN) H Urine HCG, Qualitative NEGATIVE (NEGATIVE) Sodium Level 141 mmol/L (132-145) Potassium Level 4.0 mmol/L (3.6-5.2) Chloride Level 104.0 mmol/L (96-109) Carbon Dioxide Level 28.1 mmol/L (20.0-32) Glucose Level 86 mg/dL (70-110) Blood Urea Nitrogen 15 mg/dL (7-18) Creatinine 0.87 mg/dL (0.59-1.40) Calcium Level 10.0 mg/dL (8.4-10.5) Anion Gap 12.9 Estimated GFR () 85.6 (>/=60) Est GFR (CKD-EPI)(Non-Afr [place]ian) 70.7 (>/=60) BUN/Creatinine Ratio 17.[address] abdomen/pelvis: Nonobstructive 4 mm right renal calculus. No hydronephrosis or hydroureter of either kidney. Urinary bladder is decompressed but otherwise normal. No acute abnormalities. Reviewed results with the patient who voices understanding. ER DEPART Departure Time of Disposition: 14:03 Disposition: 01 HOME / SELF CARE / HOMELESS Impression: Primary Impression: Calculus of kidney Additional Impression: UTI (urinary tract infection) Condition: Improved Referrals: PCP,UNKNOWN (PCP) PRIMARY CARE PROVIDER Additional Instructions: Ciprofloxacin Follow-up with your PCP 1 week Return to ED if worse or concerns Duration or Time Spent with Pa: 30 min Problem Qualifiers Additional Impression: UTI (urinary tract infection) Urinary tract infection type: site unspecified Hematuria presence: without hematuria Qualified Codes: N39.0 - Urinary tract infection, site not specified CURTIS HAWKINS MD Apr 28, 2021 12:56
[2021-04-28 13:03] LABS: BASOPHIL # 0.1 10^3/uL (0.0-0.1); BASOPHIL % 1.2 % (0.0-0.2); EOSINOPHIL # 0.2 10^3/uL (0.0-0.2); EOSINOPHIL % 1.7 % (0.0-5.0); LYMPHOCYTES % 33.3 % (24.0-44.0); MEAN CORP HGB 33.3 pg (26-34); MONOCYTES # 0.6 10^3/uL (0.3-0.8); MONOCYTES % 6.5 % (5.0-12.0); NEUTROPHIL # 5.3 10^3/uL (1.8-7.7); NEUTROPHILS % 57.2 % (41.0-85.0); PLATELET COUNT 284 10^3/uL (150-400); RED CELL DISTRIBUTION WIDTH 12.9 % (11.5-14.5)
[2021-04-28 13:09] LABS: BILIRUBIN,URINE NEGATIVE (NEGATIVE); UROBILINOGEN,URINE 0.2 E.U./dL (0.2)
[2021-04-28 13:12] LABS: CARBON DIOXIDE 28.1 mmol/L (20.0-32)
--- NOTE | 2021-04-28 13:39 | DIREP ---
PROCEDURE:CT ABDOMEN/PELVIS W/O CONTRAST COMPARISON:[facility], CT, CT ABD/PELVIS W/O, 03/09/2021, 04:55 PM. [facility], CR, XRAY FLUOROSCOPY, 03/31/2021, 09:13 AM. INDICATIONS:left flank pain TECHNIQUE:Axial images were created through the abdomen and pelvis without intravenous contrast material. No oral contrast was administered. Sagittal and coronal reconstructions were performed from source images. FINDINGS: LUNG BASES:Normal. No visible pulmonary or pleural disease. LIVER:Normal, except for hepatic lobe hypodensity in the dome measuring 2.2 cm, unchanged. No significant liver lesions are identified. BILIARY:Normal. No visible dilatation or calcification. PANCREAS:Normal. No lesion, fluid collection, ductal dilatation, or atrophy. SPLEEN:Normal. No enlargement or focal lesion. ADRENALS:Normal. No mass or enlargement. URINARY TRACT:Normal, except for nonobstructive right renal calculus 4 mm. No focal lesions or hydronephrosis. AORTA/VASCULAR:There are aortic atherosclerotic calcifications present. No aneurysm. RETROPERITONEUM:Normal. No mass or adenopathy. BOWEL/MESENTERY:Normal. There is no intestinal obstruction, free fluid, free air or mesenteric inflammatory changes. ABDOMINAL WALL:Normal. No mass or hernia. PELVIC ORGANS:Normal. No visible mass. Pelvic organs appropriate for patient age. BONES:Normal for age. No bony lesion or acute fracture. OTHER:The appendix is normal. CONCLUSION:Nonobstructive 4 mm right renal calculus. No hydronephrosis or hydroureter of either kidney. Urinary bladder is decompressed but otherwise normal. No acute abnormalities. Dictated by: Neno Conteh M.D. on 04/28/2021 at 01:31 PM
[2021-04-28 14:17] VITALS: BP 148/89
== END 2021-04-28 14:12 | disposition home or self-care (01) ==
LOC: ER 11:56
DX: N39.0 Urinary tract infection, site not specified (principal); N20.0 Calculus of kidney; Z79.1 Long term (current) use of non-steroidal anti-inflammatories (NSAID); Z87.442 Personal history of urinary calculi; Z88.0 Allergy status to penicillin; Z88.2 Allergy status to sulfonamides
CPT/HCPCS: 36415; 74176; 80048; 81001; 81025; 85025; 85610; 85730; 87086; 96372; 99284; J1885

== ENCOUNTER 2021-05-19 07:49 | Day surgery (SDC) | payer OTHER ==
[~2021-05-19] VITALS: Ht 175.3 cm; Wt 44.9 kg
[2021-05-19] VITALS (10 sets, daily range): BP systolic 100–160; BP diastolic 63–119
[~2021-05-19 07:49] MED LIST changes: +LASIX ONE; +NS 1000ML 1,000 ML ONE
[2021-05-19] MEDS ORDERED: NS 1000ML 1,000 ML IV SCH (08:00)
[2021-05-19 08:40] LABS: CARBON DIOXIDE 25.7 mmol/L (20.0-32)
[2021-05-19 08:59] LABS: BASOPHIL # 0.1 10^3/uL (0.0-0.1); BASOPHIL % 1.3 % (0.0-0.2); EOSINOPHIL # 0.2 10^3/uL (0.0-0.2); EOSINOPHIL % 2.4 % (0.0-5.0); LYMPHOCYTES # 3.06 10^3/uL1 (1.0-4.8); LYMPHOCYTES % 33.4 % (24.0-44.0); MONOCYTES # 0.5 10^3/uL (0.3-0.8); MONOCYTES % 5.2 % (5.0-12.0); NEUTROPHIL # 5.3 10^3/uL (1.8-7.7); NEUTROPHILS % 57.6 % (41.0-85.0); PLATELET COUNT 281 10^3/uL (150-400); RED CELL DISTRIBUTION WIDTH 13.1 % (11.5-14.5)
[2021-05-19] MEDS ORDERED: VERSED ONE (10:40)
[2021-05-19] MEDS ORDERED: ZOFRAN ONE (10:43)
[2021-05-19] MEDS ORDERED: DIPRIVAN IV ONE (10:43)
[2021-05-19] MEDS ORDERED: XYLOCAINE 2% 5ML VIAL ONE (10:43)
[2021-05-19] MEDS ORDERED: SUBLIMAZE ONE (10:43)
[2021-05-19] MEDS ORDERED: DECADRON ONE (10:43)
[2021-05-19] MEDS ORDERED: DILAUDID ONE (11:12)
[2021-05-19] MEDS ORDERED: BENADRYL IV ONE (11:14)
[2021-05-19] MEDS ORDERED: LASIX IV ONE (11:14)
[2021-05-19] MEDS ORDERED: LACTATED RINGERS 1,000 ML IV SCH (11:30)
[2021-05-19] MEDS ORDERED: NS 1000ML 1,000 ML ONE (11:39)
[2021-05-19] MEDS: DILAUDID IV PRN ×2 (11:40→11:50)
[2021-05-19] MEDS ORDERED: BENADRYL ONE (11:43)
--- NOTE | 2021-05-19 12:26 | OPH ---
DATE OF SURGERY: 05/19/2021 DICTATOR NAME: Andres Beltran MD PREOPERATIVE DIAGNOSIS: Right renal calculus. FINAL DIAGNOSIS: Right renal calculus. PROCEDURE: Right ESWL. DESCRIPTION OF PROCEDURE: The patient was brought to the lithotripsy room, was put in supine position on the lithotripsy table. A right preoperative renal ultrasound was initially performed, which revealed stones in the middle pole of the right kidney measuring 4 mm in diameter. There is no evidence of hydronephrosis, no obstruction noted. After the patient was given LMA general anesthesia and after localization of the stone, the use of an ultrasound and fluoroscopy, a right ESWL was then performed using a Dornier Compact Delta II lithotripter. A total of 1500 shockwaves delivered to the stones in the middle pole of the right kidney under ultrasound guidance. After fragmentation of the stone as noted in the ultrasound, the procedure was terminated. The patient was awakened, was transferred to the recovery room in stable condition. Andres Beltran MD DR: JOVANY TID: [id number] RECEIPT: [id number]
[2021-06-04] MEDS ORDERED: ACET1TAB57 PO (12:35)
[2021-06-04] MEDS ORDERED: TAMS-14 PO (12:35)
[2021-06-04] MEDS ORDERED: CEFU500T49 PO (12:35)
== END 2021-05-19 12:50 | disposition home or self-care (01) ==
LOC: SDC 07:49 → EEVIPCON 07:49 → SDC 12:50
PROVIDERS: ATTEND Urology
DX: N20.0 Calculus of kidney (principal); R35.1 Nocturia; F43.10 Post-traumatic stress disorder, unspecified; Z98.890 Other specified postprocedural states; Z79.899 Other long term (current) drug therapy; Z79.01 Long term (current) use of anticoagulants
CPT/HCPCS: 36415; 50590; 80048; 84703; 85025; 85610; 85730; J1100; J1170; J1200; J2001; J2250; J2405; J3010; J3490; J7030 ×2; J1940

== ENCOUNTER 2021-06-05 15:32 | Emergency (ER) | payer OTHER ==
[~2021-06-05] VITALS: Ht 172.7 cm; Wt 54.4 kg
[~2021-06-05 15:32] MED LIST changes: +ACET1TAB57 PO; +CEFU500T49 PO; -LASIX ONE; -NS 1000ML 1,000 ML ONE
--- NOTE | 2021-06-05 15:45 | NUR ---
ARRIVAL PT BROUGHT VIA W/C TO ED8 WITH C/O RIGHT SIDED FLANK PAIN THAT STARTED YESTERDAY. PT WAS SEEN IN OFFICE THIS AFTERNOON AND INSTRUCTED TO REPORT TO ED. PT STATES THAT PAIN IS RATED 10/10, DESCRIBED SHARP. PT HAS HX OF KIDNEY STONES. PT HAD STENT PLACED INTO LEFT URETER 3 DAYS AGO. VITALS OBTAINED. NOTIFIED OF PTS ARRIVAL.
[2021-06-05 16:06] VITALS: BP 160/105
--- NOTE | 2021-06-05 16:15 | NUR ---
RADIOLOGY VICK DE LUNA SPOKE TO STATED NO STONES WERE NOTED ON THE RIGHT SIDE, APPENDIX APPEARS NORMAL, STOOL NOTED IN COLON WITH CT SCAN DONE 3 DAYS AGO IN ED. NOTIFIED.
--- NOTE | 2021-06-05 16:23 | NUR ---
RADIOLOGY AND I ENTERED PT ROOM TO SPEAK TO PT REGARDING PREVIOUS CT SCAN COMPLETED 3 DAYS PRIOR IN ED. THE RADIOLOGIST REREAD THE PREVIOUS CT SCAN AND STATED THERE WERE NO STONES NOTED IN THE RIGHT KIDNEY. PT STATED THAT SHE HAS SEVERE RIGHT FLANK PAIN AND WANTED TO HAVE ANOTHER CT SCAN COMPLETED TODAY.
[2021-06-05] MEDS ORDERED: ZOFRAN ODT SL STA (16:28)
[2021-06-05] MEDS ORDERED: BENADRYL IM STA (16:28)
[2021-06-05] MEDS ORDERED: MORPHINE SULFATE IM STA (16:28)
[2021-06-05] MEDS ORDERED: MORPHINE SULFATE ONE (16:35)
[2021-06-05] MEDS ORDERED: BENADRYL ONE (16:36)
[2021-06-05] MEDS ORDERED: ZOFRAN ODT ONE (16:36)
--- NOTE | 2021-06-05 16:41 | NUR ---
THIS NURSE HELPED PT TO RESTROOM TO COLLECT UA SAMPLE, ORANGE COLORING NOTED TO BILATERAL LOWER EXTREMETIES. UPON INQUIRY, PT STATES "THAT IS IODINE I PUT ON TO PROTECT MYSELF AGAINST THE RADIATION." EDP, CHARGE NURSE, AND DIRECTOR NOTIFIED.
[2021-06-05 16:50] LABS: BILIRUBIN,URINE NEGATIVE (NEGATIVE); UROBILINOGEN,URINE 0.2 E.U./dL (0.2)
--- NOTE | 2021-06-05 16:51 | ER.PDOC ---
General Chief Complaint: Flank Pain Stated Complaint: KIDNEY PAIN Time seen by MD: 16:42 Source: patient Exam Limitations: no limitations History of Present Illness Initial Comments Right flank pain for 2 to 3 days. Patient was seen here 4 days ago for left flank pain and admitted for an obstructing kidney stone. She had a stent placed. The next day she started experiencing right flank pain. She is nauseated but no vomiting. No fever or chills. Severity/Quality: moderate Radiation: no radiation Associated Symptoms: other (nausea) Exacerbated by: nothing Relieved By: nothing Allergies: Coded Allergies: shellfish derived (Verified Allergy, Severe, 03/13/20) chlorhexidine (Verified Allergy, Mild, Rash, 03/13/20) Penicillins (Verified Allergy, Unknown, unk, 12/01/19) Sulfa (Sulfonamide Antibiotics) (Verified Allergy, Unknown, unk, 12/01/19) Uncoded Allergies: CONTRAST (Allergy, Severe, Anaphylaxis Shock, 03/13/20) Home Meds Active Scripts Acetaminophen With Codeine (TYLENOL-COD #3 TABLET) 1 Each Tablet, 1 TAB PO Q6, #30 TAB Prov:SHAHIDA DAMON 06/04/21 Cefuroxime Axetil (CEFUROXIME) 500 Mg Tablet, 500 MG PO BIDAC, #14 TAB Prov:SHAHIDA DAMON 06/04/21 Tamsulosin Hcl (FLOMAX) 0.4 Mg Cap.er.24h, 0.4 MG PO DAILY24, #30 CAPSULE Prov:SHAHIDA DAMON 06/04/21 Discontinued Scripts Ciprofloxacin Hcl (CIPRO) 500 Mg Tablet, 500 MG PO BID, #14 Prov:GI MILLER MD 03/31/21 Tramadol Hcl (TRAMADOL HCL) 50 Mg Tablet, 50 MG PO Q6 PRN for PAIN, #20 TABLET Prov:GI MILLER MD 03/17/21 Vital Signs First Vital Signs Date Time Temp Pulse Resp B/P (MAP) Pulse Ox O2 Delivery O2 Flow Rate FiO2 06/05/21 16:06 98.5 88 22 06/05/21 16:06 160/105 (123) 96 Room Air* 0 21 Last Vital Signs Date Time Temp Pulse Resp B/P (MAP) Pulse Ox O2 Delivery O2 Flow Rate FiO2 06/05/21 16:06 98.5 88 22 96 06/05/21 16:06 160/105 (123) Room Air* 0 21 Past Medical History Medical History: renal disease, other Surgical History: cholecystectomy, , stent Family History Significant Family History: no pertinent family hx Social History Smoking: non-smoker Alcohol Use: none Drug Use: none Constitutional: no symptoms reported EENTM: no symptoms reported Respiratory: no symptoms reported Cardiovascular: no symptoms reported Gastrointestinal: no symptoms reported Genitourinary: see HPI All Other Systems: Reviewed and Negative Physical Exam General Appearance: No Apparent Distress, WD/WN HEENT: PERRL/EOMI, Normal ENT Inspection, TMs Normal, Pharynx Normal Neck: Non-Tender, Full Range of Motion, Supple, Normal Inspection Respiratory: chest non-tender, lungs clear, normal breath sounds, no respiratory distress, no accessory muscle use Cardiovascular: Normal Peripheral Pulses, Regular Rate, Rhythm, No Edema, No Gallop, No JVD, No Murmur Gastrointestinal: Normal Bowel Sounds, No Organomegaly, No Pulsatile Mass, Tenderness (RLQ) Back: Normal Inspection, No CVA Tenderness, No Vertebral Tenderness Extremities: Normal Range of Motion, Non-Tender, Normal Inspection, No Pedal Edema, No Calf Tenderness, Normal Capillary Refill, Pelvis Stable 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, No Motor/Sensory Deficits, Alert, Normal Mood/Affect, Oriented x 3 Skin: Normal Color, Warm/Dry Lymphatic: No Adenopathy Results/Orders Results/Orders Orders - CURTIS HAWKINS MD Cbc With Auto Diff (06/05/21 16:28) Urinalysis (06/05/21 16:28) Basic Metabolic Panel (06/05/21 16:28) Morphine Sulfate (Morphine Sulfate) (06/05/21 16:28) Ondansetron (Zofran Odt) (06/05/21 16:28) Diphenhydramine Hcl (Benadryl) (06/05/21 16:28) Ct Abd/Pelvis Wo Iv Contrast (06/05/21 16:28) Morphine Sulfate (Morphine Sulfate) (06/05/21 16:35) Ondansetron (Zofran Odt) (06/05/21 16:36) Diphenhydramine Hcl (Benadryl) (4/25/22 16:36) Vital Signs Date Time Temp Pulse Resp B/P (MAP) Pulse Ox O2 Delivery O2 Flow Rate FiO2 06/05/21 16:06 98.5 88 22 96 06/05/21 16:06 98.5 88 22 160/105 (123) 96 Room Air* 0 21 06/05/21 16:06 98.5 88 22 Administered Medications Medications (Trade) Dose Ordered Sig/Luis Route PRN Reason Start Time Stop Time Status Last Admin Dose Admin Diphenhydramine HCl (Benadryl) 25 mg STAT STAT IM 06/05/21 16:28 06/05/21 16:31 DC 06/05/21 16:44 25 MG Morphine Sulfate (Morphine Sulfate) 4 mg STAT STAT IM 06/05/21 16:28 06/05/21 16:31 DC 06/05/21 16:44 4 MG Ondansetron HCl (Zofran Odt) 4 mg STAT STAT SL 06/05/21 16:28 06/05/21 16:31 DC 06/05/21 16:43 4 MG Laboratory Tests Test 06/05/21 16:30 06/05/21 16:58 Urine Collection Type UNKNOWN Urine Color YELLOW Urine Appearance CLOUDY Urine Bilirubin NEGATIVE (NEGATIVE) Urine Ketones NEGATIVE (NEGATIVE) Urine Specific [place] 1.025 (1.005-1.030) Urine pH 7.0 (4.5-8.0) Urine Protein 2+ (NEGATIVE) H Urine Urobilinogen 0.2 E.U./dL (0.2) Urine Nitrate NEGATIVE (NEGATIVE) Urine Leukocyte Esterase 1+ (NEGATIVE) H Urine Glucose (Auto)(UA) NEGATIVE (NEGATIVE) Urine Blood 3+ (NEGATIVE) H Urine RBC TooNumerousToCount RBC/HPF (NONE Urine WBC NONE SEEN WBC/HPF (0-2) Urine Squamous Epithelial Cells NONE SEEN (<=FEW) Urine Bacteria NONE SEEN (NONE SEEN) White Blood Count 11.4 10^3/uL (4.5-11.0) H Red Blood Count 4.12 10^6/uL (4.00-5.20) Hemoglobin 13.8 g/dL (12.0-15.0) Hematocrit 41.2 % (36.0-46.0) Mean Corpuscular Volume 100.0 fL (78-100) Mean Corpuscular Hemoglobin 33.5 pg (26-34) Mean Corpuscular Hemoglobin Concent 33.5 g/dL (33-36.5) Red Cell Distribution Width 13.3 % (11.5-14.5) Platelet Count 290 10^3/uL (150-400) Mean Platelet Volume 9.6 fL (7.8-11.0) Neutrophils (%) (Auto) 62.1 % (41.0-85.0) Lymphocytes (%) (Auto) 30.9 % (24.0-44.0) Monocytes (%) (Auto) 4.5 % (5.0-12.0) L Neutrophils # (Auto) 7.1 10^3/uL (1.8-7.7) Lymphocytes # (Auto) 3.53 10^3/uL1 (1.0-4.8) Monocytes # (Auto) 0.5 10^3/uL (0.3-0.8) Absolute Immature Granulocyte (auto 0.02 10^3 u/L (0-2) Absolute Eosinophils (auto) 0.2 10^3/uL (0.0-0.2) Immature Granulocytes % 0.20 % (0.00-0.50) Eosinophils % 1.6 % (0.0-5.0) Basophils % 0.7 % (0.0-0.2) H Basophils # 0.1 10^3/uL (0.0-0.1) Sodium Level 138 mmol/L (132-145) Potassium Level 3.8 mmol/L (3.6-5.2) Chloride Level 106.0 mmol/L (96-109) Carbon Dioxide Level 27.8 mmol/L (20.0-32) Glucose Level 91 mg/dL (70-110) Blood Urea Nitrogen 22 mg/dL (7-18) H Creatinine 1.21 mg/dL (0.59-1.40) Calcium Level 9.4 mg/dL (8.4-10.5) Anion Gap 8.0 Estimated GFR () 58.5 (>/=60) Est GFR (CKD-EPI)(Non-Afr Maltese) 48.3 (>/=60) BUN/Creatinine Ratio 18.0 Progress Progress When patient was here 4 days ago, I and the director sanitation bureau Neli Zaman had an extensive discussion with the patient and her son because she is concerned of the amount of radiation she has had from multiple CT scans. So when she came back today from Dr. Miller's office, Feli called one of the radiologist in [place] to take a second look at the CT scan that was done 4 days ago. It did not show any stone on the right and the appendix is normal. Rather, it showed constipation. I related this to the patient and he she still demanded to proceed to have the CT scan done despite her concerns for radiation. This was done in the presence of the RN Gael. CT abdomen/pelvis: No right hydronephrosis, nephrolithiasis, or ureteral calculi. 2. Interval placement of left ureteral stent. No overt hydronephrosis. Probable postoperative air within the left collecting system. 3. Stable hepatic hypodensity, could indicate hemangioma or cyst. 4. No bowel obstruction. Appendix within normal limits. 5. Additional findings as described. Chemistry is unremarkable. White count is down to 11.4. No left shift. Urinalysis is not consistent with UTI. Patient had a ureteral stent on the left side that was placed 4 days ago. Reviewed results with the patient who voices understanding. Patient received a shot of morphine, Benadryl and Zofran ODT. ER DEPART Departure Time of Disposition: 17:43 Disposition: 01 HOME / SELF CARE / HOMELESS Impression: Primary Impression: Flank pain, acute Additional Impression: S/P ureteral stent placement Condition: Improved Referrals: PCP,UNKNOWN (PCP) PRIMARY CARE PROVIDER Additional Instructions: Ibuprofen Follow-up with a urologist as needed Follow-up with your PCP in 2 to 3 days Return to ED if worsening pain or concerns Duration or Time Spent with Pa: 45 min Problem Qualifiers CURTIS HAWKINS MD Jun 05, 2021 16:51
[2021-06-05 17:04] LABS: BASOPHIL # 0.1 10^3/uL (0.0-0.1); BASOPHIL % 0.7 % (0.0-0.2); EOSINOPHIL # 0.2 10^3/uL (0.0-0.2); EOSINOPHIL % 1.6 % (0.0-5.0); LYMPHOCYTES # 3.53 10^3/uL1 (1.0-4.8); LYMPHOCYTES % 30.9 % (24.0-44.0); MEAN CORP HGB 33.5 pg (26-34); MONOCYTES # 0.5 10^3/uL (0.3-0.8); MONOCYTES % 4.5 % (5.0-12.0); NEUTROPHIL # 7.1 10^3/uL (1.8-7.7); NEUTROPHILS % 62.1 % (41.0-85.0); RED CELL DISTRIBUTION WIDTH 13.3 % (11.5-14.5)
[2021-06-05 17:24] LABS: CARBON DIOXIDE 27.8 mmol/L (20.0-32)
--- NOTE | 2021-06-05 17:32 | DIREP ---
PROCEDURE:CT ABDOMEN/PELVIS W/O CONTRAST COMPARISON:[facility], CT, CT ABD/PELVIS W/O, 12/31/2020, 01:05 PM. [facility], CT, CT ABD/PELVIS W/O, 06/02/2021, 10:03 AM. [facility], CT, CT ABD/PELVIS W/O, 04/28/2021, 01:02 PM. INDICATIONS:Right flank pain TECHNIQUE:Axial images were created through the abdomen and pelvis without intravenous contrast material. No oral contrast was administered. Sagittal and coronal reconstructions were performed from source images. FINDINGS: LUNG BASES:Bibasilar emphysematous and deep and atelectatic change. LIVER:Stable hypoattenuation within segment 8 measuring 2.6 x 1.7 cm. Findings likely indicate hemangioma or cyst given stability. BILIARY:Normal. No visible dilatation or calcification. PANCREAS:Normal. No lesion, fluid collection, ductal dilatation, or atrophy. SPLEEN:Normal. No enlargement or focal lesion. ADRENALS:Normal. No mass or enlargement. URINARY TRACT:Interval placement of left ureteral stent with proximal aspect terminating in the renal pelvis and distal aspect terminating within the urinary bladder. Air is seen within the left renal collecting system, possibly postoperative in nature. No right hydronephrosis, nephrolithiasis, or ureteral calculi. AORTA/VASCULAR:Limited without IV contrast. No aortic aneurysmal dilatation. RETROPERITONEUM:Normal. No mass or adenopathy. BOWEL/MESENTERY:No free visualized of oral contrast limits evaluation of the bowel structures. No small bowel dilatation seen to suggest obstruction. Appendix within normal limits. Fecal residue seen throughout colon. ABDOMINAL WALL:Normal. No mass or hernia. PELVIC ORGANS:Pelvic organs appropriate for patient's age. BONES:No acute osseus abnormality. Stable bone island within the anterior right ilium. OTHER:Negative. CONCLUSION: 1. No right hydronephrosis, nephrolithiasis, or ureteral calculi. 2. Interval placement of left ureteral stent. No overt hydronephrosis. Probable postoperative air within the left collecting system. 3. Stable hepatic hypodensity, could indicate hemangioma or cyst. 4. No bowel obstruction. Appendix within normal limits. 5. Additional findings as described. Dictated by: René Castro MD on 06/05/2021 at 05:22 PM
[2021-06-05 17:46] VITALS: BP 155/100
--- NOTE | 2021-06-05 17:50 | NUR ---
DISCHARGE INSTRUSCTIONS GIVEN TO PT AT THIS TIME WITH VERBAL UNDERSTANDING. PT LEFT VIA W/C WITH SON AT 1750.
== END 2021-06-05 17:50 | disposition home or self-care (01) ==
LOC: ER 16:10
DX: R10.9 Unspecified abdominal pain (principal); Z96.0 Presence of urogenital implants; Z90.49 Acquired absence of other specified parts of digestive tract; Z87.442 Personal history of urinary calculi; Z88.2 Allergy status to sulfonamides; Z88.0 Allergy status to penicillin
CPT/HCPCS: 36415; 74176; 80048; 81001; 85025; 96372 ×2; 99284; J1200

== ENCOUNTER 2021-06-22 13:38 | Emergency (ER) | payer MEDICAID, OTHER ==
[~2021-06-22] VITALS: Ht 172.7 cm; Wt 54.4 kg
[2021-06-22 15:13] VITALS: BP 190/114
[2021-06-22] MEDS ORDERED: BENADRYL IM STA (15:55)
[2021-06-22] MEDS ORDERED: ZOFRAN ODT SL STA (15:55)
[2021-06-22] MEDS ORDERED: MORPHINE SULFATE IM STA (15:55)
[2021-06-22] MEDS ORDERED: ZOFRAN ODT ONE (16:06)
[2021-06-22] MEDS ORDERED: BENADRYL ONE (16:06)
[2021-06-22] MEDS ORDERED: MORPHINE SULFATE ONE (16:06)
[2021-06-22 16:07] LABS: BILIRUBIN,URINE NEGATIVE (NEGATIVE); UROBILINOGEN,URINE 0.2 E.U./dL (0.2)
[2021-06-22 16:21] LABS: BASOPHIL # 0.1 10^3/uL (0.0-0.1); BASOPHIL % 0.9 % (0.0-0.2); EOSINOPHIL # 0.2 10^3/uL (0.0-0.2); EOSINOPHIL % 1.1 % (0.0-5.0); LYMPHOCYTES # 2.94 10^3/uL1 (1.0-4.8); LYMPHOCYTES % 21.4 % (24.0-44.0); MEAN CORP HGB 33.7 pg (26-34); MONOCYTES # 0.8 10^3/uL (0.3-0.8); MONOCYTES % 5.5 % (5.0-12.0); NEUTROPHIL # 9.8 10^3/uL (1.8-7.7); PLATELET COUNT 309 10^3/uL (150-400); RED CELL DISTRIBUTION WIDTH 13.5 % (11.5-14.5)
--- NOTE | 2021-06-22 16:29 | ER.PDOC ---
General Chief Complaint: Abdomen Pain Stated Complaint: LEFT FLANK PAIN Time seen by MD: 16:27 Source: patient Exam Limitations: no limitations History of Present Illness Initial Comments Left flank pain for 2 days. Patient has a ureteral stent for ureteral calculus placed about 3 weeks ago. No fever or chills. Patient has been seen in the ED recurrently for either right or left flank pain. She was last seen here about [address] abdomen/pelvis showed interval left ureteral stent placement and nothing acute. Severity/Quality: moderate, sharpness Radiation: LLQ Associated Symptoms: other (nausea) Exacerbated by: nothing Relieved By: nothing Allergies: Coded Allergies: shellfish derived (Verified Allergy, Severe, 03/13/20) chlorhexidine (Verified Allergy, Mild, Rash, 03/13/20) Penicillins (Verified Allergy, Unknown, unk, 12/01/19) Sulfa (Sulfonamide Antibiotics) (Verified Allergy, Unknown, unk, 12/01/19) Uncoded Allergies: CONTRAST (Allergy, Severe, Anaphylaxis Shock, 03/13/20) Home Meds Active Scripts Acetaminophen With Codeine (TYLENOL-COD #3 TABLET) 1 Each Tablet, 1 TAB PO Q6, #30 TAB Prov:SHAHIDA DAMON P 06/04/21 Cefuroxime Axetil (CEFUROXIME) 500 Mg Tablet, 500 MG PO BIDAC, #14 TAB Prov:SHAHIDA DAMON P 06/04/21 Tamsulosin Hcl (FLOMAX) 0.4 Mg Cap.er.24h, 0.4 MG PO DAILY24, #30 CAPSULE Prov:SHAHIDA DAMON P 06/04/21 Vital Signs First Vital Signs Date Time Temp Pulse Resp B/P (MAP) Pulse Ox O2 Delivery O2 Flow Rate FiO2 06/22/21 15:13 97.9 95 20 06/22/21 15:13 99 Last Vital Signs Date Time Temp Pulse Resp B/P (MAP) Pulse Ox O2 Delivery O2 Flow Rate FiO2 06/22/21 15:13 97.9 95 20 99 Past Medical History Medical History: renal disease Surgical History: cholecystectomy, , stent Family History Significant Family History: no pertinent family hx Social History Smoking: non-smoker Alcohol Use: none Drug Use: none Constitutional: no symptoms reported EENTM: no symptoms reported Respiratory: no symptoms reported Cardiovascular: no symptoms reported Gastrointestinal: see HPI All Other Systems: Reviewed and Negative Physical Exam General Appearance: No Apparent Distress, WD/WN HEENT: PERRL/EOMI, Normal ENT Inspection, TMs Normal, Pharynx Normal Neck: Non-Tender, Full Range of Motion, Supple, Normal Inspection Respiratory: chest non-tender, lungs clear, normal breath sounds, no respiratory distress, no accessory muscle use Cardiovascular: Normal Peripheral Pulses, Regular Rate, Rhythm, No Edema, No Gallop, No JVD, No Murmur Gastrointestinal: Normal Bowel Sounds, No Organomegaly, No Pulsatile Mass, Tenderness (left flank) Back: Normal Inspection, No CVA Tenderness, No Vertebral Tenderness Extremities: Normal Range of Motion, Non-Tender, Normal Inspection, No Pedal Edema, No Calf Tenderness, Normal Capillary Refill, Pelvis Stable Neurologic/Psychiatric: 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 NML as Tested, No Motor/Sensory Deficits, Alert, Normal Mood/Affect, Oriented x 3 Skin: Normal Color, Warm/Dry Lymphatic: No Adenopathy Results/Orders Results/Orders Orders - CURTIS HAWKINS MD Cbc With Auto Diff (06/22/21 15:55) Urinalysis (06/22/21 15:55) Basic Metabolic Panel (06/22/21 15:55) Morphine Sulfate (Morphine Sulfate) (06/22/21 15:55) Ondansetron (Zofran Odt) (06/22/21 15:55) Diphenhydramine Hcl (Benadryl) (06/22/21 15:55) Ondansetron (Zofran Odt) (06/22/21 16:06) Diphenhydramine Hcl (Benadryl) (06/22/21 16:06) Morphine Sulfate (Morphine Sulfate) (06/22/21 16:06) Urine Culture (06/22/21 15:10) Hcg Urine (06/22/21 17:05) Ceftriaxone Sodium (Rocephin) (06/22/21 18:12) Vital Signs Date Time Temp Pulse Resp B/P (MAP) Pulse Ox O2 Delivery O2 Flow Rate FiO2 06/22/21 15:13 97.9 95 20 99 06/22/21 15:13 97.9 95 20 Administered Medications Medications (Trade) Dose Ordered Sig/Luis Route PRN Reason Start Time Stop Time Status Last Admin Dose Admin Diphenhydramine HCl (Benadryl) 50 mg STAT STAT IM 06/22/21 15:55 06/22/21 15:56 DC 06/22/21 16:20 50 MG Morphine Sulfate (Morphine Sulfate) 4 mg STAT STAT IM 06/22/21 15:55 06/22/21 15:56 DC 06/22/21 16:20 4 MG Ondansetron HCl (Zofran Odt) 4 mg STAT STAT SL 06/22/21 15:55 06/22/21 15:56 DC 06/22/21 16:20 4 MG Laboratory Tests Test 06/22/21 15:10 06/22/21 15:58 06/22/21 16:14 Urine HCG, Qualitative NEGATIVE (NEGATIVE) Urine Collection Type UNKNOWN Urine Color YELLOW Urine Appearance CLOUDY Urine Bilirubin NEGATIVE (NEGATIVE) Urine Ketones TRACE (NEGATIVE) H Urine Specific Tilly >=1.030 (1.005-1.030) Urine pH 6.0 (4.5-8.0) Urine Protein 3+ (NEGATIVE) H Urine Urobilinogen 0.2 E.U./dL (0.2) Urine Nitrate NEGATIVE (NEGATIVE) Urine Leukocyte Esterase 3+ (NEGATIVE) H Urine Glucose (Auto)(UA) NEGATIVE (NEGATIVE) Urine Blood 3+ (NEGATIVE) H Urine RBC TooNumerousToCount RBC/HPF (NONE Urine WBC TooNumerousToCount WBC/HPF (0-2) Urine Squamous Epithelial Cells FEW (<=FEW) Urine Bacteria MODERATE (NONE SEEN) H White Blood Count 13.8 10^3/uL (4.5-11.0) H Red Blood Count 4.66 10^6/uL (4.00-5.20) Hemoglobin 15.7 g/dL (12.0-15.0) H Hematocrit 47.0 % (36.0-46.0) H Mean Corpuscular Volume 100.9 fL (78-100) H Mean Corpuscular Hemoglobin 33.7 pg (26-34) Mean Corpuscular Hemoglobin Concent 33.4 g/dL (33-36.5) Red Cell Distribution Width 13.5 % (11.5-14.5) Platelet Count 309 10^3/uL (150-400) Mean Platelet Volume 9.2 fL (7.8-11.0) Neutrophils (%) (Auto) 71.0 % (41.0-85.0) Lymphocytes (%) (Auto) 21.4 % (24.0-44.0) L Monocytes (%) (Auto) 5.5 % (5.0-12.0) Neutrophils # (Auto) 9.8 10^3/uL (1.8-7.7) H Lymphocytes # (Auto) 2.94 10^3/uL1 (1.0-4.8) Monocytes # (Auto) 0.8 10^3/uL (0.3-0.8) Absolute Immature Granulocyte (auto 0.02 10^3 u/L (0-2) Absolute Eosinophils (auto) 0.2 10^3/uL (0.0-0.2) Immature Granulocytes % 0.10 % (0.00-0.50) Eosinophils % 1.1 % (0.0-5.0) Basophils % 0.9 % (0.0-0.2) H Basophils # 0.1 10^3/uL (0.0-0.1) Sodium Level 135 mmol/L (132-145) Potassium Level 4.1 mmol/L (3.6-5.2) Chloride Level 102.0 mmol/L (96-109) Carbon Dioxide Level 21.0 mmol/L (20.0-32) Glucose Level 91 mg/dL (70-110) Blood Urea Nitrogen 16 mg/dL (7-18) Creatinine 0.96 mg/dL (0.59-1.40) Calcium Level 9.6 mg/dL (8.4-10.5) Anion Gap 16.1 Estimated GFR () 76.4 (>/=60) Est GFR (CKD-EPI)(Non-Afr [place]) 63.1 (>/=60) BUN/Creatinine Ratio 16.0 Progress Progress Chemistry is normal, WBC is 13.8, urinalysis has WBCs and RBCs too numerous to count. Patient has a urinary tract infection. I had a lengthy discussion with the patient and she decided that since she has had multiple CT scans and is concerned of much radiation, she will defer CT abdomen/pelvis at this time. She is requesting to have an antibiotic shot, pain pills and oral antibiotics for urinary tract infection because she knows she has a stent in place. Dr. Miller is going to remove the stent in the left ureter next week. She also received Zofran, Benadryl and morphine. Her pain is significantly improved. She understands that she return to the ED at any time she is feeling worse. Feels better to go home. Her vital signs are stable. ER DEPART Departure Time of Disposition: 18:21 Disposition: 01 HOME / SELF CARE / HOMELESS Impression: Primary Impression: UTI (urinary tract infection) Additional Impression: S/P ureteral stent placement Condition: Improved Referrals: GI MILLER MD (PCP) PRIMARY CARE PROVIDER Additional Instructions: Levofloxacin Tramadol Ibuprofen Follow-up with Dr. Miller tomorrow, call for appointment time Return to ED if worsening symptoms or concerns Duration or Time Spent with Pa: 60 min Problem Qualifiers Primary Impression: UTI (urinary tract infection) Urinary tract infection type: site unspecified Hematuria presence: with hematuria Qualified Codes: N39.0 - Urinary tract infection, site not specified; R31.9 - Hematuria, unspecified CURTIS HAWKINS MD June 22, 2021 16:29
--- NOTE | 2021-06-22 17:49 | NUR ---
CT CT SCAN CANCELED D/T DISCUSSION WITH DR. HAWKINS/PHARMACY RETAIL SUPPORT SPECIALIST & PATIENT. EDUCATION PROVIDED IN LENGTH BY DR. HAWKINS AT BEDSIDE.
[2021-06-22] MEDS ORDERED: ROCEPHIN IM STA (18:12)
[2021-06-22] MEDS ORDERED: ROCEPHIN ONE (18:18)
== END 2021-06-22 18:46 | disposition home or self-care (01) ==
LOC: ER 13:38
DX: N39.0 Urinary tract infection, site not specified (principal); R31.9 Hematuria, unspecified; Z87.442 Personal history of urinary calculi; Z88.0 Allergy status to penicillin; Z88.2 Allergy status to sulfonamides; Z90.49 Acquired absence of other specified parts of digestive tract; Z96.0 Presence of urogenital implants
CPT/HCPCS: 36415; 80048; 81001; 81025; 85025; 87086; 96372 ×3; 99284; J0696; J1200

== ENCOUNTER 2021-06-28 07:35 | Day surgery (SDC) | payer OTHER ==
[~2021-06-28] VITALS: Ht 175.3 cm; Wt 44.9 kg
[2021-06-28] VITALS (21 sets, daily range): BP systolic 120–170; BP diastolic 87–124
[~2021-06-28 07:35] MED LIST changes: +LEVAQUIN 100 ML IV ONE; +NS 1000ML 1,000 ML IV SCH; +NS 1000ML 1,000 ML ONE
[2021-06-28 08:29] LABS: BASOPHIL # 0.1 10^3/uL (0.0-0.1); BASOPHIL % 0.9 % (0.0-0.2); EOSINOPHIL # 0.2 10^3/uL (0.0-0.2); EOSINOPHIL % 2.5 % (0.0-5.0); LYMPHOCYTES # 2.97 10^3/uL1 (1.0-4.8); LYMPHOCYTES % 30.4 % (24.0-44.0); MEAN CORP HGB 33.9 pg (26-34); MONOCYTES # 0.6 10^3/uL (0.3-0.8); MONOCYTES % 5.9 % (5.0-12.0); NEUTROPHIL # 5.9 10^3/uL (1.8-7.7); NEUTROPHILS % 60.1 % (41.0-85.0); PLATELET COUNT 330 10^3/uL (150-400); RED CELL DISTRIBUTION WIDTH 13.3 % (11.5-14.5)
--- NOTE | 2021-06-28 09:57 | PCM.EKG ---
[facility] Test Date: 2021-06-28 Test Time: 08:19:21 Pat Name: IGNACIO DENNEY Department: Patient ID: [facility]-[id number] Room: Gender: F Professor Of Law: DANY JAMIL : 1975 Requested By: GI MILLER Order Number: [id number] Reading MD: Gordon Simpson Measurements Intervals [place] Rate: 89 P: 81 CT: 118 QRS: 18 QRSD: 96 T: 59 QT: 372 QTc: 452 Interpretive Statements Normal sinus rhythm Compared to ECG 02/20/2021 18:05:33 Myocardial infarct finding no longer present Electronically Signed On 06-29-2021 8:16:26 CDT by Gordon Simpson Please click the below link to view image of tracing.
[2021-06-28] MEDS ORDERED: SODIUM CHLORIDE IRR BOTTLE IR ONE (10:01)
[2021-06-28] MEDS ORDERED: NS 3000ML IRR IR ONE (10:01)
[2021-06-28] MEDS ORDERED: VERSED ONE (10:02)
[2021-06-28] MEDS ORDERED: DECADRON ONE (10:06)
[2021-06-28] MEDS ORDERED: XYLOCAINE 2% 5ML VIAL ONE (10:06)
[2021-06-28] MEDS ORDERED: ZOFRAN ONE (10:06)
[2021-06-28] MEDS ORDERED: SUBLIMAZE ONE (10:06)
[2021-06-28] MEDS ORDERED: TORADOL ONE (10:06)
[2021-06-28] MEDS ORDERED: DIPRIVAN IV ONE (10:07)
[2021-06-28] MEDS ORDERED: NS 1000ML 1,000 ML ONE (10:39)
[2021-06-28] MEDS ORDERED: DILAUDID ONE (10:52)
--- NOTE | 2021-06-28 10:57 | OPH ---
DATE OF SURGERY: 06/28/2021 DICTATOR NAME: Andres Beltran MD PREOPERATIVE DIAGNOSIS: Calculus in the left ureter with an indwelling stent. FINAL DIAGNOSIS: Calculus in the left ureter with an indwelling stent. PROCEDURE: Cystoscopy, removal of left ureteral stent with ureteroscopy. DESCRIPTION OF PROCEDURE: The patient was brought to the cystoscopy room, was put in supine position on the cystoscopy table. After the patient was given a satisfactory and adequate LMA general anesthesia, the patient was placed in the lithotomy position. Genitalia was then prepped and draped aseptically in the usual manner. First, a 23-Croatian cystoscope was inserted per urethra up to the bladder. With use of the right angle lens, the bladder was visualized. There is some congestion noted. No tumor, no calculi, no ulcerations seen. The left ureteral stent was then removed and replaced with a Glidewire. After that, the cystoscope was then removed and a 7-Croatian semirigid ureteroscope was inserted per urethra up to the bladder and into the left ureteral orifice all the way to the upper ureter and revealed no more evidence of residual stone. After this was done, the ureteroscope and the guidewire was removed. Cystoscope was reinserted into the bladder and the bladder was emptied with fluid. Procedure was terminated. The instrument was removed. The patient was then awakened, was transferred to the recovery room in stable condition. Andres Beltran MD DR: JOVANY TID: [id number] RECEIPT: [id number]
[2021-06-28] MEDS ORDERED: LACTATED RINGERS 1,000 ML IV SCH (11:00)
[2021-06-28] MEDS: DILAUDID IV PRN ×3 (11:04→11:22)
[2021-06-28] MEDS ORDERED: DILAUDID IV PRN ×2 (11:30)
[2021-06-28] MEDS ORDERED: ATIVAN IV ONE (11:42)
[2021-06-28] MEDS ORDERED: ATIVAN ONE (11:55)
--- NOTE | 2021-06-28 16:12 | DIREP ---
PROCEDURE:XRAY FLUOROSCOPY COMPARISON:[facility], [facility], XRAY FLUOROSCOPY, 06/02/2021, 02:35 PM. [facility], [facility], XRAY FLUOROSCOPY, 03/31/2021, 09:13 AM. INDICATIONS:LT STENT REMOVAL,4 IMAGES,30.4 SEC FLUORO,6.50 mGy TECHNIQUE:Intraoperative fluoroscopy for urologic procedure. Fluoro time: 30.4 seconds. Images: 4. FINDINGS: On the initial images there is a left ureteral stent in place. Subsequent images demonstrate complete removal of the stent. No unexpected surgical instrument on the provided views. CONCLUSION: 1. Intraoperative fluoroscopy for urologic procedure. 2. Removal of left ureteral stent. Dictated by: Reyna Mills MD on 06/28/2021 at 04:10 PM
== END 2021-06-28 13:45 | disposition home or self-care (01) ==
LOC: SDC 07:35
PROVIDERS: ATTEND Urology
DX: Z46.6 Encounter for fitting and adjustment of urinary device (principal); N13.2 Hydronephrosis with renal and ureteral calculous obstruction; Z88.8 Allergy status to other drugs, medicaments and biological substances; Z88.0 Allergy status to penicillin; Z91.013 Allergy to seafood; Z91.041 Radiographic dye allergy status; Z87.891 Personal history of nicotine dependence; Z79.899 Other long term (current) drug therapy
CPT/HCPCS: 36415; 52310; 84703; 85025; 93005; A4217 ×2; J1100; J1170; J1885; J1956; J2001; J2060; J2250; J2405; J3010; J3490; J7030 ×2; 76000; C1769

== ENCOUNTER 2021-08-20 13:38 | Observation (INO) | payer OTHER ==
[~2021-08-20] VITALS: Ht 172.7 cm; Wt 54.4 kg
[~2021-08-20 13:38] MED LIST changes: -LEVAQUIN 100 ML IV ONE; -NS 1000ML 1,000 ML IV SCH; -NS 1000ML 1,000 ML ONE
[2021-08-20 13:54] VITALS: BP 173/110
[2021-08-20] MEDS ORDERED: TORADOL IV STA (13:58)
[2021-08-20] MEDS ORDERED: ATIVAN IV STA (13:58)
[2021-08-20] MEDS ORDERED: PHENERGAN IV STA (13:58)
[2021-08-20] MEDS ORDERED: NS 1000ML 1,000 ML IV ONE (14:00)
[2021-08-20] MEDS ORDERED: TORADOL ONE (14:04)
[2021-08-20] MEDS ORDERED: NS 1000ML 1,000 ML ONE (14:04)
[2021-08-20] MEDS ORDERED: ATIVAN ONE ×2 (14:05→15:29)
[2021-08-20] MEDS ORDERED: PHENERGAN ONE (14:05)
[2021-08-20 14:36] LABS: BASOPHIL # 0.1 10^3/uL (0.0-0.1); BASOPHIL % 0.7 % (0.0-0.2); EOSINOPHIL # 0.2 10^3/uL (0.0-0.2); EOSINOPHIL % 1.2 % (0.0-5.0); LYMPHOCYTES # 2.05 10^3/uL1 (1.0-4.8); LYMPHOCYTES % 13.9 % (24.0-44.0); MEAN CORP HGB 33.8 pg (26-34); MONOCYTES # 0.6 10^3/uL (0.3-0.8); NEUTROPHIL # 11.8 10^3/uL (1.8-7.7); NEUTROPHILS % 80.1 % (41.0-85.0); PLATELET COUNT 280 10^3/uL (150-400); RED CELL DISTRIBUTION WIDTH 12.5 % (11.5-14.5)
[2021-08-20 14:39] LABS: BILIRUBIN,URINE NEGATIVE (NEGATIVE); UROBILINOGEN,URINE 0.2 E.U./dL (0.2)
[2021-08-20 15:08] LABS: CARBON DIOXIDE 22.5 mmol/L (20.0-32)
[2021-08-20] MEDS ORDERED: STADOL IV STA (15:25)
[2021-08-20] MEDS ORDERED: STADOL ONE (15:29)
[2021-08-20] MEDS ORDERED: ATIVAN IM PRN (15:30)
--- NOTE | 2021-08-20 15:30 | DIREP ---
PROCEDURE:CT ABDOMEN/PELVIS W/O CONTRAST COMPARISON:[facility], CT, CT ABD/PELVIS W/O, 06/02/2021, 10:03 AM. [facility], CT, CT ABD/PELVIS W/O, 12/30/2019, 02:17 PM. INDICATIONS:left renal colic TECHNIQUE:Axial images were created through the abdomen and pelvis without intravenous contrast material. No oral contrast was administered. Sagittal and coronal reconstructions were performed from source images. FINDINGS: LUNG BASES:Normal. No visible pulmonary or pleural disease. LIVER:Normal. No significant liver lesions are identified. BILIARY:Normal. No visible dilatation or calcification. PANCREAS:Normal. No lesion, fluid collection, ductal dilatation, or atrophy. SPLEEN:Normal. No enlargement or focal lesion. ADRENALS:Normal. No mass or enlargement. URINARY TRACT:All no evidence of right-sided hydronephrosis. Left-sided hydronephrosis. 4 mm stone in the inferior calyx. Perirenal stranding. 5 mm stone overlying the sacrum, image 94. Additional 4 mm stone, image 101. AORTA/VASCULAR:Normal. No aneurysm. RETROPERITONEUM:Normal. No mass or adenopathy. BOWEL/MESENTERY:Normal. There is no intestinal obstruction, free fluid, free air or mesenteric inflammatory changes. ABDOMINAL WALL:Normal. No mass or hernia. PELVIC ORGANS:Normal. No visible mass. Pelvic organs appropriate for patient age. BONES:Normal for age. No bony lesion or acute fracture. OTHER:Negative. CONCLUSION:Left-sided hydronephrosis. Two stones in the left ureter, with additional stone in the collecting system. Dictated by: Pernell Monroy MD on 08/20/2021 at 03:22 PM
--- NOTE | 2021-08-20 16:07 | NUR ---
OLIVA YOUNGBLOOD ON THE PHONE DOCTOR OLIVA AT THIS TIME.
[2021-08-20 16:09] VITALS: BP 169/86
--- NOTE | 2021-08-20 16:15 | ER.PDOC ---
General Chief Complaint: Flank Pain Stated Complaint: KIDNEY PAIN, VOMITTING Time seen by MD: 13:41 Source: patient Exam Limitations: no limitations History of Present Illness Initial Comments This 45-year-old female well-known to us comes in with a kidney stone pain like again that started yesterday. This time its on her left side. Last time I saw her her pain was on the right. Right now she does not have any stents on either side. This pain is caused nausea vomiting she has no other acute complaints Timing/Duration: 24 hours Severity/Quality: severe, sharpness, stabbing, throbbing Radiation: LLQ, flank Associated Symptoms: nausea/vomiting Exacerbated by: nothing Relieved By: nothing Allergies: Coded Allergies: shellfish derived (Verified Allergy, Severe, 03/13/20) chlorhexidine (Verified Allergy, Mild, Rash, 03/13/20) Penicillins (Verified Allergy, Unknown, unk, 12/01/19) Sulfa (Sulfonamide Antibiotics) (Verified Allergy, Unknown, unk, 12/01/19) Uncoded Allergies: CONTRAST (Allergy, Severe, Anaphylaxis Shock, 03/13/20) Home Meds Active Scripts Acetaminophen With Codeine (TYLENOL-COD #3 TABLET) 1 Each Tablet, 1 TAB PO Q6, #30 TAB Prov:SHAHIDA DAMON MD 06/04/21 Cefuroxime Axetil (CEFUROXIME) 500 Mg Tablet, 500 MG PO BIDAC, #14 TAB Prov:SHAHIDA DAMON MD 06/04/21 Vital Signs First Vital Signs Date Time Temp Pulse Resp B/P (MAP) Pulse Ox O2 Delivery O2 Flow Rate FiO2 08/20/21 13:54 98.5 92 20 173/110 (131) 99 Room Air* 0 21 Last Vital Signs Date Time Temp Pulse Resp B/P (MAP) Pulse Ox O2 Delivery O2 Flow Rate FiO2 08/20/21 13:54 98.5 92 20 08/20/21 13:54 173/110 (131) 99 Room Air* 0 21 Past Medical History Medical History: renal disease Surgical History: neck, other Social History Smoking: non-smoker (Multiple previous renal stents) Alcohol Use: none Drug Use: none Constitutional: denies no symptoms reported, denies see HPI, denies chills, denies diaphoresis, denies fever, denies malaise, denies weakness, denies other EENTM: denies no symptoms reported, denies see HPI, denies eye pain, denies blurred vision, denies tearing, denies double vision, denies ear pain, denies ear discharge, denies nose pain, denies nose congestion, denies throat pain, denies throat swelling, denies mouth pain, denies mouth swelling, denies other Respiratory: denies no symptoms reported, denies see HPI, denies cough, denies orthopnea, denies shortness of breath, denies SOB with exertion, denies SOB at rest, denies stridor, denies wheezing, denies other Cardiovascular: denies no symptoms reported, denies see HPI, denies chest pain, denies edema, denies irregular heart rate, denies lightheadedness, denies palpitations, denies syncope, denies other Gastrointestinal: nausea, vomiting Genitourinary: hematuria Musculoskeletal: denies no symptoms reported, denies see HPI, denies back pain, denies gout, denies joint pain, denies joint swelling, denies muscle pain, denies muscle stiffness, denies neck pain, denies other Skin: denies no symptoms reported, denies see HPI, denies change in color, denies change in hair/nails, denies dryness, denies lesions, denies lumps, denies rash, denies other Psychiatric/Neurological: denies no symptoms reported, denies see HPI, denies anxiety, denies depressed, denies emotional problems, denies headache, denies numbness, denies paresthesia, denies pre-existing deficit, denies seizure, denies tingling, denies tremors, denies weakness, denies other Endocrine: denies no symptoms reported, denies see HPI, denies excessive sweating, denies flushing, denies intolerance to cold, denies intolerance to heat, denies increased hunger, denies increased thrist, denies increased urine, denies unexplained weight gain, denies unexplaned weight loss, denies other Hematologic/Lymphatic: denies no symptoms reported, denies see HPI, denies anemia, denies blood clots, denies easy bleeding, denies easy bruising, denies swollen glands, denies other Physical Exam General Appearance: WD/WN, Moderate Distress HEENT: PERRL/EOMI, Normal ENT Inspection, TMs Normal, Pharynx Normal Neck: Non-Tender, Full Range of Motion, Supple, Normal Inspection Respiratory: chest non-tender, lungs clear, normal breath sounds, no respiratory distress, no accessory muscle use Cardiovascular: Normal Peripheral Pulses, Regular Rate, Rhythm, No Edema, No Gallop, No JVD, No Murmur Gastrointestinal: Normal Bowel Sounds, Non Tender, Soft Back: Normal Inspection, No CVA Tenderness Extremities: Normal Range of Motion, Non-Tender, Normal Inspection, No Pedal Edema, No Calf Tenderness, Normal Capillary Refill, Pelvis Stable Neurologic/Psychiatric: surveyor helper II-XII NML as Tested, No Motor/Sensory Deficits, Alert, Normal Mood/Affect, Oriented x 3 Skin: Normal Color, Warm/Dry Lymphatic: No Adenopathy Results/Orders Results/Orders Orders - MARY YOUNGBLOOD MD Ct Abd/Pelvis Wo Iv Contrast (08/20/21 13:58) 0.9 % Sodium Chloride (Ns 1000ml) (08/20/21 14:00) Promethazine Hcl (Phenergan) (08/20/21 13:58) Ketorolac Tromethamine (Toradol) (08/20/21 13:58) Lorazepam (Ativan) (08/20/21 13:58) 0.9 % Sodium Chloride (Ns 1000ml) (08/20/21 14:04) Ketorolac Tromethamine (Toradol) (08/20/21 14:04) Promethazine Hcl (Phenergan) (08/20/21 14:05) Lorazepam (Ativan) (08/20/21 14:05) Cbc With Auto Diff (08/20/21 14:03) PT (08/20/21 14:03) Partial Thromboplastin Time. (08/20/21 14:03) Urinalysis (08/20/21 14:03) Basic Metabolic Panel (08/20/21 14:03) Urine Culture (08/20/21 14:30) Butorphanol Tartrate (Stadol) (08/20/21 15:25) Lorazepam (Ativan) (08/20/21 15:30) Lorazepam (Ativan) (08/20/21 15:29) Butorphanol Tartrate (Stadol) (08/20/21 15:29) Admit Orders (08/20/21 16:08) Vital Signs Date Time Temp Pulse Resp B/P (MAP) Pulse Ox O2 Delivery O2 Flow Rate FiO2 08/20/21 13:54 98.5 92 20 08/20/21 13:54 98.5 92 20 08/20/21 13:54 98.5 92 20 173/110 (131) 99 Room Air* 0 21 Administered Medications Medications (Trade) Dose Ordered Sig/Luis Route PRN Reason Start Time Stop Time Status Last Admin Dose Admin Butorphanol Tartrate (Stadol) 2 mg STAT STAT IV 08/20/21 15:25 08/20/21 15:27 DC 08/20/21 15:33 2 MG Ketorolac Tromethamine (Toradol) 30 mg OT STAT IV 08/20/21 13:58 08/20/21 14:03 DC 08/20/21 14:19 30 MG Lorazepam (Ativan) 0.5 mg Q4HR PRN IM ANXIETY 08/20/21 15:30 09/19/21 15:29 08/20/21 15:52 0.5 MG Lorazepam (Ativan) 0.5 mg STAT STAT IV 08/20/21 13:58 08/20/21 14:03 DC 08/20/21 14:20 0.5 MG Promethazine HCl (Phenergan) 25 mg OT STAT IV 08/20/21 13:58 08/20/21 14:03 DC 08/20/21 14:20 25 MG Sodium Chloride 1,000 ml @ 0 mls/hr Q0M ONCE IV 08/20/21 14:00 08/20/21 14:03 DC 08/20/21 14:19 999 MLS/HR Laboratory Tests Test 08/20/21 14:30 White Blood Count 14.8 10^3/uL (4.5-11.0) H Red Blood Count 4.55 10^6/uL (4.00-5.20) Hemoglobin 15.4 g/dL (12.0-15.0) H Hematocrit 47.4 % (36.0-46.0) H Mean Corpuscular Volume 104.2 fL (78-100) H Mean Corpuscular Hemoglobin 33.8 pg (26-34) Mean Corpuscular Hemoglobin Concent 32.5 g/dL (33-36.5) L Red Cell Distribution Width 12.5 % (11.5-14.5) Platelet Count 280 10^3/uL (150-400) Mean Platelet Volume 9.6 fL (7.8-11.0) Neutrophils (%) (Auto) 80.1 % (41.0-85.0) Lymphocytes (%) (Auto) 13.9 % (24.0-44.0) L Monocytes (%) (Auto) 4.0 % (5.0-12.0) L Neutrophils # (Auto) 11.8 10^3/uL (1.8-7.7) H Lymphocytes # (Auto) 2.05 10^3/uL1 (1.0-4.8) Monocytes # (Auto) 0.6 10^3/uL (0.3-0.8) Absolute Immature Granulocyte (auto 0.02 10^3 u/L (0-2) Absolute Eosinophils (auto) 0.2 10^3/uL (0.0-0.2) Immature Granulocytes % 0.10 % (0.00-0.50) Eosinophils % 1.2 % (0.0-5.0) Basophils % 0.7 % (0.0-0.2) H Basophils # 0.1 10^3/uL (0.0-0.1) Prothrombin Time 11.7 SEC (9.1-11.5) H Prothrombin Time INR (Non-Therap) 1.2 Activated Partial Thromboplast Time 28.9 SEC (22.5-33.1) Urine Collection Type RANDOM Urine Color YELLOW Urine Appearance CLOUDY Urine Bilirubin NEGATIVE (NEGATIVE) Urine Ketones NEGATIVE (NEGATIVE) Urine Specific [place] 1.025 (1.005-1.030) Urine pH 5.5 (4.5-8.0) Urine Protein TRACE (NEGATIVE) Urine Urobilinogen 0.2 E.U./dL (0.2) Urine Nitrate NEGATIVE (NEGATIVE) Urine Leukocyte Esterase NEGATIVE (NEGATIVE) Urine Glucose (Auto)(UA) NEGATIVE (NEGATIVE) Urine Blood 2+ (NEGATIVE) H Urine RBC 10-25 RBC/HPF (NONE SEEN) H Urine WBC 0-2 WBC/HPF (0-2) Urine Squamous Epithelial Cells FEW (<=FEW) Urine Calcium Oxalate Crystals FEW (NONE SEEN) A Urine Bacteria FEW (NONE SEEN) H Sodium Level 142 mmol/L (132-145) Potassium Level 3.9 mmol/L (3.6-5.2) Chloride Level 106.0 mmol/L (96-109) Carbon Dioxide Level 22.5 mmol/L (20.0-32) Glucose Level 115 mg/dL (70-110) H Blood Urea Nitrogen 18 mg/dL (7-18) Creatinine 0.97 mg/dL (0.59-1.40) Calcium Level 9.6 mg/dL (8.4-10.5) Anion Gap 17.4 Estimated GFR () 75.5 (>/=60) Est GFR (CKD-EPI)(Non-Afr [place]ese) 62.4 (>/=60) BUN/Creatinine Ratio 18.0 Progress Progress 3 stones on the left side 1 in the kidney 2 in the ureter with obstruction ER DEPART Departure Time of Disposition: 16:15 Disposition: 09 ADMITTED INPATIENT Impression: Primary Impression: Calculus of ureter Additional Impression: History of kidney stones Condition: Stable Referrals: GI MILLER MD (PCP) PRIMARY CARE PROVIDER Duration or Time Spent with Pa: 15m Problem Qualifiers MARY YOUNGBLOOD MD Aug 20, 2021 16:15
[2021-08-20] MEDS ORDERED: COLACE PO PRN (17:00)
[2021-08-20] MEDS ORDERED: TORADOL IV PRN (17:00)
[2021-08-20] MEDS ORDERED: BENADRYL IV PRN (17:00)
[2021-08-20] MEDS ORDERED: MYLANTA PO PRN (17:00)
[2021-08-20] MEDS ORDERED: TYLENOL PO PRN ×2 (17:00)
[2021-08-20] MEDS ORDERED: MILK OF MAGNESIA PO PRN (17:00)
--- NOTE | 2021-08-20 17:00 | NUR ---
LACK OF ADMISSION ON ASSESSMENT ON THIS SHIFT THIS NURSE IS ADMITTING RN FOR PT. PT REFUSES TO ALLOW THIS NURSE TO COMPLETE ADMISSION ASSESSMENT DUE TO SEX OF THIS NURSE. PT EDUCATED ON RISKS OF NO ASSESSMENT UPON ADMISSION. THIS NURSE ACCEPTS NO RESPONSIBILITY FOR INABILITY TO IDENTIFY CHANGE IN STATUS THAT IS SURFACE LEVEL.
[2021-08-20] MEDS ORDERED: PHENERGAN IV PRN (17:30)
[2021-08-20] MEDS ORDERED: TYLENOL #3 PO SCH (18:00)
--- NOTE | 2021-08-20 19:10 | PCM.HP ---
History of Present Illness Reason for Visit: abdominal pain. History of Present Illness Ms. grace is a 45 yo woman with pmhx of kidney stones and PTSD presenting with flank pain. she is nervous about being in hospital and refuses exam and to answer questions. PROCEDURE:CT ABDOMEN/PELVIS W/O CONTRAST COMPARISON:[facility], CT, CT ABD/PELVIS W/O, 06/02/2021, 10:03 AM. [facility], CT, CT ABD/PELVIS W/O, 12/30/2019, 02:17 PM. INDICATIONS:left renal colic TECHNIQUE:Axial images were created through the abdomen and pelvis without intravenous contrast material. No oral contrast was administered. Sagittal and coronal reconstructions were performed from source images. FINDINGS: LUNG BASES:Normal. No visible pulmonary or pleural disease. LIVER:Normal. No significant liver lesions are identified. BILIARY:Normal. No visible dilatation or calcification. PANCREAS:Normal. No lesion, fluid collection, ductal dilatation, or atrophy. SPLEEN:Normal. No enlargement or focal lesion. ADRENALS:Normal. No mass or enlargement. URINARY TRACT:All no evidence of right-sided hydronephrosis. Left-sided hydronephrosis. 4 mm stone in the inferior calyx. Perirenal stranding. 5 mm stone overlying the sacrum, image 94. Additional 4 mm stone, image 101. AORTA/VASCULAR:Normal. No aneurysm. RETROPERITONEUM:Normal. No mass or adenopathy. BOWEL/MESENTERY:Normal. There is no intestinal obstruction, free fluid, free air or mesenteric inflammatory changes. ABDOMINAL WALL:Normal. No mass or hernia. PELVIC ORGANS:Normal. No visible mass. Pelvic organs appropriate for patient age. BONES:Normal for age. No bony lesion or acute fracture. OTHER:Negative. CONCLUSION:Left-sided hydronephrosis. Two stones in the left ureter, with additional stone in the collecting system. Past Medical History Psychiatric: Anxiety, Other Renal/: Other Past Social History Smoke: <1 pack per day Alcohol: none Drugs: None Travel Hx EBOLA RISK:Travel to/contact w: No Review of Systems Gastrointestinal: Nausea, Vomiting, Abdominal Pain, Diarrhea, Other Genitourinary: Dysuria, Frequency, Hematuria, Other Allergies: Coded Allergies: shellfish derived (Verified Allergy, Severe, 03/13/20) chlorhexidine (Verified Allergy, Mild, Rash, 03/13/20) Penicillins (Verified Allergy, Unknown, unk, 12/01/19) Sulfa (Sulfonamide Antibiotics) (Verified Allergy, Unknown, unk, 12/01/19) Uncoded Allergies: CONTRAST (Allergy, Severe, Anaphylaxis Shock, 03/13/20) Scheduled Acetaminophen With Codeine (Tylenol-Cod #3 Tablet), 1 TAB PO Q6 Cefuroxime Axetil (Cefuroxime), 500 MG PO BIDAC VTE VTE Risk Total Score: 1 VTE Risk Score VTE Risk: Score 0-1 = Low Risk (Aggressive mobilization; early ambulation; no VTE prophylaxis required) Score 2: Moderate Risk (Intermittent/Pneumatic Compression Device OR Lovenox/Heparin/Coumadin) Score 3-4: High Risk (Intermittent/Pneumatic Compression Device AND Lovenox/Heparin/Coumadin) Score > or =5: Highest Risk (Intermittent/Pneumatic Compression Device AND Lovenox/Heparin/Coumadin) Antico:Hep/LMWH/Coum/Xarelto: No Mechanical device ordered: Yes Reasons not ordering prophylax: Surgical Contraindication VTE VTE Present on Admission: No Currently receiving anticoagul: No VTE Risk Total Score: 1 Antico:Hep/LMWH/Coum/Xarelto: No Mechanical device ordered: Yes Exam Vital Signs Vital Signs Date Time Temp Pulse Resp B/P (MAP) Pulse Ox O2 Delivery O2 Flow Rate FiO2 08/20/21 16:09 98.5 78 20 169/86 (113) 99 Room Air* 0 21 General Appearance: Alert, Other (somnolent, sleeps during history. ) Psych/Mental Status: Other (deferred exam, pt refused, and went to sleep) Assessment/Plan Assessment/Plan Assessment/Plan nephrolithiasis: continue on pain control, iv abx, iv fluids, f/u urology recs. Patient History: Diabetes mellitus G8 FATHER, , Age:78 G8 BROTHER FH: CAD (coronary artery disease) G8 MOTHER Hypertension G8 MOTHER No known health problems G8 SISTER G8 SISTER G8 SISTER G8 SISTER G8 SISTER HARIS BAPTISTE MD Aug 20, 2021 19:10
--- NOTE | 2021-08-20 19:48 | NUR ---
DR RAYMOND ORDER PT COMPLAINT OF ANXIETY REC ORDER FOR 0.25MG PO XANAX OT - NOW
[2021-08-20] MEDS ORDERED: XANAX PO ONE (20:00)
[2021-08-20 20:15] VITALS: BP 157/105
--- NOTE | 2021-08-20 20:39 | NUR ---
2028 PT LEFT AMA EXPLAINED TO PT MEDICAL RISKS IF SHE LEFT. CALLED DR MILLER AND DR RAYMOND AND INFORMED THEM PT WISHES AND STATES "I WILL LEAVE AND TAKE A RIDE IN THE CAR AND COME BACK TO THE EMERGENCY ROOM AND GET ADMITTED AGAIN" BOTH DOCTORS COMPLETELY AWARE OF SITUATION. PT SIGNED LEAVING AGAINST MEDICAL ADVICE OR TREATMENT FORM WITH FAMILY WITNESSES. PT LEFT UNIT THRU ER EXIT VIA WC ACCOMPANIED BY FAMILY (SON AND UNIDENTIFIED FEMALE) AND THIS NURSE. Addendum: 08/20/21 at 2050 by RATNA GAMBINO RN RN (JESUSITA) 2028 PT LEFT AMA EXPLAINED TO PT MEDICAL RISKS IF SHE LEFT. CALLED DR MILLER AND DR RAYMOND AND INFORMED THEM PT WISHES AND STATES "I WILL LEAVE AND TAKE A RIDE IN THE CAR AND COME BACK TO THE EMERGENCY ROOM AND GET ADMITTED AGAIN" BOTH DOCTORS COMPLETELY AWARE OF SITUATION. PT SIGNED LEAVING AGAINST MEDICAL ADVICE OR TREATMENT FORM WITH FAMILY WITNESSES. PT LEFT UNIT THRU ER EXIT VIA WC ACCOMPANIED BY FAMILY (SON AND UNIDENTIFIED FEMALE) AND THIS NURSE. D/C'd 22g IV FROM RT WRIST. CATHETER INTACT AND NO SIGNS OF INFECTION. PT TOLERATED WELL.
--- NOTE | 2021-08-20 20:44 | PRM.DC ---
[facility] DISCHARGE SUMMARY DISCHARGE SUMMARY DATE OF ADMISSION: 08/20 DATE OF DISCHARGE: 08/20 DISCHARGE DIAGNOSES: Nephrolithiasis HOSPITAL COURSE: This is a 45-year-old female with a known history of PTSD who presented with abdominal and flank pain. She was found to have evidence of cholelithiasis. Urology was consulted and recommended stent placement the following day. She was brought in from the emergency room for pain control and anxiety medications. She was started on IV fluids as well as pain medications and as needed and anxiolytics. The patient wanted to have higher doses of anxiolytics and pain medications and decided to sign out AGAINST MEDICAL ADVICE to return to an emergency room for more pain meds. She subsequently signed out AGAINST MEDICAL ADVICE and left the hospital. VICTORIA RAYMOND MD Aug 20, 2021 20:44
[2021-08-20 20:51] VITALS: BP 157/105
--- NOTE | 2021-08-20 20:57 | NUR ---
PT LEFT AMA NO CHARTING COMPLETED ON THIS PT PRIOR TO THIS NURSE ARRIVAL FOR UNKNOWN REASON. THIS NURSE HAD NOT YET COMPLETED ASSESSMENTS WHEN PT DECIDED TO LEAVE AMA.
[2021-08-21] MEDS ORDERED: TRAM50TA PO (16:11)
[2021-08-21] MEDS ORDERED: PROM25TA10 PO (16:15)
[2021-08-21] MEDS ORDERED: CIPR500T86 PO (16:15)
== END 2021-08-20 20:29 | disposition left against medical advice (07) ==
LOC: ER 13:38 → MS 15:55
PROVIDERS: ADMIT Urology; ATTEND Urology
DX: N13.2 Hydronephrosis with renal and ureteral calculous obstruction (principal); K80.20 Calculus of gallbladder without cholecystitis without obstruction; F41.9 Anxiety disorder, unspecified; F43.10 Post-traumatic stress disorder, unspecified; F17.200 Nicotine dependence, unspecified, uncomplicated; Z88.0 Allergy status to penicillin; Z53.29 Procedure and treatment not carried out because of patient's decision for other reasons; Z87.442 Personal history of urinary calculi; Z79.899 Other long term (current) drug therapy
CPT/HCPCS: 36415; 74176; 80048; 81001; 85025; 85610; 85730; 87086; 96361; 96372; 96374; 96375; 96376; 99284; G0378 ×4; J0595; J1200; J1885 ×3; J2060 ×2; J2550; J3490; J7030

== ENCOUNTER 2021-08-21 11:44 | Day surgery (SDC) | payer MEDICAID, OTHER ==
[~2021-08-21] VITALS: Ht 172.7 cm; Wt 55.8 kg
[2021-08-21] VITALS (8 sets, daily range): BP systolic 135–184; BP diastolic 91–123
[2021-08-21] MEDS ORDERED: ATARAX PO STA (12:21)
[2021-08-21] MEDS ORDERED: TORADOL IV STA (12:21)
[2021-08-21] MEDS ORDERED: NS 1000ML 1,000 ML IV STA (12:21)
[2021-08-21] MEDS ORDERED: ROCEPHIN 1,000 MG in NS 100ML 100 ML IV STA (12:21)
--- NOTE | 2021-08-21 12:24 | ER.PDOC ---
General Chief Complaint: Requesting Medical Care Stated Complaint: KIDNEY PAIN,N/V Time seen by MD: 12:10 Source: patient Exam Limitations: no limitations History of Present Illness Initial Comments 45-year-old female was admitted by me yesterday for left ureteral calculi with obstruction. Patient was to have stenting placement today by Dr. Miller. Jana ent got anxious went out to smoke a cigarette last evening and then left. This occurred about 8 PM. Patient states she had some chicken broth for dinner last night but has not eat eaten or drank anything since that time. She still complains of the left flank pain she has not had fevers or chills no other acute complaints. I did speak with Dr. Miller and he requested that we give her a gram of Rocephin and keep her here in the emergency department n.p.o. and he will take her directly to the operating room for stent placement. Timing/Duration: other (36h) Severity/Quality: severe, sharpness, stabbing, throbbing Radiation: LLQ, flank Associated Symptoms: nausea/vomiting Relieved By: nothing Allergies: Coded Allergies: shellfish derived (Verified Allergy, Severe, 03/13/20) chlorhexidine (Verified Allergy, Mild, Rash, 03/13/20) Penicillins (Verified Allergy, Unknown, unk, 12/01/19) Sulfa (Sulfonamide Antibiotics) (Verified Allergy, Unknown, unk, 12/01/19) Uncoded Allergies: CONTRAST (Allergy, Severe, Anaphylaxis Shock, 03/13/20) Home Meds Active Scripts Acetaminophen With Codeine (TYLENOL-COD #3 TABLET) 1 Each Tablet, 1 TAB PO Q6, #30 TAB Prov:SHAHIDA DAMON MD 06/04/21 Cefuroxime Axetil (CEFUROXIME) 500 Mg Tablet, 500 MG PO BIDAC, #14 TAB Prov:SHAHIDA DAMON MD 06/04/21 Past Medical History Medical History: renal disease Surgical History: neck, other Social History Smoking: cigarettes, less than 1 pack/day Alcohol Use: none Drug Use: none Constitutional: denies no symptoms reported, denies see HPI, denies chills, denies diaphoresis, denies fever, denies malaise, denies weakness, denies other EENTM: denies no symptoms reported, denies see HPI, denies eye pain, denies blurred vision, denies tearing, denies double vision, denies ear pain, denies ear discharge, denies nose pain, denies nose congestion, denies throat pain, denies throat swelling, denies mouth pain, denies mouth swelling, denies other Respiratory: denies no symptoms reported, denies see HPI, denies cough, denies orthopnea, denies shortness of breath, denies SOB with exertion, denies SOB at rest, denies stridor, denies wheezing, denies other Cardiovascular: denies no symptoms reported, denies see HPI, denies chest pain, denies edema, denies irregular heart rate, denies lightheadedness, denies palpitations, denies syncope, denies other Gastrointestinal: denies no symptoms reported, denies see HPI, denies abdomen distended, denies abdominal pain, denies blood streaked bowels, denies constipated, denies diarrhea, denies difficulty swallowing, denies nausea, denies poor appetite, denies poor fluid intake, denies rectal bleeding, denies vomiting, denies other Genitourinary: see HPI, flank pain, hematuria, pain Musculoskeletal: denies no symptoms reported, denies see HPI, denies back pain, denies gout, denies joint pain, denies joint swelling, denies muscle pain, denies muscle stiffness, denies neck pain, denies other Skin: denies no symptoms reported, denies see HPI, denies change in color, denies change in hair/nails, denies dryness, denies lesions, denies lumps, denies rash, denies other Psychiatric/Neurological: see HPI, anxiety Endocrine: denies no symptoms reported, denies see HPI, denies excessive sweating, denies flushing, denies intolerance to cold, denies intolerance to heat, denies increased hunger, denies increased thrist, denies increased urine, denies unexplained weight gain, denies unexplaned weight loss, denies other Hematologic/Lymphatic: denies no symptoms reported, denies see HPI, denies anemia, denies blood clots, denies easy bleeding, denies easy bruising, denies swollen glands, denies other Physical Exam General Appearance: No Apparent Distress, WD/WN HEENT: PERRL/EOMI, Normal ENT Inspection, TMs Normal, Pharynx Normal Neck: Non-Tender, Full Range of Motion, Supple Respiratory: chest non-tender, lungs clear, normal breath sounds, no respiratory distress, no accessory muscle use Cardiovascular: Normal Peripheral Pulses, Regular Rate, Rhythm, No Edema Gastrointestinal: Normal Bowel Sounds, Non Tender Back: Normal Inspection, No CVA Tenderness Extremities: Normal Range of Motion, Non-Tender Neurologic/Psychiatric: firer retort II-XII NML as Tested, No Motor/Sensory Deficits, Alert, Normal Mood/Affect, Oriented x 3 Skin: Normal Color, Warm/Dry Lymphatic: No Adenopathy ER DEPART Departure Time of Disposition: 12:48 Disposition: 09 ADMITTED INPATIENT Impression: Primary Impression: Calculus of kidney Additional Impression: Ureteral calculus, left Condition: Stable Referrals: GI MILLER MD (PCP) PRIMARY CARE PROVIDER Duration or Time Spent with Pa: 7m Problem Qualifiers MARY YOUNGBLOOD MD Aug 21, 2021 12:24
[2021-08-21] MEDS ORDERED: TORADOL ONE ×2 (12:31→14:34)
[2021-08-21] MEDS ORDERED: NS 1000ML 1,000 ML ONE (12:31)
[2021-08-21] MEDS ORDERED: ROCEPHIN ONE (12:31)
[2021-08-21] MEDS ORDERED: NS 100ML 100 ML IV ONE (12:31)
[2021-08-21] MEDS ORDERED: ATARAX ONE (12:32)
--- NOTE | 2021-08-21 12:41 | NUR ---
iv attempts x2 for iv access, unsuccesful.
--- NOTE | 2021-08-21 13:55 | NUR ---
DS PT TAKEN TO DS VIA STRETCHER IN STABLE CONDITION.
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
[2021-08-21] MEDS ORDERED: SODIUM CHLORIDE IRR BOTTLE IR ONE (14:21)
[2021-08-21] MEDS ORDERED: NS 3000ML IRR IR ONE (14:21)
[2021-08-21] MEDS ORDERED: VERSED ONE (14:31)
[2021-08-21] MEDS ORDERED: SUBLIMAZE ONE (14:33)
[2021-08-21] MEDS ORDERED: DECADRON ONE (14:33)
[2021-08-21] MEDS ORDERED: ZOFRAN ONE (14:33)
[2021-08-21] MEDS ORDERED: DIPRIVAN IV ONE (14:33)
[2021-08-21] MEDS ORDERED: XYLOCAINE 2% 5ML VIAL ONE (14:33)
[2021-08-21] MEDS ORDERED: DILAUDID ONE (14:34)
[2021-08-21] MEDS ORDERED: BENADRYL IV ONE (14:55)
[2021-08-21] MEDS ORDERED: LEVAQUIN 100 ML IV ONE (15:30)
[2021-08-21] MEDS ORDERED: LACTATED RINGERS 1,000 ML ONE (16:03)
[2021-08-21] MEDS ORDERED: TRAM50TA PO (16:11)
[2021-08-21] MEDS ORDERED: PROM25TA10 PO (16:15)
[2021-08-21] MEDS ORDERED: CIPR500T86 PO (16:15)
[2021-08-21] MEDS ORDERED: LACTATED RINGERS 1,000 ML IV SCH (16:30)
[2021-08-21] MEDS ORDERED: ULTRAM ONE (16:44)
[2021-08-21] MEDS ORDERED: ULTRAM PO ONE (16:45)
--- NOTE | 2021-08-21 18:25 | OPH ---
DATE OF SURGERY: 08/21/2021 DICTATOR NAME: Andres Beltran MD PREOPERATIVE DIAGNOSIS: Calculi, left ureter. FINAL DIAGNOSIS: Calculi, left ureter. PROCEDURE: Cystoscopy, left retrograde, left ureteroscopy with basket stone extraction and insertion of double-J left ureteral stent. DESCRIPTION OF PROCEDURE: The patient was brought to the cystoscopy room, was put in supine position on the cystoscopy table. After the patient was given a satisfactory and adequate LMA general anesthesia, the patient was placed in lithotomy position. Genitalia was then prepped and draped aseptically in the usual manner. First, a 23-[place] cystoscope was inserted per urethra up to the bladder. With the use of a right-angle lens, the bladder was visualized. There is no tumor, no calculi, no ulcerations seen. A left retrograde was initially performed by inserting a 7-[place] left ureteral catheter in the left ureteral orifice and injected with Omnipaque dye and it showed some calculi noted in the left lower ureter. After this, the ureteral catheter was removed and a 7-[place] semirigid ureteroscope was inserted per urethra up to the left ureteral orifice up to the ureter and there was a stone, which was noted in the left lower ureter. A basket stone extraction was then performed. There were some smaller stones noted in the mid ureter, which was also extracted. After extraction of the left ureteral basket stone extraction, the left of the ureter was again reinspected with ureteroscopy and there was no more evidence of residual stone. After that, a 6-[place] double-J left ureteral stent was then inserted from the left ureteral orifice all the way to the left kidney. Procedure was then terminated and then the instrument was removed. The patient was then awakened, was transferred to the recovery room in stable condition. Andres Beltran MD DR: YUE TID: [id number] RECEIPT: [id number]
--- NOTE | 2021-08-22 04:17 | CNH ---
DATE OF CONSULTATION: 08/21/2021 DICTATOR NAME: Andres Beltran MD HISTORY OF PRESENT ILLNESS: This is a 45-year-old female, was referred for urological evaluation in the Emergency Room because of left flank pain. The patient was seen in the Emergency Room yesterday also and a noncontrast CT scan revealed some calculi in the left ureter with some mild hydronephrosis and patient has been having a long history of kidney stones. Based on this finding, I will intend to admit the patient to outpatient, and I am going to schedule her for a cystoscopy, left retrograde and possible basket stone extraction with stent insertion. Anders Beltran MD DR: JASON/GIOVANNI/MARY TID: [id number] RECEIPT: [id number]
--- NOTE | 2021-08-22 08:06 | DIREP ---
PROCEDURE:XRAY UROGRAPHY RETROGRADE COMPARISON:None. INDICATIONS:STONE 10CC [id number] 43.25MGY 230.6 SECS FLURO 17 FILMS TECHNIQUE:17 fluoroscopic images of the abdomen are submitted from the OR. Total fluoroscopy time is 2:00 a.m. 30.6 seconds. 10 cc of Omnipaque 240 was utilized during the examination. FINDINGS:No filling defects are present in the left ureter or left renal collecting system. Final image demonstrates a ureteral stent catheter in place from the left renal pelvis to the bladder. CONCLUSION:Left ureteral stent catheter in place. Dictated by: Hever Briggs M.D. on 08/22/2021 at 08:02 AM
[2021-10-04] MEDS ORDERED: TAMS-14 PO (10:14)
[2021-10-04] MEDS ORDERED: TRAM50TA PO (10:14)
== END 2021-08-21 17:00 | disposition home or self-care (01) ==
LOC: ER 11:44 → MS 13:44 → SDC 13:44 → UNDOADMOB 13:44 → SDC 17:00
PROVIDERS: ATTEND Urology
DX: N13.2 Hydronephrosis with renal and ureteral calculous obstruction (principal); F41.9 Anxiety disorder, unspecified; F32.A Depression, unspecified; F17.210 Nicotine dependence, cigarettes, uncomplicated; Z98.890 Other specified postprocedural states; Z88.2 Allergy status to sulfonamides; Z91.013 Allergy to seafood; Z88.0 Allergy status to penicillin; Z88.8 Allergy status to other drugs, medicaments and biological substances
CPT/HCPCS: 52332; 99285; 74420; 82360; 81025; J7030; J7120; A4217 ×2; J1100; J1170; J3490; J1956; J2001; J2405; J2250; J1885 ×2; J3010; J0696 ×2; Q9966; 76000; C1769; C2617

== ENCOUNTER 2021-09-18 21:53 | Emergency (ER) | payer MEDICAID, OTHER ==
[~2021-09-18] VITALS: Ht 172.7 cm; Wt 56.7 kg
[~2021-09-18 21:53] MED LIST changes: +PROM25TA10 PO
[2021-09-18 23:37] VITALS: BP 179/89
--- NOTE | 2021-09-18 23:37 | NUR ---
To ER4 by wheelchair accompaied by son. Pt reports bilateral kidney pain/burning, chills, N/V/D all day. Has chronic h/o kidney stones, multiple cystos/lithostripsies/basket stone extractions. Pt states she has PTSD.
[2021-09-18] MEDS ORDERED: ZOFRAN IV STA (23:43)
[2021-09-18] MEDS ORDERED: ZOFRAN ONE (23:51)
[2021-09-18] MEDS ORDERED: TORADOL ONE (23:51)
[2021-09-19] MEDS ORDERED: TORADOL IV PRN
--- NOTE | 2021-09-19 00:28 | ER.PDOC ---
General Chief Complaint: Requesting Medical Care Stated Complaint: ABD PAIN Time seen by MD: 23:30 Source: patient, family Exam Limitations: other (Patient has PTSD per her male friend with her and does not like to talk to male physicians this limited my exam and history) History of Present Illness Initial Comments Patient is a 45-year-old female with a past medical history of PTSD with male doctors as well as multiple kidney stones and stents placed who presents today with bilateral flank pain. Patient refuses to talk to me will only bang her head with her hands slightly while shaking refusing to take off her sunglasses and wearing large blue headphones. She shaking continuously and will only say I get so nervous around medical physician. I informed her that unfortunately I was the only physician here. Her male friend answered most of the history physical questions for her. He states that a couple of hours ago patient started having bilateral flank pain that is sharp in nature and radiates "all around" with associated symptoms of nausea and diarrhea with also 2 episodes of vomiting they deny seeing any blood or changes to the color of the diarrhea or vomiting. Patient is also worried that she may have a urinary tract infection as she has burning upon urination. Patient states that movement and palpation make all the pain worse and nothing makes them better. Chart review reveals that patient is here frequently for the similar symptoms has multiple CT scans performed usually IN to getting the CT scans patient refused to discuss this with me so we will order the CT scan. Her male friend with her stated that that should be fine. Past medical history as above Social history patient refused to answer these questions Family history patient refused to answer these questions Meds and allergies reviewed Allergies: Coded Allergies: shellfish derived (Verified Allergy, Severe, 03/13/20) chlorhexidine (Verified Allergy, Mild, Rash, 03/13/20) Penicillins (Verified Allergy, Unknown, unk, 12/01/19) Sulfa (Sulfonamide Antibiotics) (Verified Allergy, Unknown, unk, 12/01/19) Uncoded Allergies: CONTRAST (Allergy, Severe, Anaphylaxis Shock, 03/13/20) Home Meds Active Scripts Promethazine Hcl (PROMETHAZINE HCL) 25 Mg Tablet, 25 MG PO Q6 PRN for NAUSEA, #5 TAB Prov:GI MILLER MD 08/21/21 Ciprofloxacin Hcl (CIPRO) 500 Mg Tablet, 1 TAB PO BID for 10 Days, #20 TAB 0 Refills Prov:GI MILLER MD 08/21/21 Cefuroxime Axetil (CEFUROXIME) 500 Mg Tablet, 500 MG PO BIDAC, #14 TAB Prov:SHAHIDA DAMON MD 06/04/21 Reported Medications Tramadol Hcl (TRAMADOL HCL) 50 Mg Tablet, 1 TAB PO Q6 PRN for PAIN 4 - 6, #20 TAB 08/21/21 Vital Signs First Vital Signs Date Time Temp Pulse Resp B/P (MAP) Pulse Ox O2 Delivery O2 Flow Rate FiO2 09/18/21 23:37 98.6 103 22 98 09/18/21 23:37 179/89 (119) Room Air* 0 21 Last Vital Signs Date Time Temp Pulse Resp B/P (MAP) Pulse Ox O2 Delivery O2 Flow Rate FiO2 09/18/21 23:37 98.6 103 22 179/89 (119) 98 Room Air* 0 21 Past Medical History Medical History: hypertension, other Surgical History: neck, other Family History Significant Family History: other (Patient refused to answer for me) Social History Smoking: other (Patient refused to answer for me) Alcohol Use: other (Patient refused to answer for me) Drug Use: none (Patient refused to answer for me but answered none to the nurse) Reviewed Nursing Reviewed: Vital Signs, Abn. Noted, Nursing Assessment Constitutional: malaise, other (Very difficult to get a full review of systems from patient as she mostly refused to talk to me all of her review of systems comes from the male friend that is accompanying her.) EENTM: denies eye pain, denies blurred vision, denies double vision, denies nose congestion Respiratory: denies cough, denies shortness of breath Cardiovascular: denies chest pain, denies irregular heart rate Gastrointestinal: abdominal pain, diarrhea, nausea, vomiting Genitourinary: burning, dysuria Musculoskeletal: no symptoms reported Skin: no symptoms reported Psychiatric/Neurological: no symptoms reported Endocrine: no symptoms reported Hematologic/Lymphatic: no symptoms reported Physical Exam General Appearance: Other (Patient refuses to remove her sunglasses or her large blue headphones that she constantly shakes moving her hands in and away from her face slowly mumbling to herself so I cannot see him I cannot hear him I cannot see him I can hear him) HEENT: Other (Patient refused to allow me to examine her eyes nose or oropharynx) Neck: Non-Tender, Full Range of Motion, Supple, Normal Inspection Respiratory: chest non-tender, lungs clear, normal breath sounds, no respiratory distress, no accessory muscle use Cardiovascular: Normal Peripheral Pulses, Regular Rate, Rhythm, No Edema, No Gallop, No JVD, No Murmur Gastrointestinal: Normal Bowel Sounds, Soft, Other (Patient would jump off the table before I touched her skin very nervous and anxious about having abdominal pain) Back: CVA Tenderness (R), CVA Tenderness (L) Extremities: Normal Range of Motion, Non-Tender, Normal Inspection, No Pedal Edema, No Calf Tenderness, Normal Capillary Refill, Pelvis Stable Neurologic/Psychiatric: Other (Patient extraordinarily anxious refused to cooperate with neurological exam however no obvious deficit noted) Skin: Normal Color, Warm/Dry Lymphatic: No Adenopathy Results/Orders Results/Orders Orders - THERESA GUTIERREZ MD Cbc With Auto Diff (09/18/21 23:27) Comprehensive Metabolic Panel (09/18/21 23:27) Lipase (09/18/21 23:27) Hcg Qualitative Serum (09/18/21 23:27) Urinalysis (09/18/21 23:27) Saline Lock (09/18/21 23:27) Ct Abd/Pelvis Wo Iv Contrast (09/18/21 23:32) Covid19 Antigen Verena Deja (09/18/21 23:43) Influenza A&B (09/18/21 23:43) Ketorolac Tromethamine (Toradol) (09/19/21 00:00) Ondansetron Hcl/Pf (Zofran) (09/18/21 23:43) Ketorolac Tromethamine (Toradol) (09/18/21 23:51) Ondansetron Hcl/Pf (Zofran) (09/18/21 23:51) Hydroxyzine (Atarax) (09/19/21 01:35) Urine Culture (09/19/21 01:27) Ceftriaxone Sodium (Rocephin) (09/19/21 01:46) Vital Signs Date Time Temp Pulse Resp B/P (MAP) Pulse Ox O2 Delivery O2 Flow Rate FiO2 09/18/21 23:37 98.6 103 22 179/89 (119) 98 Room Air* 0 21 09/18/21 23:37 98.6 103 22 09/18/21 23:37 98.6 103 22 98 Administered Medications Medications (Trade) Dose Ordered Sig/Luis Route PRN Reason Start Time Stop Time Status Last Admin Dose Admin Hydroxyzine HCl (Atarax) 25 mg STAT STAT PO 09/19/21 01:35 09/19/21 01:36 UNV 09/19/21 01:41 25 MG Ketorolac Tromethamine (Toradol) 15 mg OT PRN IV PAIN 4 - 6 09/19/21 00:00 09/24/21 00:00 09/19/21 01:09 15 MG Ondansetron HCl (Zofran) 4 mg OT STAT IV 09/18/21 23:43 09/18/21 23:45 DC 09/19/21 01:09 4 MG Laboratory Tests Test 09/18/21 00:25 09/18/21 00:52 09/18/21 01:27 Influenza Type A Antigen NEGATIVE (NEG) Influenza Type B Antigen NEGATIVE (NEG) SARS-CoV-2 Antigen (Rapid) NEGATIVE (NEGATIVE) White Blood Count 9.8 10^3/uL (4.5-11.0) Red Blood Count 4.88 10^6/uL (4.00-5.20) Hemoglobin 16.0 g/dL (12.0-15.0) H Hematocrit 47.4 % (36.0-46.0) H Mean Corpuscular Volume 97.1 fL (78-100) Mean Corpuscular Hemoglobin 32.8 pg (26-34) Mean Corpuscular Hemoglobin Concent 33.8 g/dL (33-36.5) Red Cell Distribution Width 12.6 % (11.5-14.5) Platelet Count 357 10^3/uL (150-400) Mean Platelet Volume 9.1 fL (7.8-11.0) Neutrophils (%) (Auto) 55.4 % (41.0-85.0) Lymphocytes (%) (Auto) 35.9 % (24.0-44.0) Monocytes (%) (Auto) 5.6 % (5.0-12.0) Neutrophils # (Auto) 5.4 10^3/uL (1.8-7.7) Lymphocytes # (Auto) 3.53 10^3/uL1 (1.0-4.8) Monocytes # (Auto) 0.6 10^3/uL (0.3-0.8) Absolute Immature Granulocyte (auto 0.01 10^3 u/L (0-2) Absolute Eosinophils (auto) 0.2 10^3/uL (0.0-0.2) Immature Granulocytes % 0.10 % (0.00-0.50) Eosinophils % 2.1 % (0.0-5.0) Basophils % 1.0 % (0.0-0.2) H Basophils # 0.1 10^3/uL (0.0-0.1) Sodium Level 139 mmol/L (132-145) Potassium Level 3.5 mmol/L (3.6-5.2) L Chloride Level 103.0 mmol/L (96-109) Carbon Dioxide Level 27.1 mmol/L (20.0-32) Anion Gap 12.4 Blood Urea Nitrogen 16 mg/dL (7-18) Creatinine 0.96 mg/dL (0.59-1.40) Estimated GFR () 76.4 (>/=60) Est GFR (CKD-EPI)(Non-Afr [place]) 63.1 (>/=60) BUN/Creatinine Ratio 16.0 Glucose Level 95 mg/dL (70-110) Calcium Level 9.8 mg/dL (8.4-10.5) Total Bilirubin 0.7 mg/dL (0.2-1.0) Aspartate Amino Transferase (AST) 12 U/L (0-35) Alanine Aminotransferase (ALT) 15 U/L (12-78) Alkaline Phosphatase 64 U/L (50-136) Total Protein 7.7 g/dL (6.4-8.2) Albumin 3.9 g/dL (3.4-5.0) Globulin 3.8 Albumin/Globulin Ratio 1.026 Lipase 72 U/L (114-286) L Serum HCG, Qualitative NEGATIVE (NEGATIVE) Urine Collection Type CCMS Urine Color YELLOW Urine Appearance CLOUDY Urine Bilirubin NEGATIVE (NEGATIVE) Urine Ketones NEGATIVE (NEGATIVE) Urine Specific [place] 1.025 (1.005-1.030) Urine pH 7.0 (4.5-8.0) Urine Protein 3+ (NEGATIVE) H Urine Urobilinogen 0.2 E.U./dL (0.2) Urine Nitrate NEGATIVE (NEGATIVE) Urine Leukocyte Esterase 3+ (NEGATIVE) H Urine Glucose (Auto)(UA) NEGATIVE (NEGATIVE) Urine Blood 3+ (NEGATIVE) H Urine RBC TooNumerousToCount RBC/HPF (NONE Urine WBC TooNumerousToCount WBC/HPF (0-2) Urine Squamous Epithelial Cells FEW (<=FEW) Urine Bacteria FEW (NONE SEEN) H Progress Progress Patient here with extensive history of urinary tract infections as well as kidney stones will obtain CT imaging Noncon as well as labs will provide pain and nausea control as they arise will continue to monitor patient. 0151 - Reassessment - pt has a UTI -will treat with abx here and dc with abx - pt pain and anxiety much improved - watching her cell phone - they stated they would call her Urologist in the morning. Pt otherwise HDS. rest of labs reassuring as is imaging ER DEPART Departure Time of Disposition: 01:52 Disposition: 01 HOME / SELF CARE / HOMELESS Impression: Primary Impression: Calculus of kidney Additional Impressions: Hx of renal calculi PTSD (post-traumatic stress disorder) UTI (urinary tract infection) Condition: Improved Patient Instructions: Urinary Tract Infection Referrals: GI MILLER MD (PCP) PRIMARY CARE PROVIDER Additional Instructions: Please take all medications as directed. You should follow-up with your primary care provider and your urologist within the next week. This is what we discusse d. If you have any new persistent or worsening symptoms or concerns please seek emergent medical attention. Duration or Time Spent with Pa: 30 Problem Qualifiers Additional Impressions: UTI (urinary tract infection) Urinary tract infection type: site unspecified Hematuria presence: with hematuria Qualified Codes: N39.0 - Urinary tract infection, site not specified; R31.9 - Hematuria, unspecified THERESA GUTIERREZ MD Sep 19, 2021 00:28
--- NOTE | 2021-09-19 00:43 | DIREP ---
PROCEDURE:CT ABDOMEN/PELVIS W/O CONTRAST COMPARISON:[facility], CT, CT ABD/PELVIS W/O, 08/20/2021, 02:57 PM. INDICATIONS:abd pain TECHNIQUE:Axial images were created through the abdomen and pelvis without intravenous contrast material. No oral contrast was administered. Sagittal and coronal reconstructions were performed from source images. FINDINGS: LUNG BASES:Apparent mild COPD/emphysema. No suspicious airspace consolidation. LIVER:Subtle low-attenuation focus within the right hepatic dome would statistically reflect a cyst or potential hemangioma. This is incompletely evaluated by the lack of intravenous contrast. BILIARY:The gallbladder is nondistended. No radiopaque calculi. No significant intrahepatic or extrahepatic biliary ductal dilatation. PANCREAS:No suspicious pancreatic abnormality. SPLEEN:The spleen is not significantly enlarged. No focal splenic lesion identified. ADRENALS:Mild nonspecific thickening of the left adrenal gland. Unremarkable right adrenal gland. URINARY TRACT:Punctate nephrolithiasis bilaterally. No right ureteral calculi are identified. Left ureteral stent is present. The presence of a left ureteral stent limits evaluation for left ureteral calculi. There is mild fullness of the left intrarenal collecting system with mild inflammatory stranding about the left intrarenal collecting system and left ureter. AORTA/VASCULAR:Scattered atherosclerotic calcifications without aneurysmal dilatation. RETROPERITONEUM:No suspicious retroperitoneal lymphadenopathy. BOWEL/MESENTERY:No evidence for small bowel obstruction. No gross colonic abnormality. The appendix is believed to be identified and appears within normal limits. No free air. ABDOMINAL WALL:No significant hernia. PELVIC ORGANS:The urinary bladder is mildly distended. The uterus is not enlarged for the patient's age. Adnexal regions appear within acceptable limits. No free fluid. BONES:No acute abnormality. CONCLUSION: 1. Bilateral nephrolithiasis. No right ureteral calculi or right hydronephrosis. Left ureteral stent is present, limiting the evaluation for residual left ureteral calculi. There is subtle fullness of the left intrarenal collecting system and left renal pelvis with mild inflammatory stranding about the left renal pelvis and proximal ureter which is nonspecific and can be seen in the setting of an indwelling catheter. Please correlate with urinalysis to exclude potential superimposed infection. 2. No gross colonic abnormality. Normal appendix. 3. Additional findings as discussed above. Dictated by: Pascual Ace M.D. On 09/19/2021 at 00:35 AM
[2021-09-19 01:04] LABS: BASOPHIL # 0.1 10^3/uL (0.0-0.1); EOSINOPHIL # 0.2 10^3/uL (0.0-0.2); EOSINOPHIL % 2.1 % (0.0-5.0); LYMPHOCYTES # 3.53 10^3/uL1 (1.0-4.8); LYMPHOCYTES % 35.9 % (24.0-44.0); MEAN CORP HGB 32.8 pg (26-34); MONOCYTES # 0.6 10^3/uL (0.3-0.8); MONOCYTES % 5.6 % (5.0-12.0); NEUTROPHIL # 5.4 10^3/uL (1.8-7.7); NEUTROPHILS % 55.4 % (41.0-85.0); PLATELET COUNT 357 10^3/uL (150-400); RED CELL DISTRIBUTION WIDTH 12.6 % (11.5-14.5)
[2021-09-19 01:21] LABS: CARBON DIOXIDE 27.1 mmol/L (20.0-32)
[2021-09-19] MEDS ORDERED: ATARAX PO STA (01:35)
[2021-09-19 01:38] LABS: BILIRUBIN,URINE NEGATIVE (NEGATIVE); UROBILINOGEN,URINE 0.2 E.U./dL (0.2)
[2021-09-19] MEDS ORDERED: ATARAX ONE (01:38)
[2021-09-19] MEDS ORDERED: ROCEPHIN 1,000 MG in NS 100ML 100 ML IV STA (01:46)
[2021-09-19] MEDS ORDERED: ROCEPHIN ONE (01:50)
[2021-09-19] MEDS ORDERED: NS 100ML 100 ML IV ONE (01:51)
[2021-09-19 01:55] VITALS: BP 162/82
[2021-10-04] MEDS ORDERED: TAMS-14 PO (10:14)
[2021-10-04] MEDS ORDERED: TRAM50TA PO (10:14)
== END 2021-09-19 02:00 | disposition home or self-care (01) ==
LOC: ER 21:53
DX: N20.0 Calculus of kidney (principal); Z20.822 Contact with and (suspected) exposure to COVID-19; R19.7 Diarrhea, unspecified; F43.10 Post-traumatic stress disorder, unspecified; I10 Essential (primary) hypertension; N39.0 Urinary tract infection, site not specified; Z87.442 Personal history of urinary calculi; Z88.0 Allergy status to penicillin; Z88.2 Allergy status to sulfonamides
CPT/HCPCS: 99284; 74176; 87426; 80053; 85025; 36415; 87804 ×2; 81001; 83690; 84703; 96365; 96375; 87086; J2405; J1885; J0696 ×2

== ENCOUNTER 2021-10-02 17:44 | Emergency (ER) | payer OTHER ==
[~2021-10-02] VITALS: Ht 152.4 cm; Wt 55.8 kg
[2021-10-02 17:55] VITALS: BP 178/117
[2021-10-02] MEDS ORDERED: TORADOL IM STA (19:29)
[2021-10-02 19:54] LABS: BILIRUBIN,URINE NEGATIVE (NEGATIVE); UROBILINOGEN,URINE 0.2 E.U./dL (0.2)
[2021-10-02] MEDS ORDERED: TORADOL ONE (20:57)
[2021-10-02 21:01] LABS: MEAN CORP HGB 33.4 pg (26-34); RED CELL DISTRIBUTION WIDTH 12.6 % (11.5-14.5)
[2021-10-02 21:11] LABS: CARBON DIOXIDE 26.5 mmol/L (20.0-32)
[2021-10-02] MEDS ORDERED: ROCEPHIN 1,000 MG in NS 100ML 100 ML IV STA (21:44)
--- NOTE | 2021-10-02 21:55 | ER.PDOC ---
General Chief Complaint: Requesting Medical Care Stated Complaint: FLANK PAIN,BACK PAIN,FEMALE Time seen by MD: 20:00 Source: patient Exam Limitations: no limitations History of Present Illness Initial Comments Patient has left ureteral stent. She is complaining that for about 2 weeks she is having stent pain. She was seen here about 2 weeks ago for the same complaint and given antibiotics for UTI. Her stent is due to be removed in 2 days. She is requesting for pain control. No nausea or vomiting. Severity/Quality: moderate Radiation: back Associated Symptoms: denies symptoms Exacerbated by: nothing Relieved By: nothing Allergies: Coded Allergies: shellfish derived (Verified Allergy, Severe, 03/13/20) chlorhexidine (Verified Allergy, Mild, Rash, 03/13/20) Penicillins (Verified Allergy, Unknown, unk, 12/01/19) Sulfa (Sulfonamide Antibiotics) (Verified Allergy, Unknown, unk, 12/01/19) Uncoded Allergies: CONTRAST (Allergy, Severe, Anaphylaxis Shock, 03/13/20) Home Meds Active Scripts Promethazine Hcl (PROMETHAZINE HCL) 25 Mg Tablet, 25 MG PO Q6 PRN for NAUSEA, #5 TAB Prov:GI MILLER MD 08/21/21 Ciprofloxacin Hcl (CIPRO) 500 Mg Tablet, 1 TAB PO BID for 10 Days, #20 TAB 0 Refills Prov:GI MILLER MD 08/21/21 Cefuroxime Axetil (CEFUROXIME) 500 Mg Tablet, 500 MG PO BIDAC, #14 TAB Prov:SHAHIDA DAMON MD 06/04/21 Reported Medications Tramadol Hcl (TRAMADOL HCL) 50 Mg Tablet, 1 TAB PO Q6 PRN for PAIN 4 - 6, #20 TAB 08/21/21 Past Medical History Medical History: other Surgical History: , other Family History Significant Family History: no pertinent family hx Social History Smoking: non-smoker Alcohol Use: none Drug Use: none Constitutional: no symptoms reported EENTM: no symptoms reported Respiratory: no symptoms reported Cardiovascular: no symptoms reported Genitourinary: see HPI All Other Systems: Reviewed and Negative Physical Exam General Appearance: No Apparent Distress, WD/WN HEENT: PERRL/EOMI, Normal ENT Inspection, TMs Normal, Pharynx Normal Neck: Non-Tender, Full Range of Motion, Supple, Normal Inspection Respiratory: chest non-tender, lungs clear, normal breath sounds, no respiratory distress, no accessory muscle use Cardiovascular: Normal Peripheral Pulses, Regular Rate, Rhythm, No Edema, No Gallop, No JVD, No Murmur Gastrointestinal: Normal Bowel Sounds, No Organomegaly, No Pulsatile Mass, Tenderness (suprapubic) Back: Normal Inspection, No CVA Tenderness, No Vertebral Tenderness Extremities: Normal Range of Motion, Non-Tender, Normal Inspection, No Pedal Edema, No Calf Tenderness, Normal Capillary Refill, Pelvis Stable Neurologic/Psychiatric: exchange clerk II-XII NML as Tested, No Motor/Sensory Deficits, Alert, Normal Mood/Affect, Oriented x 3 Skin: Normal Color, Warm/Dry Results/Orders Results/Orders Orders - CURTIS HAWIKNS MD Cbc W/O Diff (10/02/21 19:29) Basic Metabolic Panel (10/02/21 19:29) Urinalysis (10/02/21 19:29) Hcg Urine (10/02/21 19:29) Ketorolac Tromethamine (Toradol) (10/02/21 19:29) Urine Culture (10/02/21 17:55) Ketorolac Tromethamine (Toradol) (10/02/21 20:57) Ceftriaxone Sodium (Rocephin) (10/02/21 21:44) Administered Medications Medications (Trade) Dose Ordered Sig/Luis Route PRN Reason Start Time Stop Time Status Last Admin Dose Admin Ketorolac Tromethamine (Toradol) 60 mg STAT STAT IM 10/02/21 19:29 10/02/21 19:32 DC 10/02/21 21:01 60 MG Laboratory Tests Test 10/02/21 17:55 10/02/21 20:53 Urine Collection Type UNKNOWN Urine Color YELLOW Urine Appearance CLOUDY Urine Bilirubin NEGATIVE (NEGATIVE) Urine Ketones NEGATIVE (NEGATIVE) Urine Specific [place] 1.025 (1.005-1.030) Urine pH 7.0 (4.5-8.0) Urine Protein 2+ (NEGATIVE) H Urine Urobilinogen 0.2 E.U./dL (0.2) Urine Nitrate NEGATIVE (NEGATIVE) Urine Leukocyte Esterase 2+ (NEGATIVE) H Urine Glucose (Auto)(UA) NEGATIVE (NEGATIVE) Urine Blood 3+ (NEGATIVE) H Urine RBC TooNumerousToCount RBC/HPF (NONE Urine WBC TooNumerousToCount WBC/HPF (0-2) Urine Squamous Epithelial Cells FEW (<=FEW) Urine Bacteria FEW (NONE SEEN) H Urine HCG, Qualitative NEGATIVE (NEGATIVE) White Blood Count 10.4 10^3/uL (4.5-11.0) Red Blood Count 4.88 10^6/uL (4.00-5.20) Hemoglobin 16.3 g/dL (12.0-15.0) H Hematocrit 47.7 % (36.0-46.0) H Mean Corpuscular Volume 97.7 fL (78-100) Mean Corpuscular Hemoglobin 33.4 pg (26-34) Mean Corpuscular Hemoglobin Concent 34.2 g/dL (33-36.5) Red Cell Distribution Width 12.6 % (11.5-14.5) Platelet Count 298 10^3/uL (150-400) Mean Platelet Volume 9.4 fL (7.8-11.0) Sodium Level 142 mmol/L (132-145) Potassium Level 3.7 mmol/L (3.6-5.2) Chloride Level 106.0 mmol/L (96-109) Carbon Dioxide Level 26.5 mmol/L (20.0-32) Glucose Level 99 mg/dL (70-110) Blood Urea Nitrogen 15 mg/dL (7-18) Creatinine 0.84 mg/dL (0.59-1.40) Calcium Level 9.9 mg/dL (8.4-10.5) Anion Gap 13.2 Estimated GFR () 89.1 (>/=60) Est GFR (CKD-EPI)(Non-Afr Malagasy) 73.7 (>/=60) BUN/Creatinine Ratio 17.0 Progress Progress CBC is normal. Chemistry is unremarkable. Urinalysis consistent with UTI. Last urinalysis did not grow any organisms. Since patient has been treated with ciprofloxacin without much improvement, I will switch her to cefdinir. Patient received Toradol for pain. She is agreeable to the plan. She received Rocephin. ER DEPART Departure Time of Disposition: 21:55 Disposition: 01 HOME / SELF CARE / HOMELESS Impression: Primary Impression: UTI (urinary tract infection) Additional Impression: S/P ureteral stent placement Condition: Improved Referrals: GI MILLER MD (PCP) PRIMARY CARE PROVIDER Additional Instructions: Cefdinir Ibuprofen Follow-up with your urologist in 2 days as scheduled for stent removal Return to ED if worsening or concerns Duration or Time Spent with Pa: 30 min Problem Qualifiers Primary Impression: UTI (urinary tract infection) Urinary tract infection type: site unspecified Hematuria presence: with hematuria Qualified Codes: N39.0 - Urinary tract infection, site not specified; R31.9 - Hematuria, unspecified CURTIS HAWKINS MD Oct 02, 2021 21:55
[2021-10-02] MEDS ORDERED: NS 100ML 100 ML IV ONE (22:01)
[2021-10-02] MEDS ORDERED: ROCEPHIN ONE (22:01)
[2021-10-02 22:25] VITALS: BP 142/88
[2021-10-04] MEDS ORDERED: TAMS-14 PO (10:14)
[2021-10-04] MEDS ORDERED: TRAM50TA PO (10:14)
== END 2021-10-02 22:25 | disposition home or self-care (01) ==
LOC: ER 17:44
DX: N39.0 Urinary tract infection, site not specified (principal); R31.9 Hematuria, unspecified; Z98.890 Other specified postprocedural states; Z88.0 Allergy status to penicillin; Z88.2 Allergy status to sulfonamides
CPT/HCPCS: 99284; 96372; 87086; 85027; 36415; 80048; 81001; 81025; J1885; J0696

== ENCOUNTER → 2021-10-04 | Day surgery (SDC) | payer OTHER ==
[2021-10-04] VITALS (15 sets, daily range): BP systolic 107–184; BP diastolic 71–115
[~2021-10-04] VITALS: Ht 172.7 cm; Wt 55.8 kg
[~2021-10-04] MED LIST changes: +DECADRON ONE; +DILAUDID IV ONE; +DILAUDID ONE; +DIPRIVAN IV ONE; +LACTATED RINGERS 1,000 ML IV SCH; +LEVAQUIN 100 ML IV ONE; +NS 1000ML 1,000 ML IV SCH; +NS 3000ML IRR IR ONE; +REGLAN IV ONE; +REGLAN ONE; +SODIUM CHLORIDE IRR BOTTLE IR ONE; +SUBLIMAZE ONE; +TORADOL ONE; +TRANDATE IV ONE; +TRANDATE IV PRN; +TYLENOL PO ONE; +VERSED IV ONE; +VERSED ONE; +XYLOCAINE 2% 5ML VIAL ONE; +ZOFRAN ONE
--- NOTE | 2021-10-04 12:16 | OPH ---
DATE OF SURGERY: 10/04/2021 DICTATOR NAME: Andres Beltran MD PREOPERATIVE DIAGNOSIS: Calculus, left mid ureter with an indwelling stent. FINAL DIAGNOSIS: Calculus, left mid ureter with an indwelling stent. PROCEDURE: Cystoscopy, removal of left ureteral stent, left ureteroscopy with basket stone extraction. DESCRIPTION OF PROCEDURE: The patient was brought to the cystoscopy room, was put in supine position on the cystoscopy table. After the patient was given a satisfactory and adequate LMA general anesthesia, the patient was placed in the lithotomy position. The genitalia was then prepped and draped aseptically in the usual manner. First, a 23-Colombian cystoscope was inserted per urethra up to the bladder. With use of the right angle lens, the bladder was visualized and the left ureteral stent was removed and replaced with a Glidewire. Cystoscope was then removed and then a 7-Colombian semirigid ureteroscope inserted per urethra up to the bladder to the left ureteral orifice all the way to the upper ureter and there was some calculi noted in the left mid ureter. Basket stone extraction was then performed. After basket stone extraction, the ureter was again visualized with the ureteroscope up to the upper ureter and there was no more stone noted. The Glidewire was removed. Ureteroscope was removed and a cystoscope was inserted into the bladder and the bladder was emptied with fluid. Procedure was terminated. The patient was awakened. The instrument was removed. The patient was awakened, was transferred to the recovery room in stable condition. Andres Beltran MD DR: JASON/DAISY/FACUNDO OCONNOR: [id number] RECEIPT: [id number]
--- NOTE | 2021-10-04 22:06 | DIREP ---
PROCEDURE:XRAY FLUOROSCOPY COMPARISON:[facility], , XRAY FLUOROSCOPY, 06/28/2021, 10:17 AM. [facility], [facility], XRAY FLUOROSCOPY, 06/02/2021, 02:35 PM. [facility], [facility], XRAY FLUOROSCOPY, 03/31/2021, 09:13 AM. INDICATIONS:INTRAOPERATIVE CYSTO TECHNIQUE:Intraoperative fluoroscopy FINDINGS:Eleven spot fluoroscopic images were submitted. Left ureteral stent placement. Total fluoroscopy time 150.4 seconds. CONCLUSION:Intraoperative fluoroscopy to assist the surgeon. Please see operative report for full details. Dictated by: Kamala Alvarez M.D. on 10/04/2021 at 10:01 PM
== END | disposition home or self-care (01) ==
LOC: SDC 06:22 → EEVIPCON 06:22
PROVIDERS: ATTEND Urology
DX: N20.1 Calculus of ureter (principal); F41.9 Anxiety disorder, unspecified; F32.A Depression, unspecified; K21.9 Gastro-esophageal reflux disease without esophagitis; Z90.710 Acquired absence of both cervix and uterus; Z98.890 Other specified postprocedural states; Z87.891 Personal history of nicotine dependence
CPT/HCPCS: 52352; 82360; A4217 ×2; J1100; J1170; J3490; J2001; J2405 ×2; J2250; J1885; J3010; J2765; 76000; C1769

== ENCOUNTER 2021-11-20 16:29 | Observation (INO) | payer OTHER ==
[~2021-11-20] VITALS: Ht 172.7 cm; Wt 58.3 kg
[~2021-11-20 16:29] MED LIST changes: -DECADRON ONE; -DILAUDID IV ONE; -DILAUDID ONE; -DIPRIVAN IV ONE; -LACTATED RINGERS 1,000 ML IV SCH; -LEVAQUIN 100 ML IV ONE; +LEVO-16 PO; -LEVO500T9 PO; -NS 1000ML 1,000 ML IV SCH; -NS 3000ML IRR IR ONE; -REGLAN IV ONE; -REGLAN ONE; -SODIUM CHLORIDE IRR BOTTLE IR ONE; -SUBLIMAZE ONE; -TORADOL ONE; -TRANDATE IV ONE; -TRANDATE IV PRN; -TYLENOL PO ONE; -VERSED IV ONE; -VERSED ONE; -XYLOCAINE 2% 5ML VIAL ONE; -ZOFRAN ONE
--- NOTE | 2021-11-20 16:34 | NUR ---
ARRIVAL PT ARRIVED VIA WHEELCHAIR TO ED 5 WITH C/O LEFT FLANK PAIN RADIATED TO THE LOWER ABD. VITALS TAKEN AND DR NOTIFIED.
[2021-11-20 16:44] VITALS: BP 174/134
[2021-11-20] MEDS ORDERED: NS 1000ML 1,000 ML IV STA (17:12)
[2021-11-20] MEDS ORDERED: TORADOL IV STA (17:12)
[2021-11-20] MEDS ORDERED: FLOMAX PO ONE (17:17)
[2021-11-20] MEDS ORDERED: TORADOL ONE (17:17)
[2021-11-20] MEDS ORDERED: PHENERGAN ONE (17:17)
[2021-11-20 17:19] LABS: BASOPHIL # 0.1 10^3/uL (0.0-0.1); BASOPHIL % 1.2 % (0.0-0.2); EOSINOPHIL # 0.2 10^3/uL (0.0-0.2); EOSINOPHIL % 1.7 % (0.0-5.0); LYMPHOCYTES # 2.85 10^3/uL1 (1.0-4.8); LYMPHOCYTES % 27.6 % (24.0-44.0); MEAN CORP HGB 33.6 pg (26-34); MONOCYTES # 0.6 10^3/uL (0.3-0.8); MONOCYTES % 5.6 % (5.0-12.0); NEUTROPHIL # 6.6 10^3/uL (1.8-7.7); NEUTROPHILS % 63.8 % (41.0-85.0); PLATELET COUNT 324 10^3/uL (150-400); RED CELL DISTRIBUTION WIDTH 12.6 % (11.5-14.5)
[2021-11-20 17:20] LABS: BILIRUBIN,URINE NEGATIVE (NEGATIVE); UROBILINOGEN,URINE 0.2 E.U./dL (0.2)
[2021-11-20] MEDS: PHENERGAN IV PRN (17:23)
[2021-11-20] MEDS: FLOMAX PO SCH (17:23)
[2021-11-20 17:29] LABS: CARBON DIOXIDE 28.4 mmol/L (20.0-32)
--- NOTE | 2021-11-20 18:00 | DIREP ---
PROCEDURE:CT ABDOMEN/PELVIS W/O CONTRAST COMPARISON:[facility], CT, CT ABD/PELVIS W/O, 09/19/2021, 00:08 AM. INDICATIONS:KIDNEY PAIN TECHNIQUE:Axial images were created through the abdomen and pelvis without intravenous contrast material. No oral contrast was administered. Sagittal and coronal reconstructions were performed from source images. FINDINGS: LUNG BASES:Mild emphysematous changes are seen in both lung bases. LIVER:A 2.1 cm subtle hypodense lesion is again seen in the dome of the liver. BILIARY:Normal. No visible dilatation or calcification. PANCREAS:Normal. No lesion, fluid collection, ductal dilatation, or atrophy. SPLEEN:Normal. No enlargement or focal lesion. ADRENALS:Normal. No mass or enlargement. URINARY TRACT:Multiple small right renal calculi are seen. No right ureteral calculus or right hydronephrosis is seen. Moderate to severe left hydronephrosis is seen with a 5 mm calculus in mid to distal left ureter. Additionally, a 2 mm calculus is also seen in the distal left ureter. AORTA/VASCULAR:Normal. No aneurysm. RETROPERITONEUM:Normal. No mass or adenopathy. BOWEL/MESENTERY:Normal. There is no intestinal obstruction, free fluid, free air or mesenteric inflammatory changes. Normal appendix. ABDOMINAL WALL:Normal. No mass or hernia. PELVIC ORGANS:Normal. No visible mass. Pelvic organs appropriate for patient age. BONES:Normal for age. No bony lesion or acute fracture. OTHER:Negative. CONCLUSION:1. Moderate to severe left hydronephrosis and left hydroureter with a 5 mm calculus in the mid to distal left ureter and 2 mm calculus also seen in the distal left ureter. Right-sided nephrolithiasis is seen. 2. Indeterminate 2.1 cm hypodense lesion in the dome of the liver which may represent a hemangioma. Further evaluation can be performed with liver ultrasound or follow-up CT exam with contrast for liver mass protocol. Dictated by: Noe Zelaya M.D. on 11/20/2021 at 05:50 PM
[2021-11-20 18:11] VITALS: BP 137/81
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
--- NOTE | 2021-11-20 18:20 | NUR ---
ANGELA GARCIA ON THE PHONE WITH DR MILLER
[2021-11-20] MEDS ORDERED: NORCO 5MG PO STA (18:34)
[2021-11-20] MEDS ORDERED: LEVAQUIN 100 ML IV STA (18:34)
[2021-11-20] MEDS ORDERED: CATAPRES PO STA (18:34)
[2021-11-20] MEDS ORDERED: LEVAQUIN 100 ML IV ONE (18:39)
[2021-11-20] MEDS ORDERED: NORCO 5MG PO ONE (18:40)
[2021-11-20] MEDS ORDERED: CATAPRES ONE (18:40)
[2021-11-20 19:23] VITALS: BP 156/111
--- NOTE | 2021-11-20 19:40 | NUR ---
ELENA JOSEPH ON PHONE WITH AT THIS TIME REGARDING ADMISSION.
--- NOTE | 2021-11-20 19:43 | NUR ---
ELENA KEMP ACCEPTED PT AT THIS TIME.
--- NOTE | 2021-11-20 20:11 | NUR ---
REPORT TRANSFERED PATIENT FROM ED TO [facility] FLOOR ROOM 331 VIA WHEELCHAIR. PATIENT TOLERATED. HELPED PATIENT IN BED. GAVE REPORT TO ACCOUNTING MANAGER, NO QUESTIONS OR CONCERNS VOICED.
[2021-11-20 20:23] VITALS: BP 156/113
--- NOTE | 2021-11-20 20:27 | PRM.CONS ---
Subjective Symptoms, Observation: 45-year-old female with history of multiple kidney stones, PTSD, anxiety, and HTN presented to the ED with acute left flank pain. Also endorsed nausea. Initial vitals: BP 174/134, HR 77, RR 18, SPO2 96% on room air, temp 98.3 F, pain 10/10. UA: Positive for UTI. WBC 10.3, Hgb 14.9, platelets 324. Sodium 141, potassium 3.3, chloride 104, CO2 28.4, BUN 13, creatinine 1.02, glucose 114. CT abdomen/pelvis: Moderate to severe left hydronephrosis and left hydroureter with 5 mm calculus in the mid to distal left ureter and 2 mm calculus in the distal left ureter, right-sided nephrolithiasis also seen; indeterminate 2.1 cm hypodense lesion in the dome of the liver which may represent a hemangioma, f urther eval can be performed with liver ultrasound or follow-up CT exam with contrast for liver mass protocol. Patient received Levaquin 500 mg IV x1, clonidine 0.2 mg p.o. x1, 1 L NS bolus, [place] 10 mg p.o. x1, Toradol 30 mg IV x1, Phenergan 25 mg IV x1, and tamsulosin 0.4 mg p.o. x1 while in the ED. Dr. Beltran consulted in ED and is taking patient for stent tomorrow afternoon. Patient placed in observation 2/2 obstructing nephrolithiasis and left ureter causing [place] nephrosis and hydroureter, UTI, and management of chronic conditions. Objective Exam,Results,Procedures VS - Last 72 Hours, by Label Date Time Temp Pulse Resp B/P (MAP) Pulse Ox O2 Delivery O2 Flow Rate FiO2 11/21/21 04:12 98.6 75 18 147/98 (114) 97 Room Air* 0 21 11/20/21 23:53 98.0 73 18 140/99 (113) 96 Room Air* 0 21 11/20/21 22:00 Room Air 0.00 11/20/21 21:35 Room Air 0.00 11/20/21 20:23 97.9 64 20 156/113 (127) 97 Room Air* 0 21 11/20/21 19:23 98.3 65 18 156/111 (126) 97 Room Air* 0 21 10/10/22 18:43 73 195/113 11/20/21 18:11 98.3 77 18 137/81 (99) 96 Room Air* 0 21 11/20/21 16:44 98.3 77 18 11/20/21 16:44 98.3 77 18 174/134 (147) 96 Room Air* 0 21 11/20/21 16:44 98.3 77 18 96 Laboratory Tests Test 11/20/21 17:00 White Blood Count 10.3 10^3/uL Red Blood Count 4.44 10^6/uL Hemoglobin 14.9 g/dL Hematocrit 44.7 % Mean Corpuscular Volume 100.7 fL Mean Corpuscular Hemoglobin 33.6 pg Mean Corpuscular Hemoglobin Concent 33.3 g/dL Red Cell Distribution Width 12.6 % Platelet Count 324 10^3/uL Mean Platelet Volume 9.3 fL Neutrophils (%) (Auto) 63.8 % Lymphocytes (%) (Auto) 27.6 % Monocytes (%) (Auto) 5.6 % Neutrophils # (Auto) 6.6 10^3/uL Lymphocytes # (Auto) 2.85 10^3/uL1 Monocytes # (Auto) 0.6 10^3/uL Absolute Immature Granulocyte (auto 0.01 10^3 u/L Absolute Eosinophils (auto) 0.2 10^3/uL Immature Granulocytes % 0.10 % Eosinophils % 1.7 % Basophils % 1.2 % Basophils # 0.1 10^3/uL Urine Collection Type UNKNOWN Urine Color YELLOW Urine Appearance CLOUDY Urine Bilirubin NEGATIVE Urine Ketones NEGATIVE Urine Specific [place] 1.025 Urine pH 6.0 Urine Protein TRACE Urine Urobilinogen 0.2 E.U./dL Urine Nitrate NEGATIVE Urine Leukocyte Esterase TRACE Urine Glucose (Auto)(UA) NEGATIVE Urine Blood 2+ Urine RBC TooNumerousToCount RBC/HPF Urine WBC 5-10 WBC/HPF Urine Squamous Epithelial Cells MANY Urine Bacteria MANY Sodium Level 141 mmol/L Potassium Level 3.3 mmol/L Chloride Level 104.0 mmol/L Carbon Dioxide Level 28.4 mmol/L Anion Gap 11.9 Blood Urea Nitrogen 13 mg/dL Creatinine 1.02 mg/dL Estimated GFR () 71.2 Est GFR (CKD-EPI)(Non-Afr Citizen Of [place]) 58.9 BUN/Creatinine Ratio 12.0 Glucose Level 114 mg/dL Calcium Level 9.8 mg/dL Total Bilirubin 0.7 mg/dL Aspartate Amino Transf (AST/SGOT) 11 U/L Alanine Aminotransferase (ALT/SGPT) 12 U/L Alkaline Phosphatase 64 U/L Total Protein 7.7 g/dL Albumin 3.9 g/dL Globulin 3.8 Albumin/Globulin Ratio 1.[address] abd/pelvis: see findings in HPI above. Assessment & Plan Problems/DX: (1) Ureteral stone with hydronephrosis (2) UTI (urinary tract infection) (3) Hypertension (4) PTSD (post-traumatic stress disorder) (5) Anxiety Provider Note: 45-year-old female well-known to this hospital presented to the ED with acute left flank pain radiating to her groin. Was found to have obstructing 5 mm stone in the left mid ureter and 2 mm in distal ureter with resultant hydronephrosis and hydroureter. Dr. Beltran consulted from ED and will take patient for stent placement tomorrow afternoon. 1. Ureteral stone with hydronephrosis Continue IV fluids Pain management Nausea control Tamsulosin daily Dr. Beltran consulted, taking for stent tomorrow afternoon 2. UTI Culture obtained in ED. Patient received Levaquin 500 mg IV x1 in ED. Continue Levaquin IV daily Continue IV fluids Repeat CBC in a.m. 3. Hypertension BP elevated in ED, received clonidine with improvement in BP. Close monitoring Hydralazine as needed with parameters 4. PTSD 5. Anxiety Continue home meds Ativan as needed DVT PPx: SCDs. CODE STATUS: Full code. Encounter via telemedicine on HIPAA compliant platform. VTE VTE Risk Total Score: 1 VTE Risk Score VTE Risk: Score 0-1 = Low Risk (Aggressive mobilization; early ambulation; no VTE prophylaxis required) Score 2: Moderate Risk (Intermittent/Pneumatic Compression Device OR Lovenox/Heparin/Coumadin) Score 3-4: High Risk (Intermittent/Pneumatic Compression Device AND Lovenox/Heparin/Coumadin) Score > or =5: Highest Risk (Intermittent/Pneumatic Compression Device AND Lovenox/Heparin/Coumadin) Antico:Hep/LMWH/Coum/Xarelto: No Mechanical device ordered: Yes Reasons not ordering prophylax: Surgical Contraindication HEATH PARKER MD Nov 20, 2021 20:27
[2021-11-20] MEDS ORDERED: APRESOLINE IV PRN (20:30)
[2021-11-20] MEDS: NS 1000ML 1,000 ML IV SCH (21:12)
[2021-11-20] MEDS: MORPHINE SULFATE IV PRN (21:13)
[2021-11-20] MEDS: ATIVAN IV PRN (22:14)
[2021-11-20] MEDS ORDERED: BENADRYL IV PRN (22:30)
[2021-11-20 23:53] VITALS: BP 140/99
[2021-11-21] MEDS: TORADOL IV SCH ×4 (00:42→23:08)
[2021-11-21 04:12] VITALS: BP 147/98
[2021-11-21] MEDS: NORCO 5MG PO PRN ×2 (04:41→16:05)
[2021-11-21] MEDS: ATIVAN IV PRN ×3 (05:24→15:49)
--- NOTE | 2021-11-21 07:00 | NUR ---
DR MILLER CALLED TO MAKE PT NPO, INFORMED PT, TOOK AWAY WATER, PUT NPO SIGN ON DOOR. PT ARGUED THAT "SHE DID NOT NEED TO BE NPO, MY METABOLISM IS FAST AND I NEED TO EAT."
[2021-11-21] MEDS: NS 1000ML 1,000 ML IV SCH ×2 (07:07→17:05)
[2021-11-21 07:59] VITALS: BP 149/98
[2021-11-21] MEDS: COLACE PO SCH (08:22)
[2021-11-21] MEDS: FLOMAX PO SCH (08:48)
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
--- NOTE | 2021-11-21 09:41 | NUR ---
aTIVAN 1MG IV GIVEN AT THIS TIME PER PT REQUEST
[2021-11-21] MEDS: MORPHINE SULFATE IV PRN ×2 (09:54→13:38)
--- NOTE | 2021-11-21 09:54 | NUR ---
MORPHINE 4MG IV GIVEN FOR PAIN PER ORDER
--- NOTE | 2021-11-21 10:02 | NUR ---
DISCHARGE PLAN - F/U WITH DR ANGELA [email or web address] AND ATTEMPTED TO VISIT WITH PATIENT ABOUT DISCHARGE PLANS, NEEDS, AND GOALS. PATIENT CURRENTLY LIVES@HOME WITH HER 15 Y/O DAUGHTER THAT IS HOME SCHOOLED. PATIENT REPORTS THAT SHE HAS PTSD AND SHE "LOOSES IT" AROUND MEN AND NEEDS HH. PATIENT REPORTS THAT PER HER INSURANCE "THERE ARE NO DOCTORS WHO TAKE HER INSURANCE IN TOWN." CM OFFERED TO SEE IF PATIENT COULD GET AN APPT WITH [facility] AND CM INFORMED " I TOLD YOU THERE ARE NO DOCTORS HERE THAT TAKE MY INSURANCE." PATIENT STATES THAT CM "NEEDS TO TELL ME WHAT YOU CAN OFFER ME AND DO FOR ME." PATIENT STATES THAT "I DO NOT NEED TO PUT MYSELF THROUGH THE ANXIETY OF TELLING YOU MY INFORMATION SO THAT YOU CAN JUST TELL ME THAT YOU CAN NOT HELP ME." WHEN CM QUESTIONED PATIENT ABOUT DME - PATIENT DENIES HAVING OR NEEDING ANY MEDICAL EQUIPMENT@HOME. 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 DURING CONVERSATION WITH CM - PATIENT GOES INTO SPEAKING ANOTHER LANGUAGE IF SHE IS PRAYING. CM ATTEMPTED TO EXPLAIN TO PATIENT THE DIFFERENCE BETWEEN A PROVIDER SERVICE AND HOME HEALTH AND PATIENT CALLS NURSES STATION AND REQUEST PIN AND PAPER AND ONCE PROVIDED STARTS WRITING DOWN - #1 NO DOCTOR IN [place]. PATIENT STATES "I REFUSE TO EXPLAIN MY NEEDS AND PROVE TO YOU WHAT I NEED. YOU HAVE THE MEDICAL RECORD FOR THAT DOCUMENTATION." CM OFFERED TO COME BACK AND SEE PATIENT AFTER STENT PLACEMENT AND PROCEDURE AND PATIENT DENIES NEED FOR CM TO RETURN.
[2021-11-21 10:23] LABS: CARBON DIOXIDE 21.5 mmol/L (20.0-32)
[2021-11-21 12:00] VITALS: BP 190/122
--- NOTE | 2021-11-21 13:38 | NUR ---
mORPHINE 4MG IV GIVEN AT THIS TIME PER ORDER
--- NOTE | 2021-11-21 14:10 | PCM.HP ---
HISTORY & PHYSICAL HISTORY & PHYSICAL SHORT STAY (<48 hours) H&P AND DISCHARGE DATE OF ADMISSION: 11/21/2021 CHIEF COMPLAINT: Left flank pain HISTORY OF PRESENT ILLNESS/HOSPITAL COURSE: Patient is a 45-year-old lady medical history of nephrolithiasis, PTSD, anxiety, hypertension presented to the ER with complaints of left flank pain and severe associated nausea. Reports increasing pain over the past 2 days, reports unable to pass known kidney stones, reports hematuria 1 day ago. Patient was admitted overnight by telemetry medicine physician for pain and symptomatic management with plans for placement of ureteral stent by Dr. Crawford today. During evaluation patient was defensive and short tempered and did not wish to answer questions for H&P, there was a delay for procedure due to patient eating breakfast. Once patient had placement of stent, was stable for discharge home. Patient to follow with Dr. Crawford within 1 to 2 weeks. ALLERGIES: Penicillin, sulfa, shellfish, chlorhexidine CURRENT MEDICATIONS: Patient reports only Ibuprofen PCP: none Pharmacy: [facility] PAST MEDICAL HISTORY: Nephrolithiasis, PTSD, anxiety, hypertension SOCIAL HISTORY: Current smoker denied alcohol denied illicit drug use Reports living alone SURGICAL HISTORY: 3 sections Reports placement of stent about 3 to 4 weeks ago FAMILY HISTORY: Father history of nephrolithiasis REVIEW OF SYSTEMS: 10 point ROS negative per HPI (patient not cooperative during exam) VITAL SIGNS: VS - Last 72 Hours, by Label Date Time Temp Pulse Resp B/P (MAP) Pulse Ox O2 Delivery O2 Flow Rate FiO2 11/21/21 12:00 98.3 75 16 190/122 (144) 97 Room Air* 0 11/21/21 07:59 97.9 55 16 149/98 (115) 97 Room Air* 0 11/21/21 07:57 Room Air 11/21/21 04:12 98.6 75 18 147/98 (114) 97 Room Air* 0 11/20/21 23:53 98.0 73 18 140/99 (113) 96 Room Air* 0 21 11/20/21 22:00 Room Air 0.00 11/20/21 21:35 Room Air 0.00 11/20/21 20:23 97.9 64 20 156/113 (127) 97 Room Air* 0 11/20/21 19:23 98.3 65 18 156/111 (126) 97 Room Air* 0 11/20/21 18:43 73 195/113 11/20/21 18:11 98.3 77 18 137/81 (99) 96 Room Air* 0 21 11/20/21 16:44 98.3 77 18 11/20/21 16:44 98.3 77 18 174/134 (147) 96 Room Air* 0 21 11/20/21 16:44 98.3 77 18 96 PHYSICAL EXAMINATION: LABORATORY DATA: Laboratory Tests 11/20/21 17:00: White Blood Count 10.3, Red Blood Count 4.44, Hemoglobin 14.9, Hematocrit 44.7, Mean Corpuscular Volume 100.7H, Mean Corpuscular Hemoglobin 33.6, Mean Corpuscular Hemoglobin Concent 33.3, Red Cell Distribution Width 12.6, Platelet Count 324, Mean Platelet Volume 9.3, Neutrophils (%) (Auto) 63.8, Lymphocytes (%) (Auto) 27.6, Monocytes (%) (Auto) 5.6, Neutrophils # (Auto) 6.6, Lymphocytes # (Auto) 2.85, Monocytes # (Auto) 0.6, Absolute Immature Granulocyte (auto 0.01, Absolute Eosinophils (auto) 0.2, Immature Granulocytes % 0.10, Eosinophils % 1.7, Basophils % 1.2H, Basophils # 0.1, Urine Collection Type UNKNOWN, Urine Color YELLOW, Urine Appearance CLOUDY, Urine Bilirubin NEGATIVE, Urine Ketones NEGATIVE, Urine Specific [place] 1.025, Urine pH 6.0, Urine Protein TRACE, Urine Urobilinogen 0.2, Urine Nitrate NEGATIVE, Urine Leukocyte Esterase TRACEH, Urine Glucose (Auto)(UA) NEGATIVE, Urine Blood 2+H, Urine RBC TooNumerousToCountH, Urine WBC 5-10H, Urine Squamous Epithelial Cells MANY, Urine Bacteria MANYH, Sodium Level 141, Potassium Level 3.3L, Chloride Level 104.0, Carbon Dioxide Level 28.4, Anion Gap 11.9, Blood Urea Nitrogen 13, Creatinine 1.02, Estimated GFR () 71.2, Est GFR (CKD-EPI)(Non-Afr Slovak) 58.9, BUN/Creatinine Ratio 12.0, Glucose Level 114H, Calcium Level 9.8, Total Bilirubin 0.7, Aspartate Amino Transf (AST/SGOT) 11, Alanine Aminotransferase (ALT/SGPT) 12, Alkaline Phosphatase 64, Total Protein 7.7, Albumin 3.9, Globulin 3.8, Albumin/Globulin Ratio 1.026 11/21/21 09:45: Sodium Level 139, Potassium Level 3.8, Chloride Level 107.0, Carbon Dioxide Level 21.5, Anion Gap 14.3, Blood Urea Nitrogen 12, Creatinine 0.90, Estimated GFR () 82.3, Est GFR (CKD-EPI)(Non-Afr Slovak) 68.0, BUN/Creatinine Ratio 13.0, Glucose Level 121H, Calcium Level 9.4, Total Bilirubin 0.5, Aspartate Amino Transf (AST/SGOT) 16, Alanine Aminotransferase (ALT/SGPT) 18, Alkaline Phosphatase 59, Total Protein 6.9, Albumin 3.4, Globulin 3.5, Albumin/Globulin Ratio 0.971 IMAGING: CT abdomen pelvis showed moderate to severe left hydronephrolithiasis with 5 mm calculus in the mid to distal left ureter and 2 mm calculus in distal left ureter. Right-sided nephrolithiasis seen. SUMMARY: Patient 45-year-old with history of nephrolithiasis presenting with left flank pain found to have obstructing nephrolithiasis. ASSESSMENT/PLAN/DISCHARGE: Patient was admitted overnight for pain and nausea control, attempted to leave AMA but changed her mind, was on schedule for 11am procedure but she ate breakfast, delay until 4pm for procedure, she tolerated procedure well and was stable for discharge following. Observation/Procedure Only Dispo: Home Condition: Fair Activity: ad marya Follow Up: Dr Crawford 7-10 days ( or as scheduled) JAKOB DHALIWAL MD Nov 21, 2021 14:10
[2021-11-21 15:05] LABS: BASOPHIL # 0.1 10^3/uL (0.0-0.1); BASOPHIL % 0.6 % (0.0-0.2); EOSINOPHIL # 0.2 10^3/uL (0.0-0.2); EOSINOPHIL % 1.2 % (0.0-5.0); LYMPHOCYTES # 3.14 10^3/uL1 (1.0-4.8); LYMPHOCYTES % 24.7 % (24.0-44.0); MEAN CORP HGB 33.8 pg (26-34); MONOCYTES # 0.7 10^3/uL (0.3-0.8); MONOCYTES % 5.1 % (5.0-12.0); NEUTROPHIL # 8.7 10^3/uL (1.8-7.7); NEUTROPHILS % 68.2 % (41.0-85.0); PLATELET COUNT 280 10^3/uL (150-400); RED CELL DISTRIBUTION WIDTH 12.4 % (11.5-14.5)
--- NOTE | 2021-11-21 15:49 | NUR ---
ATIVAN 1 MG IV GIVEN PER PT REQUEST
[2021-11-21] MEDS: PHENERGAN IV PRN (16:05)
--- NOTE | 2021-11-21 16:05 | NUR ---
NORCO 5 PO X1 GIVEN FOR PAIN AND PHENERGAN 25MG IV GIVEN
[2021-11-21 18:14] VITALS: BP 156/101
[2021-11-21] MEDS: ZOFRAN IV PRN (23:08)
--- NOTE | 2021-11-21 23:26 | NUR ---
Pt aggressive and yelling about staff and drs on the telephone. Attempted to redirect patient and ask what was upsetting her. Pt states she is not upset.
[2021-11-21 23:35] VITALS: BP 169/102
[2021-11-22] VITALS (11 sets, daily range): BP systolic 139–191; BP diastolic 94–136
[2021-11-22] MEDS: NORCO 5MG PO PRN (00:22)
[2021-11-22] MEDS: ATIVAN IV PRN ×2 (01:19→09:09)
--- NOTE | 2021-11-22 04:21 | NUR ---
PT REFUSED 0400 VITAL SIGNS. STATES SHE HAS NOT SLEPT AND IF SHE IS SLEEPING DO NOT DISTURB HER
[2021-11-22] MEDS ORDERED: MILK OF MAGNESIA PO SCH (06:00)
[2021-11-22] MEDS: MORPHINE SULFATE IV PRN (06:02)
--- NOTE | 2021-11-22 08:00 | NUR ---
OFF UNIT PT AMBULATED TO ELEVATOR TO LEAVE UNIT. I ASKED HER WHERE WHERE SHE WAS GOING; SHE RESPONDED "TO MEDICAL RECORDS ."
--- NOTE | 2021-11-22 08:15 | NUR ---
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 PT HAS PAPERS IN HER HAND AND THUMBING THROUGH THEM; "MY POTASSIUM IS LOW AND I WANT SOME POTASSIUM BEFORE MY SURGERY SO I DON'T HAVE A HEART ATTACK DURING SURGERY." PT'S POTASSIUM ON ADMISSION WAS 3.3; THIS AM IT IS 3.8.
--- NOTE | 2021-11-22 08:45 | NUR ---
OFF UNIT PATIENT LEFT UNIT AGAIN.
--- NOTE | 2021-11-22 08:50 | NUR ---
PATIENT PATIENT BACK ON UNIT; ACCOMPANIED BY SECURITY. PER SECURITY, PATIENT TOLD HER THAT "SHE'S SAYING THAT SHE NEEDS A POTASSIUM SHOT OR SHE WILL DURING SURGERY."
[2021-11-22] MEDS: NS 1000ML 1,000 ML IV SCH ×2 (08:51→12:30)
[2021-11-22] MEDS: MILK OF MAGNESIA PO SCH ×2 (09:00→13:58)
[2021-11-22] MEDS: FLOMAX PO SCH (09:00)
[2021-11-22] MEDS: COLACE PO SCH (09:00)
[2021-11-22] MEDS: TORADOL IV SCH (09:10)
[2021-11-22] MEDS ORDERED: DECADRON ONE (10:46)
[2021-11-22] MEDS ORDERED: TORADOL ONE (10:46)
[2021-11-22] MEDS ORDERED: ZOFRAN ONE (10:46)
[2021-11-22] MEDS ORDERED: XYLOCAINE 2% 5ML VIAL ONE (10:46)
[2021-11-22] MEDS ORDERED: DIPRIVAN IV ONE (10:47)
[2021-11-22] MEDS ORDERED: VERSED ONE (10:47)
[2021-11-22] MEDS ORDERED: SUBLIMAZE ONE (10:47)
[2021-11-22] MEDS ORDERED: KETALAR ONE (10:47)
[2021-11-22] MEDS ORDERED: LEVOFLOXACIN 500 MG/100 ML IV ONE ×2 (10:55→12:00)
[2021-11-22] MEDS ORDERED: D5W IV ONE ×2 (10:55→12:00)
[2021-11-22] MEDS ORDERED: NORCO 7.5MG PO PRN (12:00)
[2021-11-22] MEDS ORDERED: LACTATED RINGERS 1,000 ML IV SCH (12:00)
--- NOTE | 2021-11-22 12:03 | OPH ---
DATE OF SURGERY: 11/22/2021 DICTATOR NAME: Andres Beltran MD PREOPERATIVE DIAGNOSIS: Calculi, left ureter. FINAL DIAGNOSIS: Calculi, left ureter. PROCEDURE: Cystoscopy, left retrograde with insertion of double-J left ureteral stent. DESCRIPTION OF PROCEDURE: The patient was brought to the cystoscopy room, was put in supine position on the cystoscopy table. After the patient was given a satisfactory and adequate LMA general anesthesia, the patient was placed in the lithotomy position. The genitalia was then prepped and draped aseptically in the usual manner. First, a 23-Vietnamese cystoscope inserted per urethra up to the bladder. With use of the right angle lens, the bladder was visualized. Both ureteral orifices were normal. No tumor, no calculi, no ulcerations seen. Left retrograde was initially performed by placing a 7-Vietnamese ureteral catheter in the left ureteral orifice and injected with Omnipaque dye, which showed a calculus in the left distal ureter and also in the upper ureter with hydronephrosis. After this, a 6-Vietnamese double-J left ureteral stent was then inserted through the Glidewire from the left ureteral orifice all the way to the left kidney. After proper confirmation of the proper placement of the stent, the Glidewire was removed. The bladder was emptied with fluid. Cystoscope was then removed. Procedure was terminated. The patient was awakened, was transferred to the recovery room in stable condition. Andres Beltran MD DR: JUNE TID: [id number] RECEIPT: [id number]
[2021-11-22] MEDS: ZOFRAN IV PRN (14:03)
--- NOTE | 2021-11-22 14:45 | NUR ---
DISCHARGE PLAN - PT REQUEST CM INFORMED PATIENT REQUESTING TO SEE CM. [email or web address] AND VISITED WITH PATIENT. PATIENT REQUESTING HOME HEALTH. CM VISITED WITH PATIENT AND INFORMED PATIENT THAT PATIENT WOULD FIRST HAVE TO GET A PCP. PATIENT STATES "THERE ARE NO DOCTORS HERE IN [place] THAT WILL TAKE MY INSURANCE." PATIENT INFORMED THAT [facility] IN [place] TAKES HER SUPERIOR [facility] INSURANCE. PATIENT STATES THAT SHE "REFUSES TO GO TO [place]." CM INFORMED PATIENT OF CRITERIA FOR HOME HEALTH - PATIENT NEEDING ASSISTANCE WITH PERFORMING AT LEAST ONE OF THE ACTIVITIES OF DAILY LIVING - SUCH BATHING, GROOMING, EATING, OR TOILETING AND PATIENT MUST BE HOMEBOUND. PATIENT LIVES@HOME WITH HER 15 Y/O DAUGHTER AND ABLE TO DRIVE NEEDED. PATIENT ABLE TO WALK OUT TO [place] WITH SECURITY IN ORDER TO SMOKE - IND WITHOUT ANY NEED FOR ANY TYPE OF AIDE. PATIENT HAD BEEN DOWN TO MEDICAL RECORDS THIS AM BY SELF TO OBTAIN PATIENT'S MEDICAL RECORDS. CM INFORMED PATIENT THAT IT IS FRAUD TO PRESCRIBE HOME HEALTH TO SOMEONE THAT IS IND. PATIENT STATES THAT SHE WAS ABLE TO PERFORM THOSE ACTIVITIES PRIOR TO HAVING A STENT PLACED AND NOW SHE IS UNABLE TO PERFORM THOSE ACTIVITIES. PATIENT HAS BEEN SEEN AMBULATING AROUND ROOM AND HALLWAY BY SELF WITHOUT ANY AIDES. PATIENT COMPARES HER STENT SAYING "IT'S LIKE SOMEONE THAT HAD THEIR LEG CHOPPED OFF, THEY NEED ASSISTANCE." CM EXPLAINED TO PATIENT THAT A STENT IS NOT A DEBILITATING PROCEDURE. PATIENT ACKNOWLEDGED THAT CM COULD NOT HELP HER GET A HOME HEALTH AIDE AND DENIES ANY OTHER QUESTIONS OR NEEDS.
--- NOTE | 2021-11-22 16:20 | NUR ---
Late entry 1453 Patient was discharged and had been given all discharge instructions. Patient was waiting on her son to pick her up from hospital. Patient did not want to wait anymore and walked out of room dragging her patient belongings bag with her. I tried to get patient to let me take her down in the wheel chair and patient refused to let me get the wheel chair. She got on the elevator before I could get the wheel chair and left on her own.
--- NOTE | 2021-11-23 01:24 | CNH ---
DATE OF CONSULTATION: 11/21/2021 DICTATOR NAME: Andres Beltran MD HISTORY OF PRESENT ILLNESS: This is a 45-year-old female who was referred for urological evaluation due to left flank pain. The patient was admitted yesterday from the Emergency Room because of left flank pain. The patient has a history of kidney stone. A noncontrast CT scan done in the Emergency Room revealed 2 stones in the left ureter, one is around 5 mm stone in the upper mid ureter and one is in the distal ureter 2 mm with hydronephrosis. Case was discussed with the patient and we are going to schedule her for cystoscopy, left retrograde with possible basket stone extraction or insertion of a left ureteral stent. Andres Beltran MD DR: JOVANY TID: [id number] RECEIPT: [id number]
--- NOTE | 2021-11-23 08:56 | DIREP ---
PROCEDURE:XRAY UROGRAPHY RETROGRADE COMPARISON:[facility], CT, CT ABD/PELVIS W/O, 11/20/2021, 05:33 PM. INDICATIONS:INTRA OP CYSTO, Stent Placement, 10ml OMNI 180, 32.3sec fluoro time, 9.31mGy FINDINGS: Eight intraoperative spot views of the abdomen show left hydronephrosis and placement of a double pigtail ureteral stent with the proximal loop formed in an upper pole calyx and distal loop overlying the left hemipelvis at the level of the ischial spine. Mid and distal ureteral stones versus air bubbles on the initial images. Fluoroscopy time 32.3 seconds. 10 mL Omnipaque 180. CONCLUSION:Placement of left double pigtail ureteral stent. Dictated by: Kristin Bonilla MD on 11/23/2021 at 08:50 AM
[2021-12-01] MEDS ORDERED: CIPR500T86 PO (09:10)
== END 2021-11-22 14:53 | disposition home or self-care (01) ==
LOC: ER 16:29 → MS 19:12 → EEVIPCON 19:12 → EDBEDREQ 19:37
PROVIDERS: ADMIT Family Medicine; ATTEND Internal Medicine
DX: N13.6 Pyonephrosis (principal); F41.9 Anxiety disorder, unspecified; I10 Essential (primary) hypertension; F43.10 Post-traumatic stress disorder, unspecified; F17.200 Nicotine dependence, unspecified, uncomplicated; Z87.442 Personal history of urinary calculi; Z88.0 Allergy status to penicillin; Z79.899 Other long term (current) drug therapy
CPT/HCPCS: 96365; 96375 ×2; 99284; 87086; 74176; 80053 ×2; 85025 ×2; 36415 ×2; 81001; 96376 ×2; 52005; 74420; 76000; G0378 ×40; J7030 ×5; J2060 ×6; J1956 ×2; J1885 ×6; J2550 ×2; J1200; J2405 ×3; C1769; J1100; J3490; J2001; J2250; J3010; Q9965; C1758; C2617

== ENCOUNTER 2021-12-01 06:13 | Day surgery (SDC) | payer OTHER ==
[2021-12-01] VITALS (14 sets, daily range): BP systolic 87–161; BP diastolic 53–107
[~2021-12-01] VITALS: Ht 172.7 cm; Wt 58.3 kg
[~2021-12-01 06:13] MED LIST changes: +D5W IV ONE; +LASIX IV ONE; +LEVOFLOXACIN 500 MG/100 ML IV ONE; +NS 1000ML 1,000 ML IV SCH; +NS 1000ML 1,000 ML ONE
[2021-12-01] MEDS ORDERED: DECADRON ONE (07:32)
[2021-12-01] MEDS ORDERED: ZOFRAN ONE (07:32)
[2021-12-01] MEDS ORDERED: VERSED ONE (07:32)
[2021-12-01] MEDS ORDERED: XYLOCAINE 2% 5ML VIAL ONE (07:32)
[2021-12-01] MEDS ORDERED: SUBLIMAZE ONE (07:33)
[2021-12-01] MEDS ORDERED: DIPRIVAN IV ONE (07:33)
[2021-12-01] MEDS ORDERED: LASIX ONE (09:08)
[2021-12-01] MEDS ORDERED: CIPR500T86 PO (09:10)
--- NOTE | 2021-12-01 09:21 | OPH ---
DATE OF SURGERY: 12/01/2021 DICTATOR NAME: Andres Beltran MD PREOPERATIVE DIAGNOSIS: Left ureteral calculi. FINAL DIAGNOSIS: Left ureteral calculi. PROCEDURE: Left ESWL. DESCRIPTION OF PROCEDURE: The patient was brought to the lithotripsy room, was put in supine position on the lithotripsy table. After the patient was given a satisfactory and adequate LMA general anesthesia and after localization of the stone with the use of an ultrasound, a left ESWL was then performed using a Dornier Compact Delta II lithotripter. A total of 2500 shockwaves were delivered to the stones in the left upper ureter and also in the left lower ureter. After fragmentation of the stone as noted in the ultrasound, the procedure was terminated. The patient was awakened, was transferred to the recovery room in stable condition. Andres Beltran MD DR: YUE TID: [id number] RECEIPT: [id number]
[2021-12-01] MEDS ORDERED: NS 1000ML 1,000 ML ONE (09:25)
[2021-12-01] MEDS ORDERED: LACTATED RINGERS 1,000 ML IV SCH ×2 (09:30)
[2021-12-01] MEDS ORDERED: NORCO 7.5MG PO PRN ×2 (09:30)
[2021-12-01] MEDS ORDERED: DILAUDID IV ONE ×2 (09:45→10:20)
[2021-12-01] MEDS ORDERED: DILAUDID ONE (09:46)
--- NOTE | 2021-12-01 11:22 | DIREP ---
PROCEDURE:XRAY ABDOMEN SINGLE VW COMPARISON:[facility], , XRAY ABDOMEN SINGLE VW, 03/17/2021, 09:16 AM. INDICATIONS:PRE OP LITHO FINDINGS: BOWEL GAS PATTERN:Nonobstructive bowel gas pattern. Moderate colonic stool burden. CALCIFICATIONS:None significant. LUNG BASES:Not visualized. BONES:Normal. OTHER:Left ureteral stent. CONCLUSION:No acute abnormality. Left ureteral stent. Dictated by: Kamala Alvarez M.D. on 12/01/2021 at 11:20 AM
== END 2021-12-01 11:20 | disposition home or self-care (01) ==
LOC: SDC 06:13
PROVIDERS: ATTEND Urology
DX: N20.1 Calculus of ureter (principal); F41.9 Anxiety disorder, unspecified; F32.A Depression, unspecified; Z87.891 Personal history of nicotine dependence; Z79.899 Other long term (current) drug therapy; Z98.890 Other specified postprocedural states
CPT/HCPCS: 50590; 74018; J7030 ×2; J1100; J1170; J3490; J1940; J1956; J2001; J2405; J2250; J3010

== ENCOUNTER 2021-12-20 07:50 | Day surgery (SDC) | payer OTHER ==
[2021-12-20] VITALS (15 sets, daily range): BP systolic 116–187; BP diastolic 81–125
[~2021-12-20] VITALS: Ht 172.7 cm; Wt 58.3 kg
[~2021-12-20 07:50] MED LIST changes: +D5W IV SCH; -LASIX IV ONE; +LEVOFLOXACIN 500 MG/100 ML IV SCH
[2021-12-20] MEDS ORDERED: NS 3000ML IRR IR ONE (10:10)
[2021-12-20] MEDS ORDERED: VERSED ONE (10:11)
[2021-12-20] MEDS ORDERED: TORADOL ONE (10:11)
[2021-12-20] MEDS ORDERED: DECADRON ONE (10:11)
[2021-12-20] MEDS ORDERED: ZOFRAN ONE (10:11)
[2021-12-20] MEDS ORDERED: DIPRIVAN IV ONE (10:12)
[2021-12-20] MEDS ORDERED: SUBLIMAZE ONE (10:12)
[2021-12-20] MEDS ORDERED: LACTATED RINGERS 1,000 ML IV SCH (11:00)
[2021-12-20] MEDS ORDERED: NORCO 7.5MG PO PRN (11:00)
[2021-12-20] MEDS ORDERED: DILAUDID IV ONE (11:10)
--- NOTE | 2021-12-20 11:11 | OPH ---
DATE OF SURGERY: 12/20/2021 DICTATOR NAME: Andres Beltran MD PREOPERATIVE DIAGNOSIS: Calculus, left upper ureter with stent. FINAL DIAGNOSIS: Calculus, left upper ureter with stent. PROCEDURE: Cystoscopy, removal of left ureteral stent, left ureteroscopy with basket stone extraction. DESCRIPTION OF PROCEDURE: The patient was brought to the cystoscopy room, was put in a supine position on the cystoscopy table. After the patient was given a satisfactory and adequate LMA general anesthesia, the patient was placed in a lithotomy position. The genitalia was then prepped and draped aseptically in the usual manner. First, a 23-Czech cystoscope was inserted per urethra up to the bladder. With the use of the right angle lens, the bladder was visualized. There is no tumor, no calculi, no ulcerations seen. The left ureteral stent was then removed and replaced with a Glidewire and then the cystoscope was removed and a 7-Czech semirigid ureteroscope was inserted per urethra up to the bladder to the left ureteral orifice, up to the left upper ureter and the ureter was visualized and there was a stone still noted at the left upper mid-ureter. A basket stone extraction was then performed successfully. After this was done, the rest of the ureter was visualized and there was no more evidence of stone or obstruction. The ureteroscope and the Glidewire were then removed and then a cystoscope was inserted into the bladder and the bladder was emptied with fluid. The procedure was terminated. The instrument was removed. The patient was then awakened and was transferred to the recovery room in a stable condition. Andres Beltran MD DR: JENS TID: [id number] RECEIPT: [id number]
[2021-12-20] MEDS ORDERED: DILAUDID ONE (11:13)
--- NOTE | 2021-12-20 13:50 | PCM.EKG ---
[facility] Test Date: 2021-12-20 Test Time: 08:16:18 Pat Name: IGNACIO DENNEY Department: Room: Gender: F Cell Reliner: JAX : [id number] Requested By: GI MILLER Order Number: [id number] Reading MD: Measurements Intervals [place] Rate: 82 P: 79 WA: 122 QRS: 54 QRSD: 92 T: 64 QT: 384 QTc: 448 Interpretive Statements Normal sinus rhythm Septal infarct , age undetermined No previous ECG available for comparison Please click the below link to view image of tracing.
--- NOTE | 2021-12-20 18:12 | DIREP ---
PROCEDURE:XRAY FLUOROSCOPY COMPARISON:[facility], , XRAY FLUOROSCOPY, 10/04/2021, 09:44 AM. [facility], CR, XRAY FLUOROSCOPY, 06/28/2021, 10:17 AM. INDICATIONS:STENT REMOVAL, 19.94mGy, 102.5sec FLUORO TIME, 11 IMAGES FINDINGS: Intraoperative fluoroscopy was provided for the ordering clinician by the Radiology Department for left double-J stent removal, as demonstrated on the 11 submitted images. 102.5 seconds fluoroscopy time utilized. CONCLUSION: Intraoperative fluoroscopy provided for the ordering clinician by the Radiology Department as detailed above. Dictated by: Gregg Celeste DO on 12/20/2021 at 06:10 PM
== END 2021-12-20 12:55 | disposition home or self-care (01) ==
LOC: SDC 07:50
PROVIDERS: ATTEND Urology
DX: N20.1 Calculus of ureter (principal); I10 Essential (primary) hypertension; F41.9 Anxiety disorder, unspecified; F31.9 Bipolar disorder, unspecified; Z87.891 Personal history of nicotine dependence; Z98.890 Other specified postprocedural states; Z79.899 Other long term (current) drug therapy
CPT/HCPCS: 52332; 82360; 81025; 93005; J7030; A4217; J1100; J1170; J3490; J1956; J2405; J2250; J1885; J3010; 76000; C1769

== ENCOUNTER 2022-01-21 12:57 | Emergency (ER) | payer OTHER ==
[~2022-01-21] VITALS: Ht 165.1 cm; Wt 54.4 kg
[~2022-01-21 12:57] MED LIST changes: -D5W IV ONE; -D5W IV SCH; -LEVOFLOXACIN 500 MG/100 ML IV ONE; -LEVOFLOXACIN 500 MG/100 ML IV SCH; -NS 1000ML 1,000 ML IV SCH; -NS 1000ML 1,000 ML ONE
--- NOTE | 2022-01-21 13:05 | NUR ---
ARRIVAL PT ARRIVED VIA EMS TO ED 5 WITH C/O LEFT KIDNEY PAIN. PT HAS AN EXTENSIVE HISTORY OF KIDNEY STONES. PT TRANSFERRED FROM [facility] TO BED. EMS INITIATED AN IV. VITALS TAKEN AND NOTIFIED.
[2022-01-21 13:22] VITALS: BP 143/99
--- NOTE | 2022-01-21 13:37 | DIREP ---
PROCEDURE:CT RENAL STONE COMPARISON:None. INDICATIONS:abd/flank pain - kidney stone protocol TECHNIQUE:Axial images were created through the abdomen and pelvis without intravenous contrast material. No oral contrast was administered. Sagittal and coronal reconstructions were performed from source images. FINDINGS: LUNG BASES:Mild emphysema. LIVER:No significant liver lesions are identified. BILIARY:Mild gallbladder distention. No gallbladder wall thickening, pericholecystic fluid and no biliary ductal dilatation. PANCREAS:No lesion, fluid collection, ductal dilatation, or atrophy. SPLEEN:No enlargement or focal lesion. ADRENALS:Bilateral adrenals are within normal limits. No mass or thickening. URINARY TRACT:Multiple small stones scattered throughout the right kidney measuring up to 4 mm. There are a few small stones in the left kidney measuring up to 2 mm. Moderate hydronephrosis on the left but no visible stone in the ureter. This may be a recently passed stone. AORTA/VASCULAR:Scattered calcified plaque. RETROPERITONEUM:No adenopathy. BOWEL/MESENTERY:Normal appendix. No bowel obstruction, free fluid or free air. ABDOMINAL WALL:Normal. No mass or hernia. PELVIC ORGANS:Normal. No visible mass. Pelvic organs appropriate for patient age. BONES:No acute findings OTHER:Negative. CONCLUSION: 1. Moderate left-sided hydronephrosis but no visible ureteral stone, this may be secondary to recently passed stone. 2. Bilateral kidney stones. 3. Emphysema in the lungs. Dictated by: Khoi Ruiz M.D. on 01/21/2022 at 01:28 PM
[2022-01-21 13:56] LABS: BILIRUBIN,URINE NEGATIVE (NEGATIVE); UROBILINOGEN,URINE 0.2 E.U./dL (0.2)
[2022-01-21 14:00] LABS: BASOPHIL # 0.1 10^3/uL (0.0-0.1); BASOPHIL % 0.8 % (0.0-0.2); EOSINOPHIL % 0.1 % (0.0-5.0); LYMPHOCYTES # 1.03 10^3/uL1 (1.0-4.8); MEAN CORP HGB 33.3 pg (26-34); MONOCYTES # 0.5 10^3/uL (0.3-0.8); MONOCYTES % 2.7 % (5.0-12.0); NEUTROPHIL # 15.6 10^3/uL (1.8-7.7); NEUTROPHILS % 90.2 % (41.0-85.0); PLATELET COUNT 290 10^3/uL (150-400); RED CELL DISTRIBUTION WIDTH 12.6 % (11.5-14.5)
[2022-01-21 14:15] LABS: CARBON DIOXIDE 22.7 mmol/L (20.0-32)
[2022-01-21 14:23] VITALS: BP 119/80
--- NOTE | 2022-01-21 14:46 | ER.PDOC ---
General Chief Complaint: Flank Pain Stated Complaint: KIDNEY STONE Time seen by MD: 13:00 Source: patient, EMS Exam Limitations: no limitations History of Present Illness Initial Comments Patient is a 46-year-old female with past medical history of multiple ER visits for nephrolithiasis who comes in for left-sided flank pain that started about an hour prior to arrival. Patient states that it is sharp in nature flank pain radiates towards her groin. Patient states that About 2 weeks ago she had a procedure with Dr. Miller On that left side. Patient denies any other symptoms or concerns states that nothing makes her symptoms better or worse. EMS states that patient's vital signs within normal limits in route they gave her 5 of Ve rsed for her anxiety. They also gave her 30 of ketorolac.Patient asks for more benzodiazepines however she can hardly stand up and is almost drooling in the room. Allergies: Coded Allergies: shellfish derived (Verified Allergy, Severe, 03/13/20) chlorhexidine (Verified Allergy, Mild, Rash, 03/13/20) Penicillins (Verified Allergy, Unknown, unk, 12/01/19) Sulfa (Sulfonamide Antibiotics) (Verified Allergy, Unknown, unk, 12/01/19) Uncoded Allergies: CONTRAST (Allergy, Severe, Anaphylaxis Shock, 03/13/20) Home Meds Active Scripts Ciprofloxacin Hcl (CIPRO) 500 Mg Tablet, 500 MG PO BID, #14 Prov:GI MILLER MD 12/01/21 Tramadol Hcl (TRAMADOL HCL) 50 Mg Tablet, 50 MG PO Q6 PRN for PAIN, #20 TABLET Prov:GI MILLER MD 10/04/21 Tamsulosin Hcl (FLOMAX) 0.4 Mg Cap.er.24h, 0.4 MG PO DAILY24, #14 CAPSULE Prov:GI MILLER MD 10/04/21 Vital Signs First Vital Signs Date Time Temp Pulse Resp B/P (MAP) Pulse Ox O2 Delivery O2 Flow Rate FiO2 01/21/22 13:13 73 01/21/22 13:22 98.0 18 95 01/21/22 13:22 143/99 (114) Room Air* 0 21 Last Vital Signs Date Time Temp Pulse Resp B/P (MAP) Pulse Ox O2 Delivery O2 Flow Rate FiO2 01/21/22 14:23 98.0 77 18 119/80 (93) 93 Room Air* 0 21 Past Medical History Medical History: other Surgical History: Social History Alcohol Use: none Drug Use: none Constitutional: no symptoms reported EENTM: no symptoms reported Cardiovascular: no symptoms reported Gastrointestinal: abdominal pain Genitourinary: no symptoms reported Musculoskeletal: back pain Skin: no symptoms reported Psychiatric/Neurological: anxiety Endocrine: no symptoms reported Hematologic/Lymphatic: no symptoms reported Physical Exam General Appearance: Anxious HEENT: PERRL/EOMI, Normal ENT Inspection, TMs Normal, Pharynx Normal Neck: Non-Tender, Full Range of Motion, Supple, Normal Inspection Respiratory: chest non-tender, lungs clear, normal breath sounds, no respiratory distress, no accessory muscle use Cardiovascular: Normal Peripheral Pulses, Regular Rate, Rhythm, No Edema, No Gallop, No JVD, No Murmur Gastrointestinal: Normal Bowel Sounds, Non Tender, Soft Back: CVA Tenderness (L) Extremities: Normal Range of Motion, Non-Tender, Normal Inspection, No Pedal Edema, No Calf Tenderness, Normal Capillary Refill, Pelvis Stable Neurologic/Psychiatric: 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 (01/21/22 13:03) PT (01/21/22 13:03) Partial Thromboplastin Time. (01/21/22 13:03) Hcg Qualitative Serum (01/21/22 13:03) Urinalysis (01/21/22 13:03) Saline Lock (01/21/22 13:03) Ct Abd/Pelvis Wo Iv Contrast (01/21/22 13:03) Urine Culture (01/21/22 UNK) Vital Signs Date Time Temp Pulse Resp B/P (MAP) Pulse Ox O2 Delivery O2 Flow Rate FiO2 01/21/22 14:23 98.0 77 18 119/80 (93) 93 Room Air* 0 21 01/21/22 13:22 98.0 90 18 143/99 (114) 93 Room Air* 0 21 01/21/22 13:22 98.0 90 18 95 01/21/22 13:13 73 Laboratory Tests Test 01/21/22 00:00 White Blood Count 17.3 10^3/uL (4.5-11.0) H Red Blood Count 4.23 10^6/uL (4.00-5.20) Hemoglobin 14.1 g/dL (12.0-15.0) Hematocrit 41.9 % (36.0-46.0) Mean Corpuscular Volume 99.1 fL (78-100) Mean Corpuscular Hemoglobin 33.3 pg (26-34) Mean Corpuscular Hemoglobin Concent 33.7 g/dL (33-36.5) Red Cell Distribution Width 12.6 % (11.5-14.5) Platelet Count 290 10^3/uL (150-400) Mean Platelet Volume 9.9 fL (7.8-11.0) Neutrophils (%) (Auto) 90.2 % (41.0-85.0) *H Lymphocytes (%) (Auto) 6.0 % (24.0-44.0) *L Monocytes (%) (Auto) 2.7 % (5.0-12.0) L Neutrophils # (Auto) 15.6 10^3/uL (1.8-7.7) H Lymphocytes # (Auto) 1.03 10^3/uL1 (1.0-4.8) Monocytes # (Auto) 0.5 10^3/uL (0.3-0.8) Absolute Immature Granulocyte (auto 0.03 10^3 u/L (0-2) Absolute Eosinophils (auto) 0.0 10^3/uL (0.0-0.2) Immature Granulocytes % 0.20 % (0.00-0.50) Eosinophils % 0.1 % (0.0-5.0) Basophils % 0.8 % (0.0-0.2) H Basophils # 0.1 10^3/uL (0.0-0.1) Prothrombin Time 11.9 SEC (9.1-11.5) H Prothrombin Time INR (Non-Therap) 1.2 Activated Partial Thromboplast Time 21.0 SEC (22.5-33.1) L Urine Collection Type RANDOM Urine Color YELLOW Urine Appearance CLOUDY Urine Bilirubin NEGATIVE (NEGATIVE) Urine Ketones 1+ (NEGATIVE) H Urine Specific [place] 1.020 (1.005-1.030) Urine pH 6.0 (4.5-8.0) Urine Protein TRACE (NEGATIVE) Urine Urobilinogen 0.2 E.U./dL (0.2) Urine Nitrate NEGATIVE (NEGATIVE) Urine Leukocyte Esterase TRACE (NEGATIVE) H Urine Glucose (Auto)(UA) NEGATIVE (NEGATIVE) Urine Blood 1+ (NEGATIVE) H Urine RBC 5-10 RBC/HPF (NONE SEEN) H Urine WBC 10-25 WBC/HPF (0-2) H Urine Squamous Epithelial Cells FEW (<=FEW) Urine Bacteria FEW (NONE SEEN) H Sodium Level 139 mmol/L (132-145) Potassium Level 3.3 mmol/L (3.6-5.2) L Chloride Level 104.0 mmol/L (96-109) Carbon Dioxide Level 22.7 mmol/L (20.0-32) Anion Gap 15.6 Blood Urea Nitrogen 18 mg/dL (7-18) Creatinine 1.05 mg/dL (0.59-1.40) Estimated GFR () 68.6 (>/=60) Est GFR (CKD-EPI)(Non-Afr [place]) 56.7 (>/=60) BUN/Creatinine Ratio 17.0 Glucose Level 161 mg/dL (70-110) H Calcium Level 9.5 mg/dL (8.4-10.5) Total Bilirubin 0.3 mg/dL (0.2-1.0) Aspartate Amino Transferase (AST) 14 U/L (0-35) Alanine Aminotransferase (ALT) 8 U/L (12-78) L Alkaline Phosphatase 62 U/L (50-136) Total Protein 7.2 g/dL (6.4-8.2) Albumin 3.7 g/dL (3.4-5.0) Globulin 3.5 Albumin/Globulin Ratio 1.057 Lipase 21 U/L (16-77) Serum HCG, Qualitative NEGATIVE (NEGATIVE) Progress Progress Patient here history of kidney stones will obtain CT scan patient already got anxiety and pain control from EMS we will hold off at this time as patient can hardly stand up and is drooling in the room. However we will continue to work- up with labs and urine. [id number] has metabolized off her Versed is awake and alert. All work-up is reassuring any infection appearing in urine does appear to be contamination. Patient was understanding when to follow-up and when to return to the ER. ER DEPART Departure Time of Disposition: 14:50 Disposition: 01 HOME / SELF CARE / HOMELESS Impression: Primary Impression: Flank pain Condition: Improved Patient Instructions: Flank Pain, [id number] Referrals: GI MILLER MD (PCP) PRIMARY CARE PROVIDER Additional Instructions: Please follow-up with your primary care provider in 1 week. If you have any new persistent or worsening symptoms or concerns seek medical attention. Please take all medication as prescribed. Duration or Time Spent with Pa: 45 THERESA GUTIERREZ MD Jan 21, 2022 14:46
[2022-01-21 14:51] VITALS: BP 119/80
[2022-01-21 19:45] LABS: BAND NEUTROPHILS 0 % (2-6); BASOPHIL 0 % (0-2); EOSINOPHIL 0 % (1-4); LYMPHOCYTE 7 % (25-36); MONOCYTE 4 % (3-9); SEGMENTED NEUTROPHILS 89 % (31-76); SMUDGE CELLS 1+ (NEGATIVE)
== END 2022-01-21 14:55 | disposition home or self-care (01) ==
LOC: EDBD 12:57 → EDUNIT# 12:57 → ER 12:57
DX: R10.9 Unspecified abdominal pain (principal); F41.9 Anxiety disorder, unspecified; N20.0 Calculus of kidney; Z88.0 Allergy status to penicillin; Z88.2 Allergy status to sulfonamides
CPT/HCPCS: 36415; 74176; 80053; 81001; 83690; 84703; 85025; 85610; 85730; 87086; 99284

== ENCOUNTER 2022-02-20 20:17 | Emergency (ER) | payer OTHER ==
[~2022-02-20] VITALS: Ht 175.3 cm; Wt 54.4 kg
--- NOTE | 2022-02-20 20:17 | NUR ---
Arrival Pt well known to ED , arrived via EMS accompanied by EMT-P x 2 , pt moved self from EMS guraustin to Hosptial bed, report recieved, asked pt to remove her leather black jacket to apply monitors pt stated well they were doing my blood pressure through the jacket, expained to pt I would need accurate BP so jacket would need to be removed, pt states she has PTSD , moniotrs applied, pt flailing arms in air demanding a CT for her left flank pain, yells out moans grabs left flank, pt demanding everything be done for her right now pt states CT now, Pt informed that this nurse cannot prescribe treatmnet MD Dr. Rcohe notified of pt arrival, Dr Roche in to see pt , pt refiuses blood work and UA. Pt states she just wants a CT. Pt son at the desk states his mother was here in January and left her insurance card here . this young mab was sent to registration to inquire o whereabouts of cards.
[2022-02-20 20:21] VITALS: BP 163/117
--- NOTE | 2022-02-20 21:20 | NUR ---
BEHAVIORS PT PRESSED CALL [facility] [place] BUT DOES NOT RESPOND OVER CALL SYSTEM. THIS NURSE GOES INTO ROOM WHERE PT YELLS "OH THANK GOD AT LEAST SOMEONE CAME". WHEN INQUIRED ABOUT NEEDS, PT STARTS YELLING AT THIS NURSE "PEOPLE HERE HAVE CALLED ME A DRUG ADDICT IN THE PAST, YALL THINK IM CRAZY, I DON'T NEED ANY OF YOUR TESTS TO TELL ME WHAT IS GOING ON I KNOW I HAVE A KIDNEY STONE AND I NEED SOMETHING TO HELP WITH THIS PAIN IMMEDIATELY, THE DOCTOR TOLD ME HE HAS TO WAIT FOR RESULTS TO TELL ME ANYTHING BUT HOW LONG IS THAT GOING TO TAKE BECAUSE I NEED SOMETHING FOR THIS PAIN NOW!" THIS NURSE TRIES TO EXPLAIN TO PATIENT AND SON AT BEDSIDE THAT ALL RADIOLOGY RESULTS ARE SENT TO [facility] TO BE READ AND THEN SENT BACK, PT THEN STATES "WELL I NEED TO KNOW THE FACILITY AND THE PHONE NUMBER SO I CAN CALL THEM AND VILCHIS THEM ALONG BECAUSE I HAVE TO HAVE MEDICINE FOR THIS PAIN RIGHT NOW!" THIS NURSE EXPLAINS THAT IS NOT POSSIBLE AND THAT WE CANNOT GIVE OUT THAT INFORMATION, PATIENT BECOMES VERY ANGRY RAISING HER VOICE EVEN MORE REPEATING ALL THE ABOVE STATEMENTS ONCE MORE. EDP AND CHARGE NURSE NOTIFIED.
--- NOTE | 2022-02-20 21:28 | DIREP ---
PROCEDURE:CT ABDOMEN/PELVIS W/O CONTRAST COMPARISON:[facility], CT, CT RENAL STONE PROTOCOL, 01/21/2022, 01:18 PM. [facility], CT, CT ABD/PELVIS W/O, 11/20/2021, 05:33 PM. INDICATIONS:Left flank pain TECHNIQUE:Axial images were created through the abdomen and pelvis without intravenous contrast material. No oral contrast was administered. Sagittal and coronal reconstructions were performed from source images. FINDINGS: LUNG BASES:Mild emphysematous changes. No focal consolidation or pleural effusion. Normal heart size. LIVER:Stable 2.2 cm hypodense lesion in the hepatic dome. Otherwise normal for technique. BILIARY:Normal. No visible dilatation or calcification. PANCREAS:Normal for technique. SPLEEN:Normal for technique. ADRENALS:Normal. No mass or enlargement. URINARY TRACT:Multiple nonobstructing right renal calculi measuring up to 4 mm similar prior. There is a 3 mm calculus in the distal right ureter. No right hydronephrosis. There is a 3 mm calculus in the distal left ureter with moderate upstream hydronephrosis. There is surrounding inflammatory stranding about the left ureter and left renal pelvis. Urinary bladder is underdistended, limiting evaluation. AORTA/VASCULAR:Mild scattered calcified atherosclerosis without abdominal aortic aneurysm. RETROPERITONEUM:Normal. No mass or adenopathy. BOWEL/MESENTERY:The appendix is visualized and appears normal. There is no intestinal obstruction, free fluid, free air or mesenteric inflammatory changes. ABDOMINAL WALL:Normal. No mass or hernia. PELVIC ORGANS:Normal. No visible mass. Pelvic organs appropriate for patient age. BONES:No acute or aggressive osseous abnormality. Stable sclerotic focus in the right iliac bone consistent with bone island. OTHER:Noncontrast technique decreases diagnostic sensitivity. CONCLUSION: 1. Previously-seen left mid renal calculus has likely migrated in the distal ureter with moderate upstream hydronephrosis. 2. Nonobstructing right distal ureteral calculus and multiple nonobstructing right renal calculi. 3. Hypodense lesion in the hepatic dome may represent a hemangioma, though is incompletely characterized. This can be further evaluated with MRI if clinically indicated. Dictated by: Samule Doran M.D. on 02/20/2022 at 09:19 PM
--- NOTE | 2022-02-20 21:38 | NUR ---
BEHAVIORS EDP OFFERS FLOMAX TO BE GIVEN ONE DOSE HERE AND THEN CONTINUED Rx, PATIENT REFUSES MEDS STATING "NO I DON'T NEED THAT I NEED SOMETHING STRONGER THAT'S NOT GOING TO WORK"
[2022-02-20] MEDS ORDERED: BENADRYL IM STA (21:41)
[2022-02-20] MEDS ORDERED: ZOFRAN ODT ONE (21:41)
[2022-02-20] MEDS ORDERED: MORPHINE SULFATE IM STA (21:41)
[2022-02-20] MEDS ORDERED: BENADRYL ONE (21:41)
[2022-02-20] MEDS ORDERED: MORPHINE SULFATE ONE (21:41)
[2022-02-20] MEDS ORDERED: ZOFRAN ODT SL STA (21:41)
--- NOTE | 2022-02-20 21:44 | NUR ---
medication requests by pt son Pt son arrived at nurses station requests to talk to physsina, physician not available at this time, pt son requests antiemetic be ordered for home treatment, Pt son informed zofran has been ordered and will be administered. pt son states ok then returns to desk states he would prefer pt be prescribed promthazine for N/V due to her high pain and strong pain medicine causing her nausea. Son informed physician would be notified. Dr. Roche notified of pt's sons request for promethazine.
--- NOTE | 2022-02-20 21:51 | ER.PDOC ---
General Chief Complaint: Requesting Medical Care Stated Complaint: KIDNEY STONES Time seen by MD: 21:00 Source: patient Exam Limitations: no limitations History of Present Illness Initial Comments Left flank pain since this morning. She has nausea but no vomiting. No fever or chills. Severity/Quality: moderate Radiation: LLQ Associated Symptoms: other (nausea) Exacerbated by: nothing Allergies: Coded Allergies: shellfish derived (Verified Allergy, Severe, 03/13/20) chlorhexidine (Verified Allergy, Mild, Rash, 03/13/20) Penicillins (Verified Allergy, Unknown, unk, 12/01/19) Sulfa (Sulfonamide Antibiotics) (Verified Allergy, Unknown, unk, 12/01/19) Uncoded Allergies: CONTRAST (Allergy, Severe, Anaphylaxis Shock, 03/13/20) Home Meds Active Scripts Ciprofloxacin Hcl (CIPRO) 500 Mg Tablet, 500 MG PO BID, #14 Prov:GI MILLER MD 12/01/21 Tramadol Hcl (TRAMADOL HCL) 50 Mg Tablet, 50 MG PO Q6 PRN for PAIN, #20 TABLET Prov:GI MILLER MD 10/04/21 Tamsulosin Hcl (FLOMAX) 0.4 Mg Cap.er.24h, 0.4 MG PO DAILY24, #14 CAPSULE Prov:GI MILLER MD 10/04/21 Vital Signs First Vital Signs Date Time Temp Pulse Resp B/P (MAP) Pulse Ox O2 Delivery O2 Flow Rate FiO2 02/20/22 20:21 98.5 81 20 163/117 (132) 99 Room Air* 0 21 Last Vital Signs Date Time Temp Pulse Resp B/P (MAP) Pulse Ox O2 Delivery O2 Flow Rate FiO2 02/20/22 20:21 98.5 81 20 02/20/22 20:21 99 02/20/22 20:21 163/117 (132) Room Air* 0 21 Past Medical History Medical History: other (Kidney stones) Surgical History: Family History Significant Family History: no pertinent family hx Social History Smoking: non-smoker Alcohol Use: none Drug Use: none Constitutional: no symptoms reported EENTM: no symptoms reported Respiratory: no symptoms reported Cardiovascular: no symptoms reported Genitourinary: see HPI All Other Systems: Reviewed and Negative Physical Exam General Appearance: No Apparent Distress, WD/WN HEENT: PERRL/EOMI, Normal ENT Inspection, TMs Normal, Pharynx Normal Neck: Non-Tender, Full Range of Motion, Supple, Normal Inspection Respiratory: chest non-tender, lungs clear, normal breath sounds, no respiratory distress, no accessory muscle use Gastrointestinal: Normal Bowel Sounds, No Organomegaly, No Pulsatile Mass, Tenderness (LLQ) Back: Normal Inspection, No CVA Tenderness, No Vertebral Tenderness Extremities: Normal Range of Motion, Non-Tender, Normal Inspection, No Pedal Edema, No Calf Tenderness, Normal Capillary Refill, Pelvis Stable 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, No Motor/Sensory Deficits, Alert, Normal Mood/Affect, Oriented x 3 Skin: Normal Color, Warm/Dry Lymphatic: No Adenopathy Results/Orders Results/Orders Orders - CURTIS HAWKINS MD Ct Abd/Pelvis Wo Iv Contrast (02/20/22 20:30) Ondansetron (Zofran Odt) (02/20/22 21:41) Diphenhydramine Hcl (Benadryl) (02/20/22 21:41) Morphine Sulfate (Morphine Sulfate) (02/20/22 21:41) Ondansetron (Zofran Odt) (02/20/22 21:41) Morphine Sulfate (Morphine Sulfate) (02/20/22 21:41) Diphenhydramine Hcl (Benadryl) (02/20/22 21:41) Vital Signs Date Time Temp Pulse Resp B/P (MAP) Pulse Ox O2 Delivery O2 Flow Rate FiO2 02/20/22 20:21 98.5 81 20 02/20/22 20:21 98.5 81 20 99 02/20/22 20:21 98.5 81 20 163/117 (132) 99 Room Air* [address] abdomen/pelvis: Previously-seen left mid renal calculus has likely migrated in the distal ureter with moderate upstream hydronephrosis. 2. Nonobstructing right distal ureteral calculus and multiple nonobstructing right renal calculi. 3. Hypodense lesion in the hepatic dome may represent a hemangioma, though is incompletely characterized. This can be further evaluated with MRI if clinically indicated. Patient refused labs and urinalysis. She received morphine 4 mg IM, Zofran ODT and Benadryl 25 mg IM. As its been in the past, patient has been arrogant to both DrBrandon and nurses. See Nurses notes for details. Knowing the patient, even though she refused to give a urine sample, I will treat her for UTI. She has a history of recurrent UTIs. Patient refused me from prescribing Flomax. She does not want to take Flomax. ER DEPART Departure Time of Disposition: 21:49 Disposition: 01 HOME / SELF CARE / HOMELESS Impression: Primary Impression: Ureteral stone with hydronephrosis Additional Impression: Ureteral colic Condition: Improved Referrals: GI MILLER MD (PCP) PRIMARY CARE PROVIDER Additional Instructions: Tylenol 3 Ciprofloxacin Phenergan Push fluids at home Follow-up with Dr. Miller in 2 to 3 days if no improvement Return to ED if worsening symptoms or concerns Duration or Time Spent with Pa: 20 min Problem Qualifiers CURTIS HAWKINS MD Feb 20, 2022 21:51
--- NOTE | 2022-02-20 21:54 | NUR ---
PT IS BEING DIFFICULT AND RUDE. PT BEGANE TO RAISE HER VOICE AT THIS NURSE AND DEMANDED THAT I GIVE MEDICATIONS TO HER LEFT HIP SO THE MEDICINE CAN WORK FASTER. PT THEN WAS UPSET BECAUSE SHE STATED THE PHARMACY IS CLOSED AND SHE IS LETTING THE STAFF KNOW THAT SHE WILL BE BACK IN A FEW HOURS IN ANOTHER AMBULANCE TO GET MORE PAIN MEDICATION.
--- NOTE | 2022-02-20 21:59 | NUR ---
BEHAVIORS SCREAMING HEARD BY NURSES AT STATION, WHEN WENT TO CHECK ON PT, FOUND EDP TRYING TO GIVE DISCHARGE INFORMATION/INSTRUCTIONS. PT AGAIN VERY ANGRY AND YELLING AT EDP.
--- NOTE | 2022-02-20 22:01 | NUR ---
BEHAVIORS PATIENT REFUSED TO RECEIVE DISCHARGE INSTRUCTIONS, STARTS TO LOOK THROUGH PHONE AND TELLS THIS NURSE "YOU CAN TELL HIM BECAUSE I TOLD [facility] I NEED BETTER PAIN MEDICATIONS" WHILE POINTING TO SON AT BEDSIDE. SON TRIES TO CONSOLE PATIENT AND TELLS HER NOT TO RAISE HER VOICE. THIS NURSE CONTINUES TO GIVE DISCHARGE INSTRUCTIONS, PATIENT CUTS THIS NURSE OFF STATING "IT DOES NOT MATTER BECAUSE I WILL BE CALLING THE AMBULANCE AT 3A.M. OR 4A.M. BECAUSE I KNOW THAT [facility] DID NOT GIVE ME ENOUGH PAIN MEDICATION." SON VERBALIZES UNDERSTANDING OF Rx GIVEN AND DISCHARGE INSTRUCTIONS GIVEN. PATIENT DOES AGREE TO SIGN DISCHARGE PAPERS AT THIS TIME. PATIENT ADVISED TO HAVE A GOOD NIGHT AND TO RETURN IF SHE FEELS SHE IS HAVING A MEDICAL EMERGENCY. SON THANKS THIS NURSE AND APOLOGIZES FOR PATIENT'S ACTIONS.
== END 2022-02-20 22:01 | disposition home or self-care (01) ==
LOC: ER 20:17
DX: N13.2 Hydronephrosis with renal and ureteral calculous obstruction (principal); N23 Unspecified renal colic; Z87.442 Personal history of urinary calculi; Z88.0 Allergy status to penicillin; Z88.2 Allergy status to sulfonamides
CPT/HCPCS: 99285; 74176; 96372 ×2; J1200

== ENCOUNTER 2022-02-23 07:43 | Day surgery (SDC) | payer OTHER ==
[2022-02-23] VITALS (18 sets, daily range): BP systolic 110–206; BP diastolic 76–138
[~2022-02-23] VITALS: Ht 172.7 cm; Wt 54.4 kg
--- NOTE | 2022-02-23 07:55 | NUR ---
ARRIVAL PT BROUGHT VIA W/C TO ED6 WITH C/O LEFT FLANK PAIN. PT STATED SHE WAS TOLD BY TO REPORT TO ED. PT STATES HER PAIN IS 8/10, DESCRIBED STABBING. PT TOOK TYLENOL, BENADRYL, AND PROMETHAZINE THIS MORNING AT 0700. VITALS OBTAINED. NOTIFIED OF PTS ARRIVAL.
[2022-02-23 08:19] LABS: BILIRUBIN,URINE NEGATIVE (NEGATIVE); UROBILINOGEN,URINE 0.2 E.U./dL (0.2)
--- NOTE | 2022-02-23 08:36 | ER.PDOC ---
General Chief Complaint: Flank Pain Stated Complaint: GENERAL Time seen by MD: 07:55 Source: patient, other (Dr. Miller) Exam Limitations: no limitations History of Present Illness Initial Comments Dr. Miller called - stated that recently pt seen to have BL Ureteral stones and patient was having pain so he sent her into the ER is that he believes that she will need emergent stents placed. Patient is a 46-year-old female with a past medical history of a very complicated and recurrent kidney stones who comes in with bilateral flank pain over the past week was recently diagnosed with bilateral ureteral stones and is still having pain and Dr. Miller believes that she will need bilateral stents so she is here in the ER. Patient states that the pain is similar to her past kidney pain. States that it starts in her bilateral kidneys radiates to her groin is sharp in nature made worse with movement palpation better with rest. Patient states however that the pain has gone from intermittent where it is almost constant she has associated symptoms of mild nausea without vomiting patient is also very anxious. Patient denies any other symptoms or concerns at this time. Allergies: Coded Allergies: shellfish derived (Verified Allergy, Severe, 03/13/20) chlorhexidine (Verified Allergy, Mild, Rash, 03/13/20) Penicillins (Verified Allergy, Unknown, unk, 12/01/19) Sulfa (Sulfonamide Antibiotics) (Verified Allergy, Unknown, unk, 12/01/19) Uncoded Allergies: CONTRAST (Allergy, Severe, Anaphylaxis Shock, 03/13/20) Home Meds Active Scripts Ciprofloxacin Hcl (CIPRO) 500 Mg Tablet, 500 MG PO BID, #14 Prov:GI MILLER MD 12/01/21 Tramadol Hcl (TRAMADOL HCL) 50 Mg Tablet, 50 MG PO Q6 PRN for PAIN, #20 TABLET Prov:GI MILLER MD 10/04/21 Tamsulosin Hcl (FLOMAX) 0.4 Mg Cap.er.24h, 0.4 MG PO DAILY24, #14 CAPSULE Prov:GI MILLER MD 10/04/21 Vital Signs First Vital Signs Date Time Temp Pulse Resp B/P (MAP) Pulse Ox O2 Delivery O2 Flow Rate FiO2 02/23/22 08:09 97.8 103 20 100 02/23/22 08:09 151/102 (118) Room Air* 0 21 Last Vital Signs Date Time Temp Pulse Resp B/P (MAP) Pulse Ox O2 Delivery O2 Flow Rate FiO2 02/23/22 08:09 97.8 103 20 151/102 (118) 100 Room Air* 0 21 Past Medical History Medical History: other Surgical History: , renal Family History Significant Family History: no pertinent family hx Social History Smoking: non-smoker Alcohol Use: none Drug Use: none Reviewed Nursing Reviewed: Vital Signs, Abn. Noted, Nursing Assessment Constitutional: no symptoms reported EENTM: no symptoms reported Respiratory: no symptoms reported Cardiovascular: no symptoms reported Gastrointestinal: abdominal pain, nausea Genitourinary: no symptoms reported Musculoskeletal: no symptoms reported Skin: no symptoms reported Psychiatric/Neurological: anxiety Endocrine: no symptoms reported Hematologic/Lymphatic: no symptoms reported Physical Exam General Appearance: Anxious HEENT: PERRL/EOMI, Normal ENT Inspection, TMs Normal, Pharynx Normal Neck: Non-Tender, Full Range of Motion, Supple, Normal Inspection Respiratory: chest non-tender, lungs clear, normal breath sounds, no respiratory distress, no accessory muscle use Cardiovascular: Normal Peripheral Pulses, Regular Rate, Rhythm, No Edema, No Gallop, No JVD, No Murmur Gastrointestinal: Normal Bowel Sounds, Non Tender, Soft Back: CVA Tenderness (R), CVA Tenderness (L) Extremities: Normal Range of Motion, Non-Tender, Normal Inspection, No Pedal Edema, No Calf Tenderness, Normal Capillary Refill, Pelvis Stable Neurologic/Psychiatric: No Motor/Sensory Deficits, Alert, Oriented x 3 Skin: Normal Color, Warm/Dry Lymphatic: No Adenopathy Results/Orders Results/Orders Orders - THERESA GUTIERREZ MD Cbc With Auto Diff (02/23/22 08:05) Urinalysis (02/23/22 08:05) Urology Consult (02/23/22 08:05) Vital Signs Date Time Temp Pulse Resp B/P (MAP) Pulse Ox O2 Delivery O2 Flow Rate FiO2 02/23/22 08:09 97.8 103 20 151/102 (118) 100 Room Air* 0 21 02/23/22 08:09 97.8 103 20 02/23/22 08:09 97.8 103 20 100 Progress Progress Extensive work up done recently - Dr. Miller states pt only needs CBC - he will admit to outpt surgery and DC from there 0830 - Dr. Miller here and admit orders in - no need for further investigation or work up at this time- pt HDS ER DEPART Departure Time of Disposition: 08:35 Disposition: 09 ADMITTED INPATIENT (out pt Surgery ) Impression: Primary Impression: Calculus of kidney Condition: Stable Referrals: GI MILLER MD (PCP) PRIMARY CARE PROVIDER Duration or Time Spent with Pa: 20 THERESA GUTIERREZ MD Feb 23, 2022 08:36
[2022-02-23 09:05] LABS: BASOPHIL # 0.1 10^3/uL (0.0-0.1); BASOPHIL % 1.3 % (0.0-0.2); EOSINOPHIL # 0.1 10^3/uL (0.0-0.2); LYMPHOCYTES # 2.72 10^3/uL1 (1.0-4.8); LYMPHOCYTES % 25.6 % (24.0-44.0); MEAN CORP HGB 33.4 pg (26-34); MONOCYTES # 0.7 10^3/uL (0.3-0.8); MONOCYTES % 6.9 % (5.0-12.0); NEUTROPHIL # 6.9 10^3/uL (1.8-7.7); NEUTROPHILS % 64.8 % (41.0-85.0); PLATELET COUNT 288 10^3/uL (150-400); RED CELL DISTRIBUTION WIDTH 12.6 % (11.5-14.5)
--- NOTE | 2022-02-23 09:23 | NUR ---
OR ZBIGNIEW RODRIGUEZ RN TOOK PT BY W/C TO OR FOR SURGERY AT THIS TIME.
[2022-02-23] MEDS ORDERED: LACTATED RINGERS 1,000 ML ONE (09:27)
[2022-02-23] MEDS ORDERED: LEVAQUIN 100 ML IV ONE (09:27)
[2022-02-23] MEDS ORDERED: VERSED ONE (09:51)
[2022-02-23] MEDS ORDERED: NORCO 7.5MG PO PRN (11:00)
[2022-02-23] MEDS ORDERED: LACTATED RINGERS 1,000 ML IV SCH (11:00)
[2022-02-23] MEDS ORDERED: APRESOLINE IV STA ×2 (11:10→11:25)
[2022-02-23] MEDS ORDERED: TRAM50TA PO (11:11)
[2022-02-23] MEDS ORDERED: CIPR500T86 PO (11:11)
[2022-02-23] MEDS ORDERED: APRESOLINE ONE (11:13)
[2022-02-23] MEDS ORDERED: NS 250ML 250 ML ONE (11:16)
--- NOTE | 2022-02-23 13:23 | OPH ---
DATE OF SURGERY: 02/23/2022 DICTATOR NAME: Andres Beltran MD PREOPERATIVE DIAGNOSES: Calculus in both lower ureter with left hydronephrosis. FINAL DIAGNOSES: Calculus in both lower ureter with left hydronephrosis. PROCEDURES: Cystoscopy, bilateral retrograde with bilateral ureteroscopy with bilateral ureteral basket stone extraction of both lower ureters. DESCRIPTION OF PROCEDURE: The patient was brought to the cystoscopy room, was put in supine position in the cystoscopy table. After the patient was given a satisfactory and LMA general anesthesia, the patient was placed in the lithotomy position. The genitalia was then prepped and draped aseptically in the usual manner. First, a 23-Anguillan cystoscope was inserted per urethra up to the bladder. With the use of the right angle lens, the bladder was visualized. Both ureteral orifices were identified. An initial right retrograde was done by inserting a 7-Anguillan ureteral catheter at the right ureteral orifice, and then injecting with Omnipaque dye and it showed possible calculus in the right lower ureter and a separate retrograde was also done on the left side by inserting a ureteral catheter at the left ureteral orifice, injecting with Omnipaque dye and it showed a calculus in the left lower ureter with left hydronephrosis. So, after that, the cystoscope was removed and in the left ureteral orifice, a Glidewire was inserted and then a 7-Anguillan ureteroscope was then inserted up to the left ureter and a stone was easily noted and a basket stone extraction was then performed. After this was done, the Glidewire was removed in the left ureteral orifice and another ureteroscopy was done on the right side and there was a calculus noted in the lower ureter, and a basket stone extraction was performed. After completion of the successful bilateral ureteral stone extraction, the ureteroscope was removed and a cystoscope was reinserted into the bladder and the bladder was emptied with fluid. Procedure was terminated. The instrument was removed. The patient was then awakened, was transferred to the recovery room in stable condition. Andres Beltran MD DR: JASON/JEAN/GREGORIO/MASON TIAlexey: [id number] RECEIPT: [id number]
--- NOTE | 2022-02-23 17:16 | DIREP ---
PROCEDURE:XRAY UROGRAPHY RETROGRADE COMPARISON:[facility], CR, XRAY UROGRAPHY RETROGRADE, 11/22/2021, 11:12 AM. [facility], CR, XRAY UROGRAPHY RETROGRADE, 08/21/2021, 03:18 PM. INDICATIONS:RETROGRADE CYSTO FINDINGS: Intraoperative fluoroscopy was provided for the ordering clinician by the Radiology Department for retrograde cystogram, as demonstrated on the 14 submitted images. 232.9 seconds fluoroscopy time utilized. CONCLUSION: Intraoperative fluoroscopy provided for the ordering clinician by the Radiology Department as detailed above. Dictated by: Gregg Celeste DO on 02/23/2022 at 05:09 PM
--- NOTE | 2022-02-24 00:28 | CNH ---
DATE OF CONSULTATION: 02/23/2022 DICTATOR NAME: Andres Beltran MD This is a consultation from the Emergency Room. The patient was referred for urological evaluation due to flank pain. The patient has a CAT scan done 2 days ago and it showed stones on both the lower ureters with left hydronephrosis, so case was discussed with the patient today, and I am going to admit him to outpatient and we are going to schedule him for cystoscopy, retrograde with possible ureteroscopy with stone extraction and stent insertion. Andres Beltran MD DR: RONAN TID: [id number] RECEIPT: [id number]
== END 2022-02-23 12:45 | disposition home or self-care (01) ==
LOC: ER 07:43 → SDC 08:30
PROVIDERS: ATTEND Urology
DX: N13.2 Hydronephrosis with renal and ureteral calculous obstruction (principal); F43.12 Post-traumatic stress disorder, chronic; F41.9 Anxiety disorder, unspecified; F32.9 Major depressive disorder, single episode, unspecified; I10 Essential (primary) hypertension; N39.0 Urinary tract infection, site not specified; Z72.0 Tobacco use; Z87.442 Personal history of urinary calculi; Z96.0 Presence of urogenital implants; Z83.3 Family history of diabetes mellitus; Z82.49 Family history of ischemic heart disease and other diseases of the circulatory system; Z88.0 Allergy status to penicillin; Z88.2 Allergy status to sulfonamides; Z91.013 Allergy to seafood; Z88.8 Allergy status to other drugs, medicaments and biological substances; Z91.041 Radiographic dye allergy status; Z79.2 Long term (current) use of antibiotics; Z79.899 Other long term (current) drug therapy
CPT/HCPCS: 52352; 99285; 87086; 74420; 85025; 36415; 82360 ×2; 81001; J7050; J7120; C1769; J0360; J1956; J2250; Q9965; 76000; C1758; C1894

== ENCOUNTER 2024-03-02 03:40 | Emergency (ER) | payer OTHER ==
[~2024-03-02] VITALS: Ht 172.7 cm; Wt 54.4 kg
[~2024-03-02 03:40] MED LIST changes: +ONDA-226 PO; -ONDA4TAB13 PO
[2024-03-02 04:10] VITALS: BP 165/120; PULSE 95; RESP 24; TEMP 97.9; O2SAT 100
[2024-03-02 04:18] LABS: BASOPHIL # 0.2 10^3/uL (0.0-0.1); BASOPHIL % 1.6 % (0.1-1.2); EOSINOPHIL # 0.2 10^3/uL (0.0-0.2); EOSINOPHIL % 2.3 % (0.0-5.0); HEMATOCRIT(ML) 47.4 % (36.0-46.0); HEMOGLOBIN 16.1 g/dL (12.0-15.0); LYMPHOCYTES # 3.35 10^3/uL1 (1.0-4.8); LYMPHOCYTES % 34.5 % (24.0-44.0); MEAN CORP VOLUME 97.1 fL (78-100); MONOCYTES # 0.5 10^3/uL (0.3-0.8); MONOCYTES % 4.9 % (5.0-12.0); NEUTROPHIL # 5.5 10^3/uL (1.8-7.7); NEUTROPHILS % 56.6 % (41.0-85.0); PLATELET COUNT 347 10^3/uL (150-400); RED BLOOD CELL 4.88 10^6/uL (4.00-5.20); WHITE BLOOD CELL 9.7 10^3/uL (4.5-11.0)
[2024-03-02] MEDS ORDERED: ZOFRAN ONE (04:18)
[2024-03-02 04:19] LABS: +ADD MANUAL DIFF(NO CHRG) NO
[2024-03-02] MEDS: ZOFRAN IV STA (04:22)
[2024-03-02] MEDS ORDERED: TORADOL ONE (04:23)
[2024-03-02 04:25] LABS: INR 1.1; PROTHROMBIN PROTIME 11.4 SEC (9.3-11.6)
[2024-03-02 04:27] LABS: BILIRUBIN,URINE NEGATIVE (NEGATIVE); LEUKOCYTE ESTERASE ,URINE 1+ (NEGATIVE); NITRATE,URINE NEGATIVE (NEGATIVE); UROBILINOGEN,URINE 0.2 E.U./dL (0.2)
[2024-03-02 04:28] LABS: APPEARANCE,URINE CLOUDY; UA COLOR YELLOW
[2024-03-02 04:28] LABS: ALBUMIN/GLOBULIN RATIO 1.081; ANION GAP 14.5; BUN/CREATININE RATIO 12.03 (10.0-20.0); CALCIUM 10.3 mg/dL (8.4-10.5); CREATININE SERUM 1.08 mg/dL (0.59-1.40); EST GFR, NON-AA 54.4 (>/=60); POTASSIUM 3.5 mmol/L (3.6-5.2)
[2024-03-02] MEDS: TORADOL IV STA (04:33)
[2024-03-02] MEDS ORDERED: OFIRMEV 1000 MG/100 ML 100 ML IV ONE (04:55)
[2024-03-02] MEDS: OFIRMEV 1000 MG/100 ML 100 ML IV STA (04:59)
[2024-03-02 05:10] VITALS: BP 160/120; PULSE 87; RESP 24; TEMP 97.9; O2SAT 100
[2024-03-02] MEDS ORDERED: ROCEPHIN ONE (05:31)
[2024-03-02] MEDS ORDERED: NS 100ML 100 ML IV ONE (05:31)
[2024-03-02] MEDS: ROCEPHIN 2,000 MG in NS 100ML 100 ML IV STA (05:35)
[2024-03-02] MEDS ORDERED: LEVAQUIN 100 ML IV ONE (05:40)
[2024-03-02] MEDS ORDERED: LEVO-16 PO (05:45)
[2024-03-02 05:48] VITALS: BP 161/118; PULSE 91; RESP 24; TEMP 97.9; O2SAT 100
[2024-03-02] MEDS: LEVAQUIN 100 ML IV STA (05:50)
[2024-03-02 06:33] VITALS: BP 152/99; PULSE 85; RESP 20; TEMP 97.9; O2SAT 100
== END 2024-03-02 06:35 | disposition home or self-care (01) ==
LOC: ER 03:40
DX: N39.0 Urinary tract infection, site not specified (principal); Z88.0 Allergy status to penicillin; Z88.2 Allergy status to sulfonamides
CPT/HCPCS: 99285; 74176; 96365; 96375; 96368; 87086; 80053; 85025; 86677; 36415; 81001; 83690; 85610; 85730; 84703; J1885; J0131; J1956; J2405; J0696